=== PATIENT | male | born 1965 | race Caucasian/White ===

== ENCOUNTER 2017-01-22 23:48 | Emergency (ER) | payer BC, MEDICAID, OTHER ==
[~2017-01-22] VITALS: Ht 165.1 cm; Wt 75.0 kg
[2017-01-22 23:48] VITALS: BP 137/77
[~2017-01-22 23:48] MED LIST: ALBU1.25 INH; ALBU83IN INH; CEFT250S PO; LEVA750T7 PO; MONT10TA2 PO; NICO21DI5 TD; OMEP20CA3 PO; PRED10TA PO; PRED20TA PO; TYLE325T5 PO
[2017-01-23] MEDS ORDERED: PERCOCET 5MG/325MG TAB PO ONE (01:00)
[2017-01-23] MEDS ORDERED: IBUPROFEN 600 MG TAB PO ONE (01:00)
--- NOTE | 2017-01-23 02:40 | REPUSA ---
CLINICAL HISTORY: Back pain. TECHNIQUE: Multiple axial images were obtained through the L1-L2, L2-L3, L3-L4, L4-L5 and L5-S1 inter spaces. Images were also reconstructed in coronal and sagittal planes. COMMENTS: Mild degenerative levoscoliosis apex at L3. Straightening of the lumbar lordosis. There is no fracture visualized. The paraspinal soft tissues are unremarkable. There are no lytic or blastic lesions. Straightening of lumbar lordosis is seen, suggesting muscular spasm. There is evidence of multilevel disk disease, demonstrated by osteophytosis ad endplate sclerosis. Evaluation of individual levels reveals the following: At L3-L4, L4-L5 and L5-S1, broad-based disk protrusion in conjunction with hypertrophic facet disease results in mild bilateral foraminal narrowing. Canal is mildly stenotic. At L1-L2, L2-L3, broad-based disk bulge, results in mild bilateral foraminal narrowing. Canal is pineda nt. IMPRESSION: Spondylosis. Multilevel degenerative disc disease. Thank you for your kind referral of this patient.
[2017-01-23] MEDS ORDERED: VALI5TAB PO (03:09)
[2017-01-23] MEDS ORDERED: PERC5TAB12 PO (03:09)
[2017-01-23] MEDS ORDERED: NAPR500T PO (03:09)
[2017-01-23] MEDS ORDERED: OXYCODONE/APAP 5MG/325MG(BULK FOR ED) 1 TABLET PO ONE (03:15)
[2017-01-23] MEDS ORDERED: MORPHINE 10 MG/ML 1ML VIAL IM ONE (03:15)
== END 2017-01-23 04:08 | disposition home or self-care (01) ==
LOC: M ED 23:48
DX: M54.5 Low back pain (principal); F17.210 Nicotine dependence, cigarettes, uncomplicated
CPT/HCPCS: 72131; 96372; 99282; J3360

== ENCOUNTER → 2017-08-23 | Outpatient (CLI) | payer OTHER ==
[~2017-08-23] MED LIST changes: -ALBU1.25 INH; -ALBU83IN INH; -CEFT250S PO; +GASTROGRAFIN SOLUTION 30ML (Q9963) As Ordered; +ISOVUE-370 76% 100ML VIAL (Q9967) As Ordered; -LEVA750T7 PO; -MONT10TA2 PO; -NICO21DI5 TD; -OMEP20CA3 PO; -PRED10TA PO; -PRED20TA PO; -TYLE325T5 PO
== END ==
LOC: M RAD 13:25
DX: R10.30 Lower abdominal pain, unspecified (principal)
CPT/HCPCS: Q9963

== ENCOUNTER → 2017-10-25 | Outpatient (CLI) | payer OTHER ==
[~2017-10-25] MED LIST changes: -GASTROGRAFIN SOLUTION 30ML (Q9963) As Ordered; -ISOVUE-370 76% 100ML VIAL (Q9967) As Ordered; +METHACHOLINE KIT (J7674) INH
== END ==
LOC: M CARPUL 08:05
DX: R06.00 Dyspnea, unspecified (principal)
CPT/HCPCS: J7674

== ENCOUNTER 2019-05-19 20:09 | Inpatient (IN) | payer MEDICAID, OTHER ==
[~2019-05-19] VITALS: Ht 165.1 cm; Wt 77.3 kg
[~2019-05-19 20:09] MED LIST changes: +ALBU1.25 INH; +ALBU83IN INH; +CEFD1CAP8 PO; +CEFT250S PO; +LEVA750T7 PO; +LEVO750T13; +LEVO750T13 PO; +MEDR4PAK PO; +METH4PACK; -METHACHOLINE KIT (J7674) INH; +MONT10TA2 PO; +NAPR-837 PO; +NICO21DI6 TD; +OMEP1CAP73 PO; +PERC5TAB12 PO; +PRED-351 PO; +PRED10TA2 PO; +PRED20TA PO; +TYLE325T5 PO; +VALI5TAB PO; +VENTAER INH
[2019-05-19 20:48] LABS: HEMATOCRIT 47.8 % (42.0-52.0); HEMOGLOBIN 15.7 g/dl (13.5-17.5); MEAN CORPUSCULAR HEMOGLOBIN 28.9 pg (27.0-33.0); MEAN CORPUSCULAR HGB CONC 32.8 g/dl (32.0-36.5); PLATELET COUNT, AUTOMATED 264 10^3/uL (150-450); RED BLOOD COUNT 5.43 10^6/uL (4.30-6.10); WHITE BLOOD COUNT 16.8 10^3/uL (4.0-10.0)
[2019-05-19 21:07] LABS: AMPHETAMINES LEVEL URINE NEGATIVE (NEGATIVE); BARBITURATES URINE NEGATIVE (NEGATIVE); BENZODIAZEPINES URINE NEGATIVE (NEGATIVE); CANNABINOIDS URINE NEGATIVE (NEGATIVE); COCAINE METABOLITE URINE NEGATIVE (NEGATIVE); METHADONE URINE NEGATIVE (NEGATIVE); OPIATES URINE NEGATIVE (NEGATIVE); PHENCYCLIDINE URINE NEGATIVE (NEGATIVE)
[2019-05-19 21:26] LABS: ACETAMINOPHEN LEVEL < 2.0 UG/ML (10.0-30.0); ALBUMIN 3.9 GM/DL (3.2-5.2); ALT/SGPT 43 U/L (12-78); BILIRUBIN,DIRECT < 0.1 MG/DL (0.0-0.2); BILIRUBIN,TOTAL 0.3 MG/DL (0.2-1.0); BLOOD UREA NITROGEN 24 MG/DL (7-18); CALCIUM LEVEL 8.8 MG/DL (8.5-10.1); CARBON DIOXIDE LEVEL 21 MEQ/L (21-32); CHLORIDE LEVEL 107 MEQ/L (98-107); CREATININE FOR GFR 1.12 MG/DL (0.70-1.30); ETHYL ALCOHOL (ETHANOL) < 0.003 % (0.000-0.010); GLOMERULAR FILTRATION RATE > 60.0 (>56); GLUCOSE, FASTING 120 MG/DL (70-100); POTASSIUM SERUM 3.9 MEQ/L (3.5-5.1); SALICYLATE LEVEL 3.4 MG/DL (5.0-30.0); SODIUM LEVEL 138 MEQ/L (136-145); TOTAL PROTEIN 6.6 GM/DL (6.4-8.2)
--- NOTE | 2019-05-20 11:56 | ED PDOC ---
Provider Note Consult Harsh Roque MRN: N/A Date of : N/A Date of Service: 05/20/2019 Chief Complaint Consult for safety in the ER. History of Present Illness The patient a 53-year-old man with no major past psychiatric history presents for assessment after his sister had called 911 because he sent a picture of a reported suicidal note. The patient was brought in and assessed where he denied any suicidality, however, was quite angry and irritable that he was being assessed. The patient was unable to explain in depth these symptoms that had brought him and was minimizing. He reportedly is in the setting of having conflict with his kids, not being able to be with him and that he is having custody problems. He reports that he had sent his sister the letter, but had stopped answering his phone. He was not able to rectify how this might be viewed. He was still upset and irritated and thus the interview was limited. Review Of Systems The patient is mildly irritable, unable to engage in full review of systems. Past Psychiatric History Reports going to a mental health intake appointment. Reports being diagnosed with depression with sertraline 50 mg daily. Denies history of suicide attempts. Family Psychiatric History The patient denies any history of family psychiatric problems, suicides or major mental health problems or addiction. Social History The patient is a man with several children who do not live together with him. He has been together with his for 9 years, but is currently in the process of getting . Reports being employed at [employer], graduated the 11th grade. Reports parents with no history of trauma or abuse growing up. Currently lives alone. Medical History History of hypertension, migraines and chronic knee pain. Allergies See below Mental Status Examination General: Fair hygiene. Speech: Spontaneous and fluid Thought processes: Linear and logical MSK: Smooth and coordinated gait, no signs of tremors or involuntary orofacial movements Thought content: Angry and irritable. Abstract reasoning, and computation: Intact Description of associations: Intact Description of abnormal or psychotic thoughts: Denies any suicidal or homicidal ideation. Denies any auditory or visual hallucinations. Does not appear to be responding to internal stimuli. Does not appear to be endorsing any bizarre or paranoid ideation. Judgment: Appears impaired. Insight: Appears to be impaired. Orientation: Alert and orientated 3 Cognition: Grossly normal Recent and remote memory: Intact Attention span and concentration: Intact Fund of knowledge: Adequate Mood: "I want to leave." Affect: Irritable. Diagnoses Unspecified depressive disorder. Tobacco use disorder, unspecified. Assessment and Plan The patient will need an admission as the suicide note appears to be quite concerning at lease for observation. Discussed with patient, he would need to be observed as is concerning. He eventually appeared to understand as the situation is unclear. His insight is not great into the situation. Disposition Admission to [facility]. Time Spent 30 minutes. Monday KARLA REICH DO May 20, 2019 11:56
[2019-05-20] MEDS ORDERED: SERT50TA29 PO (12:01)
[2019-05-20] MEDS ORDERED: ALEV220T22 PO (12:01)
[2019-05-20] MEDS ORDERED: MAALOX 30 ML SUSP *UDC PO PRN (12:30)
[2019-05-20] MEDS ORDERED: traZODone 50 MG TAB PO PRN (12:30)
[2019-05-20] MEDS ORDERED: MOM 30ML SUSPENSION UDC PO PRN (12:30)
[2019-05-20] MEDS ORDERED: OLANZapine ORAL DISINTEGRATING TAB 5MG PO PRN (12:30)
[2019-05-20] MEDS ORDERED: diphenhydrAMINE 25 MG CAP PO PRN (12:30)
[2019-05-20 13:30] VITALS: BP 121/70
[2019-05-20] MEDS: SERTRALINE HCL 50 MG TAB PO SCH (14:17)
[2019-05-20] MEDS: IBUPROFEN 400 MG TAB PO PRN (14:18)
[2019-05-20] MEDS: ACETAMINOPHEN TAB 650MG DOSE (2X325MG) PO PRN (15:40)
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
[2019-05-20] MEDS ORDERED: ALBUTEROL 90 MCG/ACT 8GM HFA INHALER INH PRN (16:15)
[2019-05-20 16:55] VITALS: BP 119/67
[2019-05-21 05:55] VITALS: BP 152/82
[2019-05-21] MEDS: SERTRALINE HCL 50 MG TAB PO SCH (08:19)
[2019-05-21] MEDS: IBUPROFEN 400 MG TAB PO PRN (08:20)
--- NOTE | 2019-05-21 09:27 | MHHPEPDOC ---
[facility] History & Physical History and Physical DATE OF ADMISSION: May 20, 2019 at 12:28 New Patient Harsh Roque MRN: N/A Date of : N/A Date of Service: 05/21/2019 Chief Complaint "I realize what I did." History of Present Illness The patient, a 53-year-old man with a not known history of psychiatry with only a mild diagnosis of depression made by primary care, is admitted out of an abundance of caution after a reported suicide note was texted to his [place]. He was brought in out of an abundance of cautioned and admitted as he was not able to offer a sizeable explanation and would likely need observation to ensure that he was safe. When I met with the patient today, he reported that he was feeling much better and although he was unhappy about being admitted, he realized the situation that had brought him,. He reported that he felt that he was attempting to get attention and that what he had done was immature. He demonstrated improved insight and described that in the setting of his children not seeing him and the conflict with that he had had some low mood at times but no consistent symptoms of depression consistent with major depression but an adjustment problem, reporting that he felt that he had been doing fine prior to this. Review Of Systems Depression: As above. Anxiety: The patient denies any excessive worry associated with physical symptoms. They deny any experience of discreet panic in the past. Flavia: The patient denies any episodes of euphoria/dysphoria associated with decreased need for sleep, hedonism, talkatively or impulsivity lasting longer than 5 days. Psychotic: The patient denies any experiences of auditory or visual hallucinations. They deny any episodes of paranoia or delusional thinking in the past Trauma: The patient denies any traumatic events associated with nightmares or intrusive thoughts. Borderline: The patient screens negative for borderline personality at this junction. Past Psychiatric History Reports going to a mental health intake appointment. Reports being diagnosed with depression with sertraline 50 mg daily. Denies history of suicide attempts. Allergies Please see below. Family Psychiatric History Social History The patient is a man with several children who do not live together with him. He has been together with his for 9 years, but is currently in the process of getting . Reports being employed at [employer], graduated the 11th grade. Reports parents with no history of trauma or abuse growing up. Currently lives alone. Substance Abuse History Patient does report some tobacco use, namely 2 packs a day. Has tried Chantix and a number of other solutions, but has not been able to quit. Medical History Patient has no significant past medical history. History of hypertension, migraines and chronic knee pain. Mental Status Examination General: Well dressed with good hygiene Speech: Spontaneous and fluid Thought processes: Linear and logical MSK: Smooth and coordinated gait, no signs of tremors or involuntary orofacial movements Thought content: Future orientated Abstract reasoning, and computation: Intact Description of associations: Intact Description of abnormal or psychotic thoughts: Denies any suicidal or homicidal ideation. Denies any auditory or visual hallucinations. Does not appear to be responding to internal stimuli. Does not appear to be endorsing any bizarre or paranoid ideation. Judgment: fair Insight: fair Orientation: Alert and orientated 3 Cognition: Grossly normal Recent and remote memory: Intact Attention span and concentration: Intact Fund of knowledge: Adequate Mood: "okay" Affect: Euthymic with a full range Diagnoses Adjustment disorder with disruption of mood and conduct. Assessment and Plan The patient, a 53-year-old man with likely adjustment disorder, is seen again after observation on the inpatient unit. He has been denying any suicidal or homicidal ideation over the observation and has presented with improved insight into the situation. He has a normal mental status exam and has been generally amenable on the unit, compliant with medications. Declines further voluntary admission and thus at this time in my clinical judgment does not meet involuntary criteria for an extension of his admission past the 48-hour jeffy, and thus will be discharged in good gabriela. Disposition Same day discharge. Problem List 1. Risk for suicide. 2. Ineffective coping. Initial Treatment Plan 1. Patient was admitted on a 9.39 legal status. 2. Complete history was obtained. 3. With patients permission, family will be contacted and database will be expanded. 4. Patients medication regimen will be reviewed and changed accordingly. 5. Patient will be provided with protected environment. 6. Patient will be treated with individual, group, and milieu therapies. 7. Patient will receive supportive psych-education. 8. Discharge planning will commence immediately. 9. Outpatient follow-up treatment will be strongly recommended. 10. The initial treatment plan will focus initially on: Estimated Length Of Stay 1 day. Time Spent 70 minutes. Monday Vital Signs Vital Signs Date Time Temp Pulse Resp B/P (MAP) Pulse Ox O2 Delivery O2 Flow Rate FiO2 05/21/19 05:55 97.0 60 16 152/82 (105) 05/20/19 13:30 94 Room Air Medications Scheduled Sertraline HCl (Sertraline HCl) 50 Mg Tablet, 50 MG PO DAILY for mood Scheduled PRN Albuterol Sulfate (Ventolin Hfa) 108 Mcg/Act Aer, 2 PUFFS INH Q4H PRN for SHORTNESS OF BREATH, (Reported) Naproxen Sodium (Aleve) 220 Mg Tablet, 440 MG PO DAILY PRN for HEADACHE, (Reported) Allergies Coded Allergies: No Known Allergies (Unverified , 05/19/19) KARLA REICH DO May 21, 2019 09:27
--- NOTE | 2019-05-21 10:44 | MHDSPDOC ---
[facility] Discharge Summary Discharge Summary DATE OF ADMISSION: May 20, 2019 at 12:28 DATE OF DISCHARGE: 05/21/19 please see h/p for clinical course, dx and treatment for same day discharge Vital Signs/I&Os Vital Signs Date Time Temp Pulse Resp B/P (MAP) Pulse Ox O2 Delivery O2 Flow Rate FiO2 05/21/19 05:55 97.0 60 16 152/82 (105) 05/20/19 13:30 94 Room Air Medications Scheduled Sertraline HCl (Sertraline HCl) 50 Mg Tablet, 50 MG PO DAILY for mood for 7 Days, #7 Scheduled PRN Albuterol Sulfate (Ventolin Hfa) 108 Mcg/Act Aer, 2 PUFFS INH Q4H PRN for SHORTNESS OF BREATH, (Reported) Naproxen Sodium (Aleve) 220 Mg Tablet, 440 MG PO DAILY PRN for HEADACHE, (Reported) Allergies Coded Allergies: No Known Allergies (Unverified , 05/19/19) KARLA REICH DO May 21, 2019 10:44
[2019-05-21] MEDS: ACETAMINOPHEN TAB 650MG DOSE (2X325MG) PO PRN (10:45)
[2019-05-21] MEDS ORDERED: SERT50TA29 PO (10:52)
[2019-05-23] MEDS ORDERED: MELATAB2 PO (13:06)
== END 2019-05-21 12:19 | disposition home or self-care (01) | DRG 755 ==
LOC: M ED 20:09 → M ED INP 05-20 12:28 → M PSY 05-20 13:26
PROVIDERS: ADMIT Psychiatry & Neurology Addiction Medicine; ATTEND Psychiatry & Neurology Addiction Medicine
DX: F43.25 Adjustment disorder with mixed disturbance of emotions and conduct (principal); Z63.5 Disruption of family by separation and divorce; F17.210 Nicotine dependence, cigarettes, uncomplicated; I10 Essential (primary) hypertension; G43.909 Migraine, unspecified, not intractable, without status migrainosus; G89.29 Other chronic pain; M25.569 Pain in unspecified knee; Z79.899 Other long term (current) drug therapy; J44.9 Chronic obstructive pulmonary disease, unspecified; K21.9 Gastro-esophageal reflux disease without esophagitis; Z90.49 Acquired absence of other specified parts of digestive tract

== ENCOUNTER 2019-07-25 14:47 | Emergency (ER) | payer MEDICAID, OTHER ==
[~2019-07-25] VITALS: Ht 165.1 cm; Wt 77.6 kg
[~2019-07-25 14:47] MED LIST changes: +ALEV220T22 PO; +MELATAB2 PO; -MONT10TA2 PO; +MONT10TA4 PO; +SERT50TA29 PO
[2019-07-25] MEDS ORDERED: ALBU8.5H (14:56)
[2019-07-25] MEDS ORDERED: AMIT25TA (14:56)
[2019-07-25 15:26] LABS: BASO # 0.1 10^3/uL (0.0-0.2); BASO % 0.7 % (0.0-1.0); EOS % 8.3 % (0.0-3.0); HEMATOCRIT 47.4 % (42.0-52.0); LYMPH # 2.2 10^3/uL (1.5-5.0); LYMPH % 19.4 % (24.0-44.0); MEAN CORPUSCULAR HEMOGLOBIN 30.4 pg (27.0-33.0); MEAN CORPUSCULAR HGB CONC 33.8 g/dl (32.0-36.5); MEAN CORPUSCULAR VOLUME 89.9 fl (80.0-96.0); MONO % 8.8 % (0.0-5.0); NEUTROPHILS # 7.2 10^3/uL (1.5-8.5); NEUTROPHILS % 62.3 % (36.0-66.0); PLATELET COUNT, AUTOMATED 235 10^3/uL (150-450); RED BLOOD COUNT 5.27 10^6/uL (4.30-6.10); WHITE BLOOD COUNT 11.5 10^3/uL (4.0-10.0)
[2019-07-25 15:52] LABS: ALBUMIN 4.1 GM/DL (3.2-5.2); ALT/SGPT 45 U/L (12-78); BILIRUBIN,DIRECT < 0.1 MG/DL (0.0-0.2); BILIRUBIN,TOTAL 0.4 MG/DL (0.2-1.0); BLOOD UREA NITROGEN 15 MG/DL (7-18); CALCIUM LEVEL 8.9 MG/DL (8.5-10.1); CARBON DIOXIDE LEVEL 28 MEQ/L (21-32); CHLORIDE LEVEL 111 MEQ/L (98-107); CK-MB VALUE MASS 3.6 NG/ML (<3.6); CPK CREATINE PHOSPHOKINASE 484 U/L (39-308); CREATININE FOR GFR 1.15 MG/DL (0.70-1.30); GLOMERULAR FILTRATION RATE > 60.0 (>56); GLUCOSE, FASTING 95 MG/DL (70-100); MB/CK RELATIVE INDEX 0.74 (< OR =4); NT-PRO BNP 56 PG/ML (<125); POTASSIUM SERUM 3.9 MEQ/L (3.5-5.1); SODIUM LEVEL 143 MEQ/L (136-145); TROPONIN I < 0.02 NG/ML (< 0.10)
--- NOTE | 2019-07-25 16:35 | REP ---
CHEST, SINGLE VIEW: COMPARISON: 01/02/2018. There is no evidence of acute infiltrate. No pleural effusion is seen. The heart is normal in size. The mediastinal silhouette is unremarkable. The visualized osseous structures are intact. IMPRESSION: No acute pulmonary disease. Electronically Signed by Bro Cervantes MD 07/25/2019 05:01 P
[2019-07-25] MEDS ORDERED: ACETAMINOPHEN 325 MG TAB PO ONE (16:45)
[2019-07-25] MEDS: COMBIVENT RESPIMAT 100-20MCG INHALER 4GM INH SCH ×3 (16:52→17:32)
[2019-07-25 17:30] VITALS: BP 134/75
[2019-07-25] MEDS ORDERED: predniSONE 20 MG TAB PO ONE (18:00)
[2019-07-25 18:01] VITALS: O2SAT 93
[2019-07-25] MEDS ORDERED: PRED20TA PO (18:01)
[2019-07-25] MEDS ORDERED: DOXY150C PO (18:02)
--- NOTE | 2019-07-27 08:38 | ECGEPIP ---
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
== END 2019-07-25 18:22 | disposition home or self-care (01) ==
LOC: M ED 14:47
DX: J44.1 Chronic obstructive pulmonary disease with (acute) exacerbation (principal); J20.9 Acute bronchitis, unspecified; F17.200 Nicotine dependence, unspecified, uncomplicated; Z82.49 Family history of ischemic heart disease and other diseases of the circulatory system
CPT/HCPCS: 71045; 80048; 80076; 82550; 82553; 83880; 85025; 87040; 87486; 87581; 87633; 87798; 93005; 93041; 94640; 94664; 94760; 99285; U0002

== ENCOUNTER 2019-08-05 08:02 | Emergency (ER) | payer MEDICAID, OTHER, SELFPAY ==
[~2019-08-05] VITALS: Ht 165.1 cm; Wt 77.7 kg
[~2019-08-05 08:02] MED LIST changes: +ALBU8.5H INH; +AMIT25TA; +DOXY150C PO
[2019-08-05] MEDS: IPRATROPIUM 0.5MG/ALBUTEROL 2.5MG INH SOL UD 3ML (DUONEB)(J7620) NEB SCH ×3 (08:43→09:20)
[2019-08-05] MEDS ORDERED: methylPREDNISolone INJ 125 MG/2 ML VIAL (J2930) IV ONE (08:45)
[2019-08-05 09:04] LABS: BASO # 0.1 10^3/uL (0.0-0.2); EOS % 7.9 % (0.0-3.0); HEMATOCRIT 50.7 % (42.0-52.0); HEMOGLOBIN 16.6 g/dl (13.5-17.5); LYMPH # 1.7 10^3/uL (1.5-5.0); LYMPH % 12.8 % (24.0-44.0); MEAN CORPUSCULAR HEMOGLOBIN 29.5 pg (27.0-33.0); MEAN CORPUSCULAR HGB CONC 32.7 g/dl (32.0-36.5); MEAN CORPUSCULAR VOLUME 90.1 fl (80.0-96.0); MONO # 1.2 10^3/uL (0.0-0.8); MONO % 9.3 % (0.0-5.0); NEUTROPHILS # 8.9 10^3/uL (1.5-8.5); NEUTROPHILS % 66.9 % (36.0-66.0); PLATELET COUNT, AUTOMATED 217 10^3/uL (150-450); RED BLOOD COUNT 5.63 10^6/uL (4.30-6.10); WHITE BLOOD COUNT 13.2 10^3/uL (4.0-10.0)
--- NOTE | 2019-08-05 09:19 | REP ---
Portable chest x-ray: Single view. History: Dyspnea and cough. Comparison chest x-ray: July 25, 2019. Findings: Monitoring electrodes are seen. The lungs are well inflated. No infiltrate is seen. Pleural angles are sharp. Heart size is normal. Pulmonary vasculature is not increased. No bony abnormality. Impression: No active disease. Electronically Signed by Bladimir Blackwell MD 08/05/2019 09:10 A
[2019-08-05 09:30] LABS: BLOOD UREA NITROGEN 17 MG/DL (7-18); CALCIUM LEVEL 9.2 MG/DL (8.5-10.1); CARBON DIOXIDE LEVEL 25 MEQ/L (21-32); CHLORIDE LEVEL 108 MEQ/L (98-107); CK-MB VALUE MASS 6.7 NG/ML (<3.6); CPK CREATINE PHOSPHOKINASE 783 U/L (39-308); GLOMERULAR FILTRATION RATE > 60.0 (>56); GLUCOSE, FASTING 117 MG/DL (70-100); MB/CK RELATIVE INDEX 0.86 (< OR =4); POTASSIUM SERUM 4.1 MEQ/L (3.5-5.1); SODIUM LEVEL 141 MEQ/L (136-145); TROPONIN I < 0.02 NG/ML (< 0.10)
[2019-08-05 10:15] VITALS: BP 164/87
[2019-08-05] MEDS ORDERED: PRED10TA2 PO (10:28)
--- NOTE | 2019-08-06 08:28 | ECGEPIP ---
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
== END 2019-08-05 10:32 | disposition home or self-care (01) ==
LOC: M ED 08:02
DX: J44.1 Chronic obstructive pulmonary disease with (acute) exacerbation (principal); R00.0 Tachycardia, unspecified; K21.9 Gastro-esophageal reflux disease without esophagitis; F32.9 Major depressive disorder, single episode, unspecified
CPT/HCPCS: 71045; 80048; 82550; 82553; 82803; 85025; 93005; 93041; 94640; 99284; J2930

== ENCOUNTER 2019-08-07 14:20 | Inpatient (IN) | payer MEDICAID, OTHER ==
[~2019-08-07] VITALS: Ht 165.1 cm; Wt 76.8 kg
[2019-08-07] MEDS: ENOXAPARIN 40 MG/0.4 ML SYRINGE (J1650) SC SCH (09:00)
[2019-08-07] MEDS ORDERED: IPRA0.00 INH (14:26)
[2019-08-07] MEDS ORDERED: STIO1AER PO (14:26)
[2019-08-07] MEDS ORDERED: ARNU1INH3 INH (14:26)
[2019-08-07] MEDS ORDERED: NS 1,000 ML IV SCH (14:47)
[2019-08-07] MEDS ORDERED: methylPREDNISolone INJ 125 MG/2 ML VIAL (J2930) IV ONE (15:00)
[2019-08-07] MEDS ORDERED: ASPIRIN 81 MG CHEW TABLET PO ONE (15:00)
[2019-08-07] MEDS: COMBIVENT RESPIMAT 100-20MCG INHALER 4GM INH PRN ×3 (15:08→16:00)
--- NOTE | 2019-08-07 15:16 | REP ---
PORTABLE CHEST X-RAY: SINGLE VIEW. HISTORY: Dyspnea and cough. Comparison chest x-ray: August 05, 2019. FINDINGS: Monitoring electrodes and oxygen delivery tubing are seen. There is minimal pleuroparenchymal fibrosis in the left lateral lung base unchanged. Lung cortez are otherwise clear. The pleural angles are sharp. Heart size is normal. Pulmonary vasculature is not increased. IMPRESSION: No infiltrate seen. Minimal linear pleuroparenchymal fibrosis left base. Otherwise no acute disease. Electronically Signed by Bladimir Blackwell MD 08/07/2019 03:30 P
[2019-08-07 15:25] LABS: ABG BASE EXCESS -2.1 (-2.0-2.0); ABG HCO3 20.5 MEQ/L (22.0-26.0); ABG O2 SATURATION 96.6 % (95.0-99.0); ABG PARTIAL PRESSURE CO2 30.3 mmHg (35.0-45.0); ABG PARTIAL PRESSURE O2 83.5 mmHg (75.0-100.0); ABG STANDARD HCO3 22.7 MEQ/L (22.0-26.0); ABG TOTAL CO2 21.5 MEQ/L (22.0-29.0); ABG pH (ARTERIAL) 7.449 UNITS (7.350-7.450)
[2019-08-07 15:30] LABS: BASO % 0.1 % (0.0-1.0); EOS % 0.1 % (0.0-3.0); HEMATOCRIT 47.3 % (42.0-52.0); HEMOGLOBIN 16.2 g/dl (13.5-17.5); LYMPH # 1.3 10^3/uL (1.5-5.0); MEAN CORPUSCULAR HEMOGLOBIN 30.2 pg (27.0-33.0); MEAN CORPUSCULAR HGB CONC 34.2 g/dl (32.0-36.5); MEAN CORPUSCULAR VOLUME 88.2 fl (80.0-96.0); MONO # 0.6 10^3/uL (0.0-0.8); MONO % 4.4 % (0.0-5.0); NEUTROPHILS # 12.2 10^3/uL (1.5-8.5); PLATELET COUNT, AUTOMATED 226 10^3/uL (150-450); RED BLOOD COUNT 5.36 10^6/uL (4.30-6.10); WHITE BLOOD COUNT 14.4 10^3/uL (4.0-10.0)
[2019-08-07 15:40] LABS: INR 1.09; PROTHROMBIN TIME 13.8 SECONDS (11.8-14.0)
[2019-08-07 15:54] LABS: ALT/SGPT 55 U/L (12-78); BILIRUBIN,DIRECT 0.1 MG/DL (0.0-0.2); BILIRUBIN,TOTAL 0.4 MG/DL (0.2-1.0); BLOOD UREA NITROGEN 25 MG/DL (7-18); CALCIUM LEVEL 9.1 MG/DL (8.5-10.1); CARBON DIOXIDE LEVEL 23 MEQ/L (21-32); CHLORIDE LEVEL 106 MEQ/L (98-107); CK-MB VALUE MASS 5.6 NG/ML (<3.6); CPK CREATINE PHOSPHOKINASE 833 U/L (39-308); CREATININE FOR GFR 1.19 MG/DL (0.70-1.30); GLOMERULAR FILTRATION RATE > 60.0 (>56); GLUCOSE, FASTING 125 MG/DL (70-100); MB/CK RELATIVE INDEX 0.67 (< OR =4); NT-PRO BNP 43 PG/ML (<125); POTASSIUM SERUM 4.1 MEQ/L (3.5-5.1); SODIUM LEVEL 138 MEQ/L (136-145); TOTAL PROTEIN 7.2 GM/DL (6.4-8.2); TROPONIN I < 0.02 NG/ML (< 0.10)
[2019-08-07] MEDS ORDERED: PRED10TA2 PO (15:54)
[2019-08-07] MEDS ORDERED: ECOT81TA5 PO (15:58)
[2019-08-07] MEDS ORDERED: SERT50TA29 PO (15:58)
[2019-08-07] MEDS ORDERED: HYDR-3911 PO (15:58)
[2019-08-07] MEDS ORDERED: AMIT25TA PO (15:58)
[2019-08-07] MEDS ORDERED: D5W/0.45% SODIUM CHLORIDE 1,000 ML IV SCH (16:45)
[2019-08-07] MEDS ORDERED: BENZONATATE 100 MG CAP PO PRN (16:45)
[2019-08-07] MEDS ORDERED: IPRATROPIUM 0.5MG/ALBUTEROL 2.5MG INH SOL UD 3ML (DUONEB)(J7620) NEB PRN (16:45)
[2019-08-07] MEDS ORDERED: ISOVUE-370 76% 100ML VIAL (Q9967) As Ordered ONE (17:27)
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
[2019-08-07 18:00] VITALS: BP 148/72
[2019-08-07] MEDS ORDERED: AZITHROMYCIN INJ 500 MG, VIAL MATE ADAPTER 1 EACH in D5W 250 ML IV SCH (18:00)
--- NOTE | 2019-08-07 19:23 | ECGEPIP ---
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
[2019-08-07 20:00] VITALS: BP 121/59
[2019-08-07 20:02] LABS: C REACTIVE PROTEIN QUANTITATIV < 0.30 MG/DL (0.00-0.30); FERRITIN 233 NG/ML (26-388); LDH LACTATE DEHYDROGENASE 231 U/L (87-241)
[2019-08-07] MEDS: IPRATROPIUM 0.5MG/ALBUTEROL 2.5MG INH SOL UD 3ML (DUONEB)(J7620) NEB SCH (20:09)
[2019-08-07] MEDS: methylPREDNISolone INJ 125 MG/2 ML VIAL (J2930) IV SCH (20:56)
[2019-08-07] MEDS: guaiFENesin ER 600 MG TAB PO SCH (20:56)
[2019-08-07 21:40] LABS: CK-MB VALUE MASS 4.2 NG/ML (<3.6); CPK CREATINE PHOSPHOKINASE 711 U/L (39-308); MB/CK RELATIVE INDEX 0.59 (< OR =4); TROPONIN I < 0.02 NG/ML (< 0.10)
[2019-08-08] VITALS: BP 127/58
[2019-08-08 03:46] LABS: BASO # 0.1 10^3/uL (0.0-0.2); BASO % 0.2 % (0.0-1.0); HEMATOCRIT 46.3 % (42.0-52.0); HEMOGLOBIN 15.5 g/dl (13.5-17.5); LYMPH # 1.3 10^3/uL (1.5-5.0); LYMPH % 4.3 % (24.0-44.0); MEAN CORPUSCULAR HEMOGLOBIN 29.9 pg (27.0-33.0); MEAN CORPUSCULAR HGB CONC 33.5 g/dl (32.0-36.5); MEAN CORPUSCULAR VOLUME 89.2 fl (80.0-96.0); MONO # 0.9 10^3/uL (0.0-0.8); MONO % 3.1 % (0.0-5.0); NEUTROPHILS # 27.2 10^3/uL (1.5-8.5); NEUTROPHILS % 91.2 % (36.0-66.0); PLATELET COUNT, AUTOMATED 223 10^3/uL (150-450); RED BLOOD COUNT 5.19 10^6/uL (4.30-6.10); WHITE BLOOD COUNT 29.8 10^3/uL (4.0-10.0)
[2019-08-08 04:00] VITALS: BP 139/83
[2019-08-08 04:25] LABS: BLOOD UREA NITROGEN 25 MG/DL (7-18); CALCIUM LEVEL 8.8 MG/DL (8.5-10.1); CARBON DIOXIDE LEVEL 23 MEQ/L (21-32); CHLORIDE LEVEL 109 MEQ/L (98-107); CK-MB VALUE MASS 3.2 NG/ML (<3.6); CPK CREATINE PHOSPHOKINASE 490 U/L (39-308); CREATININE FOR GFR 1.07 MG/DL (0.70-1.30); GLOMERULAR FILTRATION RATE > 60.0 (>56); GLUCOSE, FASTING 128 MG/DL (70-100); MAGNESIUM LEVEL 2.4 MG/DL (1.8-2.4); MB/CK RELATIVE INDEX 0.65 (< OR =4); POTASSIUM SERUM 4.5 MEQ/L (3.5-5.1); SODIUM LEVEL 140 MEQ/L (136-145); TROPONIN I < 0.02 NG/ML (< 0.10)
[2019-08-08] MEDS: methylPREDNISolone INJ 125 MG/2 ML VIAL (J2930) IV SCH (06:12)
[2019-08-08] MEDS: IPRATROPIUM 0.5MG/ALBUTEROL 2.5MG INH SOL UD 3ML (DUONEB)(J7620) NEB SCH ×3 (07:10→19:44)
[2019-08-08 07:39] VITALS: BP 142/68
[2019-08-08] MEDS: guaiFENesin ER 600 MG TAB PO SCH ×2 (08:37→21:24)
[2019-08-08] MEDS: ENOXAPARIN 40 MG/0.4 ML SYRINGE (J1650) SC SCH (08:37)
--- NOTE | 2019-08-08 08:37 | REP ---
REPEAT DICTATION CT PULMONARY ANGIOGRAM: With IV contrast. HISTORY: Dyspnea and cough. Hypoxia. Preliminary report is provided at the time of exam by [facility]. COMPARISON STUDIES: Comparison study January 02, 2018. CONTRAST DOSE: 75 mL of Isovue [address] TECHNIQUE: Helical scanning is acquired and overlapping 1.5 mm and contiguous 3 mm axial images are reformatted. In addition, maximum intensity projection and multiplanar re-formation images are generated in sagittal and coronal imaging projections. CT PULMONARY ANGIOGRAPHIC FINDINGS: There is good opacification of the pulmonary arterial tree. There is no CT evidence of pulmonary embolism. The thoracic aorta enhances homogeneously and is normal in course and caliber. No aneurysm or dissection is seen. There is no evidence of pleural or pericardial effusion. No hilar or mediastinal mass or adenopathy is observed. The visualized upper abdominal structures are unremarkable. In the lung parenchyma, there are multifocal predominately peripheral areas of ground-glass opacification in the upper and lower lung cortez bilaterally consistent with viral pneumonia. There is a small wedge-shaped area of linear discoid atelectasis or consolidation in the lingula. Ground-glass opacity pattern is a little more extensive in the lower lobes posteriorly bilaterally. A granulomatous calcification in the right upper lobe. No solid nodule is seen. No mass lesion is observed. Parenchymal infiltrates are a new finding compared to the prior study. IMPRESSION: Commonly reported imaging features of COVID 19 pneumonia are present. Other processes such as influenza pneumonia, drug toxicity, and connective tissue disease can produce a similar pattern. There is no CT evidence of pulmonary embolism. Electronically Signed by Bladimir Blackwell MD 08/08/2019 10:05 A
[2019-08-08 12:00] VITALS: BP 146/76
--- NOTE | 2019-08-08 12:29 | IPNPDOC ---
Text Note Date of Service The patient was seen on 08/08/19. NOTE Subjective: Patient is 53-year-old male with a PMHx of COPD (not oxygen dependent), Recurrent PNA, GERD who presented to the emergency room with worsening shortness of breath, associated with cough for years. However, over last couple of weeks it has been worsening. Patient notes that his baseline. He uses his nebulizer 4 times a day, but has been increasing the frequency because of shortness of breath. Has reported brownish / yellow sputum productive cough. Patient denies any blood in his sputum. Of relevance, patient was in the ER on 07/24 and was found to have been negative respiratory panel and COVID19 PCR. Patient was admitted to hospitalist service for further evaluation. Patient was seen and examined at the bedside. Objective: Vitals (See below) General: Lying in bed, no acute distress, comfortable, AAOx3 HEENT: NC, AT CVS: +S1S2 Lungs: Improved aeration bilaterally, mild wheezing noted. No rhonchi or scrap burner ckles Abdomen: Soft, ND, NT Extremities: - Edema, - Calf tenderness Assessment and plan: Shortness of breath associated with productive cough and wheezing - likely 2/2 acute COPD exacerbation - Failed outpatient management after presenting to the emergency room for the th ird time - Clinically has improvement of his shortness of breath and wheezing - Physical reveals improved aeration - CXR 08/06: No infiltrate seen. Minimal linear pleuroparenchymal fibrosis left base. Otherwise no acute disease. - CT chest 08/07: Commonly reported imaging features of COVID 19 pneumonia are present. Other processes such as influenza pneumonia, drug toxicity, and connective tissue disease can produce a similar pattern. There is no CT evidence of pulmonary embolism. - c/w Solu-Medrol; will reduce dose - c/w Inhaled DuoNeb therapy - c/w guaifenesin and Tessalon Perles - c/w azithromycin for immunomodulatory effect and possible bronchitis - c/w Acapella and incentive spirometry Imaging suggesting COVID 19 - Clinically patient does not experienced any fevers - Evidence of alternative diagnosis with improvement on therapy present (Acute COPD) - Lab work does not reveal any elevation of ferritin, C-reactive protein or D- dimer's - No leukopenia / thrombocytopenia - COVID PCR 07/26: Negative s/p Pleuritic chest pain - likely 2/2 excessive coughing - Patient describes atypical chest pain - Troponin x 3 negative - EKG is negative and consistent with prior - c/w telemetry monitoring - See above Leukocytosis - likely 2/2 corticosteroid use recently, - Patient remains afebrile and hemodynamically stable - Imaging negative - Will continue with azithromycin as noted above Elevated CK - Has been trending down with IV fluid hydration - c/w gentle IV fluid hydration DVT prophylaxis - c/w Lovenox Disposition: - Anticipate discharge tomorrow AM VS,Rios, I+O VS, Rios, I+O Laboratory Tests 08/07/19 15:05 08/08/19 03:35 Vital Signs Date Time Temp Pulse Resp B/P (MAP) Pulse Ox O2 Delivery O2 Flow Rate FiO2 08/08/19 12:00 98.3 87 17 146/76 (99) 92 Room Air 08/08/19 07:39 2.0 I&O- Last 24 Hours up to 6 AM 08/08/19 06:00 Intake Total 2460 ml Output Total 1325 ml Balance 1135 ml AUGUSTUS RODRIGUEZ MD Aug 08, 2019 12:29
[2019-08-08 16:00] VITALS: BP 136/90
[2019-08-08] MEDS: methylPREDNISolone INJ 40 MG/1 ML VIAL (J2920) IV SCH (17:33)
[2019-08-08] MEDS ORDERED: AZITHROMYCIN 250MG TABLET PO SCH (18:00)
[2019-08-08 20:00] VITALS: BP 134/72
[2019-08-09] VITALS: BP 133/62
[2019-08-09] MEDS: IPRATROPIUM 0.5MG/ALBUTEROL 2.5MG INH SOL UD 3ML (DUONEB)(J7620) NEB SCH ×2 (02:06→07:10)
[2019-08-09 04:00] VITALS: BP 120/71
[2019-08-09] MEDS: methylPREDNISolone INJ 40 MG/1 ML VIAL (J2920) IV SCH (04:30)
[2019-08-09 04:57] LABS: BASO % 0.1 % (0.0-1.0); HEMATOCRIT 43.8 % (42.0-52.0); HEMOGLOBIN 14.8 g/dl (13.5-17.5); LYMPH # 1.9 10^3/uL (1.5-5.0); LYMPH % 6.6 % (24.0-44.0); MEAN CORPUSCULAR HEMOGLOBIN 29.8 pg (27.0-33.0); MEAN CORPUSCULAR HGB CONC 33.8 g/dl (32.0-36.5); MEAN CORPUSCULAR VOLUME 88.3 fl (80.0-96.0); MONO # 1.6 10^3/uL (0.0-0.8); MONO % 5.5 % (0.0-5.0); NEUTROPHILS # 24.1 10^3/uL (1.5-8.5); NEUTROPHILS % 86.1 % (36.0-66.0); PLATELET COUNT, AUTOMATED 210 10^3/uL (150-450); RED BLOOD COUNT 4.96 10^6/uL (4.30-6.10)
[2019-08-09 05:25] LABS: BLOOD UREA NITROGEN 20 MG/DL (7-18); CALCIUM LEVEL 8.6 MG/DL (8.5-10.1); CARBON DIOXIDE LEVEL 24 MEQ/L (21-32); CHLORIDE LEVEL 111 MEQ/L (98-107); CREATININE FOR GFR 0.99 MG/DL (0.70-1.30); GLOMERULAR FILTRATION RATE > 60.0 (>56); GLUCOSE, FASTING 115 MG/DL (70-100); MAGNESIUM LEVEL 2.6 MG/DL (1.8-2.4); POTASSIUM SERUM 3.9 MEQ/L (3.5-5.1); SODIUM LEVEL 143 MEQ/L (136-145)
[2019-08-09 05:31] LABS: FERRITIN 209 NG/ML (26-388); LDH LACTATE DEHYDROGENASE 225 U/L (87-241)
[2019-08-09 08:00] VITALS: BP 130/81
[2019-08-09] MEDS: guaiFENesin ER 600 MG TAB PO SCH (08:11)
[2019-08-09] MEDS: ENOXAPARIN 40 MG/0.4 ML SYRINGE (J1650) SC SCH (08:12)
[2019-08-09] MEDS ORDERED: MUCI600T31 PO (08:38)
[2019-08-09] MEDS ORDERED: AZIT-12 PO (08:38)
[2019-08-09] MEDS ORDERED: BENZ-18 PO (08:38)
[2019-08-09] MEDS ORDERED: PRED10TA2 PO (08:38)
[2019-08-09] MEDS ORDERED: FLUBLOK(EGG FREE)(QUAD)INFLUENZA VACC 0.5ML SYRINGE (90682)18YRS&OLDER IM ONE (09:00)
--- NOTE | 2019-08-09 11:22 | DS.PDOC ---
Discharge Summary General Date of Admission Aug 07, 2019 at 16:36 Date of Discharge 08/09/2019 Discharge Summary PROCEDURES PERFORMED DURING STAY: [None]. ADMITTING DIAGNOSES / DISCHARGE DIAGNOSES: Shortness of breath associated with productive cough and wheezing - likely 2/2 Acute COPD exacerbation Imaging suggestive of COVID 19 s/p Pleuritic chest pain - likely 2/2 excessive coughing Leukocytosis - likely 2/2 corticosteroid use recently, Elevated CK DVT prophylaxis COMPLICATIONS/CHIEF COMPLAINT: Shortness of breath HISTORY OF PRESENT ILLNESS: Patient is 53-year-old male with a PMHx of COPD (not oxygen dependent), Recurrent PNA, GERD who presented to the emergency room with wors ening shortness of breath, associated with cough for years. However, over last couple of weeks it has been worsening. Patient notes that his baseline. He uses his nebulizer 4 times a day, but has been increasing the frequency because of shortness of breath. Has reported brownish / yellow sputum productive cough. Patient denies any blood in his sputum. Of relevance, patient was in the ER on 07/24 and was found to have been negative respiratory panel and COVID19 PCR. Patient was admitted to hospitalist service for further evaluation. HOSPITAL COURSE: Shortness of breath associated with productive cough and wheezing - likely 2/2 acute COPD exacerbation - Failed outpatient management after presenting to the emergency room for the third time - Clinically has improvement of his shortness of breath and wheezing - Physical reveals improved aeration - CXR 08/06: No infiltrate seen. Minimal linear pleuroparenchymal fibrosis left base. Otherwise no acute disease. - CT chest 08/07: Commonly reported imaging features of COVID 19 pneumonia are present. Other processes such as influenza pneumonia, drug toxicity, and connective tissue disease can produce a similar pattern. There is no CT evidence of pulmonary embolism. - Will DC Solu-Medrol; Will continue with Prednisone taper on discharge - c/w Inhaled DuoNeb therapy - c/w guaifenesin and Tessalon Perles - c/w azithromycin for immunomodulatory effect and possible bronchitis - c/w Acapella and incentive spirometry Imaging suggesting COVID 19 - Clinically patient does not experienced any fevers - Evidence of alternative diagnosis with improvement on therapy present (Acute COPD) - Lab work does not reveal any elevation of ferritin, C-reactive protein or D- dimer's - No leukopenia / thrombocytopenia - COVID PCR 07/26: Negative - Discussed with infectious disease; imaging was reviewed with radiology; will repeat COVID testing for public health - Has been advised to remain in self quarantine for 2 weeks / until further notice - Patient has remained of droplet precautions and N95 mask was used during evaluation / patient encounters s/p Pleuritic chest pain - likely 2/2 excessive coughing - Patient describes atypical chest pain - Troponin x 3 negative - EKG is negative and consistent with prior - c/w telemetry monitoring - See above Leukocytosis - likely 2/2 corticosteroid use recently, - Patient remains afebrile and hemodynamically stable - Imaging negative - Will continue with azithromycin as noted above Elevated CK - Has been trending down with IV fluid hydration - s/p gentle IV fluid hydration DVT prophylaxis - c/w Lovenox DISCHARGE MEDICATIONS: Please see below. ALLERGIES: Please see below. PHYSICAL EXAMINATION ON DISCHARGE: Vitals (See below) General: Lying in bed, no acute distress, remains comfortable, AAOx3 HEENT: NC, AT CVS: +S1S2 Lungs: Improved aeration bilaterally, no significant wheezing / rhonchi / rales Abdomen: Soft, non-distended, non-tender Extremities: No evidence of LE edema, - Calf tenderness LABORATORY DATA: Please see below. ACTIVITY: [As tolerated]. DISCHARGE PLAN: Follow up with PCP within 7 days Remain compliant with treatment plan and medications Return to the ER if you experience any problems Remains self quarantined for 2 weeks / until further notice DISPOSITION: Home with self quarantine DISCHARGE CONDITION: [Stable]. TIME SPENT ON DISCHARGE: 35 minutes Vital Signs/I&Os Vital Signs Date Time Temp Pulse Resp B/P (MAP) Pulse Ox O2 Delivery O2 Flow Rate FiO2 08/09/19 08:00 97.9 85 20 130/81 (97) 96 Room Air 08/08/19 07:39 2.0 I&O- Last 24 Hours up to 6 AM 08/09/19 05:59 Intake Total 2180 ml Output Total 600 ml Balance 1580 ml Laboratory Data Labs 24H Laboratory Tests 2 08/09/19 04:30: Immature Granulocyte % (Auto) 1.7, Neutrophils (%) (Auto) 86.1H, Lymphocytes (%) (Auto) 6.6L, Monocytes (%) (Auto) 5.5H, Eosinophils (%) (Auto) 0.0, Basophils (%) (Auto) 0.1, Neutrophils # (Auto) 24.1H, Lymphocytes # (Auto) 1.9, Monocytes # (Auto) 1.6H, Eosinophils # (Auto) 0.0, Basophils # (Auto) 0.0, Nucleated Red Blood Cells % (auto) 0.0, Anion Gap 8, Glomerular Filtration Rate > 60.0, Calcium Level 8.6, Magnesium Level 2.6H, Ferritin 209, Lactate Dehydrogenase 225 CBC/BMP Laboratory Tests 08/09/19 04:30 Microbiology Microbiology 08/09/19 Coronavirus COVID-19 PCR ([facility]YLOR), Received Pending 08/07/19 Blood Culture - Preliminary, Resulted No growth after 24 hours . All specim... 08/07/19 Blood Culture - Preliminary, Resulted No growth after 24 hours . All specim... Discharge Medications Scheduled Amitriptyline HCl (Amitriptyline HCl) 25 Mg Tablet, 25 MG PO QHS, (Reported) Aspirin (Ecotrin) 81 Mg Tablet.dr, 81 MG PO DAILY, (Reported) Azithromycin (Azithromycin) 250 Mg Tablet, 250 MG PO Q24H Fluticasone Furoate (Arnuity Ellipta) 200 Mcg Blst.w.dev, 1 PUFF INH DAILY, (Reported) Guaifenesin (Mucinex) 600 Mg Tab.er.12h, 1,200 MG PO BID Hydralazine HCl (Hydralazine HCl) 50 Mg Tablet, 50 MG PO TID, (Reported) Ipratropium/Albuterol Sulfate (Iprat-Albut 0.5-3(2.5) mg/3 ml) 3 Ml Ampul.neb, 1 VIAL INH QID, (Reported) Prednisone (Prednisone) 10 Mg Tablet, 10 MG PO TAPER Take 4 tabs daily x 3 days, then 3 tabs daily x 3 days, then 2 tabs daily x 3 days, then 1 tab daily x 3 days and stop Sertraline HCl (Sertraline HCl) 50 Mg Tablet, 50 MG PO DAILY, (Reported) Tiotropium Br/Olodaterol HCl (Stiolto Respimat Inhal [place]) 4 Gm Mist.inhal, 1 PUFF PO QHS, (Reported) Scheduled PRN Albuterol Sulfate (Albuterol Sulfate Hfa) 8.5 Gm Hfa.aer.ad, 2 PUFFS INH Q6H PRN for SHORTNESS OF BREATH, (Reported) Benzonatate (Benzonatate) 100 Mg Capsule, 100 MG PO TIDP PRN for COUGH Allergies Coded Allergies: No Known Allergies (Unverified , 05/19/19) AUGUSTUS RODRIGUEZ MD Aug 09, 2019 11:22
== END 2019-08-09 11:25 | disposition home or self-care (01) | DRG 140 ==
LOC: M ED 15:53 → M ED INP 16:36 → ENRESERVTM 17:18 → ENRESERVDT 17:18 → M PCU 18:19
PROVIDERS: ADMIT Internal Medicine; ATTEND Internal Medicine
DX: J44.1 Chronic obstructive pulmonary disease with (acute) exacerbation (principal); F17.200 Nicotine dependence, unspecified, uncomplicated; K21.9 Gastro-esophageal reflux disease without esophagitis; Z79.82 Long term (current) use of aspirin; Z79.899 Other long term (current) drug therapy; R07.81 Pleurodynia; Z87.01 Personal history of pneumonia (recurrent); Z90.49 Acquired absence of other specified parts of digestive tract; Z11.59 Encounter for screening for other viral diseases

== ENCOUNTER 2020-03-06 07:04 | Emergency (ER) | payer OTHER ==
[~2020-03-06] VITALS: Ht 165.1 cm; Wt 76.6 kg
[~2020-03-06 07:04] MED LIST changes: +AMIT25TA PO; +ARNU1INH3 INH; +AZIT-12 PO; +BENZ-18 PO; +ECOT81TA5 PO; +HYDR-3911 PO; +IPRA0.00 INH; +MELA3TAB10 PO; -MELATAB2 PO; +MUCI600T31 PO; +STIO1AER PO
[2020-03-06] MEDS ORDERED: NS 1,000 ML IV ONE (07:30)
[2020-03-06] MEDS ORDERED: KETOROLAC 30 MG/ML 1ML VIAL IV ONE (07:30)
[2020-03-06] MEDS ORDERED: ONDANSETRON 4MG/2ML VIAL IV ONE (07:30)
[2020-03-06] MEDS ORDERED: ACETAMINOPHEN 500 MG TAB PO ONE (07:30)
[2020-03-06 07:50] LABS: BASO # 0.1 10^3/uL (0.0-0.2); BASO % 0.7 % (0.0-1.0); EOS # 0.2 10^3/uL (0.0-0.5); EOS % 2.5 % (0.0-3.0); HEMATOCRIT 50.3 % (42.0-52.0); HEMOGLOBIN 16.6 g/dl (13.5-17.5); LYMPH # 2.5 10^3/uL (1.5-5.0); LYMPH % 26.8 % (24.0-44.0); MEAN CORPUSCULAR HEMOGLOBIN 28.8 pg (27.0-33.0); MEAN CORPUSCULAR VOLUME 87.2 fl (80.0-96.0); MONO % 10.8 % (0.0-5.0); NEUTROPHILS # 5.5 10^3/uL (1.5-8.5); NEUTROPHILS % 58.6 % (36.0-66.0); PLATELET COUNT, AUTOMATED 240 10^3/uL (150-450); RED BLOOD COUNT 5.77 10^6/uL (4.30-6.10); WHITE BLOOD COUNT 9.4 10^3/uL (4.0-10.0)
[2020-03-06 08:16] LABS: BLOOD UREA NITROGEN 17 MG/DL (7-18); CARBON DIOXIDE LEVEL 23 MEQ/L (21-32); CHLORIDE LEVEL 109 MEQ/L (98-107); CREATININE FOR GFR 1.29 MG/DL (0.70-1.30); GLOMERULAR FILTRATION RATE > 60.0 (>56); GLUCOSE, FASTING 95 MG/DL (70-100); POTASSIUM SERUM 4.5 MEQ/L (3.5-5.1); SODIUM LEVEL 140 MEQ/L (136-145)
[2020-03-06 09:00] VITALS: BP 140/69
== END 2020-03-06 09:04 | disposition home or self-care (01) ==
LOC: M ED 07:04
DX: G43.909 Migraine, unspecified, not intractable, without status migrainosus (principal); J44.9 Chronic obstructive pulmonary disease, unspecified; F10.10 Alcohol abuse, uncomplicated; Z91.19 Patient's noncompliance with other medical treatment and regimen; F17.210 Nicotine dependence, cigarettes, uncomplicated
CPT/HCPCS: 80048; 85025; 96361; 96374; 96375; 99284; J1885; J2405

== ENCOUNTER 2021-03-01 15:17 | Emergency (ER) | payer OTHER ==
[~2021-03-01] VITALS: Ht 165.1 cm; Wt 78.0 kg
[~2021-03-01 15:17] MED LIST changes: -AMIT25TA; -AMIT25TA PO; +AMIT25TA17; +AMIT25TA17 PO; +MONT10TA10 PO; -MONT10TA4 PO
--- OUTSIDE RECORDS SUMMARY | 2021-03-01 15:27 | CCD | Continuity of Care Document ---
Author Author Harsh SAHU M.D. Organization Unknown Address [address] [place] [address] Phone [phone] Problems Active Problems Provider Date Chronic obstructive lung disease Elgin Sahu M.D. Ons et: 05/12/2014 Social History Type Date Description Comments Sex Unknown Tobacco Use Start: Unknown Current Cigarette Smoker 1 Pack Daily ETOH Use Denies alcohol use Recreational Drug Use Denies Drug Use Tobacco Use Start: Unknown Heavy tobacco smoker (more than 10 cigarettes/day) Allergies and adverse reactions Description No Known Drug Allergies Medications Active Medications SIG Qnty Indications Ordering Provide r Date Arnuity Ellipta 200mcg/Act Aerosol 1 inhalation daily 30units Elgin Sahu M.D. 021 Stiolto Respimat 2.5-2.5mcg/Act Ae rosol inhale 2 puffs by mouth every day 4gm Tam Sahu M.D. 02/08/2021 Ventolin HFA 108(90Base) mcg/Act A erosol ii puffs every 4-6 hours as needed 1units Gilda Sahu M.D. 02/08/2021 Medications Administered in Office Medication SIG Qnty Indications Ordering Provider Date Injection (SC)/(Im) Injection Elgin Sahu M.D. 08/12/2019 Immunizations CPT Code Status Date Vaccine Lot # [id number] Given 02/08/2021 Influenza Virus Vaccine, Quadrivalent, Slit Virus, Im Use 3Y & Up [id number] 57025 Given 02/12/2018 Influenza Virus Vaccine, Quadrivalent, Slit Virus, Im Use 3Y & Up [id number] 75185 Given 03/03/2017 Influenza Virus Vaccine, Quadrivalent, Slit Virus, Im Use 3Y & Up [id number] Vital Signs Date Vital Result Comment 02/08/2021 3:43pm BP Systolic 116 mmHg BP Diastolic 80 mmHg Body Temperature 98.9 F Heart Rate 74 /min Respiratory Rate 16 /min Height 65 inches 5'5" Weight 163.00 lb [place] Body Weight 136 lb BMI (Body Mass Index) 27.1 kg/m2 O2 % BldC Oximetry 96 % 08/26/2019 3:58pm BP Systolic 118 mmHg BP Diastolic 76 mmHg Body Temperature 97.9 F Heart Rate 88 /min Respiratory Rate 18 /min Height 65 inches 5'5" Weight 173.00 lb [place] Body Weight 136 lb BMI (Body Mass Index) 28.8 kg/m2 O2 % BldC Oximetry 95 % Results Test Acquired Date Facility Test Result H/L Range Note Laboratory test finding 02/18/2021 [place], [place] [id number] [phone] Magnesium Serum 2.0 mg/dL 1.7 - 2.2 Comprehensive Metabolic Panel 02/18/2021 [place], [place] [id number] [phone] Comprehensive Metabo (SEE NOTE) 1 Sodium 140 mEq/L 134 - 153 Potassium 5.0 mEq/L 3.6 - 5.0 Chloride 107 mEq/L 98 - 107 Co2 23 mEq/L 22 - 30 Glucose 103 mg/dL High 70 - 99 BUN 19 mg/dL 7 - 21 Creatinine 1.1 mg/dL 0.7 - 1.5 BUN/Creat 17 8 - 27 Total Protein 6.3 g/dL 6.3 - 8.2 Albumin 4.3 g/dL 3.9 - 5.0 Globulin 2.0 GM/DL Low 2.4 - 3.2 A/G Ratio 2.2 High 0.8 - 2.0 Calcium 9.6 mg/dL 8.4 - 10.2 Total Bili <0.7 mg/dL 0.2 - 1.3 Alkaline Phos 101 U/L 38 - 126 Sgot/Ast 26 U/L 5 - 40 SGPT/Alt 28 U/L 7 - 56 Anion Gap 10.0 mmol/L 8.0 - 16.0 Age 55 yrs Non-Aa GFR >60 mL/min Afr Amer GFR >60 mL/min 2 CBC W/Automated Diff 02/18/2021 [place] [address] [phone] CBC W/Automated Diff (SEE NOTE) 3 WBC 12.4 10^3/uL High 4.2 - 11.0 RBC 5.08 10^6/uL 4.50 - 6.30 Hemoglobin 15.1 g/dL 14.0 - 16.0 Hematocrit 45.0 % 41.0 - 51.0 MCV 88.6 fL 80.0 - 94.0 MCH 29.7 pg 27.0 - 34.0 MCHC 33.6 g/dL 31.0 - 36.0 RDW 13.8 % 11.5 - 14.8 Platelets 233 10^3/uL 150 - 450 MPV 11.0 fL High 7.4 - 10.4 Neut 58.5 % 37.0 - 80.0 Lymph 27.5 % 25.0 - 40.0 Atlantic 9.3 % High 3.0 - 8.0 Eos 2.6 % 0.0 - 7.0 Baso 0.8 % 0.0 - 2.0 %Ig 1.3 % High 0.0 - 0.0 %NRBC 0.0 % 0.0 - 0.0 #Neut 7.24 10^3/uL High 2.00 - 6.90 #Lymph 3.40 10^3/uL 0.60 - 3.40 #Atlantic 1.15 10^3/uL High 0.00 - 0.90 #Eos 0.32 10^3/uL 0.00 - 0.70 #Baso 0.10 10^3/uL 0.00 - 0.20 #Ig 0.16 10^3/uL High 0.00 - 0.10 #NRBC 0.00 10^3/uL 0.00 - 0.00 Manual Diff SEE BELOW Segs 55 % 37 - 80 Band 3 % 0 - 5 %Lymph 28 % 25 - 40 %Atlantic 9 % High 3 - 8 %Eos 3 % 0 - 7 Metamyelocyte 2 % RBC Morph NOT INDICATED Troponin T 02/18/2021 [place] [address] [phone] Troponin T 2.65 NG/ML Critical high 0.00 - 0.10 Call/ Read Back [facility] NG/ CAPRI By: LBS Date/Time 02-18-21 0253 4 Troponin T 02/17/2021 [place] [address] [phone] Troponin T 2.50 NG/ML Critical high 0.00 - 0.10 Call/ Read Back [facility] NG/CAPRI By: LBS Date/Time 02-17-212136 5 Covid-19 02/17/2021 [place], [place] [address]35 [phone] Covid-19 NOT DETECTED 6 Covid-19 Reenter NOT DETECTED 7 CBC W/Automated Diff 02/17/2021 [place] [address] [phone] CBC W/Automated Diff (SEE NOTE) 8 WBC 12.6 10^3/uL High 4.2 - 11.0 RBC 5.16 10^6/uL 4.50 - 6.30 Hemoglobin 15.5 g/dL 14.0 - 16.0 Hematocrit 45.0 % 41.0 - 51.0 MCV 87.2 fL 80.0 - 94.0 MCH 30.0 pg 27.0 - 34.0 MCHC 34.4 g/dL 31.0 - 36.0 RDW 13.6 % 11.5 - 14.8 Platelets 240 10^3/uL 150 - 450 MPV 10.6 fL High 7.4 - 10.4 Neut 60.3 % 37.0 - 80.0 Lymph 25.1 % 25.0 - 40.0 Atlantic 9.7 % High 3.0 - 8.0 Eos 2.8 % 0.0 - 7.0 Baso 0.9 % 0.0 - 2.0 %Ig 1.2 % High 0.0 - 0.0 %NRBC 0.0 % 0.0 - 0.0 #Neut 7.62 10^3/uL High 2.00 - 6.90 #Lymph 3.17 10^3/uL 0.60 - 3.40 #Atlantic 1.23 10^3/uL High 0.00 - 0.90 #Eos 0.35 10^3/uL 0.00 - 0.70 #Baso 0.12 10^3/uL 0.00 - 0.20 #Ig 0.15 10^3/uL High 0.00 - 0.10 #NRBC 0.00 10^3/uL 0.00 - 0.00 Manual Diff SEE BELOW Segs 61 % 37 - 80 Band 0 % 0 - 5 %Lymph 29 % 25 - 40 %Atlantic 9 % High 3 - 8 %Eos 1 % 0 - 7 %Baso 0 % 0 - 2 Metamyelocyte 0 % Myelocyte 0 % Promyelocyte 0 % Blasts 0 % Melecio Lym 0 % NRBC 0 % RBC Morph NOT INDICATED Laboratory test finding 02/17/2021 [place] [address] [phone] Lipase Serum 54 U/L 13 - 60 Comprehensive Metabolic Panel 02/17/2021 [place] [address] [phone] Comprehensive Metabo (SEE NOTE) 9 Sodium 139 mEq/L 134 - 153 Potassium 4.1 mEq/L 3.6 - 5.0 Chloride 104 mEq/L 98 - 107 Co2 24 mEq/L 22 - 30 Glucose 116 mg/dL High 70 - 99 BUN 17 mg/dL 7 - 21 Creatinine 1.1 mg/dL 0.7 - 1.5 BUN/Creat 15 8 - 27 Total Protein 6.6 g/dL 6.3 - 8.2 Albumin 4.7 g/dL 3.9 - 5.0 Globulin 1.9 GM/DL Low 2.4 - 3.2 A/G Ratio 2.5 High 0.8 - 2.0 Calcium 9.6 mg/dL 8.4 - 10.2 Total Bili <0.7 mg/dL 0.2 - 1.3 Alkaline Phos 138 U/L High 38 - 126 Sgot/Ast 35 U/L 5 - 40 SGPT/Alt 37 U/L 7 - 56 Anion Gap 11.0 mmol/L 8.0 - 16.0 Age 55 yrs Non-Aa GFR >60 mL/min Afr Amer GFR >60 mL/min 10 Laboratory test finding 02/17/2021 [place] [address] [phone] Pro-BNP 460 pg/mL High 0 - 125 Troponin T 02/17/2021 [facility] [place] [address] [phone] Troponin T 2.42 NG/ML Critical high 0.00 - 0.10 Call/ Read Back [facility]ARYJO IN ED By: KATELYNN Date/Time 11 Laboratory test finding 02/17/2021 [place] [address] [phone] Magnesium Serum 2.1 mg/dL 1.7 - 2.2 12 1 COMPREHENSIVE METABOLIC PANE L 2 Male GFR Interprentation 20-49 yrs >60 mL/min Normal 50-59 yrs >56 mL/min Normal 60-69 yrs >49 mL/min Normal 70-79yrs >42 mL/min Normal 80 and above >35 mL/min Normal Female GFR Interpretation 20-39 yrs >60 mL/min Normal 40-49 yrs >58 mL/min Normal 50-59 yrs >51 mL/min Normal 60-69 yrs >45 mL/min Normal 70-79 yrs >39 mL/min Normal 80 and above >32 mL/min Normal 3 COMPLETE BLOOD COUNT 4 TROPONIN T 0.1 ng/ml Recommended as the clinical th reshold value for Troponin T. 5 TROPONIN T 0.1 ng/ml Recommended as the clinical th reshold value for Troponin T. 6 First test?: N~Employed in [facility]?: N~Symptomatic as defined by CDC?: N~Hospitalized?: N 7 PROCEDURAL CONTROL VALID KIT LOT # [id number] 02/17/21.DW . KIT EXP DATE _54-62-76 02/17/21.DW . NORMAL RANGE IS NOT DETECTED The COVID-19 assay is a rapid molecular in vitro diagnostic test utilizing an isothermal nucleic acid amplification technology for the qualitative detection of nucleic acid from the SARS-CoV-2 viral RNA in direct nasal or nasopharyngeal swabs. Testing should be performed within the first 7 days of the onset of symptoms. NEGATIVE RESULTS SHOULD BE TREATED PRESUMPTIVE AND, IF INCONSISTENT WITH CLINICAL SIGNS AND SYMPTOMS OR NECESSARY FOR PATIENT MANAGEMENT, SHOULD BE TESTED WITH DIFFERENT AUTHORIZED OR CLEARED MOLECULAR TESTS. NEGATIVE RESULTS DO NOT PRECLUDE SARS-CoV-2 INFECTION AND SHOULD NOT BE USED THE SOLE BASIS FOR PATIENT MANAGEMENT DECISIONS. 8 COMPLETE BLOOD COUNT 9 COMPREHENSIVE METABOLIC PANE L 10 Male GFR Interprentation 20-49 yrs >60 mL/min Normal 50-59 yrs >56 mL/min Normal 60-69 yrs >49 mL/min Normal 70-79yrs >42 mL/min Normal 80 and above >35 mL/min Normal Female GFR Interpretation 20-39 yrs >60 mL/min Normal 40-49 yrs >58 mL/min Normal 50-59 yrs >51 mL/min Normal 60-69 yrs >45 mL/min Normal 70-79 yrs >39 mL/min Normal 80 and above >32 mL/min Normal 11 TROPONIN T 0.1 ng/ml Recommended as the clinical th reshold value for Troponin T. 12 can run on todays blood Procedures Date Code Description Status 02/08/2021 37031 Office/Outpatient Established Mo d MDM 30-39 Min Completed Medical Devices Description No Information Available Encounters Type Date Location Provider Dx Diagnosis Office Visit 02/08/2021 3:40p [facility] Elgin Sahu M. D. J44.1 Chronic obstructive pulmonary disease w (acute) exacerbation F32.9 Major depressive disorder, s lidia episode, unspecified Z23 Encounter for immunization Assessments Date Code Description Provider 02/08/2021 J44.1 Chronic obstructive pulmonary di sease with (acute) exacerbat Elgin Sahu M.D. 02/08/2021 F32.9 Major depressive disorder, singl e episode, unspecified Elgin Sahu M.D. 02/08/2021 Z23 Encounter for immunization Elgin Centeno M.D. Plan of Treatment Future Appointment(s):* 03/01/2021 2:30 pm - Elgin Sahu M.D. at [facility] * 05/14/2021 9:00 am - Elgin Sahu M.D. at [facility] Functional Status Description No Information Available Mental Status Description No Information Available Referrals Description No Information Available
--- OUTSIDE RECORDS SUMMARY | 2021-03-01 15:27 | CCD | Continuity of Care Document ---
Author Author Harsh KAUFMAN M.D. Organization Unknown Address [address] [place] [address] Phone [phone] Problems Active Problems Provider Date Chronic obstructive lung disease Elgin Kaufman M.D. Ons et: 05/12/2014 Social History Type [...] 200mcg/Act Aerosol 1 inhalation daily 30units Elgin Kaufman M.D. 021 Stiolto Respimat 2.5-2.5mcg/Act Ae rosol inhale 2 puffs by mouth every day 4gm Tam Kaufman M.D. 02/08/2021 Ventolin HFA 108(90Base) mcg/Act A erosol ii puffs every 4-6 hours as needed 1units Gilda Kaumfan M.D. 02/08/2021 Medications Administered in Office Medication SIG Qnty Indications Ordering Provider Date Injection (SC)/(Im) Injection Elgin Kaufman M.D. 08/12/2019 Immunizations CPT Code Status Date Vaccine Lot # [id number] Given 02/08/2021 Influenza Virus Vaccine, Quadrivalent, Slit Virus, Im Use 3Y & Up [id number] 04383 Given 02/12/2018 Influenza Virus Vaccine, Quadrivalent, Slit Virus, Im Use 3Y & Up [id number] 75508 Given 03/03/2017 Influenza Virus Vaccine, Quadrivalent, Slit Virus, Im Use 3Y & Up [id number] Vital Signs Date Vital Result Comment 02/08/2021 3:43pm BP Systolic 116 mmHg BP Diastolic 80 mmHg Body Temperature 98.9 F Heart Rate 74 /min Respiratory Rate 16 /min Height 65 inches 5'5" Weight 163.00 lb [place] Body Weight 136 lb BMI (Body Mass Index) 27.1 kg/m2 O2 % BldC Oximetry 96 % 08/26/2019 3:58pm BP Systolic 118 mmHg BP Diastolic 76 mmHg Body Temperature 97.9 F Heart Rate 88 /min Respiratory Rate 18 /min Height 65 inches 5'5" Weight 173.00 lb [place] Body Weight 136 lb BMI (Body Mass Index) 28.8 kg/m2 O2 % BldC Oximetry 95 % Results Description No Information Available Procedures Date Code Description Status 02/08/2021 11818 Office/Outpatient Established Mo d MDM 30-39 Min Completed Medical Devices Description No Information Available Encounters Type Date Location Provider Dx Diagnosis Office Visit 02/08/2021 3:40p [facility] Elgin Kaufman M. D. J44.1 Chronic obstructive pulmonary disease w (acute) exacerbation F32.9 Major depressive disorder, s lidia episode, unspecified Z23 Encounter for immunization Assessments Date Code Description Provider 02/08/2021 J44.1 Chronic obstructive pulmonary di sease with (acute) exacerbat Elgin Kaufman M.D. 02/08/2021 F32.9 Major depressive disorder, singl e episode, unspecified Elgin Kaufman M.D. 02/08/2021 Z23 Encounter for immunization Elgin Centeno M.D. Plan of Treatment Future Appointment(s):* 05/14/2021 9:00 am - Elgin Kaufman M.D. at [facility] Functional Status Description No Information Available Mental Status Description No Information Available Referrals Description No Information Available
--- OUTSIDE RECORDS SUMMARY | 2021-03-01 15:27 | CCD | Continuity of Care Document ---
Author Author Harsh SAHU M.D. Organization Unknown Address [address] [place] [address] Phone [phone] Problems Active Problems Provider Date Chronic obstructive [...] CPT Code Status Date Vaccine Lot # [id number] Given 02/08/2021 Influenza Virus Vaccine, Quadrivalent, Slit Virus, Im Use 3Y & Up [id number] 95820 Given 02/12/2018 Influenza Virus Vaccine, Quadrivalent, Slit Virus, Im Use 3Y & Up [id number] 87672 Given 03/03/2017 Influenza Virus Vaccine, Quadrivalent, Slit Virus, Im Use 3Y & Up [id number] Vital Signs Date Vital Result Comment 02/08/2021 3:43pm BP Systolic 116 mmHg BP Diastolic 80 mmHg Body Temperature 98.9 F Heart Rate 74 /min Respiratory Rate 16 /min Height 65 inches 5'5" Weight 163.00 lb [place] Body Weight 136 lb BMI (Body Mass Index) 27.1 kg/m2 O2 % BldC Oximetry 96 % 08/26/2019 3:58pm BP Systolic 118 mmHg BP Diastolic 76 mmHg Body Temperature 97.9 F Heart Rate 88 /min Respiratory Rate 18 /min Height 65 inches 5'5" Weight 173.00 lb [place] Body Weight 136 lb BMI (Body Mass Index) 28.8 kg/m2 O2 % BldC Oximetry 95 % Results Test Acquired Date Facility Test Result H/L Range Note Laboratory test finding 02/18/2021 [place], [place] [id number] [phone] Magnesium Serum 2.0 mg/dL 1.7 - 2.2 Comprehensive Metabolic Panel 02/18/2021 [place], [place] [id number] [phone] Comprehensive Metabo (SEE NOTE) 1 Sodium 140 [...] >60 mL/min 2 CBC W/Automated Diff 02/18/2021 [place] [address] [phone] CBC W/Automated Diff (SEE NOTE) 3 WBC [...] 80.0 Lymph 27.5 % 25.0 - 40.0 [place] 9.3 % High 3.0 - 8.0 Eos 2.6 % 0.0 - 7.0 Baso 0.8 % 0.0 - 2.0 %Ig 1.3 % High 0.0 - 0.0 %NRBC 0.0 % 0.0 - 0.0 #Neut 7.24 10^3/uL High 2.00 - 6.90 #Lymph 3.40 10^3/uL 0.60 - 3.40 #[place] 1.15 10^3/uL High 0.00 - 0.90 #Eos 0.32 10^3/uL 0.00 - 0.70 #Baso 0.10 10^3/uL 0.00 - 0.20 #Ig 0.16 10^3/uL High 0.00 - 0.10 #NRBC 0.00 10^3/uL 0.00 - 0.00 Manual Diff SEE BELOW Segs 55 % 37 - 80 Band 3 % 0 - 5 %Lymph 28 % 25 - 40 %[place] 9 % High 3 - 8 %Eos 3 % 0 - 7 Metamyelocyte 2 % RBC Morph NOT INDICATED Troponin T 02/18/2021 [place] [address] [phone] Troponin T 2.65 NG/ML Critical high 0.00 - 0.10 Call/ Read Back [facility] NG/ CAPRI By: LBS Date/Time 02-18-21 0253 4 Troponin T 02/17/2021 [place] [address] [phone] Troponin T 2.50 NG/ML Critical high 0.00 - 0.10 Call/ Read Back [facility] NG/CAPRI By: LBS Date/Time 02-17-212136 5 Covid-19 02/17/2021 [place], [place] [address] [phone] Covid-19 NOT DETECTED 6 Covid-19 Reenter NOT DETECTED 7 CBC W/Automated Diff 02/17/2021 [place] [address] [phone] CBC W/Automated Diff (SEE NOTE) 8 WBC [...] 80.0 Lymph 25.1 % 25.0 - 40.0 [place] 9.7 % High 3.0 - 8.0 Eos 2.8 % 0.0 - 7.0 Baso 0.9 % 0.0 - 2.0 %Ig 1.2 % High 0.0 - 0.0 %NRBC 0.0 % 0.0 - 0.0 #Neut 7.62 10^3/uL High 2.00 - 6.90 #Lymph 3.17 10^3/uL 0.60 - 3.40 #[place] 1.23 10^3/uL High 0.00 - 0.90 #Eos 0.35 10^3/uL 0.00 - 0.70 #Baso 0.12 10^3/uL 0.00 - 0.20 #Ig 0.15 10^3/uL High 0.00 - 0.10 #NRBC 0.00 10^3/uL 0.00 - 0.00 Manual Diff SEE BELOW Segs 61 % 37 - 80 Band 0 % 0 - 5 %Lymph 29 % 25 - 40 %[place] 9 % High 3 - 8 %Eos 1 % 0 - 7 %Baso 0 % 0 - 2 Metamyelocyte 0 % Myelocyte 0 % Promyelocyte 0 % Blasts 0 % Melecio Lym 0 % NRBC 0 % RBC Morph NOT INDICATED Laboratory test finding 02/17/2021 [place] [address] [phone] Lipase Serum 54 U/L 13 - 60 Comprehensive Metabolic Panel 02/17/2021 [place] [address] [phone] Comprehensive Metabo (SEE NOTE) 9 Sodium 139 [...] >60 mL/min 10 Laboratory test finding 02/17/2021 [place] [address] [phone] Pro-BNP 460 pg/mL High 0 - 125 Troponin T 02/17/2021 [facility] [place] [address] [phone] Troponin T 2.42 NG/ML Critical high 0.00 - 0.10 Call/ Read Back MARYJO IN ED By: KATELYNN Date/Time 11 Laboratory test finding 02/17/2021 [place] [address] [phone] Magnesium Serum 2.1 mg/dL 1.7 - 2.2 [...] Troponin T. 6 First test?: N~Employed in [facility] [employer]?: N~Symptomatic as defined by CDC?: N~Hospitalized?: N 7 PROCEDURAL CONTROL VALID KIT LOT # [id number] 02/17/21.DW . KIT EXP DATE _77-85-21 02/17/21.DW . NORMAL RANGE IS NOT DETECTED [...] blood Procedures Date Code Description Status 02/08/2021 06975 Office/Outpatient Established Mo d MDM 30-39 Min Completed Medical Devices Description No Information Available Encounters Type Date Location Provider Dx Diagnosis Office Visit 02/08/2021 3:40p [facility] Elgin Sahu M. D. J44.1 Chronic obstructive [...] 2:30 pm - Elgin Sahu M.D. at [facility] * 05/14/2021 9:00 am - Elgin Sahu M.D. at [facility] Functional Status Description No Information Available Mental Status Description No Information Available Referrals Description No Information Available
--- OUTSIDE RECORDS SUMMARY | 2021-03-01 15:27 | CCD | Continuity of Care Document ---
Author Author Harsh KAUFMAN M.D. Organization Unknown Address [address] [place] [address] Phone [phone] Problems Active Problems Provider Date Chronic obstructive [...] every 4-6 hours as needed 1units Gilda Kaufman M.D. 02/08/2021 Medications Administered in Office Medication SIG Qnty Indications Ordering Provider Date Injection (SC)/(Im) Injection Elgin Kaufman M.D. 08/12/2019 Immunizations CPT Code Status Date Vaccine Lot # [id number] Given 02/08/2021 Influenza Virus Vaccine, Quadrivalent, Slit Virus, Im Use 3Y & Up [id number] 94680 Given 02/12/2018 Influenza Virus Vaccine, Quadrivalent, Slit Virus, Im Use 3Y & Up [id number] 58044 Given 03/03/2017 Influenza Virus Vaccine, Quadrivalent, Slit Virus, Im Use 3Y & Up [id number] Vital Signs Date Vital Result Comment 02/08/2021 3:43pm BP Systolic 116 mmHg BP Diastolic 80 mmHg Body Temperature 98.9 F Heart Rate 74 /min Respiratory Rate 16 /min Height 65 inches 5'5" Weight 163.00 lb [place] Body Weight 136 lb BMI (Body Mass Index) 27.1 kg/m2 O2 % BldC Oximetry 96 % 08/26/2019 3:58pm BP Systolic 118 mmHg BP Diastolic 76 mmHg Body Temperature 97.9 F Heart Rate 88 /min Respiratory Rate 18 /min Height 65 inches 5'5" Weight 173.00 lb [place] Body Weight 136 lb BMI (Body Mass Index) 28.8 kg/m2 O2 % BldC Oximetry 95 % Results Description No Information Available Procedures Date Code Description Status 02/08/2021 84565 Office/Outpatient Established Mo d MDM 30-39 Min Completed Medical Devices Description No Information Available Encounters Type Date Location Provider Dx Diagnosis Office Visit 02/08/2021 3:40p [facility] Elgin Kaufman M. D. J44.1 Chronic obstructive pulmonary disease w (acute) exacerbation F32.9 Major depressive disorder, s lidia episode, unspecified Assessments Date Code Description Provider 02/08/2021 J44.1 Chronic obstructive pulmonary di sease with (acute) exacerbat Elgin Kaufman M.D. 02/08/2021 F32.9 Major depressive disorder, singl e episode, unspecified Elgin Kaufman M.D. Plan of Treatment Future Appointment(s):* 05/14/2021 9:00 am - Elgin Kaufman M.D. at [facility] Functional Status Description No Information Available Mental Status Description No Information Available Referrals Description No Information Available
--- OUTSIDE RECORDS SUMMARY | 2021-03-01 15:28 | CCD ---
Author Author [facility] Organization [facility] Address Unknown Phone Unavailable Care Team Providers Care Control Systems Developer Name Role Phone Bismark SAHU MD Unavailable Unavailable Bismark SAHU MD Unavailable Unavailable Bismark SAHU MD Unavailable Unavailable Bismark SAHU MD Unavailable Unavailable Bismark SAHU MD Unavailable Unavailable Bismark SAHU MD Unavailable Unavailable Bismark SAHU MD Unavailable Unavailable Bismark SAHU MD Unavailable Unavailable Bismark SAHU MD Unavailable Unavailable Bismark SAHU MD Unavailable Unavailable Bismark SAHU MD Unavailable Unavailable Bismark SAHU MD Unavailable Unavailable Bismark SAHU MD Unavailable Unavailable Bismark SAHU MD Unavailable Unavailable Bismark SAHU MD Unavailable Unavailable Bismark SAHU MD Unavailable Unavailable Bismark SAHU MD Unavailable Unavailable Bismark SAHU MD Unavailable Unavailable Bismark SAHU MD Unavailable Unavailable Bismark SAHU MD Unavailable Unavailable MANDEEP, H ALEX MD Unavailable Unavailable MANDEEP, H ALEX MD Unavailable Unavailable MANDEEP, H ALEX MD Unavailable Unavailable MANDEEP, H ALEX MD Unavailable Unavailable MANDEEP, H ALEX MD Unavailable Unavailable MANDEEP, H ALEX MD Unavailable Unavailable MANDEEP, H ALEX MD Unavailable Unavailable MANDEEP, H ALEX MD Unavailable Unavailable MANDEEP, H ALEX MD Unavailable Unavailable MANDEEP, H ALEX MD Unavailable Unavailable MANDEEP, H ALEX MD Unavailable Unavailable MANDEEP, H ALEX MD Unavailable Unavailable MANDEEP, H ALEX MD Unavailable Unavailable MANDEEP, H ALEX MD Unavailable Unavailable MANDEEP, H ALEX MD Unavailable Unavailable MANDEEP, H ALEX MD Unavailable Unavailable MANDEEP, H ALEX MD Unavailable Unavailable MANDEEP, H ALEX MD Unavailable Unavailable MANDEEP, H ALEX MD Unavailable Unavailable MANDEEP, H ALEX MD Unavailable Unavailable MANDEEP, H ALEX MD Unavailable Unavailable MANDEEP, H ALEX MD Unavailable Unavailable MANDEEP, H ALEX MD Unavailable Unavailable MANDEEP, H ALEX MD Unavailable Unavailable MANDEEP, H ALEX MD Unavailable Unavailable MANDEEP, H ALEX MD Unavailable Unavailable MANDEEP, H ALEX MD Unavailable Unavailable MANDEEP, H ALEX MD Unavailable Unavailable MANDEEP, H ALEX MD Unavailable Unavailable MANDEEP, H ALEX MD Unavailable Unavailable MANDEEP, H ALEX MD Unavailable Unavailable MANDEEP, H ALEX MD Unavailable Unavailable MANDEEP, H ALEX MD Unavailable Unavailable MANDEEP, H ALEX MD Unavailable Unavailable MANDEEP, H ALEX MD Unavailable Unavailable MANDEEP, H ALEX MD Unavailable Unavailable MANDEEP, H ALEX MD Unavailable Unavailable MANDEEP, H ALEX MD Unavailable Unavailable MANDEEP, H ALEX MD Unavailable Unavailable MANDEEP, H ALEX MD Unavailable Unavailable MANDEEP, H ALEX MD Unavailable Unavailable MANDEEP, H ALEX MD Unavailable Unavailable MANDEEP, H ALEX MD Unavailable Unavailable MANDEEP, H ALEX MD Unavailable Unavailable MANDEEP, H ALEX MD Unavailable Unavailable MANDEEP, H ALEX MD Unavailable Unavailable MANDEEP, H ALEX MD Unavailable Unavailable MANDEEP, H ALEX MD Unavailable Unavailable MANDEEP, H ALEX MD Unavailable Unavailable MANDEEP, H ALEX MD Unavailable Unavailable MANDEEP, H ALEX MD Unavailable Unavailable MANDEEP, H ALEX MD Unavailable Unavailable MANDEEP, H ALEX MD Unavailable Unavailable MANDEEP, H ALEX MD Unavailable Unavailable MANDEEP, H ALEX MD Unavailable Unavailable MANDEEP, H ALEX MD Unavailable Unavailable Anuel Samuels MD Unavailable Unavailable Anuel Samuels MD Unavailable Unavailable Anuel Samuels MD Unavailable Unavailable Anuel Samuels MD Unavailable Unavailable Anuel Samuels MD Unavailable Unavailable Anuel Samuels MD Unavailable Unavailable Anuel Samuels MD Unavailable Unavailable Anuel Samuels MD Unavailable Unavailable Anuel Samuels MD Unavailable Unavailable El-Khally, A Ziad MD Unavailable Unavailable El-Khally, A Ziad MD Unavailable Unavailable El-Khally, A Ziad MD Unavailable Unavailable El-Khally, A Ziad MD Unavailable Unavailable El-Khally, A Ziad MD Unavailable Unavailable El-Khally, A Ziad MD Unavailable Unavailable El-Khally, A Ziad MD Unavailable Unavailable El-Khally, A Ziad MD Unavailable Unavailable El-Khally, A Ziad MD Unavailable Unavailable El-Khally, A Ziad MD Unavailable Unavailable El-Khally, A Ziad MD Unavailable Unavailable El-Khally, A Ziad MD Unavailable Unavailable El-Khally, A Ziad MD Unavailable Unavailable El-Khally, A Ziad MD Unavailable Unavailable El-Khally, A Ziad MD Unavailable Unavailable El-Khally, A Ziad MD Unavailable Unavailable El-Khally, A Ziad MD Unavailable Unavailable El-Khally, A Ziad MD Unavailable Unavailable El-Khally, A Ziad MD Unavailable Unavailable El-Khally, A Ziad MD Unavailable Unavailable El-Khally, A Ziad MD Unavailable Unavailable El-Khally, A Ziad MD Unavailable Unavailable El-Khally, A Ziad MD Unavailable Unavailable El-Khally, A Ziad MD Unavailable Unavailable El-Khally, A Ziad MD Unavailable Unavailable El-Khally, A Ziad MD Unavailable Unavailable El-Khally, A Ziad MD Unavailable Unavailable El-Khally, A Ziad MD Unavailable Unavailable El-Khally, A Ziad MD Unavailable Unavailable El-Khally, A Ziad MD Unavailable Unavailable El-Khally, A Ziad MD Unavailable Unavailable El-Khally, A Ziad MD Unavailable Unavailable El-Khally, A Ziad MD Unavailable Unavailable El-Khally, A Ziad MD Unavailable Unavailable TURRIN, GUCCI Unavailable Unavailable TURRIN, GUCCI Unavailable Unavailable TURRIN, GUCCI Unavailable Unavailable TURRIN, GUCCI Unavailable Unavailable Bismark SAHU MD Unavailable Unavailable Bismark SAHU MD Unavailable Unavailable Bismark SAHU MD Unavailable Unavailable Bismark SAHU MD Unavailable Unavailable Bismark SAHU MD Unavailable Unavailable Bismark SAHU MD Unavailable Unavailable Bismark SAHU MD Unavailable Unavailable Bismark SAHU MD Unavailable Unavailable Bismark SAHU MD Unavailable Unavailable Bismark SAHU MD Unavailable Unavailable Bismark SAHU MD Unavailable Unavailable MANDEEP H ALEX BURRELL Unavailable Unavailable Bismark SAHU MD Unavailable Unavailable MANDEEP H ALEX BURRELL Unavailable Unavailable MANDEEP H ALEX BURRELL Unavailable Unavailable Bismark SAHU MD Unavailable Unavailable Bismark SAHU MD Unavailable Unavailable Bismark SAHU MD Unavailable Unavailable Bismark SAHU MD Unavailable Unavailable Bismark SAHU MD Unavailable Unavailable Bismark SAHU MD Unavailable Unavailable Bismark SAHU MD Unavailable Unavailable Bismark SAHU MD Unavailable Unavailable Bismark SAHU MD Unavailable Unavailable Bismark SAHU MD Unavailable Unavailable Bismark SAHU MD Unavailable Unavailable Bismark SAHU MD Unavailable Unavailable Bismark SAHU MD Unavailable Unavailable Bismark SAHU MD Unavailable Unavailable Bismark SAHU MD Unavailable Unavailable Bismark SAHU MD Unavailable Unavailable Bismark SAHU MD Unavailable Unavailable Bismark SAHU MD Unavailable Unavailable Bismark SAHU MD Unavailable Unavailable Bismark SAHU MD Unavailable Unavailable Bismark SAHU MD Unavailable Unavailable Bismark SAHU MD Unavailable Unavailable Bismark SAHU MD Unavailable Unavailable Bismark SAHU MD Unavailable Unavailable Bismark SAHU MD Unavailable Unavailable Bismark SAHU MD Unavailable Unavailable Bismark SAHU MD Unavailable Unavailable Bismark SAHU MD Unavailable Unavailable Bismark SAHU MD Unavailable Unavailable Bismark SAHU MD Unavailable Unavailable Bismark SAHU MD Unavailable Unavailable Bismark SAHU MD Unavailable Unavailable Bismark SAHU MD Unavailable Unavailable Bismark SAHU MD Unavailable Unavailable Bismark SAHU MD Unavailable Unavailable Bismark SAHU MD Unavailable Unavailable Bismark SAHU MD Unavailable Unavailable Bismark SAHU MD Unavailable Unavailable Bismark SAHU MD Unavailable Unavailable Bismark SAHU MD Unavailable Unavailable Bismark SAHU MD Unavailable Unavailable Bismark SAHU MD Unavailable Unavailable Bismark SAHU MD Unavailable Unavailable Bismark SAHU MD Unavailable Unavailable Bismark SAHU MD Unavailable Unavailable Bismark SAHU MD Unavailable Unavailable Bismark SAHU MD Unavailable Unavailable Bismark SAHU MD Unavailable Unavailable Bismark SAHU MD Unavailable Unavailable Bismark SAHU MD Unavailable Unavailable Bismark SAHU MD Unavailable Unavailable Bismark SAHU MD Unavailable Unavailable Bismark SAHU MD Unavailable Unavailable Bismark SAHU MD Unavailable Unavailable Bismark SAHU MD Unavailable Unavailable Bismark SAHU MD Unavailable Unavailable Bismark SAHU MD Unavailable Unavailable Bismark SAHU MD Unavailable Unavailable Bismark SAHU MD Unavailable Unavailable Bismark SAHU MD Unavailable Unavailable Bismark SAHU MD Unavailable Unavailable JORDY IGLESIAS MD Unavailable Unavailable JORDY IGLESIAS MD Unavailable Unavailable JORDY IGLESIAS MD Unavailable Unavailable JORDY IGLESIAS MD Unavailable Unavailable JORDY IGLESIAS MD Unavailable Unavailable ANDRIA, MAQBOOL ITZ MD Unavailable Unavailable ANDRIA, MAQBOOL ITZ MD Unavailable Unavailable ANDRIA, MAQBOOL ITZ MD Unavailable Unavailable ANDRIA, MAQBOOL ITZ MD Unavailable Unavailable ANDRIA, MAQBOOL ITZ MD Unavailable Unavailable ANDRIA, MAQBOOL ITZ MD Unavailable Unavailable ANDRIA, MAQBOOL ITZ MD Unavailable Unavailable ANDRIA, MAQBOOL ITZ MD Unavailable Unavailable ANDRIA, MAQBOOL ITZ MD Unavailable Unavailable ANDRIA, MAQBOOL ITZ MD Unavailable Unavailable ANDRIA, MAQBOOL ITZ MD Unavailable Unavailable ANDRIA, MAQBOOL ITZ MD Unavailable Unavailable ANDRIA, MAQBOOL ITZ MD Unavailable Unavailable ANDRIA, MAQBOOL ITZ MD Unavailable Unavailable ANDRIA, MAQBOOL ITZ MD Unavailable Unavailable ANDRIA, MAQBOOL ITZ MD Unavailable Unavailable ANDRIA, MAQBOOL ITZ MD Unavailable Unavailable ANDRIA, MAQBOOL ITZ MD Unavailable Unavailable ANDRIA, MAQBOOL ITZ MD Unavailable Unavailable ANDRIA, MAQBOOL ITZ MD Unavailable Unavailable ANDRIA, MAQBOOL ITZ MD Unavailable Unavailable ANDRIA, MAQBOOL ITZ MD Unavailable Unavailable ANDRIA, MAQBOOL ITZ MD Unavailable Unavailable ANDRIA, MAQBOOL ITZ MD Unavailable Unavailable ANDRIA, MAQBOOL ITZ MD Unavailable Unavailable ANDRIA, MAQBOOL ITZ MD Unavailable Unavailable ANDRIA, MAQBOOL ITZ MD Unavailable Unavailable ANDRIA, MAQBOOL ITZ MD Unavailable Unavailable ANDRIA, MAQBOOL ITZ MD Unavailable Unavailable ANDRIA, MAQBOOL ITZ MD Unavailable Unavailable ANDRIA, MAQBOOL ITZ MD Unavailable Unavailable ANDRIA, MAQBOOL ITZ MD Unavailable Unavailable ANDRIA, MAQBOOL ITZ MD Unavailable Unavailable ANDRIA, MAQBOOL ITZ MD Unavailable Unavailable ANDRIA, MAQBOOL ITZ MD Unavailable Unavailable ANDRIA, MAQBOOL ITZ MD Unavailable Unavailable ANDRIA, MAQBOOL ITZ MD Unavailable Unavailable ANDRIA, MAQBOOL ITZ MD Unavailable Unavailable ANDRIA, MAQBOOL ITZ MD Unavailable Unavailable ANDRIA, MAQBOOL ITZ MD Unavailable Unavailable ANDRIA, MAQBOOL ITZ MD Unavailable Unavailable ANDRIA, MAQBOOL ITZ MD Unavailable Unavailable ANDRIA, MAQBOOL ITZ MD Unavailable Unavailable ANDRIA, MAQBOOL ITZ MD Unavailable Unavailable ANDRIA, MAQBOOL ITZ MD Unavailable Unavailable ANDRIA, MAQBOOL ITZ MD Unavailable Unavailable ANDRIA, MAQBOOL ITZ MD Unavailable Unavailable ANDRIA, MAQBOOL ITZ MD Unavailable Unavailable ANDRIA, MAQBOOL ITZ MD Unavailable Unavailable ANDRIA, MAQBOOL ITZ MD Unavailable Unavailable ANDRIA, MAQBOOL ITZ MD Unavailable Unavailable ANDRIA, MAQBOOL ITZ MD Unavailable Unavailable ANDRIA, MAQBOOL ITZ MD Unavailable Unavailable ANDRIA, MAQBOOL ITZ MD Unavailable Unavailable ANDRIA, MAQBOOL ITZ MD Unavailable Unavailable ANDRIA, MAQBOOL ITZ MD Unavailable Unavailable ANDRIA, MAQBOOL ITZ MD Unavailable Unavailable ANDRIA, MAQBOOL ITZ MD Unavailable Unavailable ANDRIA, MAQBOOL ITZ MD Unavailable Unavailable ANDRIA, MAQBOOL ITZ MD Unavailable Unavailable ANDRIA, MAQBOOL ITZ MD Unavailable Unavailable ANDRIA, MAQBOOL ITZ MD Unavailable Unavailable ANDRIA, MAQBOOL ITZ MD Unavailable Unavailable ANDRIA, MAQBOOL ITZ MD Unavailable Unavailable ANDRIA, MAQBOOL ITZ MD Unavailable Unavailable ANDRIA, MAQBOOL ITZ MD Unavailable Unavailable ANDRIA, MAQBOOL ITZ MD Unavailable Unavailable ANDRIA, MAQBOOL ITZ MD Unavailable Unavailable ANDRIA, MAQBOOL ITZ MD Unavailable Unavailable ANDRIA, MAQBOOL ITZ MD Unavailable Unavailable ANDRIA, MAQBOOL ITZ MD Unavailable Unavailable ANDRIA, MAQBOOL ITZ MD Unavailable Unavailable ANDRIA, MAQBOOL ITZ MD Unavailable Unavailable Re-disclosure Warning The records that you are about to access may contain information from federally-assisted alcohol or drug abuse programs. If such information is present, then the following federally mandated warning applies: This information has been disclosed to you from records protected by federal confidentiality rules (42 CFR part 2). The federal rules prohibit you from making any further disclosure of this information unless further disclosure is expressly permitted by the written consent of the person to whom it pertains or as otherwise permitted by 42 CFR part 2. A general authorization for the release of medical or other information is NOT sufficient for this purpose. The Federal rules restrict any use of the information to criminally investigate or prosecute any alcohol or drug abuse patient.The records that you are about to access may contain highly sensitive health information, the redisclosure of which is protected by Article 27-F of the [facility] Public Health law. If you continue you may have access to information: Regarding HIV / AIDS; Provided by facilities licensed or operated by the [facility] Office of Mental Health; or Provided by the [facility] Office for People With Developmental Disabilities. If such information is present, then the following [facility] mandated warning applies: This information has been disclosed to you from confidential records which are protected by state law. State law prohibits you from making any further disclosure of this information without the specific written consent of the person to whom it pertains, or as otherwise permitted by law. Any unauthorized further disclosure in violation of state law may result in a fine or half-way sentence or both. A general authorization for the release of medical or other information is NOT sufficient authorization for further disc losure. Allergies and Adverse Reactions Type Description Substance Reaction Status Data Source(s ) No Known Drug Allergies No Known Drug Allergies [facility] Family History Family Member Name Family Member Gender Family Member Status Date o f Status Description Data Source(s) Unknown Male Problem [facility] ([facility], ) () Encounters Encounter Providers Location Date Indications Data Source(s ) Outpatient Attender: ITZ Roberto amira: GUCCI HANDLEYConsultant: ALEX SAHU MD 02/17/2021 05:12:00 PM EDT - 02/18/2021 10:30:00 AM EDT [facility] Patient discharged. Inpatient Attender: Bridgette Samuels MDAdmitter: Bridgette mcfarlane MD [id number] 02/14/2021 01:19:00 PM EDT - 02/16/2021 12:14:[address] [facility] Patient discharged. Outpatient Attender: ALEX SAHU MD [facility] 03/2021 03:40:00 PM EDT [facility] ([facility] Immunizations Vaccine Date Status Description Data Source(s) New in 2012. IIV4 02/08/2021 04:18:00 PM EDT completed [facility] ([facility] COVID-19 VACCINE Moderna 08/31/2020 12:00:00 AM EDT completed [facility] Vaccine Series Complete: YESThis Data wa s Submitted to [facility] [employer]. COVID-19 VACC,MRNA(MODERNA)/PF 08/31/2020 12:00:00 AM EDT completed [facility] COVID-19 VACCINE Moderna 08/01/2020 12:00:00 AM EDT completed [facility] Vaccine Series Complete: NOThis Data was Submitted to [facility] [employer]. COVID-19 VACCINE, MRNA-1273, LNP-S (MODERNA)/PF 08/01/2020 1 2:00:00 AM EDT completed [facility] Medications Medication Brand Name Start Date Product Form Dose Route Admi nistrative Instructions Pharmacy Instructions Status Indications Reaction Description Data Source(s) 24 HR metoprolol succinate 25 MG Extende d Release Oral Tablet metoprolol succinate (TOPROL-XL) 25 MG 24 hr tablet metoprolol succinate (TOPROL-XL) 25 MG 24 hr tablet 02/17/2021 12:00:00 AM EDT 12.5 mg Oral acti ve Take 0.5 tablets (12.5 mg total) by mouth daily [facility] Aspirin 81 MG Chewable Tablet aspirin 81 MG chewable t ablet aspirin 81 MG chewable tablet 02/17/2021 12:00:00 AM EDT 81 mg Oral ac tive Chew 1 tablet (81 mg total) daily [facility] clopidogrel 75 MG Oral Tablet clopidogrel (PLAVIX) 75 MG tablet clopidogrel (PLAVIX) 75 MG tablet 02/17/2021 12:00:00 AM EDT 75 mg Oral active Take 1 tablet (75 mg total) by mouth daily [facility] Nitroglycerin 0.4 MG Sublingual Tablet n itroglycerin (NITROSTAT) 0.4 MG SL tablet nitroglycerin (NITROSTAT) 0.4 MG SL tablet 02/16/2021 12:00:00 A M EDT 0.[address] 1 t ablet (0.4 mg total) under the tongue every 5 (five) minutes as needed for chest pain [facility] atorvastatin 40 MG Oral Tablet atorvastatin (LIPITOR) 40 MG tablet atorvastatin (LIPITOR) 40 MG tablet 02/16/2021 12:00:00 AM EDT 40 mg Oral active Take 1 tablet (40 mg total) by mouth nightly [facility] 24 HR metoprolol succinate 25 MG Extende d Release Oral Tablet metoprolol succinate (TOPROL-XL) 24 hr tablet 12.5 mg metoprolol succinate (TOPROL-XL) 24 hr tablet 12.5 mg 02/15/2021 03:00:00 PM EDT 12.5 mg Oral active 12.5 mg, Oral, Daily, First dose (after last modification) on Mon02/15/21 at 1500
Hold for HR less than [address]
[facility] Medication administered onsite Albuterol 0.833 MG/ML / Ipratropium Brom edgar 0.167 MG/ML Inhalant Solution ipratropium-albuterol (DUO-NEB) 0.5-2.5 mg/mL nebulizer solution 3 mL ipratropium-albuterol (DUO-NEB) 0.5-2.5 mg/mL nebulizer solution 3 mL 02/15/2021 09:00:00 AM EDT 3 mL Inhalation active 3 mL, Inhalation, 3 times daily, First dose on Mon02/15/[address] [facility] Medication administered onsite clopidogrel 75 MG Oral Tablet clopidogrel (PLAVIX) tab let 75 mg clopidogrel (PLAVIX) tablet 75 mg 02/15/2021 09:00:00 AM EDT 75 mg Oral active 75 mg, Oral, Daily, First dose on Mon02/15/21 at 0900, Post-op
May begin the same day
[facility] Medication administered onsite Albuterol 0.83 MG/ML Inhalant Solution a lbuterol (PROVENTIL) nebulizer solution 2.5 mg albuterol (PROVENTIL) nebulizer solution 2.5 mg 2020 08:39:53 AM EDT 2.5 mg active 2.5 mg, Nebulization, Every 2 hour PRN, wheezing, shortness of breath, Starting on Mon02/15/[address] [facility] Medication administered onsite magnesium sulfate 1 g in dextrose 5% infusion (premix) 46042 -108-01 02/15/2021 12:00:00 AM EDT 1 g Intravenous completed 1 g, Intravenous, at 200 mL/hr, Once, On Mon02/15/21 at 0000, For [address] [facility] Medication administered onsite potassium chloride SA (K-DUR,KLOR-CON) CR tablet 20 mEq [id number] 02/15/2021 12:00:00 AM EDT 20 meq Oral completed 20 mEq, Oral, Once, On Mon02/15/21 at 0000, For [address] [facility] Medication administered onsite atorvastatin 40 MG Oral Tablet atorvastatin (LIPITOR) tablet 40 mg atorvastatin (LIPITOR) tablet 40 mg 02/14/2021 09:00:00 PM EDT 40 mg Oral active 40 mg, Oral, Nightly, First dose on 02/14/[address] [facility] Medication administered onsite clopidogrel 300 MG Oral Tablet clopidogrel (PLAVIX) ta blet 300 mg clopidogrel (PLAVIX) tablet 300 mg 02/14/2021 07:00:00 PM EDT 300 mg Oral completed 300 mg, Oral, Once, On Mon02/14/21 at 1900, For [address] [facility] Medication administered onsite Aspirin 81 MG Chewable Tablet aspirin chewable tablet 81 mg aspirin chewable tablet 81 mg 02/14/2021 03:00:00 PM EDT 81 mg Oral activ e 81 mg, Oral, Daily, First dose on 02/14/21 at 1500, Post-op
D/C any prior aspirin order
[facility] Medication administered onsite Nitroglycerin 0.4 MG Sublingual Tablet n itroglycerin (NITROSTAT) SL tablet 0.4 mg nitroglycerin (NITROSTAT) SL tablet 0.4 mg 02/14/2021 02:31:02 P M EDT 0.4 mg Sublingual active 0.4 mg, S ublingual, Every 5 min PRN, chest pain, Starting on 02/14/21 at 1431, Post-op
May administer every 5 minutes for 3 doses and call cardio lab MD.
[facility] Medication administered onsite Acetaminophen 325 MG Oral Tablet acetaminophen (TYLENO L) 325 MG tablet 650 mg acetaminophen (TYLENOL) 325 MG tablet 650 mg 02/14/2021 02:31:02 PM EDT 650 mg Oral active 650 mg, Or al, Every 4 hours PRN, headaches, and non cardiac pain, Starting on 02/14/21 at 1431, Post-op
"Maximum dose of acetaminophen is 4,000 mg from all sources in 24 hours."
[facility] Medication administered onsite Stiolto Respimat Stiolto Respimat 02/08/2021 12:00:00 AM EDT ORAL active [facility] ([facility] 30 ACTUAT fluticasone furoate 0.2 MG/ACTUAT Dry Powder Inhaler [Arnuity] Arnuity Ellipta 02/08/2021 12:00:00 AM EDT active [facility] ([facility] 200 ACTUAT Albuterol 0.09 MG/ACTUAT Metered Dose Inhal er [Ventolin] Ventolin HFA 02/08/2021 12:00:00 AM EDT RESPIRATORY active [facility] ([facility] Insurance Providers Payer name Policy type / Coverage type Policy ID Covered republican ID Covered republican's relationship to ocampo Policy [place] Plan Information Medicaid S [id number] S [id number] [employer] BCBS P [id number] S [id number] [employer] BCYO P [id number] S [id number] Managed Care BCBS O [id number] S [id number] BCBS [facility] 020/520 [id number] SP [id number] [facility] COMMUNITY PLAN MCDO [id number] SP [id number] [place] PPO 302/307 [id number] SP [id number] UNHC COMMUNITY PLAN [facility] [id number] SP [id number] UNHC COMMUNITY PLAN [facility] [id number] SP [id number] MEDICAID [id number] SELF PAY ONLY [id number] SP [id number] [facility] [id number] SP [id number] [facility] I [id number] Self [id number] [facility] MEDICAID [id number] Samreen [id number] [facility] MEDICAID [id number] [facility] Communty Plan Medicaid [id number] Self [id number] [facility] COMMUNTY PLAN MC [id number] [facility] O [id number] S [id number] MEDICAID [id number] SP [id number] [facility]) O [id number] S [id number] MEDICAID [id number] Medicaid [place] Medigap Part B [id number] Self BS [place] Commercial [id number] Self MEDICAID S [id number] S [id number] [employer] BCBS P [id number] S [id number] [place] 020/520 [id number] SP [id number] [employer] BCBS P [id number] S [id number] [employer] Advant[employer] Admin. O [id number] S [id number] Blue Cross Blue Shield [place] O [id number] S [id number] UNHC COMMUNITY PLAN XIX [id number] 18 [id number] BLUE CROSS HUBER PLAN [id number] SP [id number] [employer] [id number] SP [id number] [facility] SHRUTHI [id number] SP [id number] [place] 020/520 [id number] SP [id number] HMO BLUE [id number] SP [id number] [facility] [id number] [facility] Health Maintenance Organization [place] [id number] Self [id number] [facility] Health Maintenance [facility] ([facility] [id number] Self [id number] Problems, Conditions, and Diagnoses Code Display Name Description Problem Type Effective Dates Data Source(s) L88310 Nicotine dependence, cigarettes, uncompl icated Nicotine dependence, cigarettes, uncomplicated Diagnosis 02/17/2021 05:12:00 PM EDT [facility] I219 Acute myocardial infarction, unspecified Acute myocardial infarction, unspecified Diagnosis 02/17/2021 05:12:00 PM EDT [facility] Z955 Presence of coronary angioplasty implant and graft Presence of coronary angioplasty implant and graft Diagnosis 02/17/2021 05:12:00 PM EDT [facility] J449 Chronic obstructive pulmonary disease, u nspecified Chronic obstructive pulmonary disease, unspecified Diagnosis 02/17/2021 05:12:00 PM EDT [facility] I2510 Atherosclerotic heart diseas e of [place] coronary artery without angina pectoris Atherosclerotic heart disease of [place] coronary artery without angina pectoris Diagnosis 02/17/2021 05:12:00 PM EDT [facility] Z1152 ENCOUNTER FOR SCREENING FOR COVID-19 ENCOUNTER F OR SCREENING FOR COVID-19 Diagnosis 02/17/2021 05:12:00 PM EDT [facility] R0789 Other chest pain Other chest pain Diagnosis 02/17/2021 05 :12:00 PM EDT [facility] I21.3 ST elevation (STEMI) myocardial infarcti on of unspecified site ST elevation (STEMI) myocardial infarcti Diagnosis 02/14/2021 01:19:[address] [facility] I25.119 Atherosclerotic heart diseas e [place] coronary artery with unspecified angina pectoris Atherosclerotic heart disease of [place] Diagnosis 02/14/2021 01:19:[address] [facility] I21.3 STEMI (ST elevation myocardial infarctio n) STEMI (ST elevation myocardial infarction) [id number] 02/14/2021 12:00:[address] [facility] I25.10 CAD (coronary artery disease) CAD (coronary artery dis ease) [id number] 02/14/2021 12:00:[address] [facility] J44.9 COPD (chronic obstructive pulmonary dise ase) COPD (chronic obstructive pulmonary disease) [id number] 02/14/2021 12:00:[address] [facility] Z72.0 Tobacco abuse Tobacco abuse [id number] 02/14/2021 12:00:[address] [facility] Surgeries/Procedures Procedure Description Date Indications Data Source(s) BLOOD COUNT COMPLETE AUTO&AUTO DIFRNTL WBC COUNT <td>C BC AND DIFFERENTIAL</td><td>Timed</td><td>02/16/2021 4:27 AM EDT</td><td></td><td> </td> 02/16/2021 04:27:[address] [facility] BASIC METABOLIC PANEL CALCIUM TOTAL <td>BASIC METABOLI C PANEL</td><td>Timed</td><td>02/16/2021 4:27 AM EDT</td><td></td><td> </td> 02/16/2021 04:27:[address] [facility] ECHO TTHRC R-T 2D W/WOM-MODE COMPL SPEC&COLR DOP <td>E CHOCARDIOGRAM TRANSTHORACIC</td><td>Routine</td><td>02/15/2021 9:36 AM EDT</td><td></td><td> </td> 02/15/2021 09:36:[address] [facility] ECG ROUTINE ECG W/LEAST 12 LDS TRCG ONLY W/O I&R <td>E CG 12- LEAD</td><td>Routine</td><td>02/15/2021 6:55 AM EDT</td><td></td><td></td> 02/15/2021 06:55:13 AM EDT [facility] CMB <td>CMB</td><td>STAT</td><td >02/15/2021 4:39 AM EDT</td><td></td><td> </td> 02/15/2021 04:39:[address] [facility] TROPONIN QUANTITATIVE <td>TROPONIN I</td><td>Routi ne</td><td>02/15/2021 4:39 AM EDT</td><td></td><td> </td> 02/15/2021 04:39:[address] [facility] BLOOD COUNT COMPLETE AUTO&AUTO DIFRNTL WBC COUNT <td>C BC AND DIFFERENTIAL</td><td>Timed</td><td>02/15/2021 4:39 AM EDT</td><td></td><td> </td> 02/15/2021 04:39:[address] [facility] LIPOPROTEIN DIRECT MEASUREMENT LDL CHOLESTEROL <td>LDL CHOLESTEROL, DIRECT</td><td>Routine</td><td>02/15/2021 4:39 AM EDT</td><td></td><td> </td> 02/15/2021 04:39:[address] [facility] CREATINE KINASE MB FRACTION ONLY <td>CKMB</td><td>Rout ine</td><td>02/15/2021 4:39 AM EDT</td><td></td><td> </td> 02/15/2021 04:39:[address] [facility] LIPID PANEL <td>LIPID PANEL</td><td>Rout ine</td><td>02/15/2021 4:39 AM EDT</td><td></td><td> </td> 02/15/2021 04:39:[address] [facility] BASIC METABOLIC PANEL CALCIUM TOTAL <td>BASIC METABOLI C PANEL</td><td>Timed</td><td>02/15/2021 4:39 AM EDT</td><td></td><td> </td> 02/15/2021 04:39:[address] [facility] CMB <td>CMB</td><td>STAT</td><td >02/15/2021 12:40 AM EDT</td><td></td><td> </td> 02/15/2021 12:40:[address] [facility] TROPONIN QUANTITATIVE <td>TROPONIN I</td><td>Timed </td><td>02/15/2021 12:40 AM EDT</td><td></td><td> </td> 02/15/2021 12:40:[address] [facility] CREATINE KINASE MB FRACTION ONLY <td>CKMB</td><td>Time d</td><td>02/15/2021 12:40 AM EDT</td><td></td><td> </td> 02/15/2021 12:40:[address] [facility] POTASSIUM SERUM PLASMA/WHOLE BLOOD <td>POTASSIUM</td>< td>STAT</td><td>02/14/2021 9:29 PM EDT</td><td></td><td> </td> 02/14/2021 09:29:[address] [facility] MAGNESIUM <td>MAGNESIUM</td><td>STAT</ td><td>02/14/2021 9:29 PM EDT</td><td></td><td> </td> 02/14/2021 09:29:[address] [facility] CMB <td>CMB</td><td>STAT</td><td >02/14/2021 7:19 PM EDT</td><td></td><td> </td> 02/14/2021 07:19:[address] [facility] TROPONIN QUANTITATIVE <td>TROPONIN I</td><td>Routi ne</td><td>02/14/2021 7:19 PM EDT</td><td></td><td> </td> 02/14/2021 07:19:[address] [facility] CREATINE KINASE MB FRACTION ONLY <td>CKMB</td><td>Rout ine</td><td>02/14/2021 7:19 PM EDT</td><td></td><td> </td> 02/14/2021 07:19:[address] [facility] CMB <td>CMB</td><td>STAT</td><td >02/14/2021 2:46 PM EDT</td><td></td><td> </td> 02/14/2021 02:46:[address] [facility] TROPONIN QUANTITATIVE <td>TROPONIN I</td><td>Timed </td><td>02/14/2021 2:46 PM EDT</td><td></td><td> </td> 02/14/2021 02:46:[address] [facility] BLOOD COUNT COMPLETE AUTOMATED <td>CBC</td><td>STAT</t d><td>02/14/2021 2:46 PM EDT</td><td></td><td> </td> 02/14/2021 02:46:[address] [facility] THYROID STIMULATING HORMONE TSH <td>TSH</td><td>Add-On </td><td>02/14/2021 2:46 PM EDT</td><td></td><td> </td> 02/14/2021 02:46:[address] [facility] HEMOGLOBIN GLYCOSYLATED A1C <td>HEMOGLOBIN A1C</td><td >Add-On</td><td>02/14/2021 2:46 PM EDT</td><td></td><td> </td> 02/14/2021 02:46:[address] [facility] CREATINE KINASE MB FRACTION ONLY <td>CKMB</td><td>Time d</td><td>02/14/2021 2:46 PM EDT</td><td></td><td> </td> 02/14/2021 02:46:[address] [facility] COMPREHENSIVE METABOLIC PANEL <td>COMPREHENSIVE METABO LIC PANEL</td><td>STAT</td><td>02/14/2021 2:46 PM EDT</td><td></td><td> </td> 02/14/2021 02:46:[address] [facility] ECG ROUTINE ECG W/LEAST 12 LDS TRCG ONLY W/O I&R <td>E CG 12- LEAD</td><td>Routine</td><td>02/14/2021 2:22 PM EDT</td><td></td><td></td> 02/14/2021 02:22:49 PM EDT [facility] CMB <td>CMB</td><td>STAT</td><td >02/14/2021 1:50 PM EDT</td><td></td><td> </td> 02/14/2021 01:50:[address] [facility] TROPONIN QUANTITATIVE <td>TROPONIN I</td><td>STAT< /td><td>02/14/2021 1:50 PM EDT</td><td></td><td> </td> 02/14/2021 01:50:[address] [facility] BLOOD COUNT COMPLETE AUTOMATED <td>CBC</td><td>STAT</t d><td>02/14/2021 1:50 PM EDT</td><td></td><td> </td> 02/14/2021 01:50:[address] [facility] CREATINE KINASE MB FRACTION ONLY <td>CKMB</td><td>STAT </td><td>02/14/2021 1:50 PM EDT</td><td></td><td> </td> 02/14/2021 01:50:[address] [facility] COMPREHENSIVE METABOLIC PANEL <td>COMPREHENSIVE METABO LIC PANEL</td><td>STAT</td><td>02/14/2021 1:50 PM EDT</td><td></td><td> </td> 02/14/2021 01:50:[address] [facility] CARDIAC CATHETERIZATION <td>CARDIAC CATHETERIZATION</td><td>Routine</td><td>02/14/2021 1:49 PM EDT</td><td> STEMI (ST elevation myocardial infarction)</td><td> </td> 02/14/2021 01:49:20 PM EDT STEMI (ST elevation myocardial infarction) [facility] STEMI (ST elevation myocardial infarctio n) COVID/FLU AB/RSV PCR <td>COVID/FLU AB/RSV PCR</td ><td>STAT</td><td>02/14/2021 1:28 PM EDT</td><td></td><td> </td> 02/14/2021 01:28:[address] [facility] OFFICE OUTPATIENT VISIT 25 MINUTES 02/08/2021 12:00:00 AM EDT [facility] Results ID Date Data Source [id number] 02/18/2021 10:21:00 [place] [address] HISTORY AND PHYSICALNAME: BRINDA CULLEN I ROOM#: 106-1DATE OF : 1965 MR#: [id number] PHYS: Itz Iglesias MD, PC DATE: 02/17/21CHIEF COMPLAINT: Chest pain.HISTORY OF PRESENT ILLNESS:This is a 55-year-old male who began having chest pain last week. It was sustained, an ambulance wascalled. He was found to have an ST elevation in the inferior leads, was taken directly to [facility]. He had a coronary angiography which showed subtotal occlusion of the distal right withmoderate disease in the proximal LAD and mild ventricular systolic dysfunction with 2+ mitralinsufficiency. He received drug-eluting stents to the distal right and proximal posterolateral branch andbecame chest pain free. He had an inferior wall myocardial infarction. He had an echocardiogram doneas well which showed LV systolic function normal with resting estimated ejection fraction of 55-60%.He was discharged home on [id number] and on the , he began experiencing in the morning, sharpintermittent mid-sternal chest pain that did not last very long, but did come and go through the day sohe came to the ER about 16:42. Upon arrival, his blood pressure was 123/80. Heart rate 73.Respirations 18. O2 saturation was 96%. Temperature was 97.9. EKG showed the old infarct.LABORATORY STUDIES:White count was slightly elevated at 12.6, hemoglobin 15.5, hematocrit 45, platelets 240. Electrolyteswere normal. Nonfasting glucose was 116, BUN 17, creatinine 1.1. BNP was 460. Lipase was 54.Magnesium was 2.1. Troponin was 2.42. Troponin in [place] was 55.5. COVID was not detected. Inthe ER, he was given 81 mg of chewable aspirin, half inch of topical nitroglycerin ointment wasapplied. He was given normal saline IV. Pain subsided. He was having no further intermittent mid-sternal sharp pains. Chest x-ray was done which did not show anything acute. Assessment was doneand patient will be admitted to the service of Dr. Iglesias observation status for chest pain, rule outcoronary event to the medical floor on telemetry for further work up with serial enzymes.SOCIAL HISTORY:He is . He is a current every day smoker. He does not use drugs. He rarely drinks alcohol. Helives with his spouse. His PCP is Dr. Sahu. For pulmonology, [facility] to [facility]. Heis a full code.PAST MEDICAL HISTORY: 1. Recent NV as described above. 2. History of emphysema/COPD. 3. Hypertension. 4. History of depression.PAST SURGICAL HISTORY: 1. Bowel resection. 1 [place] [address] HISTORY AND PHYSICALNAME: BRINDA CULLEN I ROOM#: 106-1DATE OF : 1965 MR#: [id number] PHYS: Itz Iglesias MD, PC [facility] [id number] DATE: 02/17/21 2. Colon resection. 3. Elbow surgery. 4. Hernia repair.FAMILY HISTORY:Mother had coronary artery disease, history of NV, hypertension. Father had COPD, at age73.ALLERGIES:No known allergies.HOME MEDICATIONS: 1. Aspirin 81 mg daily 2. Atorvastatin 40 mg p.o. q h.s. 3. Plavix 75 mg p.o. daily 4. Metoprolol succinate 12.5 mg p.o. daily 5. Nitroglycerin sublingual q 5 minutes x3 p.r.n. for chest pain or shortness of breath. 6. Albuterol inhaler 2 puffs q 4 hours p.r.n. for wheezing. 7. Arnuity Ellipta 200 mcg 1 puff daily. 8. Stiolto Respimat 2 puffs inhaled daily.REVIEW OF SYSTEMS:Ten systems review was done and other than as described in HPI, was negative. He had no palpitations. Noedema. No nausea, vomiting. History of intermittent sharp chest pain.PHYSICAL EXAMINATION:GENERAL: 55-year-old cooperative male in no acute distress. Height 65 inches. Weight 169 pounds.VITAL SIGNS: Blood pressure is 110/69. Pulse 62. Respirations 15. Temperature 98. O2 saturation is 95% onroom air. Patient is alert and oriented x3.HEENT: Pupils equal and reactive to light. EOMs are intact. Pharynx, tongue, and gums pink and moist.Tongue is midline.NECK: Supple without lymphadenopathy. No thyromegaly or goiter. Carotids 2+ without bruit. Jugularvenous pressure is below clavicle at 45 degrees.CHEST: Clear to auscultation without wheezes or retraction.HEART: Regular.ABDOMEN: Benign. Bowel sounds are positive./RECTAL: Not done. [address] [place] [address] HISTORY AND PHYSICALNAME: BRINDA CULLEN I ROOM#: 106-1DATE OF : 1965 MR#: [id number] PHYS: Izt Iglesias MD, PC DATE: 02/17/21EXTREMITIES: Full range of motion. No cyanosis, clubbing or edema. Peripheral pulses equal and palpablebilaterally. Skin is warm and dry.IMPRESSION/PLAN:Patient will be admitted observation status to the service of Dr. Iglesias for chest pain rule out NV. SerialTroponins, telemetry monitoring. Continue aspirin, statin, Plavix and beta lindsey. He will be placed on acardiac monitor.DD: Jill Knutson AWS CONSULTANT 02/18/21 03:30DT: RAMON 02/18/21 10:20DS: Jill Salgado JOHN Knutson 02/21/21 21:10 3 Name Value Range Interpretation Code Description Data Angie rce(s) Supporting Document(s) ID Date Data Source [id number] 02/18/2021 09:59:00 [place] [address] DISCHARGE SUMMARYNAME: BRINDA CULLEN I ROOM#: 106-1DATE OF : 1965 MR#: [id number] PHYS: Itz Iglesias MD, PC DATE: 02/17/21 DISCHARGED:REASON FOR ADMISSION: This 55-year-old white male came in with chest pain.HISTORY OF PRESENT ILLNESS:This patient had an inferior wall NV on 02/14. He had severe chest pain at home. The ambulance wascalled who directly took him to [facility] where he was found to have an inferior wall NV.A cardiac catheterization did show septal wall thrombotic occlusion of the distal right endosteum in theposterolateral branch. The patient had a stent placed in both the right and the posterolateral branch.According to the records from Dr. Samuels, he had moderate disease in the proximal LAD and leftventricular end diastolic pressure was high. The patient on 02/17 was doing some work at home andhad a sharp episode of chest pain 2-3 times which lasted only a few seconds. Pain was in theretrosternal area localized and did not radiate to the neck or arm. No episode of sweating or dyspnea.Before the admission, he had prolonged retrosternal chest pressure and he came to the emergency roomwhere he was given Nitropaste 0.5 inch with relief of the chest pain. He was also given IV fluids. Hewas also given aspirin chewable 81 mg. IV fluids were given at 250 bolus IV normal saline. Onexamination on admission, his blood pressure was 110/80. Head is normal. Heart is regular sinusrhythm. No edema in the legs.LABORATORY & X-RAY DATA:His blood tests in the emergency room showed BUN was 17, creatinine was 1.1. Troponin was 2.42.EKG showed old inferior wall NV. There was no acute change. Hemoglobin was 15.4. RepeatTroponin in the hospital on 02/17 at 21:37 was 2.50 and on 02/18 at 2:53, it was 2.65. Sodium iic871, potassium 5, BUN 19, creatinine was 1.1. Magnesium was 2.0. Hemoglobin was 15.1. Whitecount was 12.4.HOSPITAL COURSE:The patient was treated with Nitropaste 0.5 inch, metoprolol ER 25 mg daily, aspirin 81 mg daily,Plavix 75 mg daily, Lipitor 40 mg daily, Lovenox 40 mg daily, nitroglycerin 0.4 mg p.r.n., handheldDuoNebs. He has known history of COPD. During the course in the hospital, the patient did not haveany more chest pain. He was comfortable. Patient was advised to stay longer. He was told that hisTroponin level is slightly high which could very well be from the coronary angioplasty and stent.Sometimes Troponin could stay high for a week after the procedure. I told the patient to stay in thehospital so we could observe him more closely for another 24-48 hours, but he refused. I discussedwith Dr. Samuels, who did the coronary angioplasty, who thought his Troponin level was probablyhigh from the coronary stent. Patient did not want to stay in the hospital. He signed out against medicaladvice. He was told that he could be having another heart attack or unstable angina, he could have acardiac arrest and immediate could happen. He understands and he is not going to stay in thehospital and he signed out against medical advice. [facility] He was given a prescription also for Nitropatch 0.4 to be used every day. [address] [place] [address] DISCHARGE SUMMARYNAME: BRINDA CULLEN I ROOM#: 106-1DATE OF : 1965 MR#: [id number] PHYS: Itz Iglesias MD, PC DATE: 02/17/21 DISCHARGED:FINAL DIAGNOSES:1. Chest pain, atypical.2. Possible angina pectoris, stable.3. Status post inferior wall NV recent, 4 days ago.4. History of smoking.5. History of hypertension.6. History of hyperlipidemia.7. Recent coronary stent on 02/15/20 at [facility] in the right coronary artery and posterolateral branch of the right coronary artery.DISCHARGE FOLLOW- UP:Patient did not have any chest pain for the last 12 hours. Patient was told if he has any chest pain, he isto go straight to the emergency room or call the ambulance. He understands.Patient has a follow-up appointment with Dr. Stanton, pull up hand in [place], so I will not see himfor follow-up.DD: Itz Iglesias MD, 02/18/21 09:25DT: RAMON 02/18/21 09:59DS: Itz Iglesias MD, 02/19/21 09:16 2 Name Value Range Interpretation Code Description Data Angie rce(s) Supporting Document(s) ID Date Data Source [id number] 02/18/2021 09:18:00 [place] [address] PHONE: [phone] FAX: [phone] Name ..............: BRINDA CULLEN Antonia Acct Number ...........................: [id number] ROOM. ............: 106-1 MR Number ............................: [id number] Stay type.........: O/P Discharge Date...............:02/18/21 Admit Date .....: 02/17/21 Admit Phys .............................: ANDRIA TANNER Date of ..: 1965 Family Phys ...........................: MANDEEP Farley Phone..............: [phone] Age.................................:55 Film# ...............:[id number] Sex.................................:M Unsigned transcriptions are preliminary reports and do not represent a medical or legal document EKG [id number] COMPLETE:02/17/21 21:00 BIS [id number] Please See Scanned Results. Name Value Range Interpretation Code Description Data Angie rce(s) Supporting Document(s) ID Date Data Source [id number] 02/18/2021 09:17:00 [place] [address] PHONE: [phone] FAX: [phone] Name ..............: BRINDA CULLEN I Acct Number ...........................: [id number] ROOM. ............: 106-1 Number ............................: [id number] Stay type.........: O/P Discharge Date...............:02/18/21 Admit Date .....: 02/17/21 Admit Phys .............................: ANDRIA CIRO Date of ..: 1965 Family Phys ...........................: MANDEEP S Phone..............: [phone] Age.................................:55 Film# ...............:[id number] Sex.................................:M Unsigned transcriptions are preliminary reports and do not represent a medical or legal document EKG [id number] COMPLETE:02/18/21 07:[place] [id number] Please See Scanned Results. Name Value Range Interpretation Code Description Data [facility] rce(s) Supporting Document(s) ID Date Data Source [id number] 02/18/2021 09:31:00 AM EDT [facility] Name Value Range Interpretation Code Description Data [facility] rce(s) Supporting Document(s) TROPONIN T 2.13 NG/ML 0.00 - 0.10 [facility] Ho spital CALL/ READ BACK GLENIS/2.13 [facility] BY: JSK [facility] DATE/TIME 02/18/219[address] [facility] spital TROPONIN T0.1 ng/ml Recommended as the c linical threshold value forTroponin T. ID Date Data Source [id number] 02/18/2021 07:13:00 AM EDT [facility] Name Value Range Interpretation Code Description Data [facility] Supporting Document(s) CBC W/AUTOMATED DIFF [facility] COMPLETE BLOOD COUNT Leukocytes [#/volume] in Blood by Automated count 12.4 10^3/uL 4.2 - 11.0 H [facility] Erythrocytes [#/volume] in Blood by Automated count 5.08 10^6/uL 4. 50 - 6.30 [facility] Hemoglobin [Mass/volume] in Blood 15.1 g/dL 14.0 - 16.0 [facility] Hematocrit [Volume Fraction] of Blood by Automated count 45.0 % 4 1.0 - 51.0 [facility] Erythrocyte mean corpuscular volume [Entitic volume] by Auto mated count 88.6 fL 80.0 - 94.0 [facility] Erythrocyte mean corpuscular hemoglobin [Entitic mass] by Automated count 29.7 pg 27.0 - 34.0 [facility] Erythrocyte mean corpuscular hemoglobin concentration [Mass/volume] by Automated count 33.6 g/dL 31.0 - 36.0 [facility] Erythrocyte distribution width [Ratio] by Automated count 13.8 % 11.5 - 14.8 [facility] Platelets [#/volume] in Blood by Automated count 233 10^3/uL 150 - 45 0 [facility] Platelet mean volume [Entitic volume] in Blood by Automated count 11.0 fL 7.4 - 10.4 H [facility] Neutrophils/100 leukocytes in Blood by Automated count 58.5 % 37. 0 - 80.0 [facility] Lymphocytes/100 leukocytes in Blood by Manual count 27.5 % 25.0 - 40.0 [facility] Monocytes/100 leukocytes in Blood by Automated count 9.3 % 3.0 - 8.0 H [facility] Eosinophils/100 leukocytes in Blood by Automated count 2.6 % 0.0 - 7.0 [facility] Basophils/100 leukocytes in Blood by Automated count 0.8 % 0.0 - 2.0 [facility] %IG 1.3 % 0.0 - 0.0 [facility] %NRBC 0.0 % 0.0 - 0.0 [facility] al Neutrophils [#/volume] in Blood by Automated count 7.24 10^3/uL 2.00 - 6.90 H [facility] Lymphocytes [#/volume] in Blood by Automated count 3.40 10^3/uL 0.60 - 3.40 [facility] Monocytes [#/volume] in Blood by Automated count 1.15 10^3/uL 0.00 - 0.90 H [facility] Eosinophils [#/volume] in Blood by Automated count 0.32 10^3/uL 0.00 - 0.70 [facility] Basophils [#/volume] in Blood by Automated count 0.10 10^3/uL 0.00 - 0.20 [facility] #IG 0.16 10^3/uL 0.00 - 0.10 H [facility] ospital #NRBC 0.00 10^3/uL 0.00 - 0.00 [facility] ospital MANUAL DIFF SEE BELOW [facility] ital Segmented neutrophils/100 leukocytes in Blood by Manual count 55 % 37 - 80 [facility] BAND 3 % 0 - 5 [facility] %LYMPH 28 % 25 - 40 [facility] al %MONO 9 % 3 - 8 H [facility] al %EOS 3 % 0 - 7 [facility] Metamyelocytes/100 leukocytes in Blood by Manual count 2 % [facility] RBC MORPH NOT INDICATED [facility] Ho spital ID Date Data Source [id number] 02/18/2021 06:33:00 AM EDT [facility] Name Value Range Interpretation Code Description Data Angie rce(s) Supporting Document(s) COMPREHENSIVE METABOLIC PANEL [facility] COMPREHENSIVE METABOLIC PANEL Sodium [Moles/volume] in Serum or Plasma 140 mEq/L 134 - 153 [facility] Potassium [Moles/volume] in Serum or Plasma 5.0 mEq/L 3.6 - 5.0 [facility] Chloride [Moles/volume] in Serum or Plasma 107 mEq/L 98 - 107 [facility] Carbon dioxide, total [Moles/volume] in Serum or Plasma 23 MEQ/L 22 - 30 [facility] Glucose [Mass/volume] in Serum or Plasma 103 MG/DL 70 - 99 H [facility] BUN 19 MG/DL 7 - 21 [facility] al Creatinine [Mass/volume] in Serum or Plasma 1.1 MG/DL 0.7 - 1.5 [facility] BUN/CREAT 17 8 - 27 [facility] al Protein [Mass/volume] in Serum or Plasma 6.3 G/DL 6.3 - 8.2 [facility] Albumin [Mass/volume] in Serum or Plasma 4.3 G/DL 3.9 - 5.0 [facility] Globulin [Mass/volume] in Serum by calculation 2.0 GM/DL 2.4 - 3.2 L [facility] A/G RATIO 2.2 0.8 - 2.0 H [facility] al Calcium [Mass/volume] in Serum or Plasma 9.6 MG/DL 8.4 - 10.2 [facility] Bilirubin.total [Mass/volume] in Serum or Plasma <0.7 MG/DL 0.2 - 1.3 [facility] Alkaline phosphatase [Enzymatic activity/volume] in Serum or Plasma 101 U/L 38 - 126 [facility] Aspartate aminotransferase [Enzymatic activity/volume] in Serum or Plasma 26 U/L 5 - 40 [facility] Alanine aminotransferase [Enzymatic activity/volume] in Seru m or Plasma 28 U/L 7 - 56 [facility] Anion gap 3 in Serum or Plasma 10.0 mmol/L 8.0 - 16.0 [facility] AGE [address] [facility] NON-AA GFR >60 mL/min [facility] AFR AMER GFR >60 mL/min [facility] Male GFR In terprentation 20-49 yrs >60 mL/min Normal 50-59 yrs >56 mL/min Normal 60-69 yrs >49 mL/min Normal 70-79yrs >42 mL/min Normal 80 and above >35 mL/min Normal Female GFR Interpretation 20-39 yrs >60 mL/min Normal 40-49 yrs >58 mL/min Normal 50-59 yrs >51 mL/min Normal 60-69 yrs >45 mL/min Normal 70-79 yrs >39 mL/min Normal 80 and above >32 mL/min Normal ID Date Data Source [id number] 02/18/2021 06:28:00 AM EDT [facility] Name Value Range Interpretation Code Description Data Angie rce(s) Supporting Document(s) Magnesium [Mass/volume] in Serum or Plasma 2.0 MG/DL 1.7 - 2.2 [facility] ID Date Data Source [id number] 02/18/2021 05:18:00 AM EDT [facility] ([facility] Name Value Range Interpretation Code Description Data Angie rce(s) Supporting Document(s) CBC W/Automated Diff Laboratory test result [facility] ([facility] COMPLETE BLOOD COUNT Hemoglobin 15.1 g/dL 14.0-16.0 [facility] RBC 5.08 10^6/uL 4.50-6.30 [facility] WBC 12.4 10^3/uL 4.2-11.0 Above high normal [facility] T ([facility] Hematocrit 45.0 % 41.0-51.0 [facility] MCH 29.7 pg 27.0-34.0 [facility] MCV 88.6 fL 80.0-94.0 [facility] RDW 13.8 % 11.5-14.8 [facility] MPV 11.0 fL 7.4-10.4 Above high normal [facility] ([facility] Platelets 233 10^3/uL 150-450 [facility] MCHC 33.6 g/dL 31.0-36.0 [facility] Neut 58.5 % 37.0-80.0 [facility] Lymph 27.5 % 25.0-40.0 [facility] Baso 0.8 % 0.0-2.0 [facility] [place] 9.3 % 3.0-8.0 Above high normal [facility] ([facility] Eos 2.6 % 0.0-7.0 [facility] %NRBC 0.0 % 0.0-0.0 [facility] %Ig 1.3 % 0.0-0.0 Above high normal [facility] ([facility] #Lymph 3.40 10^3/uL 0.60-3.40 [facility] ([facility] #[place] 1.15 10^3/uL 0.00-0.90 Above high normal [facility] T ([facility] #Neut 7.24 10^3/uL 2.00-6.90 Above high normal [facility] T ([facility] #Eos 0.32 10^3/uL 0.00-0.70 [facility] ([facility] #Baso 0.10 10^3/uL 0.00-0.20 [facility] ([facility] #Ig 0.16 10^3/uL 0.00-0.10 Above high normal [facility] T ([facility] #NRBC 0.00 10^3/uL 0.00-0.00 [facility] ([facility] Segs 55 % 37-80 [facility] Manual Diff Laboratory test result M EDENT ([facility] Band 3 % 0-5 [facility] %Lymph 28 % 25-40 [facility] %Eos 3 % 0-7 [facility] %[place] 9 % 3-8 Above high normal [facility] ([facility] Metamyelocyte 2 % [facility] RBC Morph Laboratory test result ME ALMONTE ([facility] ID Date Data Source [id number] 02/18/2021 05:18:00 AM EDT [facility] ([facility] Name Value Range Interpretation Code Description Data Angie rce(s) Supporting Document(s) Comprehensive [place]abo Laboratory test result [facility] ([facility] COMPREHENSIVE METABOLIC PANEL Potassium 5.0 meq/L 3.6-5.0 [facility] ([facility] Sodium 140 meq/L 134-153 [facility] ([facility] Co2 23 meq/L 22-30 [facility] ([facility] Chloride 107 meq/L 98-107 [facility] Glucose 103 mg/dL 70-99 Above high normal [facility] ([facility] BUN/Creat 17 8-27 [facility] ([facility] Creatinine 1.1 mg/dL 0.7-1.5 [facility] ([facility] BUN 19 mg/dL 7-21 [facility] ([facility] Albumin 4.3 g/dL 3.9-5.0 [facility] ([facility] Total Protein 6.3 g/dL 6.3-8.2 [facility] ([facility] Globulin 2.0 GM/DL 2.4-3.2 Below low normal [facility] ( [facility] A/G Ratio 2.2 0.8-2.0 Above high normal [facility] ([facility] Total Bili Laboratory test result 0.2-1.3 ME DENT ([facility] Calcium 9.6 mg/dL 8.4-10.2 [facility] ([facility] Alkaline Phos 101 U/L 38-126 [facility] ([facility] SGPT/Alt 28 U/L 7-56 [facility] ([facility] Sgot/Ast 26 U/L 5-40 [facility] ([facility] Anion Gap 10.0 mmol/L 8.0-16.0 [facility] ([facility] Non-Aa GFR Laboratory test result ME DENT ([facility] Age 55 yrs [facility] ([facility] Afr Amer GFR Laboratory test result [facility] ([facility] Male GFR Interprentation 20-49 yrs >60 mL/min Normal 50-59 yrs >56 mL/min Normal 60-69 yrs >49 mL/min Normal 70-79yrs >42 mL/min Normal 80 and above >35 mL/min Normal Female GFR Interpretation 20-39 yrs >60 mL/min Normal 40-49 yrs >58 mL/min Normal 50-59 yrs >51 mL/min Normal 60-69 yrs >45 mL/min Normal 70-79 yrs >39 mL/min Normal 80 and above >32 mL/min Normal ID Date Data Source [id number] 02/18/2021 05:18:00 AM EDT [facility] ([facility] Name Value Range Interpretation Code Description Data Angie rce(s) Supporting Document(s) Magnesium [Mass/volume] in Serum or Plasma 2.0 mg/dL 1.7-2.2 [facility] ([facility] ID Date Data Source [id number] 02/18/2021 02:51:00 AM EDT [facility] Name Value Range Interpretation Code Description Data Angie rce(s) Supporting Document(s) TROPONIN T 2.65 NG/ML 0.00 - 0.[address] [facility] CALL/ READ BACK OMID NG/ [facility] BY: LBS [facility] DATE/TIME 02-18-21252 [facility] TROPONIN T0.1 ng/ml Recommended as the c linical threshold value forTroponin T. ID Date Data Source [id number] 02/18/2021 02:25:00 AM EDT [facility] ([facility] Name Value Range Interpretation Code Description Data Angie rce(s) Supporting Document(s) Troponin T 2.65 ng/mL 0.00-0.10 Above upper panic limits [facility] ([facility] Call/ Read Back Laboratory test result [facility] ([facility] By: Laboratory test result [facility] ([facility] Date/Time Laboratory test result DE SUZY ([facility] TROPONIN T 0.1 ng/ml Recommended as the clinical th reshold value for Troponin T. ID Date Data Source [id number] 02/17/2021 05:12:00 PM EDT [facility] 1 OrderSheet [facility] Emergency Department [address] [place] [address] Phone #: ext- [phone] 02/17/2021 16:40 Patient: SUBHASH ROQUE I Sex: M : 1965 Age: 55yWEIGHT:74.8 kg (S) HEIGHT:65 inches (S) BMI:27.5ALLERGIES: No Known Drug AllergyCHIEF COMPLAINT: chest painDIAGNOSIS: Chest painLAB ORDERSOrder Description Priority Entered Acknowledged InitialedCBC w Diff STAT 17:22 02/17/2021 17:24 Emmanuelle Jones Riccardo Frank R.NDread M.D.;CMP STAT 17:22 02/17/2021 17:24 Emmanuelle Jones Riccardo Frank R.NDread M.D.;Lipase STAT 17:22 02/17/2021 17:24 Emmanuelle Jones Riccardo Frank R.N. M.D.;Troponin-T STAT 17:22 02/17/2021 17:24 Emmanuelle Jones Riccardo Frank R.NDread MDreadDDread;BNP STAT 17:22 02/17/2021 17:24 SorbEmmanuelle dodd Riccardo Frank R.NDread M.DDread;COVID-19 CAH (Not STAT 17:22 02/17/2021 18:19 Sorbero,Symptomatic as Gucci Handley.NDreadDefined by CDC) M.D.;(02/17/2021) (NotFirst Test) (NotHospitalized) (Not) (NotResident inCongregate CareSetting) (NotEmployed inHealthcare Setting)DIAGNOSTIC STUDY ORDERSOrder Description Priority Entered Acknowledged InitialedChest Portable 1 STAT 17:22 02/17/2021 17:24 Sorbju,View Gucci Handley R.N. 2 OrderSheet [facility] Emergency Department [address] [place] [address] Phone #: ext- [phone] 02/17/2021 16:40 Patient: SUBHASH ROQUE I [facility]#: [id number] Sex: M : 1965 Age: 55y(Oxygen?(No)) M.D.; Reason for Study: Chest PainMEDICATION/IV/DRIP/FLUID ORDERSOrder Description Priority Entered Acknowledged InitialedAspirin PO 17:22 02/17/2021 17:58 Sorbero,Chewable 81 mg Turrin, Gucci Michael R.N.162 mg M.D.;NitroGLYCERIN 17:22 02/17/2021 17:59 Sorbero,Topical Ointment Turrin, Gucci Michael R.N.0.5 in. M.D.;NS IV : Bolus 250 18:47 02/17/2021 18:59 Sorbero,mL, then 125 mL/hr Turrin, Gucci Michael R.N. M.D.;GENERAL ORDERSOrder Description Priority Entered Acknowledged InitialedBlood Pressure 17:22 02/17/2021 17:24 Sorbero,Monitor Turrin, Gucci Michael R.N. M.D.;Dials Inspector 17:22 02/17/2021 17:24 Sorbero,(continuous) Turrin, Gucci Michael R.N. M.D.;EKG 17:22 02/17/2021 17:24 Sorbero, Turrin, Gucci Michael R.N. M.D.;NPO 17:22 02/17/2021 17:24 Sorbero, Turrin, Gucci Michael R.N. M.D.;Obtain Old EKG 17:22 02/17/2021 17:24 Sorbero, Turrin, Gucci Michael R.N. M.D.;Obtain Old Records 17:22 02/17/2021 17:24 Sorbero, Turrin, Gucci Michael R.N. M.D.;Oxygen tit rate to 17:22 02/17/2021 17:24 Sorbero,92% Turrin, Gucci Michael R.N. M.D.;Pulse oximeter 17:22 02/17/2021 17:24 Sorbero,(Continuous) Turrin, Gucci Michael R.N. M.D.;Saline Lock 17:22 02/17/2021 17:59 Emmanuelle Jones Riccardo Frank R.N. 3 OrderSheet [facility] Emergency Department [address] [place] [address] Phone #: ext- [phone] 02/17/2021 16:40 Patient: SUBHASH ROQUE I Sex: M : 1965 Age: 55y M.D.;Vitals 17:22 02/17/2021 17:24 Emmanuelle Jones Riccardo Frank R.N. M.D.;Consult - 18:57 02/17/2021 18:57 Robert,Security Messenger Gucci Handley R.N., M.D.;[Electronically signed by Brown Parrish RN (21:10 02/17/2021)][Electronically signed by Gucci Handley M.D. (21:41 02/17/2021)][Electronically locked by Brown Parrish RN (21:10 02/17/2021)] Name Value Range Interpretation Code Description Data Angie rce(s) Supporting Document(s) ID Date Data Source [id number] 02/17/2021 05:12:00 PM EDT [facility] 1 Medication Reconciliation Report [facility] Emergency Department [address] [place] [address] Phone #: ext- [phone] 02/17/2021 16:40 Patient: SUBHASH ROQUE I Sex: M : 1965 Age: 55yWeight: 74.8 kgHeight/Length: 65 in.BMI: 27.5ALLERGIES: No Known Drug AllergyThe patient's Home Medications are listed below:THE FOLLOWING MEDICATIONS NEED TO BE RECONCILED: Albuterol Sulfate HFA Inhalation 2 puffs, prn Albuterol Sulfate Inhalation 1 unit dose, prn Arnuity Ellipta Inhalation 1 inhalation, daily Aspirin EC Oral (81 mg) 1 tablet, daily Nitroglycerin Sublingual (0.4 mg) 1 tablet, prn Plavix Oral (75 mg) 1 tablet, daily Stiolto Respimat Inhalation (2.5-2.5 mcg/act), daily Toprol XL Oral (25 mg) 1/2 tablet, dailyThe source(s) of the original Home Medication information:Not obtained.The following Medications were given to the patient in the Emergency Department:ASPIRIN CHEWABLE 81 MG [PO] PO 162 mg, administered: 17:43 02/17/2021NITROGLYCERIN [TOPICAL OINTMENT] Topical 0.5 in., administered: 17:44 02/17/2021NS [IV] IV Fluids bolus 250 mL over 15 minute(s), then 125 mL/hr, administered: 18:59 02/17/2021The following Medications were prescribed to the patient:None. 2 Medication Reconciliation Report [facility] Emergency Department [address] [place] [address] Phone #: ext- [phone] 02/17/2021 16:40-- Patient: SUBHASH ROQUE I Sex: M : 1965 Age: 55y Name Value Range Interpretation Code Description Data Angie rce(s) Supporting Document(s) ID Date Data Source [id number] 02/17/2021 05:12:00 PM EDT [facility] 1 Medication Administration Record [facility] Emergency Department [address] [place] [address] Phone #: [phone]- [phone] 02/17/2021 16:40 Patient: SUBHASH ROQUE I Sex: M : 1965 Age: 55yWeight: 74.8 kgHeight/Length: 65 inBMI: 27.5ALLERGIES: No Known Drug Allergy Date/Time Medication Administered Medication OrderedGiven ASPIRIN CHEWABLE 81 MG [PO] Aspirin PO Chewable 81 mg 58754:43 02/17/2021 Dose: 162 mg Tablets PO mgSoMichael prieto, R.N.Given NITROGLYCERIN [TOPICAL OINTMENT] NitroGLYCERIN Ncxaoug36:44 02/17/2021 Dose: 0.5 in. Ointment Topical Ointment 0.5 in.SorbMichael dodd, R.N.Start NS [IV] NS IV : Bolus 250 mL, then 83741:[id number] 02/17/2021 Dose: IV Fluids mL/hrSMichael holder, R.N. Rate: 125 mL/hr over 6 hour(s)---- Bolus: 250 mL over 15 minute(s)Stop Dispensed: 1000 mL bag20:53 02/17/2021 Site: #1 right Victoria Parrish RN Name Value Range Interpretation Code Description Data Angie rce(s) Supporting Document(s) ID Date Data Source [id number] 02/17/2021 05:12:00 PM EDT [facility] 1 General Instructions [facility] Emergency Department [address] [place] [address] Phone #: ext- [phone] 02/17/2021 16:40 Patient: SUBHASH ROQUE I Sex: M : 1965 Age: 55yPrecordial chest pain characterized as "discomfort".Rule out MIRecent Myocardial Infarct with 3 stents (02-14-2021).(Electronically signed by Gucci Handley M.D. 02/17/2021 21:41) Name Value Range Interpretation Code Description Data Angie rce(s) Supporting Document(s) ID Date Data Source [id number] 02/17/2021 05:12:00 PM EDT [facility] 1 Clinical Report - Nurses [facility] Emergency Department [address] [place] [address] Phone #: ext- [phone] 02/17/2021 16:40 Patient: SUBHASH ROQUE I Sex: M : 1965 Age: 55yTRIAGE Arrived by private vehicle. Historian: patient. Acuity: LEVEL 3. Chief Complaint: CHEST PAIN and SHORTNESS OF BREATH. Alert. No acute distress. This started today. Onset. (0800 am). ( PT had an NV on Monday and had 3 stents placed at [facility]. HE was discharged home yesterday. This morning, he woke up with a sharp intermittent midsternal chest pain. He tried calling his Dr but could not get a hold of hjm.). 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 SEPSIS SCREEN: SIRS SCREEN NEGATIVE. SEPSIS SCREEN NEGATIVE. No suspected or confirmed signs of infection present. AGNES COMA SCORE: 15- eyes open- spontaneous (4); best verbal response- oriented (5); best motor response- obeys commands (6). --16:50 02/17/21 Yesi Balderas R.N. 16:42 02/17/21. BP: 123/80. HR: 73. RR: 18. O2 saturation: 96%. Temp: 97.9 F. Pain level now 09/07. --16:50 02/17/21 Yesi Balderas R.N. Acuity: LEVEL 2. --16:54 02/17/21 Yesi Balderas R.N. Weight: 74.8 kg stated. Height/Length: 65 inches Per Patient. BMI: 27.5. --16:47 02/17/21 Yesi Balderas R.N. Medications Albuterol Sulfate HFA Inhalation 2 puffs, as needed. Albuterol Sulfate Inhalation 1 unit dose, as needed. --17:55 02/17/21 Mitali Cm RN Plavix Oral (Tablet 75 mg) 1 tablet, daily. --17:55 02/17/21 Mitali Cm RN Toprol XL Oral (Tablet Extended Release 24 Hour 25 mg) 1/2 tablet, daily. --17:55 02/17/21 Mitali gaffney RN Nitroglycerin Sublingual (Tablet Sublingual 0.4 mg) 1 tablet, as needed. --17:56 02/17/21 Mitali Cm RN Stiolto Respimat Inhalation (Aerosol Solution 2.5-2.5 mcg/act), daily. --17:58 02/17/21 Mitali Cm RN Arnuity Ellipta Inhalation 1 inhalation, daily. --17:59 02/17/21 Mitali Cm RN 2 Clinical Report - Nurses [facility] Emergency Department [address] [place] [address] Phone #: ext- [phone] 02/17/2021 16:40 ------ Patient: SUBHASH ROQUE I Sex: M : 1965 Age: 55yAspirin EC Oral (Tablet Delayed Release 81 mg) 1 tablet, daily. --18:02 02/17/21 Mitali Cm RNThe following entry was struck by Mitali Cm RN, 17:54 (02/17/21) Reason - wrong value.Unknown. --16:49 02/17/21 Yesi Balderas R.N. .AllergiesNo Known Drug Allergy. --16:49 02/17/21 Yesi Balderas R.N.PROBLEMS:Blood clots. --16:50 02/17/21 Yesi Balderas R.N.Myocardial Infarction: Onset 02/14/2021. --17:44 02/17/21 Gucci Handley M.D.Hypertension.Depression.Heart Disease.Emphysema.Coronary Artery Disease: Onset 02/14/2021.Migraine Headache.COPD - Chronic Obstructive Pulmonary Disease.Asthma. --18:00 02/17/21 Mitali Cm RNThe following entry was modified by Gucci Handley M.D., 17:44 02/17/21Myocardial Infarction. --16:49 02/17/21 Yesi Balderas R.N..ADDITIONAL SURGERIES:Bowel resection (Diverticulitis).Stent placement [02/14/2021]. (X3). --17:45 02/17/21 Gucci Handley M.D.BOWEL RESECTION (DUE TO DIVERTICULOSIS). --18:00 02/17/21 Mitali Cm RNThe following entry was struck by Gucci Handley M.D., 17:45 02/17/21Bowel resection. --16:50 02/17/21 Yesi Balderas R.N.The following entry was struck by Gucci Handley M.D., 17:45 02/17/21ent placement. --16:49 02/17/21 Yesi Balderas R.N..HistoryPAST MEDICAL HX: Immunizations: up-to-date.SOCIAL HX: Heavy tobacco smoker- 1 pack per day. No alcohol use or drug use. The patient wasoffered HIV testing but declined and hepatitis C testing but declined. The patient has not traveled outsidethe [place]Infectious disease exposure: The patient was not exposed to C-diff, MRSA, VRE, CRE or Coronavirus.SELF HARM ASSESSMENT: Self harm assessment was performed. The patient answered "no" to thequestion(s) "Have you recently felt down, depressed, or hopeless?", "Do you have thoughts of harming orkilling yourself?", "Do you have a plan for harming or killing yourself?", "Have you recently had thoughtsabout harming or killing others?", "Do you have any dangerous items in your possession?", "Have you 3 Clinical Report - Nurses [facility] Emergency Department [address] [place] [address] Phone #: ext- [phone] 02/17/2021 16:40 Patient: SUBHASH ROQUE I Sex: M : 1965 Age: 55y noticed less interest or pleasure in doing things?", "Are you here because you tried to hurt yourself?" and "Have you ever tried to hurt yourself before today?". ABUSE ASSESSMENT: No report of abuse. NUTRITIONAL RISK ASSESSMENT: The nutritional risk assessment revealed no deficiencies. FUNCTIONAL ASSESSMENT: Functional assessment: no impairments noted. LEARNING NEEDS ASSESSMENT: The learning needs assessment revealed no barriers. FALL RISK ASSESSMENT: Fall risk assessment completed. No risk factors identified. SKIN INTEGRITY ASSESSMENT: Skin integrity risk assessment completed. No skin integrity risk identified. --16:50 02/17/21 Yesi Balderas R.N. FAMILY HX: (Father, Mother, Sisters x 2 w CAD). --17:46 02/17/21 Gucci Handley M.D. Interventions Identification band on patient. To treatment room. No allergy band on patient. --16:50 02/17/21 Yesi Balderas R.N.PHYSICAL ASSESSMENT 17:06 02/17/21. GENERAL / NEURO / PSYCH: Alert. Oriented X 4. Appears in no acute distress. HEENT: Mucous membranes are pink. RESPIRATORY: Respirations not labored. Chest nontender. Breath sounds within normal limits. CVS: Normal sinus rhythm noted. Heart sounds within normal limits. Pulses within normal limits. Capillary refill less than 2 seconds. GI / : Abdomen soft and nontender. EXTREMITIES: No lower extremity edema. SKIN: Skin is warm and dry. Normal skin turgor. Skin is non-tender. --17:06 02/17/21 Michael Jones R.N.NURSING PROGRESS NOTES 17:06 02/17/21. clinical research monitor, NIBP monitor and pulse oximeter placed on patient. Reassurance given. Two patient identifiers checked. Call light placed in reach. Side rails up x 2. Bed placed in lowest position. Brakes of bed on. Patient ready for evaluation- ED physician and PA notified. --17:06 02/17/21 Michael Jones R.N. 17:31 02/17/21. BP: 109/61. HR: 67. RR: 16. O2 saturation: 100%. --17:31 02/17/21 [place] [employer] manager, [facility] Tech 17:43 02/17/2021 ASPIRIN CHEWABLE 81 MG PO Tablets 162 mg given. Allergies verified and confirmed 4 Clinical Report - Nurses [facility] Emergency Department [address] [place] [address] Phone #: ext- [phone] 02/17/2021 16:40 Patient: SUBHASH ROQUE I Sex: M : 1965 Age: 55y5 rights. Information reviewed with patient including reason for taking this medication, signs of allergicreaction and precautions. Verbalizes understanding. --17:58 02/17/21 Michael Jones R.N.17:44 02/17/2021 NITROGLYCERIN Topical Ointment 0.5 inch given. Applied to the affected area.Allergies verified and confirmed 5 rights. Information reviewed with patient including reason for taking thismedication, signs of allergic reaction and precautions. Verbalizes understanding. --17:59 02/17/21Michael Jones R.N.17:44 02/17/2021 Site #1 started via IV in the right antecubital space with an 20g angiocath, with aseptictechnique and good blood return; one attempt. Blood drawn: rainbow set. Labeled in the presence of thepatient and sent to the lab. Saline lock flushed with 10 mL saline. --17:59 02/17/21 Michael Jones RDreadNDread17:59 02/17/21. BP: 104 /65. HR: 66. RR: 18. O2 saturation: 100%. --18:02 02/17/21 Atlas SpineEdela18:39 02/17/21. Critical value relayed by [facility] (18:39 02/17/2021). Critical value receivedby Mitali Cm RN (18:39 02/17/2021). Troponin: 2.42. Critical value read back. Verified lab resultand patient ID. ED physician notifed of critical value (Dr Handely). Orders were received. --18: Mitali Cm RN18:44 02/17/21. BP: 96/64. HR: 67. RR: 18. O2 saturation: 100%. --18:44 02/17/21 SissyCourse HeroBelkis( RN made aware of BP). --18:44 02/17/21 Atlas SpineAntonio8:56 02/17/2021 NITROGLYCERIN Topical Response: (d/c). --18:56 02/17/21 Michael Jones RDreadNDread18:59 02/17/2021 Started bag #1 1000 mL IV Fluids NS; bolus of 250 mL over 15 minute(s) then at 125mL/hr over 6 hour(s) via site #1 via IV pump. Allergies verified and confirmed 5 rights. IV patencyestablished. IV site checked: no pain, redness, or swelling. IV flushed thoroughly pre- and post-medicationadministration. Information r eviewed with patient including reason for taking this medication, signs ofallergic reaction and precautions. Verbalizes understanding. --18:59 02/17/21 Michael Jones R.N.19:11 02/17/21. BP: 109/72. HR: 63. RR: 18. O2 saturation: 100%. --19:12 02/17/[address] [facility] TECH,Kara19:28 02/17/2021 IV Fluids NS via IV site #1 Rate Changed: bag #1 decreased to 125 mL/hr via IV pump.Confirmed 5 Rights. IV patency established. IV site checked: no pain, redness, or swelling. IV flushedthoroughly. --19:28 02/17/21 Brown Parrish RN20:11 02/17/21. BP: 105/60. HR: 58. RR: 16. O2 saturation: 97%. --20:12 02/17/[address] [facility] TECH,Kara20:53 02/17/2021 IV Fluids NS via IV site #1 Discontinued: bag #1 discontinued upon admission. Total 5 Clinical Report - Nurses [facility] [facility] Emergency Department [address] [place] [address] Phone #: ext- [phone] 02/17/2021 16:40 Patient: SUBHASH ROQUE I Sex: M : 1965 Age: 55y amount infused: 500 mL. IV patency established. IV site checked: no pain, redness, or swelling. IV flushed thoroughly. --21:02/17/21 Brown Parrish RN.DISPOSITION / DISCHARGE Report was given to a nurse. Report included information regarding patient's treatment and abnormal labs. Report included treatment information regarding medications given or pending. All questions were answered. Report was acknowledged and care was transferred. Bed obtained and ready. --20:45 02/17/21 Brown Parrish RN 20:53 02/17/21. Cardi ac rhythm: sinus bradycardia. Disposition: observation in the Acute Inpatient Unit, Monitored. Transported via stretcher by nurse with monitor and mask. Patient's personal items; items were placed in belongings bag and transported with the patient. --21:09 02/17/21 Brown Parrish RN 21:07 02/17/21. BP: 105/60 (large adult cuff) taken on the left arm, via an automated monitor, while lying. MAP: 75. HR: 58 (regular, normal rate and strong). RR: 16 (regular, unlabored and normal). O2 saturation: 97% on room air. Temp: 97.8 F (oral). Pain level now: 06/10. --21:09 02/17/21 Brown Parrish RN Departure time: 20:55 02/17/2021. --21:10 02/17/21 Brown Parrish RN.Locked/Released at 02/17/2021 21:10 by Brown Parrish RN Name Value Range Interpretation Code Description Data Angie rce(s) Supporting Document(s) ID Date Data Source [id number] 02/17/2021 05:12:00 PM EDT [facility] 1 Clinical Report - Physicians/Mid Levels [facility] Emergency Department [address] [place] [address] Phone #: ext- [phone] 02/17/2021 16:40 Patient: SUBHASH ROQUE I Sex: M : 1965 Age: 55y Time Seen: 16:52 02/17/2021; initial patient contact. Arrived- By private vehicle. Historian- patient. Disposition decision: 18:54 02/17/2021.HISTORY OF PRESENT ILLNESS Chief Complaint: CHEST PAIN. It is described as sharp and it is described as located in the left chest area. No radiation. This started today and is now gone. It was abrupt in onset and has been intermittent. Onset during rest. At its maximum, severity described as mild and 3 / 10. When seen in the E.D., it was gone and severity described as 0 / 10. Modifying factors. Not worsened by anything. Not relieved by anything. No nausea, vomiting, difficulty breathing or diaphoresis. Similar symptoms previously. None. Recent medical care: The patient was seen recently at another facility and hospitalized. ( pt called EMS on 02/14 for severe CP, new onset, was brought directly to [facility] by EMS from home to cath. lab; pt had NV and 3 stents, and was d/c yesterday; pt had 5 episodes of mild sharp CP's today, lasting secs, w/o any other Sx, wanted to make sure everything was all right).REVIEW OF SYSTEMSNo fever, chills, cough, pedal edema or calf pain. No fainting episodes, headache, sore throat, blurredvision or abdominal pain. No black stools, difficulty with urination, skin rash, enlarged lymph nodes or jointpain. No bloody stools. All other systems reviewed and are negative.PAST HISTORYSee nurses notes. Problems: Myocardial Infarction. Coronary Artery Disease. Migraine Headache. COPD - Chronic Obstructive Pulmonary Disease. Asthma. Additional Surgeries: Bowel resection. (Diverticulitis) Stent placement [02/14/2021]. (X3). Medications: Aspirin EC Oral (Tablet Delayed Release 81 mg) 1 tablet, daily. Arnuity Ellipta Inhalation 1 inhalation, daily. Stiolto Respimat Inhalation (Aerosol Solution 2.5-2.5 mcg/act), daily. Nitroglycerin Sublingual (Tablet Sublingual 0.4 mg) 1 tablet, as needed. 2 Clinical Report - Physicians/Mid Levels [facility] Emergency Department [address] [place] [address] Phone #: ext- [phone] 02/17/2021 16:40 Patient: SUBHASH ROQUE I Sex: M : 1965 Age: 55y Toprol XL Oral (Tablet Extended Release 24 Hour 25 mg) 1/2 tablet, daily. Plavix Oral (Tablet 75 mg) 1 tablet, daily. Albuterol Sulfate HFA Inhalation 2 puffs, as needed. Albuterol Sulfate Inhalation 1 unit dose, as needed. Allergies: No Known Drug Allergy.SOCIAL HISTORYHeavy tobacco smoker- 1 pack per day. No alcohol use or drug use.FAMILY HISTORY(Father, Mother, Sisters x 2 w CAD).ADDITIONAL NOTESThe nursing notes have been reviewed with agreement regarding the chief complaint, HPI, ROS, PMH andpatient medications and allergies.PHYSICAL EXAMVital Signs: 02/17/2021 17:31 BP: 109/61. MAP: 77. HR: 67. RR: 16. O2 saturation: 100%.02/17/2021 16:42 BP: 123/80. MAP: 94. HR: 73. RR: 18. O2 saturation: 96%. Temp: 97.9 F. Have beenreviewed. Oxygen saturation normal.Appearance: Alert. Oriented X3. No acute distress.Eyes: Pupils equal, round and reactive to light. Eyes normal inspection.ENT: Nose normal. Pharynx normal.Neck: Normal inspection. Neck supple.CVS: Normal heart rhythm and rate. Heart sounds normal. Pulses normal.Respiratory: No respiratory distress. Painles s inspiration. Breath sounds normal. Chest nontender.Abdomen: Soft and nontender. Bowel sounds normal. No organomegaly. No mass. Femoral pulsesequal.Back: Normal external inspection.Skin: Skin warm and dry. Normal skin color. No rash. Normal skin turgor.Extremities: Extremities exhibit normal ROM. No lower extremity edema.Neuro: Oriented X 3. No motor deficit. No sensory deficit.LABS, X-RAYS, AND EKGEKG: No acute process. No acute ischemia. Normal sinus rhythm. Rate: 69/min. old inferior NV, NAD.EKG unchanged when compared with prior EKG. (06/29/19). The study has been interpretedcontemporaneously by pelon davis. The EKG appears to be a good tracing. Interpretation time: 16:.Chest X-ray: No acute disease. Views: AP (portable). Technique: good. The X-rays were interpretedby the radiologist. Interpretation time: 17:35 02/17/2021.Laboratory Tests: Laboratory tests have been ordered, with results reviewed and considered in themedical decision making process. CBC w Diff: (DURAN: 02/17/2021 17:35) ( MsgRcvd 02/17/2021 18:32) Final results 3 Clinical Report - Physicians/Mid Levels [facility] Emergency Department [address] [place], [place] [id number] Phone #: ext- [phone] 02/17/2021 16:40 Patient: SUBHASH ROQUE I Sex: M : 1965 Age: 55y Test Result Flag Units (Reference) CBC W/AUTOMATED DIFF COMPLETE BLOOD COUNT WBC 12.6 H 10/uL (4.2 - 11.0) RBC 5.16 10/uL (4.50 - 6.30) HEMOGLOBIN 15.5 g/dL (14.0 - 16.0) HEMATOCRIT 45.0 % (41.0 - 51.0) MCV 87.2 fL (80.0 - 94.0) MCH 30.0 pg (27.0 - 34.0) MCHC 34.4 g/dL (31.0 - 36.0) RDW 13.6 % (11.5 - 14.8) PLATELETS 240 10/uL (150 - 450) MPV 10.6 H fL (7.4 - 10.4) NEUT 60.3 % (37.0 - 80.0) LYMPH 25.1 % (25.0 - 40.0) MONO 9.7 H % (3.0 - 8.0) EOS 2.8 % (0.0 - 7.0) BASO 0.9 % (0.0 - 2.0) %IG 1.2 H % (0.0 - 0.0) %NRBC 0.0 % (0.0 - 0.0) #NEUT 7.62 H 10/uL (2.00 - 6.90) #LYMPH 3.17 10/uL (0.60 - 3.40) #MONO 1.23 H 10/uL (0.00 - 0.90) #EOS 0.35 10/uL (0.00 - 0.70) #BASO 0.12 10/uL (0.00 - 0.20) #IG 0.15 H 10/uL (0.00 - 0.10) #NRBC 0.00 10/uL (0.00 - 0.00) MANUAL DIFF SEE BELOW SEGS 61 % (37 - 80) BAND 0 % (0 - 5) %LYMPH 29 % (25 - 40) %MONO 9 H % (3 - 8) %EOS 1 % (0 - 7) %BASO 0 % (0 - 2) METAMYELOCYTE 0 % MYELOCYTE 0 % PROMYELOCYTE 0 % BLASTS 0 % MELECIO LYM 0 % NRBC 0 % RBC MORPH NOT INDICATEDCMP: (DURAN: 02/17/2021 17:35) ( MsgRcvd 02/17/2021 18:39) Final results Test Result Flag Units (Reference) COMPREHENSIVE METABOLIC PANEL COMPREHENSIVE METABOLIC PANEL SODIUM 139 mEq/L (134 - 153) POTASSIUM 4.1 mEq/L (3.6 - 5.0) CHLORIDE 104 mEq/L (98 - 107) CO2 24 MEQ/L (22 - 30) GLUCOSE 116 H MG/DL (70 - 99) BUN 17 MG/DL (7 - 21) CREATININE 1.1 MG/DL (0.7 - 1.5) BUN/CREAT 15 (8 - 27) TOTAL PROTEIN 6.6 G/DL (6.3 - 8.2) ALBUMIN 4.7 G/DL (3.9 - 5.0) GLOBULIN 1.9 L GM/DL (2.4 - 3.2) A/G RATIO 2.5 H (0.8 - 2.0) CALCIUM 9.6 MG/DL (8.4 - 10.2) 4 Clinical Report - Physicians/Mid Levels [facility] Emergency Department [address] [place] [address] Phone #: ext- [phone] 02/17/2021 16:40 Patient: SUBHASH ROQUE I Sex: M : 1965 Age: 55y TOTAL BILI <0.7 MG/DL (0.2 - 1.3) ALKALINE PHOS 138 H U/L (38 - 126) SGOT/AST 35 U/L (5 - 40) SGPT/ALT 37 U/L (7 - 56) ANION GAP 11.0 mmol/L (8.0 - 16.0) AGE 55 yrs NON-AA GFR >60 mL/min AFR AMER GFR >60 mL/min Male GFR Interprentation 20-49 yrs >60 mL/min Normal 50-59 yrs >56 mL/min Normal 60-69 yrs >49 mL/min Normal 70-79yrs >42 mL/min Normal 80 and above >35 mL/min Normal Female GFR Interpretation 20-39 yrs >60 mL/min Normal 40-49 yrs >58 mL/min Normal 50-59 yrs >51 mL/min Normal 60-69 yrs >45 mL/min Normal 70-79 yrs >39 mL/min Normal 80 and above >32 mL/min Normal Lipase: (DURAN: 02/17/2021 17:35) ( MsgRcvd 02/17/2021 18:36) Final results Test Result Flag Units (Reference) LIPASE 54 U/L (13 - 60) Troponin-T: (DURAN: 02/17/2021 17:35) ( MsgRcvd 02/17/2021 18:39) Final results Test Result Flag Units (Reference) TROPONIN T 2.42 HH NG/ML (0.00 - 0.10) CALL/ READ BACK MITALI IN ED BY: KATELYNN DATE/TIME TROPONIN T0.1 ng/ml Recommended as the clinical threshold value forTroponin T. BNP: (DURAN: 02/17/2021 17:35) ( MsgRcvd 02/17/2021 18:39) Final results Test Result Flag Units (Reference) BNP 460 H PG/ML (0 - 125) Chest Portable 1 View: (DURAN: 02/17/2021 17:22) ( MsgRcvd 02/17/2021 18:32) In Progress CHEST PORTABLE Reason(s): Chest Pain TRANSPORTATION: P IV? O2? Oxygen?(No) Room: ED COVID-19 CAH: (DURAN: 02/17/2021 18:12) ( MsgRcvd 02/17/2021 18:54) Final results Test Result Flag Units (Reference) COVID-19 NOT DETECTED COVID-19 REENTER NOT DETECTED PROCEDURAL CONTROL VALID KIT LOT # _[id number] 02/17/21.1854.DW . KIT EXP DATE _25-48-44 02/17/21.1854.DW . NORMAL RANGE IS NOT DETECTEDThe COVID-19 assay is a rapid molecular in vitro diagnostic testutilizing an isothermal nucleic acid amplification technol ogy for thequalitative detection of nucleic acid from the SARS-CoV-2 viral RNA in directnasal or nasopharyngeal swabs. Testing should be performed within the first 7days of the onset of symptoms.NEGATIVE RESULTS SHOULD BE TREATED PRESUMPTIVE AND, IF INCONSISTENT WITHCLINICAL SIGNS AND SYMPTOMS OR NECESSARY FOR PATIENT MANAGEMENT, SHOULD BETESTED WITH DIFFERENT AUTHORIZED OR CLEARED MOLECULAR TESTS. NEGATIVE RESULTSDO NOT PRECLUDE SARS-CoV-2 INFECTION AND SHOULD NOT BE USED THE SOLE BASISFOR PATIENT MANAGEMENT DECISIONS.. 5 Clinical Report - Physicians/Mid Levels [facility] Emergency Department [address] [place] [address] Phone #: ext- [phone] 02/17/2021 16:40 Patient: SUBHASH ROQUE I Sex: M : 1965 Age: 55yPROGRESS AND PROCEDURESCourse of Care: 18:49 02/17/21. BP lower now, will remove nitropaste and start IVF, pt feeling great, noCP 18:51 02/17/21. workup all in and reviewed, troponin 2.42 today, was 55.5 on 02-15, so trending down; pt is pain free in ER; Jill Polanco NP hospitalist for Dr. Iglesias (pull up hand), will come and see pt for admission. Critical care performed (60 minutes). Time is exclusive of separately billable procedures. Time includes: direct patient care, patient reassessment, coordination of patient care, interpretation of data (laboratory data, chest xrays and prior electrocardiograms), medical consultation and documentation of patient care- see progress notes. Patient counseled in person regarding the patient's stable condition, test results, diagnosis and need for admission. Patient agrees with plan of care. Disposition: Condition: good and stable. Admit decision based on need for further eval uation, additional testing, monitoring, telemetry, observation, IV therapy, hydration and medications and stabilization of condition.CLINICAL IMPRESSION Precordial chest pain characterized as "discomfort". Rule out NV Recent Myocardial Infarct with 3 stents (02-14-2021).(Electronically signed by Gucci Handley M.D. 02/17/2021 21:41) Name Value Range Interpretation Code Description Data Angie rce(s) Supporting Document(s) ID Date Data Source [id number] 02/17/2021 09:26:00 [place] [address] PHONE: [phone] FAX: [phone] Name .................. : BRINDA CULLEN I Acct Number.................. : [id number] ROOM. ................. : VT-26 MR Number ................... : [id number] Stay type ............. : E/R Discharge Date......... ... : Admit Date ......... : 02/17/21 Admit Phys .................... : EMMANUELLE DIAZ Date of ....... : 1965 Family Phys ................... : MANDEEP Farley Phone .................. : [phone] Age ................................ : 55 Film# .................. .:[id number] Sex ................................. : M Unsigned transcriptions are preliminary reports and do not represent a medical or legal document CHEST PORTABLE [id number] COMPLETE:02/17/21 18:32 VIVI [id number] Cristina son(s): Chest Pain PORTABLE CHEST SINGLE VIEW OBTAINED AT 5:41 PM HISTORY: Chest pain COMPARISON: 06/29/2019 FINDINGS: Mediastinal and hilar structures are normal. Cardiac silhouette is unremarkable. Lungs are clear. No pulmonary edema. No pleural effusions or pneumothorax. IMPRESSION: No acute disease. Electronically Reviewed and Signed By Alexey Kearney MD , 02/17/21 21:26, GIANNA Transcribe Initials: DZ , Transcribe Date: 02/17/21 20:28, Dictation Date: Copy for: [place] [facility] Copy for: [facility] REC Page 1 of 1 Name Value Range Interpretation Code Description Data Angie rce(s) Supporting Document(s) ID Date Data Source [id number] 02/17/2021 09:33:00 PM EDT [facility] Name Value Range Interpretation Code Description Data [facility] rce(s) Supporting Document(s) TROPONIN T 2.50 NG/ML 0.00 - 0.10 [facility] CALL/ READ BACK OMID NG/CAPRI [facility] BY: LBS [facility] DATE/TIME 02-17-212136 [facility] TROPONIN T0.1 ng/ml Recommended as the c linical threshold value forTroponin T. ID Date Data Source [id number] 02/17/2021 08:49:00 PM EDT [facility] ([facility] Name Value Range Interpretation Code Description Data Angie rce(s) Supporting Document(s) Troponin T 2.50 ng/mL 0.00-0.10 Above upper panic limits [facility] ([facility] By: Laboratory test result [facility] ([facility] Call/ Read Back Laboratory test result [facility] Date/Time Laboratory test result [facility] ([facility] TROPONIN T 0.1 ng/ml Recommended as the clinical th reshold value for Troponin T. ID Date Data Source [id number] 02/17/2021 06:12:00 PM EDT [facility] Name Value Range Interpretation Code Description Data [facility] Supporting Document(s) COVID19 Case rprt NOT DETECTED [facility] This lab was ordered by [facility] and reported by [facility]. ID Date Data Source [id number] 02/17/2021 06:54:00 PM EDT [facility] NOT DETECTEDNOT DETECTED PROCE DURAL CONTROL VALID KIT LOT # _[id number] 02/17/21.4.DW . KIT EXP DATE _48-70-70 02/17/21.DW . NORMAL RANGE IS NOT DETECTEDThe COVID-19 assay is a rapid molecular in vitro diagnostic testutilizing an isothermal nucleic acid amplification technology for thequalitative detection of nucleic acid from the SARS-CoV-2 viral RNA in directnasal or nasopharyngeal swabs. Testing should be performed within the f irst 7days of the onset of symptoms.NEGATIVE RESULTS SHOULD BE TREATED PRESUMPTIVE AND, IF INCONSISTENT WITHCLINICAL SIGNS AND SYMPTOMS OR NECESSARY FOR PATIENT MANAGEMENT, SHOULD BETESTED WITH DIFFERENT AUTHORIZED OR CLEARED MOLECULAR TESTS. NEGATIVE RESULTSDO NOT PRECLUDE SARS-CoV-2 INFECTION AND SHOULD NOT BE USED THE SOLE BASISFOR PATIENT MANAGEMENT DECISIONS. Name Value Range Interpretation Code Description Data Angie rce(s) Supporting Document(s) ID Date Data Source [id number] 02/17/2021 06:12:00 PM EDT [facility] ([facility] Name Value Range Interpretation Code Description Data Angie rce(s) Supporting Document(s) Laboratory test finding (navigational concept) Laboratory test result [facility] ([facility] First test?: N~Employed in healthcare?: N~Symptomatic as defined by CDC?: N~Hospitalized?: N Laboratory test finding (navigational concept) Laboratory test result [facility] ([facility] First test?: N~Employed in healthcare?: N~Symptomatic as defined by CDC?: N~Hospitalized?: N ID Date Data Source [id number] 02/17/2021 05:35:00 PM EDT [facility] ([facility] Name Value Range Interpretation Code Description Data Angie rce(s) Supporting Document(s) Magnesium [Mass/volume] in Serum or Plasma 2.1 mg/dL 1.7-2.2 [facility] ([facility] can run on todays blood ID Date Data Source [id number] 02/17/2021 08:34:00 PM EDT [facility] Value Range Interpretation Code Description Data Angie rce(s) Supporting Document(s) Magnesium [Mass/volume] in Serum or Plasma 2.1 MG/DL 1.7 - 2.2 [facility] ID Date Data Source [id number] 02/17/2021 06:37:00 PM EDT [facility] Value Range Interpretation Code Description Data Angie rce(s) Supporting Document(s) TROPONIN T 2.42 NG/ML 0.00 - 0.10 [facility] CALL/ READ BACK MITALI IN ED [facility] BY: KATELYNN [facility] DATE/TIME [facility] TROPONIN T0.1 ng/ml Recommended as the c linical threshold value forTroponin T. ID Date Data Source [id number] 02/17/2021 06:36:00 PM EDT [facility] Value Range Interpretation Code Description Data Angie rce(s) Supporting Document(s) Lipase [Enzymatic activity/volume] in Serum or Plasma 54 U/L 13 - 60 [facility] ID Date Data Source [id number] 02/17/2021 06:31:00 PM EDT [facility] Name Value Range Interpretation Code Description Data Angie rce(s) Supporting Document(s) CBC W/AUTOMATED DIFF [facility] COMPLETE BLOOD COUNT Leukocytes [#/volume] in Blood by Automated count 12.6 10^3/uL 4.2 - 11.0 H [facility] Erythrocytes [#/volume] in Blood by Automated count 5.16 10^6/uL 4. 50 - 6.30 [facility] Hemoglobin [Mass/volume] in Blood 15.5 g/dL 14.0 - 16.0 [facility] Hematocrit [Volume Fraction] of Blood by Automated count 45.0 % 4 1.0 - 51.0 [facility] Erythrocyte mean corpuscular volume [Entitic volume] by Auto mated count 87.2 fL 80.0 - 94.0 [facility] Erythrocyte mean corpuscular hemoglobin [Entitic mass] by Automated count 30.0 pg 27.0 - 34.0 [facility] Erythrocyte mean corpuscular hemoglobin concentration [Mass/volume] by Automated count 34.4 g/dL 31.0 - 36.0 [facility] Erythrocyte distribution width [Ratio] by Automated count 13.6 % 11.5 - 14.8 [facility] Platelets [#/volume] in Blood by Automated count 240 10^3/uL 150 - 45 0 [facility] Platelet mean volume [Entitic volume] in Blood by Automated count 10.6 fL 7.4 - 10.4 H [facility] Neutrophils/100 leukocytes in Blood by Automated count 60.3 % 37. 0 - 80.0 [facility] Lymphocytes/100 leukocytes in Blood by Manual count 25.1 % 25.0 - 40.0 [facility] Monocytes/100 leukocytes in Blood by Automated count 9.7 % 3.0 - 8.0 H [facility] Eosinophils/100 leukocytes in Blood by Automated count 2.8 % 0.0 - 7.0 [facility] 0.9 %IG 1.2 % 0.0 - 0.0 [facility] %NRBC 0.0 % 0.0 - 0.0 [facility] Neutrophils [#/volume] in Blood by Automated count 7.62 10^3/uL 2.00 - 6.90 H [facility] Lymphocytes [#/volume] in Blood by Automated count 3.17 10^3/uL 0.60 - 3.40 [facility] Monocytes [#/volume] in Blood by Automated count 1.23 10^3/uL 0.00 - 0.90 H [facility] Eosinophils [#/volume] in Blood by Automated count 0.35 10^3/uL 0.00 - 0.70 [facility] Basophils [#/volume] in Blood by Automated count 0.12 10^3/uL 0.00 - 0.20 [facility] #IG 0.15 10^3/uL 0.00 - 0.[address] [facility] #NRBC 0.00 10^3/uL 0.00 - 0.00 [facility] MANUAL DIFF SEE BELOW [facility] Segmented neutrophils/100 leukocytes in Blood by Manual count 61 % 37 - 80 [facility] BAND 0 % 0 - 5 [facility] %LYMPH 29 % 25 - 40 [facility] %MONO 9 % 3 - 8 H [facility] %EOS 1 % 0 - 7 [facility] 0 Metamyelocytes/100 leukocytes in Blood by Manual count 0 % [facility] Myelocytes/100 leukocytes in Blood by Manual count 0 % [facility] Promyelocytes/100 leukocytes in Blood by Manual count 0 % [facility] Blasts/100 leukocytes in Blood by Manual count 0 % [facility] MELECIO LYM 0 % [facility] Nucleated erythrocytes/100 erythrocytes in Blood by Manual count 0 % [facility] RBC MORPH NOT INDICATED [facility] ID Date Data Source [id number] 02/17/2021 05:35:00 PM EDT [facility] ([facility] Name Value Range Interpretation Code Description Data Angie rce(s) Supporting Document(s) Troponin T 2.42 ng/mL 0.00-0.10 Above upper panic limits [facility] ([facility] By: Laboratory test result [facility] ([facility] Call/ Read Back Laboratory test result [facility] ([facility] Date/Time Laboratory test result [facility] ([facility] TROPONIN T 0.1 ng/ml Recommended as the clinical th reshold value for Troponin T. ID Date Data Source [id number] 02/17/2021 05:35:00 PM EDT [facility] ([facility] Name Value Range Interpretation Code Description Data Angie rce(s) Supporting Document(s) Natriuretic peptide.B prohormone N-Terminal [Mass/volu me] in Serum or Plasma 460 pg/mL 0-125 Above high normal [facility] ([facility] ID Date Data Source [id number] 02/17/2021 05:35:00 PM EDT [facility] ([facility] Name Value Range Interpretation Code Description Data Angie rce(s) Supporting Document(s) Sodium 139 meq/L 134-153 [facility] ([facility] Comprehensive [employer] Laboratory test result [facility] ([facility] COMPREHENSIVE METABOLIC PANEL Potassium 4.1 meq/L 3.6-5.0 [facility] ([facility] Chloride 104 meq/L 98-107 [facility] ([facility] Co2 24 meq/L 22-30 [facility] ([facility] BUN 17 mg/dL 7-21 [facility] ([facility] Glucose 116 mg/dL 70-99 Above high normal [facility] ([facility] Creatinine 1.1 mg/dL 0.7-1.5 [facility] ([facility] BUN/Creat 15 8-27 [facility] ([facility] Albumin 4.7 g/dL 3.9-5.0 [facility] ([facility] Total Protein 6.6 g/dL 6.3-8.2 [facility] ([facility] Globulin 1.9 GM/DL 2.4-3.2 Below low normal [facility] ( [facility] Calcium 9.6 mg/dL 8.4-10.2 [facility] ([facility] A/G Ratio 2.5 0.8-2.0 Above high normal [facility] ([facility] Sgot/Ast 35 U/L 5-40 [facility] ([facility] [facility] Alkaline Phos 138 U/L 38-126 Above high normal MEDE NT ([facility] Total Bili Laboratory test result 0.2-1.3 ME DENT ([facility] Anion Gap 11.0 mmol/L 8.0-16.0 MEDENT ([facility] SGPT/Alt 37 U/L 7-56 MEDENT ([facility] Age 55 yrs MEDENT ([facility] Non-Aa GFR Laboratory test result ME DENT ([facility] Afr Amer GFR Laboratory test result MEDENT ([facility] Male GFR Interprentation 20-49 yrs >60 mL/min Normal 50-59 yrs >56 mL/min Normal 60-69 yrs >49 mL/min Normal 70-79yrs >42 mL/min Normal 80 and above >35 mL/min Normal Female GFR Interpretation 20-39 yrs >60 mL/min Normal 40-49 yrs >58 mL/min Normal 50-59 yrs >51 mL/min Normal 60-69 yrs >45 mL/min Normal 70-79 yrs >39 mL/min Normal 80 and above >32 mL/min Normal ID Date Data Source [id number] 02/17/2021 05:35:00 PM EDT MEDENT ([facility] Name Value Range Interpretation Code Description Data Angie rce(s) Supporting Document(s) Lipoprotein lipase [Enzymatic activity/volume] in Serum or Plasm a 54 U/L 13-60 MEDENT ([facility] ) ID Date Data Source [id number] 02/17/2021 05:35:00 PM EDT [facility] ([facility] Name Value Range Interpretation Code Description Data Angie rce(s) Supporting Document(s) CBC W/Automated Diff Laboratory test result MEDENT ([facility] COMPLETE BLOOD COUNT RBC 5.16 10^6/uL 4.50-6.30 MEDENT ([facility] WBC 12.6 10^3/uL 4.2-11.0 Above high normal MEDEN T ([facility] Hemoglobin 15.5 g/dL 14.0-16.0 MEDENT ([facility] Hematocrit 45.0 % 41.0-51.0 MEDENT ([facility] MCV 87.2 fL 80.0-94.0 [facility] ([facility] MCH 30.0 pg 27.0-34.0 MED[facility] ([facility] MCHC 34.4 g/dL 31.0-36.0 MED[facility] ([facility] RDW 13.6 % 11.5-14.8 MEDENT ([facility] Platelets 240 10^3/uL 150-450 MEDENT ([facility] MPV 10.6 fL 7.4-10.4 Above high normal MEDENT ([facility] Neut 60.3 % 37.0-80.0 MED[facility] ([facility] Lymph 25.1 % 25.0-40.0 MED[facility] [place] 9.7 % 3.0-8.0 Above high normal MEDENT ([facility] Eos 2.8 % 0.0-7.0 MEDENT ([facility] Baso 0.9 % 0.0-2.0 MED[facility] ([facility] %Ig 1.2 % 0.0-0.0 Above high normal [facility] #Lymph 3.17 10^3/uL 0.60-3.40 MEDENT ([facility] #Neut 7.62 10^3/uL 2.00-6.90 Above high normal MEDEN T ([facility] %NRBC 0.0 % 0.0-0.0 MEDENT ([facility] #Eos 0.35 10^3/uL 0.00-0.70 MEDENT ([facility] #[place] 1.23 10^3/uL 0.00-0.90 Above high normal MEDEN T ([facility] #Baso 0.12 10^3/uL 0.00-0.20 MEDENT ([facility] #Ig 0.15 10^3/uL 0.00-0.10 Above high normal MEDEN T ([facility] #NRBC 0.00 10^3/uL 0.00-0.00 MEDENT ([facility] Manual Diff Laboratory test result M EDENT ([facility] Segs 61 % 37-80 MEDENT ([facility] Band 0 % 0-5 MEDENT ([facility] %[place] 9 % 3-8 Above high normal MEDENT ([facility] %Lymph 29 % 25-40 MEDENT ([facility] %Baso 0 % 0-2 MEDENT ([facility] %Eos 1 % 0-7 MEDENT ([facility] Myelocyte 0 % MEDENT ([facility] Metamyelocyte 0 % MEDENT ([facility] Melecio Lym 0 % MEDENT ([facility] Blasts 0 % MEDENT ([facility] Promyelocyte 0 % MEDENT ([facility] RBC Morph Laboratory test result ME DENT ([facility] NRBC 0 % MEDSTANTON [facility] ID Date Data Source [id number] 02/17/2021 06:39:00 PM EDT [facility] Name Value Range Interpretation Code Description Data Agnie rce(s) Supporting Document(s) BNP 460 PG/ML 0 - 125 H [facility] ID Date Data Source [id number] 02/17/2021 06:39:00 PM EDT [facility] Name Value Range Interpretation Code Description Data Angie rce(s) Supporting Document(s) COMPREHENSIVE METABOLIC PANEL [facility] COMPREHENSIVE METABOLIC PANEL Sodium [Moles/volume] in Serum or Plasma 139 mEq/L 134 - 153 [facility] Potassium [Moles/volume] in Serum or Plasma 4.1 mEq/L 3.6 - 5.0 [facility] Chloride [Moles/volume] in Serum or Plasma 104 mEq/L 98 - 107 [facility] Carbon dioxide, total [Moles/volume] in Serum or Plasma 24 MEQ/L 22 - 30 [facility] Glucose [Mass/volume] in Serum or Plasma 116 MG/DL 70 - 99 H [facility] BUN 17 MG/DL 7 - 21 [facility] Creatinine [Mass/volume] in Serum or Plasma 1.1 MG/DL 0.7 - 1.5 [facility] BUN/CREAT 15 8 - 27 [facility] Protein [Mass/volume] in Serum or Plasma 6.6 G/DL 6.3 - 8.2 [facility] Albumin [Mass/volume] in Serum or Plasma 4.7 G/DL 3.9 - 5.0 [facility] Globulin [Mass/volume] in Serum by calculation 1.9 GM/DL 2.4 - 3.2 L [facility] A/G RATIO 2.5 0.8 - 2.0 H [facility] Calcium [Mass/volume] in Serum or Plasma 9.6 MG/DL 8.4 - 10.2 [facility] Bilirubin.total [Mass/volume] in Serum or Plasma <0.7 MG/DL 0.2 - 1.3 [facility] Alkaline phosphatase [Enzymatic activity/volume] in Serum or Plasma 138 U/L 38 - 126 H [facility] Aspartate aminotransferase [Enzymatic activity/volume] in Serum or Plasma 35 U/L 5 - 40 [facility] Alanine aminotransferase [Enzymatic activity/volume] in Seru m or Plasma 37 U/L 7 - 56 [facility] Anion gap 3 in Serum or Plasma 11.0 mmol/L 8.0 - 16.0 [facility] AGE [address] [facility] NON-AA GFR >60 mL/min [facility] AFR AMER GFR >60 mL/min [facility] Ho spital Male GFR In terprentation 20-49 yrs >60 mL/min Normal 50-59 yrs >56 mL/min Normal 60-69 yrs >49 mL/min Normal 70-79yrs >42 mL/min Normal 80 and above >35 mL/min Normal Female GFR Interpretation 20-39 yrs >60 mL/min Normal 40-49 yrs >58 mL/min Normal 50-59 yrs >51 mL/min Normal 60-69 yrs >45 mL/min Normal 70-79 yrs >39 mL/min Normal 80 and above >32 mL/min Normal ID Date Data Source [id number] 02/16/2021 04:04:00 PM EDT [facility] NT INFORMATIONPatient MRN Name Date of Age Gend*PT [id number] Subhash Roque I 1965 55 years M IPPT Location Admission Date/Time Visit ID Attending [id number] 02/14/21 1319 --- --- EPI ID CSN Admitting Prov ider [id number] ---Attestation signed by Bridgette Samuels MD at 02/16/2021 4:03 PMSignature: HAMMAD Herzogate: February 16, 2021Time: 4:03 PM --Physician Discharge Summary Subhash RoqueMRN: [id number] date: 02/14/2021ttending Physician: No admitting provider for patient encounter.Admission Diagnosis: STEMI (ST elevation myocardial infarction)Principle Procedures:1. Cardiac catheterization: [id number] man with smoking and COPD who presents with inferior wall myocardialinfarction.1. Subtotal thrombotic occlusion of the distal right and ostium of theposterolateral branch with slow flow distally post successful drug- eluting stentplacement to both branches.2. Moderate disease in the proximal LAD.3. Mild admitted function.4. High left ventricular end-diastolic pressure sign of heart failure acutecombined at the time of the procedure.5. Right radial access. The patient was given Brilinta in the [employer] Business [employer]st. He will be loaded with Plavixand continued with dual antiplatelet therapy for a year. He was also started bruno statin. No beta-blockers yet because of bradycardia on route. Smokingcessation counseling offered No complications, estimated blood loss minimal.Echocardiogram: . Left ventricular cavity size is normal with normal wall thickness.2. LV systolic function is Normal with resting estimated ejection fraction is55-60 %.3. The left ventricular wall motion is normal.4. LV diastolic function is Normal.5. Left atrial size is normal.6. Estimated PA pressure is 32 mm hg .7. No significant valvular heart disease based on the 2D, M-mode, color andspectral Doppler.Indication for Admission: "55-year-old man with COPD and question of cresthistory of myocardial infarction for which he did not undergo coronaryangiography. He started having on and off chest pain on Monday and today itbecame sustained and an ambulance was called and he was found to have STelevation in the inferior leads. During transfer here he became bradycardic inthe 30s and he received IV fluids. On arrival he was still having 10 out of 10chest pain with ST elevation in the inferior leads. His heart rate was in thelow 60s and his blood pressure was 102. He has strong family history ofcoronary artery disease at a young age. He has no peptic ulcer disease and nobright red blood per rectum or melena and no history of stroke.Coronary angiography was obtained and showed subtotal occlusion of the distalright with moderate disease in the proximal LAD and mild ventricular systolicdysfunction with 2+ mitral insufficiency. He received drug-eluting stents tothe distal right and proximal posterolateral branch and he became chestpain-free."Hospital Course & Complications: Patient underwent cardiac catheterization whichrevealed subtotal occlusion of the distal right with moderate disease in theproximal LAD and mild ventricular systolic dysfunction with 2+ mitralinsufficiency. He received drug-eluting stents to the distal right and proximalposterolateral branch. Patient has tolerated procedure well. Patient had 19beats of NSVT, low dose of beta-lindsey started, no further NSVT or heart blocknoted on telemetry, patient tolerating well with BB. Renal function stable postop. Procedure site right radial stable, no hematoma or drainage noted. Patientwas monitored on telemetry and remained in sinus rhythm. All vital signs stable,lab reviewed. Patient was ambulating without symptoms.Patient was evaluated by Dr. Samuels and deemed appropriate [facility] [place]. Patient was in agreement. Patient is in stable condition, ambulating, noangina, vital signs stable. All discharge instructions, activity limitations andmedications were reviewed. All questions answered. Patient verbalized theunderstanding of the need for strict medications and follow up compliance.Patient will be send home with DAPT (ASA, Plavix), BB, Statin,SL nitrate asneeded for chest pain. Continue inhalers and nebulizer as prescribed by PCP.Post cath instruction reviewed with the patient, all questions answered topatient's satisfaction. Smoking cession discussed and reinforced with thepatient. 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 Patient will be follow up with Dr. Stanton asscheduled. Patient is to contact our office with any discomfort or issuesimmediately.Past Medical History:Past Medical History:Diagnosis Date CAD (coronary artery disease) 02/14/2021 COPD (chronic obstructive pulmonary disease) 02/14/2021 Tobacco abuse 02/14/2021Most Recent Labs:Cardiac:Lab ResultsComponent Value Date TROPONINI 55.50 (HH) 02/15/2021BC with Diff:Lab ResultsComponent Value Date WBC 10.6 02/16/2021 RBC 4.86 02/16/2021 HGB 14.8 02/16/2021 HCT 43.2 02/16/2021 MCV 88.8 02/16/2021 MCH 30.5 02/16/2021 MCHC 34.3 02/16/2021 RDW 14.8 (H) 02/16/2021 PLT 196 02/16/2021 MPV 9.0 02/16/2021 LYMPHOPCT 29.2 02/16/2021 MONOPCT 10.6 (H) 02/16/2021 EOSPCT 2.8 02/16/2021 BASOPCT 0.6 02/16/2021 NEUTROABS 6.0 02/16/2021 MONOABS 1.1 (H) 02/16/2021 BASOSABS 0.1 02/16/2021MP:Lab ResultsComponent Value Date NA 143 02/16/2021 K 4.5 02/16/2021 CL 111 (H) 02/16/2021 CO2 24 02/16/2021 ANIONGAP 8 02/16/2021 BUN 16 02/16/2021 CREATININE 1.01 02/16/2021 BCR 15.8 02/16/2021 GLU 100 (H) 02/16/2021 CALCIUM 8.4 02/16/2021 ALBUMIN 3.3 (L) 02/14/2021 GLOB 3.1 02/14/2021 AGRC 1.1 02/14/2021 ALKPHOS 95 02/14/2021 LABBILI 0.4 02/14/2021 AST 95 (H) 02/14/2021 ALT 35 02/14/2021 GFRAA >60 02/16/2021 GFRNONAA >60 02/16/2021HgbA1c:Lab ResultsComponent Value Date HGBA1C 5.4 02/14/2021Hyperlipidemia:Lab ResultsComponent Value Date CHOL 203 (H) 02/15/2021 TRIG 337 (H) 02/15/2021 HDL 32 (L) 02/15/2021 CHOLHDL 6.3 02/15/2021 LDLCALC UNABLE TO CALCULATE VALID LDL DUE TO 02/15/2021Medications:Your medication listSTART taking these medications Instructions Last Dose Given Morning Afternoon Evening Bedtime As Neededaspirin 81 MG chewable tabletStart taking on: February 17, 2021 Chew 1 tablet (81 mg total) daily02/17atorvastatin 40 MG tabletCommonly known as: LIPITOR Take 1 tablet (40 mg total) by mouth pqyoiva47/19clopidogrel 75 MG tabletCommonly known as: PLAVIXStart taking on: February 17, 2021 Take 1 tablet (75 mg total) by mouth daily02/17metoprolol succinate 25 MG 24 hr tabletCommonly known as: TOPROL-XLSta rt taking on: February 17, 2021 Take 0.5 tablets (12.5 mg total) by mouth daily02/17nitroglycerin 0.4 MG SL tabletCommonly known as: NITROSTAT Place 1 tablet (0.4 mg total) under the tongue every 5 (five) minutes as neededfor chest painCONTINUE taking these medications Instructions Last Dose Given Morning Afternoon Evening Bedtime As Neededalbuterol 108 (90 Base) MCG/ACT inhalerCommonly known as: PROVENTIL HFA;VENTOLIN HFA Inhale 2 puffs every 4 (four) hours as needed for wheezingArnuity Ellipta 200 MCG/ACT AepbGeneric drug: Fluticasone Furoate Inhale 1 puff dailyStiolto Respimat 2.5-2.5 MCG/ACT AersG eneric drug: Tiotropium Edson-Olodaterol Inhale 2 puffs dailyWhere to Get Your MedicationsThese medications were sent to [id number] - [place], [place] - [id number] [facility] [id number] aspirin 81 MG chewable tablet atorvastatin 40 MG tablet clopidogrel 75 MG tablet metoprolol succinate 25 MG 24 hr tablet nitroglycerin 0.4 MG SL tabletDischarge Exam:Vitals: Temp: [97.2 F-98.6 F] 98.6 FHeart Rate: [55-68] 63Resp: [14-18] 18BP: (91-106)/(53-63) 99/60Pleasant, comfortable, not in acute distress.Awake, alert, oriented times 3.Moves all extremities.HEENT: No recent change in vision or hearing.Lungs: Clear to auscultation bilaterally.Chest wall: no tendernessHeart: regular rate and rhythm, S1, S2 normal, no murmur, click, rub or gallopAbdomen: Soft, nontender, bowel sounds present.Extremities: No edema. Cardiac cath site right radial, with dry dressing,dressing C/D/I, no hematoma noted, + pulsePulses: 2+ and symmetricSkin: No rash or lumps.Neuro: grossly normalLymph nodes: Cervical, supraclavicular, and axillary nodes normal.The remainder of the physical exam is noncontributory.Discharged Condition:stableDisposition: Home or Self CareFollow Up: Dr. Stanton as scheduled.Signature: Mansi Morillo NPDate: February 16, 2021Time: 11:51 AM Name Value Range Interpretation Code Description Data Angie rce(s) Supporting Document(s) ID Date Data Source [id number] 02/16/2021 05:37:47 AM EDT [facility] Name Value Range Interpretation Code Description Data Angie rce(s) Supporting Document(s) SODIUM 143 mmol/L (136-145) [facility] POTASSIUM 4.5 mmol/L (3.6-5.2) [facility] CHLORIDE 111 mmol/L (100-108) H [facility] CO2 24 mmol/L (22-31) [facility] ANION GAP 8 mmol/L (7-16) [facility] UREA NITROGEN 16 mg/dL (7-24) [facility] CREATININE 1.01 mg/dL (0.80-1.30) [facility] BUN/CREAT RATIO 15.8 RATIO (10.0-20.0) [facility] GLUCOSE 100 mg/dL (70-99) H [facility] CALCIUM 8.4 mg/dL (8.4-10.2) [facility] GFR >60 ml/min/1.73m2 (>59) [facility] GFR ( AMER) >60 ml/min/1.73m2 (>59) [facility] GFR INTERPRETATION [facility] --NORMAL KIDNEY FUNCTION OR MILD DISEASE - GFR >OR= 60CHRONIC KIDNEY DISEASE - GFR 15 - 59RENAL FAILURE - GFR <15 Est. GFR calculation based on the MDRDstudy equation, which assumes a steadystate for creatinine. Est. GFR should notbe used for medication dosing. ID Date Data Source [id number] 02/16/2021 05:08:10 AM EDT [facility] Name Value Range Interpretation Code Description Data Angie rce(s) Supporting Document(s) WBC 10.6 10*3/uL (4.1-11.0) [facility] RBC 4.86 10*6/uL (4.60-6.10) [facility] HGB 14.8 g/dL (13.5-18.0) [facility] HCT 43.2 % (41.0-53.0) [facility] MCV 88.8 fL (80.0-95.0) [facility] MCH 30.5 pg (27.0-32.0) [facility] MCHC 34.3 g/dL (32.0-36.0) [facility] RDW 14.8 % (10.5-14.5) H [facility] PLT 196 10*3/uL (150-450) [facility] MPV 9.0 fL (7.1-10.7) [facility] NEUT % 56.8 % (35.0-75.0) [facility] LYMPH % 29.2 % (16.0-52.0) [facility] MONO % 10.6 % (0.0-8.0) H [facility] EOS % 2.8 % (0.0-5.0) [facility] BASO % 0.6 % (0.0-4.0) [facility] NEUT # 6.0 10*3/uL (1.8-7.7) [facility] LYMPH # 3.1 10*3/uL (1.2-4.8) [facility] MONO # 1.1 10*3/uL (0.0-0.8) H [facility] Eosinophils [#/volume] in Blood by Automated count 0.3 10*3/uL (0.0-0 .5) [facility] BASO # 0.1 10*3/uL (0.0-0.2) [facility] ID Date Data Source [id number] 02/15/2021 11:26:[address] [facility] Name Value Range Interpretation Code Description Data Angie rce(s) Supporting Document(s) &PDF [facility] DEYJIy9tLxXOTcHd39/NPPyyVCIyq0NuTCsdRAh2MOnzJTMxO3TdoVrgDE5HK2hBXRojY6fLGi9dXYAw vci [file] site [file] ICAgICAgICAgICAgICAgICAgICAgICAgICAgICAgIC AgICAgICAgICAgICAgICAgICAgICAgICAgICAgICAgDQogICAgICAgICAgICAgICAgICAgICAgICAgIC AgICAgICAgICAgICAgICAgICAgICAgICAgICAgICAgICAgICAgICAgICAgICAgICAgICAgICAgICAgIC AgICAgICAgICAgICAgDQogICAgICAgICAgICAgICAg ICAgICAgICAgICAgICAgICAgICAgICAgICAgICAgICAgICAgICAgICAgICAgICAgICAgICAgICAgICAg ICAgICAgICAgICAgICAgICAgICAgICAgDQogICAgICAgICAgICAgICAgICAgICAgICAgICAgICAgICAg ICAgICAgICAgICAgICAgICAgICAgICAgICAgICAgIC AgICAgICAgICAgICAgICAgICAgICAgICAgICAgICAgICAgDQogICAgICAgICAgICAgICAgICAgICAgIC AgICAgICAgICAgICAgICAgICAgICAgICAgICAgICAgICAgICAgICAgICAgICAgICAgICAgICAgICAgIC AgICAgICAgICAgICAgICAgDQogICAgICAgICAgICAg ICAgICAgICAgICAgICAgICAgICAgICAgICAgICAgICAgICAgICAgICAgICAgICAgICAgICAgICAgICAg ICAgICAgICAgICAgICAgICAgICAgICAgICAgDQogICAgICAgICAgICAgICAgICAgICAgICAgICAgICAg ICAgICAgICAgICAgICAgICAgICAgICAgICAgICAgIC AgICAgICAgICAgICAgICAgICAgICAgICAgICAgICAgICAgICAgDQogICAgICAgICAgICAgICAgICAgIC AgICAgICAgICAgICAgICAgICAgICAgICAgICAgICAgICAgICAgICAgICAgICAgICAgICAgICAgICAgIC AgICAgICAgICAgICAgICAgICAgDQogICAgICAgICAg ICAgICAgICAgICAgICAgICAgICAgICAgICAgICAgICAgICAgICAgICAgICAgICAgICAgICAgICAgICAg ICAgICAgICAgICAgICAgICAgICAgICAgICAgICAgDQogICAgICAgICAgICAgICAgICAgICAgICAgICAg ICAgICAgICAgICAgICAgICAgICAgICAgICAgICAgIC KuCQDaIZOyUSRaVERxOKGrGOKpCGTbSFEsJSQvKBSwYKLeRKHgKJOdZFe5D1zmUSXhJHUuRW0tVAa9Ic 8+OSpQXtLgVTE1cjJkbS9QNL7nh9PyLOfkTTEwq0NjTGf5PB7LFOBrVFjuKM1JTEpehz4NXOOpOJKxxQ SAx7ykLwArNGL7YIDoHaqqNM7WQHPzY3paypZsMBKf JIKMHVdvMIPLHPacTJNCBX4IMpBkA7VnsR53UYMJZp2+TWfzorNwXttXBnS5XPGhn0ZpJUb3ON2XPNBb MBumWR2FZFUhgM4gIUqtUY4DKjUfEZGoUJJVOvPmO06ppALgDCn6U7SqImFiXSQsMppmTQFePZfyBgIk ZXMgWyBdDQogID4+ID4+QSadJL0KCKejmkOiHONvTo 5XPIJyOWR4EXOotMGdRxUpPKEWCOtfVF1XsBJbQFC2aT4dPInmCXPzYTDpF8sGNbGnmEssUL59qUroaf VsbCBdDQo+Ue1GUX3rt5IiYAo8xcQcWUyhOLY6EAirJVYeJYUtCZXvELR8LUE0CKEUCeJnYENxQWPaQR dqDVDiNDPxbn3RDCRoDOM0WjR1NxAcZWTzPQHaNFgk UBAoHLP1HMK8OBKbBGDfZT3KNiPkYFScFEGpFAVePCBsQTXdgk5UXWLzLZQkIpS0XqAeSDIsBEZoOHye IYRxNFZnFev6JCGmBRQiCS0TSbHaAOBsIABgLqzoTKPvSZZdea0KDEEzRQMhDGY9IqNiDEKsKGEhKJpg QUYkFFB9EUXbJBDaKSMzYH8RZrLtYIAyADzpOHicHQ DqRKCrtp4JQCBzMFSbMaz9DzZlPDZgAUSuXGssLKHkKDG6QZi4XBDtETNtUH1OReJyXFRzWQltITxqCI SaDFSibh8YGOKzCTVpPERdYwDkRKDeUUXzUVsbYRLxBWJ1SIE9TWYiUHLgMG0ZHvTvJFWtFDc1KFZwFJ ArRBZcgo7HNUPxYKRpHUH1RZXqSLCzXTZrHCnpLALp UKNfTMKaYNSjCZSwNG5FEcQsSKYvELVgYAbkOKDzQZMuxk2PKFRlNQOiDiV3AFOuOGWcGGRgWUkbRKKa WZGhQYr2KKKqFMZiMR4BUiTiATZfBgH4QOazIKByVJOzaa3MNWLdGYHyUmY0WXRpLAJkOKRdAMchXQEy GZB7ALn0DMZvVONrHE4BPsJuQYCvDahkKeMrHVFwUE Jryq7KXCOoXMYvSeC2BAOfRXCuNAErJCnhBKGnQEH0SDx1EDPeANDcXE2YRvZjAHRqItz0AvktUJEbIK Vagw4YBHRhUBEyEHe4QGLySJEjEWIvIZozGREtTCD1PbI5KEDvAWFqNG4YErQzAFKpEQu4UEHrGULmRK Xddb2JUWIrCIA0HWd8TgWgEIMxBFDgAWvrUCRtEAZ0 MAX8JTBkXLMkGO3TFjDgFWSwWXwzDLYoOPBnEVAoox2CRDHeXGL6LlS2HEXlQWIiKMKbWWqaPMLfXIKr SGH8JUIaTLClJF4JMkUgRTCqXdMmNqsoEEUuDZIfvl5MhYAbeWtvgt1HBFySGk3XfOoeOLM9BOirDe0c gYCxKuToYTHKZa3FaiByUULdUROCFGnzPDTkXSC5VF drBNRwIaHiONO9PRI3RxPzH1GkRdUzPbLzCzG4EdZ6SwNyJ0UfC8SsZnV7WhOoQXKtZDHiJSTiMGE5JH M3Mzk+ZI6lZBv+Ic2On0IrawS8dlHuDTw6XWX3Bi9QKFXBL2VMNq== ID Date Data Source [id number] 02/15/2021 07:56:[address] [facility] Name Value Range Interpretation Code Description Data Angie rce(s) Supporting Document(s) EKG [facility] EGFQIk9qUlVEOpZhe3KwHyItHOCqRQ2cfrw0O0L1iJQkL6LztKKum3meZ8GgP6WjPKObVXXRVT4ZoBLq jb2 [file] EarUs81e2Koae69OYBWdTPmV9cxsk8JmekslQOcv52XKg+program officer/eu90Z69no9RlLfB8/PXn4H0+/z158Y3 HCuH/tk2ra07fmGRj1lz16Oc3980JVf4/B5s191bn+ b1p93Qe75ddSGz17s/eeS+53bqcR1XG9kc8xqf9pU2ka22537Sr3t6tmllw0C2/NkRv/Krystian+/0yR3oC5 tM5F+o5/KWX75nqFn72laFO6UbC2A13jiMN6Jx/TnYobz0cuZSV481+hh7h8MdeKpZ5vNS64W1ij2zJ+ pZyH/rC20wi1G7O+95l/SOz1102k/g5QHWjfi/Oul3 /Bnm2ZLq351/7e608h2Tz47Lf82Euk+9u9/0+hLt+6PVJyq/N+0gWO6leztWhgM3n21+7yW0zx0X7nyY mi41slvOTrd/Uoq0hclP/9Tm24+4AcIA5VK427kgS1SgV0F7+XAge6MROZcQcDIWTUbsmsv8woF6O/eR +uFVQxy+7cwlyT3m1H57/Ul2zrFac4ui4cSn37i5FI 48r5qxqkr9N/zT10yq6yyZ403mJ/P+EDMa8vmchm/VY0yyP6StjppnOyw+cZ27G8Nfj1B/HiIBHTo6cL Ambuy+0djeZLLo5elJ2rmq4p0fp5/vBFfEy8/7tSPqSrZ3XAp3tUYKDzL/NuveCTFuIM/lGd07ovBWhm EfgOzfwfFuR1MKTeO19OD1z8I4Z+b8PW88B2xcQ4Xo VEQ4xQBnG0ckvpv/UM9A/iZ6FK7Kv/Wk0L46ZR3CamC/In0i/14y2ztEz9Rl2hX7H8v0No+EvfN+EuBT eT8470M0hgncvHkY+x8dvZzC2ar97m1f+uO4qdQ1BdCG6i1Gp/PhSjbIDd60PA718YDNtK8KugA4AuS6 1nC1N3i1iJ2GmH6Dm+GXNrbEyop19RSbvJggw+O5C0 gz2MTphO70urbShCtamlIq2s/ZVrgR3htH+V836fwO4HnkQ/IH+bvyQ3OzzOyo+U0BlK2T6w67F3J49p lfrCFc6uH4z/xnxz46ICr2bdmDoJ+NtJ/461rSwqGnu3v+F7sWLb7kW7rW5PR6kFw5moh8hlXyfl660B 4fqAVbsZfM4pvN0OlZ3p6OK2h0Cao93A854DjyCajB +2S/1/ySGEwVZfYtGiJ7Dcs4OH/4JD7qk/j3GukT/Zno50J/0fsBAmQA2aV+LoMcRgSjog3yY4U1HpWx AVEIOPQfTDViuLYraJQ5UMjFiKIZmX9ZK1rpZLbqVIExBF5dS/XRFsojGr1KJgGpS/Lf+TnwyVbYDdSG DdRjSDekO+ckzVwjkg2LmR5kvfF/RP6F/PBnfLIVjv wQj3VJO4DU+W8gPvy+CHIQUIS+2DmAjnOOfzB52wQ1QM0fQCd1jK4LlosCxz+/6KZqpF6VoXM+iY+4L06BT+ [file] AKMDAwMDAwMDQwOSAwMDAwMCBuIAowMDAwMDAwNTIz APDgNDNkSC8zEtBmVAGsGRR0HXGdUAWhEIYjwfHLAIPvOISfKBw7GLJdMCXfGSAlHYbwMZErIZVjNLS2 BPCbHRMkHE6nUnZrQDPaLID6BlDyUXAnPJFfrgXGDDAaXGCcWDB7OsOuNTFjMCXvKPevQWOrJGHmUAha ACDxQWCmHV2cUfHgJOAoTGPrAUlcEGYyAOXqyyTTRU KoGXYkTZBwNcGsUSIsWUFfNHfhRLDjSZm7KSX6EKIpMBHaYL2bBhKaSNOaGGD0TIiuHEWxEXHxfaJGFN XmZKXoYUiiHMHoJDLaYXJoEQijQQQuGNGkTTW0IBFqZWJnVS0fOnInLXNkROMdDPMyOrS5MkDsZvGQxW LiqUfqzlv5NXxsX1y8EUYoPDqaHI2xckJbFGLrClbb Cr3lyTJ0AZPtMouYNf3La9JomqO8etSdWef3DdMlKrDmAR6T ID Date Data Source [id number] 02/15/2021 07:56:[address] [facility] Name Value Range Interpretation Code Description Data Angie rce(s) Supporting Document(s) EKG [facility] KORGEr7aHdWBDnCsc7KjLxYkGPFwMC7qtdu8W4R4dCWmU0IngMXvm1vtR7TzA3ChUKLhDETWZU7MePLr jb2 [file] RDsqBPzpVj5DroErDgqoZ1JvNzfQJ+jrr/7qBg1ttuG+nhK4qCk0cynAAjmuENS7d6FkiQ9rIMq2/[place] [file] 97/+13/+2W9Z1P/21P/833/+x/9p//Of//y/f/73f/614+s3H0k080/2E5cd/q9/6Zquq3S/AT8B8i+8 43/c002ra3Ct/4uZT12RzJl8/iwoGY4IQjm//uI/a1LLXUp3N9Fxge+/+TJstpVtlEP0I8jh/UI5q+L7 9yEsN2/f/R0Z/dUAZARX66Q+fLcNfSB+Ow5OZieiGs BeEa+od/a6wZxR0DZ/+nnbnbv6mQk1LU/Hh/hW6Ucr+tuw4Zdt53N7npR78S2Bf8e5RYz9ZIcfZGOQNt HPQws49X+qyE5tX3+Kn+vkoHRBsfzrod31r3B0ps3Xn34i+GccclR7OATgpNjQtpl1rwXFV6/w83Skx/ ydq+aRfEVn+SURGERY CONSULTANT+SuYv4L+CsZXRrVHwM+I4SUKzfKk EQA2CW36wGjdxCJpYt7yrQFQUN3mzg75UrNuuEF8SaUr2L+ivzqqfEV/dSI9+csJ9LRVK0G51v1dD1kP ig6K/cp3t9jmfIV2Nw548HVNb93KztrjbUhAv5ZL7/9V01kXs5pviq7SZCXtyZrE46AsbZZUo2jwnpkk Bq0o1Te+NuxH/lW8Yz/mSiV0jEeR1gsogb1dy9S9Wd uhs2yi4QvM/TXVuissqq86sccGW5l/bIA8gnaI5t/C/W2BcwqsryE+C+O2PY1E9xe0d10yk4/3u5oif1 4is/tgLt772Inp+5v/1f36K/klz6+/0vKvHsTv/recruitment advertising manager+TPNVmeuWv9+KVBjxu7/nc5Zf+SEG/eSwrGs/E9 lGjV/411+JE/3XJPkwrlf052syH4LvmK+U8Gpnu5SS pXod2iWVFg3pm3y5dUPJ4jkfaarJ1XxzC23g+govvjaleA01CrfD6oFfLe3m6hDl0t5wIPhWKa8GS9rK jDB05d09d/4xe7ebH+Jd4anmd6yPzv9Kq2TgLJPqkl/Fmqvyjw741LtghMLvXN/+Ro0qN7982sFZVsX/ 6+84V+9HH4TmrUtIOrplxIbYcUFeWu8rzvY+IX5Ve7 Q3MVPiOYx5T3JedtvKN2o2hBPe9EO74WTLx/iR2u2z9aVxPR/5Kb2Vtej7Gs0ZwxfBSQ2mgpG7a5s+mZ BCPN47VHVBpvSFxYmiE5/no1WB7E89y8dq74hl5KOUr/F/u88O/yWayqpEP97ppgtk/hy5eNsw/uJ95t 2Zl2zBT45ktbLmgw4A0/TAJ865GAJ//ltdCBp8J5RS 9euvtQz/qyf0zlFgIKfCy00QZ26tG1bXT1f+pzx9XU9Wmsfq2r/PB43TsZc8CW+NkMEmB28qup+Qr4Ju TG2hUpoqO38xkg1D9rBE+OvvSiiDT1v5LyaCc8s4LpLY0Im2O/cfc0lVcSB/t3x10q/i/2StFz0JcuUB lq+S/qIqg1W0zESdToRmZj+4mOBFBJ74Mfy0P/ob8l NE8H2OwXpLB0XjxHvjZ9I7vooHt9vnskJV2a6eOcktz9E/7qcZp+8iN9I7d9wQbF8zJsMe8C+V/NxDvj ran792w/ScP0pQ0ai2uV/3jIq9UgxdBN/1oA1itPo53D2DTw7nQV/8RojW5yHCsXK38DokG+XEftQiLH bsYasidCrhWibj9seSo0R8rf/7vYmlj3xMW5I23MI+ xog68PsYz6W1yX/Im6WTYf7Q+eqcYeBZvZP1mghf4val+0LNIONsSknqGmyyDcmRh19Z63i7z7ahV+4H Fjd9v+Br0yR9lb38+3HFDVd/47UZQrtTY6ik5AkONVf0q3amtmc1Rp9tz1M/qci1Yj+puOGF+Hcp8czT cork mixer+Rl7Xjs7rtsV8LVvU+csz9wUKx7wgcireZmbg4r 7OZlMQS3LjmnZdH8T/59N3MqtDtQDs9tGqmL0f8HQ3HRN/uvAe8XeWCX2ncy0Io4V0dn0lou0Ty5u0nP Bsj7D8cZjka5AbVC+hnDr/pgJofYHRv4QMwvZw5pRj4GLDtP/ANNIE+H/izr400TEoakCmrC6FtAt/V5jD r/lhWhX98Gg4eDn/s1GW1StoEakT7y7vK/FNfrX0jv i9RW3E5C0E8O1Rojiz92dZACfLl0V0g+5f2pMa9C2UFVt2FLg4B74Hg7vqHTWht98FU5ZaA+UuvzEPRX 0F/IV0PQX+bseyAcmt0YF/XJvhCZ8Ky8Tij8HQe4F1qavQ+oF/yspW8f+iG+7DlBS88XyR+GYv4q+qvo L/RXQ+r7AHTLH3sG+cvhazlrM7SfISMD/jsU/VWMr5 Y+JiaCY5S4UsRo6J+Zap9eONZgo43W+EqKjfuEpmy927MxJv5t9H5G9Q+GGdrjiC/8lgeGd8mzDvpr05 Ffx/wN+SrDWK+85OfhA/IPq2icltU0ER2RM9395YsroD7q+03bU2TyX738yCF/fzxr41G/tcuB/mpAfz WgvxoL/ZyaPs2n63W2tsv2v99kMBq5AwXz/q467+8H Adkx5cuR9Wfhe8cu/q6lTfhJ+Vr0feqxc/Kg3k5sCw59SXiZ/EQ5JW/fGwv8CaVvAy5Amza9e+rv/Gr/ fe5JsY9VZya9c2Ma8lb4udk8fnT/z4b+uuM7bbMouTzph6khYZUDH/e8A7wVdslvZkX23rRTs/5CvprQ L87QWgJp1wbM3XbR18g/eyZ4Q8r2UKmPbZNuJE/+dv S3l/g7b0Csd/EK/VWmL/6C2OQlim8IGw/maIiv+HaMxf4hyR1V/Z3H77MrMWP/07pI0pTKVBh6Uv3ROm oqjHhHvCN+oPyV75Y/M3L8up7hzedjdFn4Ukuc55rfHoMc9TJ3+ObetaS7OUf/McM+aA8DD7V+mhP8PD G+brT4brqzWayOQuU/C/hZSh+9Vcz3bgsoXe20MKhH RDz6K+ivoL+Eb9mdp4JlQ+stCSG0dkE8Dd+13wicNof+autpZ+aaMj95F6PyGIbqL7a3cV/6C2OqieF5 iSRhAric8jeWQs7+3vLVaQ/4WcHPWvrn/SKgwpXevg/xLp5Izt4fs3L/3O6U7Nj7X5XqKspEbn+G8d3y AzgF7zjDa3u2Z3t7VPAgorxTS5aioI7yV8x3/08aBz 87+uvor6O/vv26gxoew0fzwf+GUvxxT9J1izKUInOzqSEMf5T2v8v5jf27eI2rpbtqS0xDc7X4U+O7wM 8L/V5Zm0nefEF0QW+F9WqV/GwCueehMct5Gm90T42tSs6W+tnGoAC0o4mzojrD9Pdj1CkfnR9FDp+1y5 QBG36fgWR+bvdCWORSNkO4P3pz1/xSLymtqfIbw7h6 ykarz1okcGqb6L7xipf+ylf3c+Sr+urX2aWZG44d90mTX1A1nS56u0AKzS2TgNQgrLBfakX5ZZFs/pW0 0m9IK/6LiXPQOguahfS685zt/EitjWVK4vGi+NXNjWHrDv3Djl/EFz/vu/vbmV9wfWnVaB0UihNtmW8u e1CG2g4+fiT5Ki4Jxcz1eX4s0uJo2I6PDY/+jgxLhR 3xu7/k8uBzO38dgK/36J5PXHVt4ECoKxvssNrEN3T6gc87YhsCJ0AS6dGepT8p7rY5uN1ez6VB3h9g9X cr4n/9YMuonh60mbW18mTt/aUGTliIKoy5OHvJQM/psvr16ykBPM3f+5LQuAV6RZkBgUgrYlg0g15g4f qcW74fyi4FxJ18xIAXH/vbd+/Pdpxj3g4isvNc2dlJ QcNrIZ0C+3RFgLQ8Gho7ATcFov4RpLXzyfj+ZNejOuW0a0GwgCA2i8Rj5+desy/kp3KW2u3Zoz2CvQ+i zQJ+GmGaxX9U/Cy1/0rIVzPDiN/6kCFPp6D1auaGq4FWl2gwXt+BmX9skTfa1jF6PwRulV6mV5T0Xr6s 8lXSJOSrDNf+uy/MZquvPw3hykJ6AqUtHwSKP1Cx9I vxJU+VncjwbJ7s3HxVZDMo/xXD+Jb2HLi2+IOWuVktdJwLVfWm1oQcV8B29iEDs6+G/kK+Ei/7r0C+Ei /1DVGmLsFzbf4NqTS2naKYx6osQ9XNWDk96S/jvR4TCbMmizkul47beFleywo4M0Hm9lmeR3kY+7I60p s6DMVcDXM8OTn2WtAS4Ydko8cv0ICHC1U/JcsQj/Fd 6G9ocTpBP/oOiFUUpwSwaox4a2aetG/9V79ar/Yl+GyDfjV/2ReDB2MQqrAOUhfh4d5bJwvdETf3kGHb zPiF+COSLj038Z6IMqcGSh97NUNy6eiN/w9WCdxVzCwr3Mszwsd3QerH+RPlC+VQ2PDguCqFHn+hfEP5 lzvSXtK1gsoS9eG74NsyqgDvcMLST/AQybu1ggoY+E K+9eZiKc5ofbZggmqBfXkhJp4sP4IHDI8w8tUvVt8M+dAyk9Q8IZd42pcijaN+Zq3oFK2z45CaMq6n94 AxET+RXhAvaA/6C/2Vjpq/Cx6AAjk0Jj6vXHt5O70R02n7o7u+KugT+quM7x/AsYv8rt1u8rdw+2Ya+q ntG0EAAF7jsdH4Z8qJgd/+cvij7E8P32Y/FfGhvzrh or/U/tiEpK99mMU6UGb8bWDlIuzSgqNdjB7FtOIEvf6LiewG4NoTiw0JfbB8eNI9Z02sfVr3C2LcZF4D vspwR/qF6cm0N9vrL3qIzeHpBO1f+zftYwEK65Sr/frnYxvq8Uvca1Ixf9M/UeQ2dZhtmn4n4YtP61p4 Bn4O+VxvdQCdFS0FF3l4uVzV0Mo0pSeoYoskx2M92a fi6/vuNasoczBU2E/H+Pf48o1yQ+Onjx7zfw6Mzw3B1E/Xlk9i6hJ8cvcaiqHqdanV6k71K7kipCv6Jq Dha8FgfQ3Ixbqgc1F4SsvcbjAuSB1Cms4PudlXdhiGz/CzAx7enqKskmmNSfz1DDO/7av5a1/NX/uqv/ bVecG+1b9X7uAweNDbaSQnfsxBa3tBFnOKsex80OIA j0ilFz0vbjid77W8gc/Wip+tob+uWd8phdkCJwMfyCwxiiU+8ozopEVgOzqunwP3illXR4Li4hr7fD0K H3q9Umj3bIR4G/or67X/BfqaFup5yu83lI+i/am/sgCWs7sgsk2DKx9I6Wp/5qCfkeMyaD3Bc/XKuiO9 y93El2qX9ubU3oZAoUEp2I1yCL/J5Bhl4qbOhmzkys y/1iuDfGVDEP//aGq6gOqvbIdyAaPajVEbEla7iCC/8ihFK5s6/0YzCdu3yEQttpGnVtPsFWLp4gl88m +qkK613y/ppJzlEN3hXGgKuiP1YWC/hParEvm4noNw5Md42ppE94Z7iJFmvE0vhJwanA6h1KziV+1utI gwSYWxg1J/veni4ck/E7q6s5AU2c/C+2J5FJvwLaa8 3X6C9AS70Vk911pXSvh6/v/rXenBkH7d0Sg8ZNfN8jhHZ4AdtlppuFjK/qWWrZCykeasNipIx2l1k1sI BHzu78ft/cK+so33u/F+B77errnmtfoI/JB3Y/0leXvBipzoN6nUWtZ/7rth3hTgWH4QT6eE34C+p32l 20K3lM4GMslPH6N1Wdyir+SHvBZI1/w96V7/j8wxfx 1ib1Vqn7pm4vE36n7xb/0QfzRN9mE+wXB+9Ex2m7cJiHs6Y149Xwe2p2x86uy/g2hfwclwyZXjMeD/yv R8/Si4YnbBx4LcnQ7cbCf/VeYZSD/f8sa121vQ+KDl/vX3M40uzPjTwzKuO3qlw7ScBUmck56vT9vnYn H2bgq6M/tF/ql3jn5QjgW/av+fe3QvaX+K7/tX31/H /ivH/ivH/nbH/iv/wo6ts61//loColn76Rm/8jmjhmCre6Q/h2irnmijR0rWiiKc/e501Onr6D/fZV8N tamn1HUKybfyEUlWlHf2Jx4oWxmfr0c8/nT3zDqxfs+/8JRl9MIz7MJB0BRbkh4QS61zCeFo2zQryn74 taPdtpbwvtr54TrRq9usx8e/9qu49l+deJAf+0rxJj /2lS/VmX1aVk7Fw648ayV6j7/G3nXCf3hP/eyrv++l8vg7f+fHvopM/7jwF572op7x3/cNEdfR95f+Mu gl4Hb1T+fHvsp+Hvtqa/pUrkoNv4Q8rBrZO6h+9qrvOt23wkx3fc62egAHxGd83H7D/7W/Urjkkbzt1p +P2g/so/YDO/Zf+am4jz6l/4bPOl/ms76/Uwbm6Gu7 hs/y3jhhI7x+A17W3En3Z2Zsb+Ipf9R95U/9fUt3cLxVb//s8F85/Fe+JuKHozJjLyh7Pt79tdfU/vLH +qr/gw7/la+Vqzlvbvpn3D6c5w591KcE+8oRH/SF9Qr+I0e6FcH59iH+8l3/t72OnHPg/2g00Iek4P8l 2FcO+5xWY4COOl91vhN+hnGLQcbnCNMD50J/znfFU3 xX/Nei8agtQS8d3L3f8UpyvBogwp7pk0lQ2AkL3icnVv1MasAh3eC1uhz4oql2M6mZSoy/lcO2ykiK/V eO+KBj/4CqKetkqM813k1bd8cUa+03c+kbh7q2IX0D+kY/KnEIXknrs5Uf/WJ/e6jBOa5xF+GLqm0WZy A3IC/igx4V//ZChR4YB4V/fz3q/4LDf+WB8Qz/lcN/ 2aFajleTeidgQ2hOpr6su0mt9JcU/2qr96ekzjJIzbh/JCqXVxv4e1izD0NhOT8Xs+V/HmAR0mNcV1z0 1ONID+Sv//vR6v9+zG6S0B0Od/lq2X9Ka/2T7BjNB/LX+402kX+h/tS9E0CahqIfqzZf/3V8O1iZ+gP5 blfSA0526X/vCabsjnyym4oDmAdH2+bG8KewQ255y5 EF9dzzP3K3wKh0QDC2D6LCP/wsHFd3L+HYJDQmpWzb1weWhDIGJ/6O/Josr+z4qvnqv2Gz53KRpZ+x0 u7CugwUXesylGjaYeA//0YZW8E/QtfVT5jM1dgclH+iln+2JiQF/YPhO0S2S+CFoa1WhwqJ30Ri/c7MZ 0k7B26d9ENz3y75N2T+JUV6cEE6C+X3FLh3bb9y1Hk [file] jt86nA1c05Q63fwvex29be4D/ZW9h40I3Be8zktlil bsi7Ie+KgHH2LtWy+/CM/Hi/XsdD3ctcg0Y1JxcbuFlrmd8ztl7Yp4P1gJqU3zBzOA0RyQ84XjBI9E0f 5ancnycstKqfe7Myy6wJhK9qUo4gZ44R+7WS00ZBJy1XXst0OlZsjJiAmZOQHbzD6gvfwMM2kGrz4t+8 U+lH3nzG+42N/EfeZXr+xW2nEeu2SC2zpmPZR/LuY+ d930s/I8Xm41C61cQru1VzcI5RB86QenSi8/nIe5+YrnS6zY8qbfXMaFsN8ScuIvEc1m0KP63S5VjgoT A8JjPE1Gv65Rf/sq/Srksw3OE9zhlUejL+nZ7bzq2trmagco2eKj/1JFGh1a2pBE831OhFa8yxkfp81E e9BdJr/qXa06jExwx4loxthJ+R3pE+oE0pn2m91DRd 2T8gk18E3f+kb/QSxC24Gzb21ckMoRJ59+7+QHpU+rGvpudOz7/03wf/9/sS07rAcAkZgc96mg//8/zs eq30er69/2Dpxn6WS4b34S5v/+8quP6BI/ROf/aEW1c32+a126dVeN8/0mfm/2bseXiejn4Qqgb23Nm/ 8vn8S++58+Rvjb8gmsMYShWxd895/t6gnn/ttozc/6 V/X+49+OtnfBmQ/+unfxnZ/tekZG31dq8gYg28yanQq9vt/+TdWQ/mr+wrzRfZVxr/h5xkTtwyc18Me+ lpdQHZMwk6GgsX/Ad1fYs6EuFZ/7WkoWDIwxcP0/2G8v/epaEr0VodQy+xmeuYS3hhp9uxdMypf0IqEX rhor0Bf6y85Nqiu2z+es+n1pOepjlm5GdKR2e4q8S0 1Jtf7wF/jRk5eqF/6Kmk97w+av0ziCwv952sazEHIo3P8xTbB+83Livl9eLlWT5JPerJL0e+ut2S2FWA +rfm6lzit0Lki9zApnnTsKocxFT/DfIe++o+G/Lj/ZfnD65fbb6xnbs2r30P/P5V/bTk6HaF+fF+j311 nwfSB+rB+/RLurToj8gTi01HoceFvazi40o2SQ/u6A /llqfvC22a5YQi/MvB83BbwsKX/t77xnP3tkdW9nI7Ecmla4Ah77/09KCJL3ailDtZn2s16i05JWjr0W KlvA1Yn6j8jycSou2w4Zc5kHlgZ/Ctn252KqPc3Awxi5nLCC+8+TyRPpG+aZ7AsnO+qB1UF3ElnsZCee RA/qh+HvvqPf/Xx7fheWyeE9LG1mIp2dat5DuQTmL2 P+dlIxrV21BMmu4ykQwnQDP4hgKYmZuiJlU08c6IEFpSFDSkpnl+4pez8f5Mzx+ULvvqPj/7Z8C+GrCv PsxqOjgbjV4btv083oO3uG+f2Gp5ArzgFWI/y0OXihy8bdnS7BCkgR2PPoFj33r13Q+6z88OH/JfnW/9 jM7t07No60LKNH7R+a/GeadN18a0Dt/ZtFR36FL/Kt i4xVpIo+ITlDXlbFke9Tj99l4Rz/JfZTrklf/aUfH7NH/ra8sfmMc/VeZf1X/ZV/b9Ug9ZBvJO+0p14v 1OR/78h8Sg0Qbp/+BYeL+r/g+TUJkhp8BlT/HPm9V9QWDY/6OxIK/8V1n/Iemw5vF6ov+Z3LW9U9bh+a +ybKCeqPQNeeW/Uln5r+5ztbshr/wGLsK7ZT2qbsen DXk33u+LgVokggg4a12f62A/Y5nyT8XzeL0/xpD/auZzySv/XeX8pHUg+a/sniH4Hylbl6oiT+Uz5q9h /gz6mwi6P4QeCyw3/x1W/xeG/NvEZ3wp/FfKL//DbkeIk4X+Ot6vY/461ivH/XSgt9508tHnZgGcU0a/ UQ/WZ/ih2tJlD40GxS29XbEg/9y5JU806D4I1fdkh/ xXmQfvN/B+A+9X/nbTE9jjq4j1bLm+qxGGfkJe+a/ma17ZVH/GiPJvzK/8G/W3jS6nKAX+o3SFIh2Wjk f8nV/N3/nV/I0nDL4M/Vn0o10W4D4tt+D34YOq9/wj1q7pfVKfqTi/1cznql/+K+WX/tzXR3Y49k1E6e flB0KI7mhvt2M/NeW/yjwb/UUIB7qP0pN/NeG/mvBf yI1htpZ+ss6mcrgu0T394j/lucy4feD+lo8icudwydopi74eCrO6B9clXcC9nU5FiBj1w+tf2OpEef6A 3oA0do4hmhDd02eICnaPY/yXYYC3kvH4w0T2VO4H/J9H18pP9xT+h6M/hOg87Lu1De0L44J4Vn/E+514 v7KvMn+fQ9Y5jna2IQ5j3j+cyL+QvlA/5J2Qd+L9Ij 444b+a01F/oJ6yJ+yTfSrbp3X1DVixaW22G1hauhgwXM3U2Fq9HbzSo8r+L8y1UT/kXXi/dU7k6Iq7QA Lh/S2G6853kvJ+Ij44N+Uf4R8gG+4Z4tTiiH7i88ZoyBmFzHVcdD/CK8pmL3e76D92H+Yv7KsJ+2puyG tYr+xDen1/p+L8ILjTWrrjS09IX0Rsw3Vsu1k2qOqF E1kp0Xo9aWEVGQ2ESlU4XbnV+4aRphsZ1tbV0qBrGvq0tzSPvIcZdwgabdxvk+vPt84twtS7Xi9iQ/4i Ymfn2eXur+wPf5WlJiS+UmhFkOxGbK0Y5aX+kjLsRPD8Vvip/zvrkA8Eard6dLoMiJ/+T3fYRybCqzfk furPuiJ4Mmyh++o+v/wL8cGF+CS8JjXkkA3xV62Y+o zvdVxH1dcjprz8s+cjb+Uc1nuov8TlTU2eks/y2ZF+5A09B/hMoW4cd+uX8xTK4oUfbetnmd12q6B+kK 172CbH4gY7dTWStvv/07ZA0uq/5Bp1f5L1Je3Kf0w9Dhgbmd6qfI1T7XgVi49utQ9J/HtuI5i93xTgD/ xXC/UXzt8VX/DOtmch4qczT+av4EjvnrMAtnL/R96m 67eTlh8rmmAclcBPHsl4A14Zx8goK/JD3lH+lRLaSeIPJ8Ty42419ztApNFuzl258Ph7Bh835/kX19M4 TuUDcmPT3bLM1mX6/renewal specialist/he78SBqEcUYYjGOOlv+2LO04SdVcrNXuqhsGhDf+GCm/+W5brUKY9aRl7pm Unzw+OJP6eHGX9tTIkeWn58+8cu6h6UbWJ+txv+s+P 1xdjXjI03L6309a4+dzL1qmMz1b4T4T4ev/JSA3nVCnk96q6sJ7IyCVyMQ7O1kE8X44X8QQek0DmioTm GdzD58y72p16276L/13e4tXWyJ4cbBc3+X3sj50M6enxOusK/C3x086NX3OU5Q+HRQK1Edh189KlnRsk SdgLm19pY0K/IbFoc9X+bEiPw4kRqIa9YKEZLHaKGN 4oOqX/HB+4q6KZlJ0ke2f3KQYouglSzCGbNsqW8QE2SQUnW6cW4glTcfl3Cs+KDye+1nWBkfXHpG/o78 XM7dpx8w+nb0RP3skz/m86r+O+J4hPy65uUPW/UjIKG33JTL21g/UfHuFXi/hbPT1uODy0cozqknlzbT IW/g/So+mPkxnmOhfsir+EUC0eimppUvuzgq0MIiYS pZps7WlSPli1NAY+KDG/HBjfjgVnzwPiP/kfc+I30i/0Q9C/rA1yt8rSW+xDOz7OoO6QdPntWFM+KDW/ FBPSs+eJ/Ml8XlgFYL9L/MM8dAI0I+hC4Cqgln503x/W7FB8+0333Z49C00QQ7dI9125HXr4SW/tbhLf sx74XmO9ing160Nlsn305eC503mda6Phh+qw3/1e7l [file] Cgo+XrajlVStgAsuDYPTTWwcIBnTMODAO0D= ID Date Data Source [id number] 02/15/2021 11:10:42 AM EDT [facility] Name Value Range Interpretation Code Description Data Angie rce(s) Supporting Document(s) CK 1570 U/L (39-308) [facility] ALERTED CRITICAL RESULT TOAMANDA(3185) [place] [address] ON [id number] AT 0946 [place] [address] ID Date Data Source [id number] 02/15/2021 09:48:54 AM EDT [facility] Name Value Range Interpretation Code Description Data Angie rce(s) Supporting Document(s) TROPONIN I 55.50 ng/mL (<0.05) H [facility] [place] Less than 0.05: Myocardial injury unlike lyGreater than or equal to 0.05: Highly suggestive of myocardial injuryCorrelation with rise and/or fall ofserial troponins, clinical symptomsand ECG changes is necessary.ALERTED CRITICAL RESULT TOAMANDA(3185)[place] [address] ON [id number] AT 0946 BY [address] ID Date Data Source [id number] 02/15/2021 09:48:54 AM EDT [facility] Name Value Range Interpretation Code Description Data Angie rce(s) Supporting Document(s) CKMB 199.2 ng/mL (0.0-5.0) [facility] [place] ALERTED CRITICAL RESULT TOJEWEL(3185)[place] [address] ON [id number] AT 0946 [place] [address] CKMB RELATIVE INDEX 12.7 {index_val} (0.0-4.0) [facility] ID Date Data Source [id number] 02/15/2021 09:31:41 AM EDT [facility] Name Value Range Interpretation Code Description Data Angie rce(s) Supporting Document(s) DIRECT LDL @ 114 mg/dL (<130) [facility] JACOBS PER NCEP ATP III GUIDELINES: OPTIMAL < 100 NEAR OPTIMAL 100 - 129BORDERLINE HIGH 130 - 159 HIGH 160 - 189 VERY HIGH > 189 ID Date Data Source [id number] 02/15/2021 09:19:15 AM EDT [facility] Name Value Range Interpretation Code Description Data Angie rce(s) Supporting Document(s) CHOLESTEROL @ 203 mg/dL (0-200) [facility] TRIGLYCERIDE @ 337 mg/dL (30-200) [facility] HDL CHOLESTEROL @ 32 mg/dL (>40) L [facility] PER NCEP ATP III GUIDELINES:RESULTS LOWE R THAN 40 MG/DL ARE SUGGESTIVEOF INCREASED RISK FOR CORONARY ARTERYDISEASE. RESULTS > OR = TO 60 MG/DL ARECONSIDERED A NEGATIVE RISK FACTOR. CHOL/HDL RATIO 6.3 RATIO [facility] INTERPRETATION OF CHOL-HDL RATIO CHD RISK FEMALE MALEVERY HIGH >8.3 >14.3HIGH 5.6- 8.3 6.7- 14.3AVERAGE 3.7- 5.6 4.0- 6.7BELOW AVERAGE 2.5- 3.7 2.7- 4.0PROTECTED <2.5 <2.7 LDL CHOL (CALC) (<130) [facility] INTERFERENCE FROM ELEVATED TRIGLYCERIDES (GREATER THAN 300 MG/DL). SEE RESULTFOR DIRECT LDL. ID Date Data Source [id number] 02/15/2021 08:19:10 AM EDT [facility] Name Value Range Interpretation Code Description Data Angie rce(s) Supporting Document(s) SODIUM 142 mmol/L (136-145) [facility] POTASSIUM 4.4 mmol/L (3.6-5.2) [facility] CHLORIDE 112 mmol/L (100-108) [facility] CO2 22 mmol/L (22-31) [facility] ANION GAP 8 mmol/L (7-16) [facility] UREA NITROGEN 19 mg/dL (7-24) [facility] CREATININE 1.04 mg/dL (0.80-1.30) [facility] BUN/CREAT RATIO 18.3 RATIO (10.0-20.0) [facility] GLUCOSE 120 mg/dL (70-99) [facility] CALCIUM 8.4 mg/dL (8.4-10.2) [facility] GFR >60 ml/min/1.73m2 (>59) [facility] GFR ( AMER) >60 ml/min/1.73m2 (>59) [facility] GFR INTERPRETATION [facility] --NORMAL KIDNEY FUNCTION OR MILD DISEASE - GFR >OR= 60CHRONIC KIDNEY DISEASE - GFR 15 - 59RENAL FAILURE - GFR <15 Est. GFR calculation based on the MDRDstudy equation, which assumes a steadystate for creatinine. Est. GFR should notbe used for medication dosing. ID Date Data Source [id number] 02/15/2021 06:18:08 AM EDT [facility] Name Value Range Interpretation Code Description Data Angie rce(s) Supporting Document(s) WBC 11.6 10*3/uL (4.1-11.0) [facility] RBC 4.82 10*6/uL (4.60-6.10) [facility] HGB 14.3 g/dL (13.5-18.0) [facility] HCT 43.1 % (41.0-53.0) [facility] MCV 89.5 fL (80.0-95.0) [facility] MCH 29.7 pg (27.0-32.0) [facility] MCHC 33.3 g/dL (32.0-36.0) [facility] RDW 14.7 % (10.5-14.5) [facility] PLT 186 10*3/uL (150-450) [facility] MPV 9.0 fL (7.1-10.7) [facility] NEUT % 69.4 % (35.0-75.0) [facility] LYMPH % 20.3 % (16.0-52.0) [facility] MONO % 7.8 % (0.0-8.0) [facility] EOS % 2.1 % (0.0-5.0) [facility] BASO % 0.4 % (0.0-4.0) [facility] NEUT # 8.0 10*3/uL (1.8-7.7) [facility] LYMPH # 2.3 10*3/uL (1.2-4.8) [facility] MONO # 0.9 10*3/uL (0.0-0.8) [facility] Eosinophils [#/volume] in Blood by Automated count 0.2 10*3/uL (0.0-0 .5) [facility] BASO # 0.0 10*3/uL (0.0-0.2) [facility] ID Date Data Source [id number] 02/15/2021 03:47:02 AM EDT [facility] Name Value Range Interpretation Code Description Data Angie rce(s) Supporting Document(s) CKMB 272.6 ng/mL (0.0-5.0) H [facility] ALERTED CRITICAL RESULT TOLINDSEY (63615 30) [place] [address] ON 02/15/21 AT 0342 BY 00427 CKMB RELATIVE INDEX 13.7 {index_val} (0.0-4.0) H [facility] ID Date Data Source [id number] 02/15/2021 02:27:13 AM EDT [facility] Name Value Range Interpretation Code Description Data Angie rce(s) Supporting Document(s) CK 1985 U/L (39-308) H [facility] ALERTED CRITICAL RESULT TOEMMA (77740) [place] 02.15.[place] [address] AT 0225 [place] [address] ID Date Data Source [id number] 02/15/2021 02:27:13 AM EDT [facility] Name Value Range Interpretation Code Description Data Angie rce(s) Supporting Document(s) TROPONIN I 84.90 ng/mL (<0.05) H [facility] [place] Less than 0.05: Myocardial injury unlike lyGreater than or equal to 0.05: Highly suggestive of myocardial injuryCorrelation with rise and/or fall ofserial troponins, clinical symptomsand ECG changes is necessary.ALERTED CRITICAL RESULT TOEMMA (51800) [place] 02.15[place] [address] AT 0225 BY [address] ID Date Data Source [id number] 02/14/2021 10:17:17 PM EDT [facility] Name Value Range Interpretation Code Description Data Angie rce(s) Supporting Document(s) MAGNESIUM 2.0 mg/dL (1.7-2.4) [facility] ID Date Data Source [id number] 02/14/2021 10:14:51 PM EDT [facility] Name Value Range Interpretation Code Description Data Angie rce(s) Supporting Document(s) POTASSIUM 3.8 mmol/L (3.6-5.2) [facility] ID Date Data Source [id number] 02/14/2021 09:15:[address] [facility] Name Value Range Interpretation Code Description Data Angie rce(s) Supporting Document(s) &PDF [facility] VXOODq7gDrNECfKr98/CWDdbFPMmg8VuODvdXVx3IRheOXWyY0FzxSeaQE3ER3sSDLikO0zEMc4xIUMu vci [file] ICAgICAgICAgICAgICAgICAgICAgICAgICAgICAgIC AgICAgICAgICAgICAgICANCiAgICAgICAgICAgICAgICAgICAgICAgICAgICAgICAgICAgICAgICAgIC AgICAgICAgICAgICAgICAgICAgICAgICAgICAgICAgICAgICAgICAgICAgICAgICAgICAgICAgICANCi AgICAgICAgICAgICAgICAgICAgICAgICAgICAgICAg ICAgICAgICAgICAgICAgICAgICAgICAgICAgICAgICAgICAgICAgICAgICAgICAgICAgICAgICAgICAg ICAgICAgICANCiAgICAgICAgICAgICAgICAgICAgICAgICAgICAgICAgICAgICAgICAgICAgICAgICAg ICAgICAgICAgICAgICAgICAgICAgICAgICAgICAgIC AgICAgICAgICAgICAgICAgICANCiAgICAgICAgICAgICAgICAgICAgICAgICAgICAgICAgICAgICAgIC AgICAgICAgICAgICAgICAgICAgICAgICAgICAgICAgICAgICAgICAgICAgICAgICAgICAgICAgICAgIC ANCiAgICAgICAgICAgICAgICAgICAgICAgICAgICAg ICAgICAgICAgICAgICAgICAgICAgICAgICAgICAgICAgICAgICAgICAgICAgICAgICAgICAgICAgICAg ICAgICAgICAgICANCiAgICAgICAgICAgICAgICAgICAgICAgICAgICAgICAgICAgICAgICAgICAgICAg ICAgICAgICAgICAgICAgICAgICAgICAgICAgICAgIC AgICAgICAgICAgICAgICAgICAgICANCiAgICAgICAgICAgICAgICAgICAgICAgICAgICAgICAgICAgIC AgICAgICAgICAgICAgICAgICAgICAgICAgICAgICAgICAgICAgICAgICAgICAgICAgICAgICAgICAgIC AgICANCiAgICAgICAgICAgICAgICAgICAgICAgICAg ICAgICAgICAgICAgICAgICAgICAgICAgICAgICAgICAgICAgICAgICAgICAgICAgICAgICAgICAgICAg ICAgICAgICAgICAgICANCiAgICAgICAgICAgICAgICAgICAgICAgICAgICAgICAgICAgICAgICAgICAg ICAgICAgICAgICAgICAgICAgICAgICAgICAgICAgIC AgICAgICAgICAgICAgICAgICAgICAgICANCjw/iAEaD6mcjQJgyeE1C4qqTz7JLv5CHU2lv5GyPXEzUV xchsNiSdlVWzNwJVJqZjwSZko9FFnjKE2VzNDjF0DeZ4NnSEtnTL8PPKMtIQAgcDVbJANcUHMfVmT3UV XmWXxnKM1XdCXhFVguKRDxBPTjNeXsFMIhFACuAFCq RVLuRJELENQzLTTuXoHxCWKwONVoNGjnLAAUZR9LMxEeY3OxsJ28HAgZGo7+TWfsapTrObvLQdB1IIRk r9LjIGf7CA1QWVDgSoqxf5XgVyapEXBMVLciYS8OAIV0HKO1XUMuNn1DWALsY732cbNvGU3MIx6XJsQe GK6hfb1JDumkNUWiTvbHDjb0NAthBY1PgZNmCKcKvW TdVN82hlvNDiKdX6Toq0WoZnN9UKGdJdLcLXhnIBMvSmOtHO74gPtrWW0SPRPiWEAoFS60EDH6JIEpVo 3IFi5YXwElWR9aaa0AJjoaDDNaKimCAmn0UFqeCE8OiPFzT8JxlSLgh4rGNvBdB6WWJYC1YFAhNe0BCX EzQpUyKQMvDQkvPU2qTYKzZEGTeSeyqzH5MH3XRI2n ptJoZM7ZJiKaYl2wDk9TTyVzH8CeL8InHYPtDHUXOLicZG6KTUojZL4xBJ2Tc4IEpZIlnY8mjl3PUUGp FJZeDqsobr1THrytB0Z4vDvoNKQoNmXpJLOGFUbvSG8HZXCrBNR6KVEyQTCsCFFBRgYxN01bZF1HS4Sv z78kTsG9JRHxKlMwRTmyOK41fMaapaFqzQUegQnnRC 0NCj4+JMeuxiVyMvvKVedqJSZOOtVrPhgPCqUhKYQxHZYqOIQdWeV9CgYeUh1WBDIkOUBzMOIzBiZqMW LbMBDzIKqcPUKcDEr2FcLkLIUsOJHxVW4JPkPtASNrKYbvESIaYZUtWQYlwi2JLPVwZCQnVOB8NuIiPH TjNUAlKQztPOTqSZOcAGXfSYYjRHWcQB7XCcHqWKZm TMAwJYEaJGOhJBWpze8DHXBqWFIhTPd7TSIoHLLqKHNxMWlxKGEqIXK7WIn7NCUbJPKbPH9HKsYmVPQw TOYdMCLlTALsJQFxjv4BSJQvNCSxQnRzYQQpSABrOYCiXSngTNTjHKZ8Tes4AYPpMAArBH1TLtFjXDIk AYq1VSYzDOBuAVMbqz8UXREiLZEkCLR9IhJyHPEpMS ZyGJbvLVVqXJW4BJZ8PNAdZJEkKC3HWkExTIVvAWIuPEzwEUCxRNWdej0OUJRrZXSwXCQ8EiWvYUBiFB WlMVfrYTBwLPMjHnr1YWPvEJUaPO0FEsGdUXGgNGX9NCIbLSMbEARzzv0ZAAVsRCSwMkq8USUlLIVkIB GoOGbgBTEvJDX1BKU0XKEfAYAlYW3HPbBoPUMvRUVc OeNjOHSaLDKbiy6MFDFhOUDiQBP6CTDvGMMnVCQzSStjKNHaZPA6HRnoOONkHPInMZ8QKeFwJPPlOZH9 MuDiOFQuRKPiej7PURGpCUWnQIi4RZRlNDCsWIReKDeqQUEcUOE8FVMjYHGmEFMuUG7LSwSoABSpIwW1 QWvtAKOaNKBjfr7VRHRaRKR0CfT1TwKmMAKlRHJaGQ azGTLwJNN0XBG7DDCnHLAeKC2MTqZpOXRyOcMoTKPpTTJoVDXxyx0COJReZIM5RRUwQKVuRCNjUDXrSX rwAIOdEIqwRiL8PXOiIDOlUV3QTuKcITIzKPF1YcpkGPVxUEEjev4UTNTsPMQ8RID0PMCnLPXjLJCeIQ jdBOJjTRn3LBSrQPHzJKKwRK7JKtNfNGMsSVnzGAss WFQzYSXele9YERWqNVA2ObG0NBQeETLaUOMlPCydAXLvAEt9CXw3VTWtNDFlID7GCbCoUWkkJKLPBdk1 MIftS2i8YFUdXG7FK1Zwx9ZgRlyeVXEGSWubYA3qbyCpMCNpQw9QP0vZAfqtR3FaXaV4IWT1GvJ5EHKa NFT9YBdbONAeQFQdDEDfBQ7eFTBhR4XcUSnrLUHxIA epDYR1WITdSZY7LMA5JEQgIwY0YwCaRQ6DFu2MSpT2CFI8hTYqPj4TZMe6SyLFUfGbUH7VLDz= ID Date Data Source [id number] 02/14/2021 09:20:05 PM EDT [facility] Name Value Range Interpretation Code Description Data Angie rce(s) Supporting Document(s) TROPONIN I 95.00 ng/mL (<0.05) H [facility] [place] Less than 0.05: Myocardial injury unlike lyGreater than or equal to 0.05: Highly suggestive of myocardial injuryCorrelation with rise and/or fall ofserial troponins, clinical symptomsand ECG changes is necessary.ALERTED CRITICAL RESULT TOLINDSEY ([id number]) D[place] [address] ON 719254 AT 2116 13546 ID Date Data Source [id number] 02/14/2021 09:20:05 PM EDT [facility] Name Value Range Interpretation Code Description Data Angie rce(s) Supporting Document(s) CK 2551 U/L (39-308) H [facility] ALERTED CRITICAL RESULT TOLINDSEY (68945 30) [place] [address] ON 572159 AT 2116 96997 ID Date Data Source [id number] 02/14/2021 09:20:05 PM EDT [facility] Name Value Range Interpretation Code Description Data Angie rce(s) Supporting Document(s) CKMB 383.1 ng/mL (0.0-5.0) H [facility] ALERTED CRITICAL RESULT TOLINDSEY (20796 30) [place] [address] ON 902297 AT 2116 56036 CKMB RELATIVE INDEX 15.0 {index_val} (0.0-4.0) H [facility] ID Date Data Source [id number] 02/14/2021 05:56:18 PM EDT [facility] Name Value Range Interpretation Code Description Data Angie rce(s) Supporting Document(s) HEMOGLOBIN A1C @ 5.4 % (4.0-6.0) [facility] Performed using Siemens Ze[employer] immunoassa y.Care must be taken when interpreting VnS2ewffgmjw in patients with a hemoglobin variantor decreased erythrocyte lifespan. Values 5.7 - 6.4% suggest prediabetes.Values >=6.5% are diagnostic for diabetes.REFERENCE: DIABETES CARE 2018: 41(S13-S27).PERFORMED AT [address] [place] [address] [place] [address] EST AVERAGE GLUCOSE 108 mg/dL [facility] ID Date Data Source [id number] 02/14/2021 04:23:51 PM EDT [facility] Name Value Range Interpretation Code Description Data Angie rce(s) Supporting Document(s) TSH,ULTRASENSITIVE @ 1.157 mIU/L (0.360-4.170) [facility] PERFORMED AT [address] [place] [address] N Y [address] ID Date Data Source [id number] 02/14/2021 04:22:25 PM EDT [facility] Name Value Range Interpretation Code Description Data Angie rce(s) Supporting Document(s) TROPONIN I 15.40 ng/mL (<0.05) H [facility] [place] Less than 0.05: Myocardial injury unlike lyGreater than or equal to 0.05: Highly suggestive of myocardial injuryCorrelation with rise and/or fall ofserial troponins, clinical symptomsand ECG changes is necessary.ALERTED CRITICAL RESULT TOAMANDA 10135 D5 49288 ON 02/14/21 AT 1620 [place] [address] ID Date Data Source [id number] 02/14/2021 04:22:25 PM EDT [facility] Name Value Range Interpretation Code Description Data Angie rce(s) Supporting Document(s) CK 1072 U/L (39-308) H [facility] ALERTED CRITICAL RESULT TOAMANDA 62082 D 5 16377 ON 02/14/21 AT 1620 [place] [address] ID Date Data Source [id number] 02/14/2021 04:22:25 PM EDT [facility] Name Value Range Interpretation Code Description Data Angie rce(s) Supporting Document(s) CKMB 107.1 ng/mL (0.0-5.0) [facility] ALERTED CRITICAL RESULT TOAMANDA [id number] D 5 [id number] ON 02/14/21 [place]20 [place] [id number] CKMB RELATIVE INDEX 10.0 {index_val} (0.0-4.0) [facility] ID Date Data Source [id number] 02/14/2021 04:22:25 PM EDT [facility] Name Value Range Interpretation Code Description Data Angie rce(s) Supporting Document(s) SODIUM 139 mmol/L (136-145) [facility] POTASSIUM 4.2 mmol/L (3.6-5.2) [facility] CHLORIDE 113 mmol/L (100-108) [facility] CO2 22 mmol/L (22-31) [facility] ANION GAP 4 mmol/L (7-16) L [facility] UREA NITROGEN 14 mg/dL (7-24) [facility] CREATININE 0.94 mg/dL (0.80-1.30) [facility] BUN/CREAT RATIO 14.9 RATIO (10.0-20.0) [facility] GLUCOSE 103 mg/dL (70-99) [facility] CALCIUM 7.8 mg/dL (8.4-10.2) L [facility] TOTAL PROTEIN 6.4 g/dL (6.4-8.2) [facility] ALBUMIN 3.3 g/dL (3.5-4.6) L [facility] GLOBULIN 3.1 g/dL (2.7-4.3) [facility] ALB/GLOB RATIO 1.1 RATIO [facility] ALKALINE PHOSPHATASE 95 U/L (45-117) [facility] BILIRUBIN,TOTAL 0.4 mg/dL (0.0-1.0) [facility] PLEASE NOTE:Total bilirubin results may be falselyelevated in patients taking Eltrombopag. AST (SGOT) 95 U/L (11-39) [facility] ALT (SGPT) 35 U/L (12-78) [facility] GFR >60 ml/min/1.73m2 (>59) [facility] GFR ( AMER) >60 ml/min/1.73m2 (>59) [facility] GFR INTERPRETATION [facility] --NORMAL KIDNEY FUNCTION OR MILD DISEASE - GFR >OR= 60CHRONIC KIDNEY DISEASE - GFR 15 - 59RENAL FAILURE - GFR <15 Est. GFR calculation based on the MDRDstudy equation, which assumes a steadystate for creatinine. Est. GFR should notbe used for medication dosing. ID Date Data Source [id number] 02/14/2021 03:15:40 PM EDT [facility] Name Value Range Interpretation Code Description Data Angie rce(s) Supporting Document(s) WBC 13.4 10*3/uL (4.1-11.0) [facility] RBC 4.97 10*6/uL (4.60-6.10) [facility] HGB 14.8 g/dL (13.5-18.0) [facility] HCT 44.5 % (41.0-53.0) [facility] MCV 89.6 fL (80.0-95.0) [facility] MCH 29.7 pg (27.0-32.0) [facility] MCHC 33.2 g/dL (32.0-36.0) [facility] RDW 14.6 % (10.5-14.5) [facility] PLT 196 10*3/uL (150-450) [facility] MPV 8.8 fL (7.1-10.7) [facility] ID Date Data Source [id number] 02/14/2021 02:09:35 PM EDT [employer] [facility] ClinicPATIE NT INFORMATIONPatient MRN Name Date of Age Gend*PT [id number] Subhash Roque I 1965 55 years M EDPT Location Admission Date/Time Visit [facility] 1319 --- Bridgette Samuels MD([id number]) EPI ID CSN Admitting Provider [id number] ---Catheterization Laboratory History and physicalPatient Name: Subhash Roque of : 1965 Age 55 yearsPrimary Physician: No primary care provider on file. PCP Phone: NoneDate of Surgery: 02/14/2021 Exchange Teller: Bridgette Samuels MD [employer] Consultant(s): NoneReason for admission: Acute inferior myocardial infarctionPre-procedure Diagnosis: Inferior wall MICCS Functional Classification: IVHistory of present illness:55-year-old man with COPD and question of crest history of myocardial infarctionfor which he did not undergo coronary angiography. He started having on and offchest pain on Monday and today it became sustained and an ambulance was calledand he was found to have ST elevation in the inferior leads. During transferhere he became bradycardic in the 30s and he received IV fluids. On arrival hewas still having 10 out of [address] elevation in the inferiorleads. His heart rate was in the low 60s and his blood pressure was 102. Hehas strong family history of coronary artery disease at a young age. He has nopeptic ulcer disease and no bright red blood per rectum or melena and no historyof stroke.Coronary angiography was obtained and showed subtotal occlusion of the distalright with moderate disease in the proximal LAD and mild ventricular systolicdysfunction with 2+ mitral insufficiency. He received drug- eluting stents tothe distal right and proximal posterolateral branch and he became chestpain-free.Physical Exam:Blood pressure 120/65 heart rate 60 respiratory rate 16.There is no carotid bruit. Heart sounds are muffled S1 and S2 without murmur orgallop. Lungs with decreased breath sounds. Bowel sounds are normal. Radialpulses are normal and right Rodney test is normal.Lab resultsCreatinine not availableCBC not availableAssessment and [id number] man with history of smoking and COPD and strong family history ofcoronary artery disease who presents with inferior wall myocardial infarction.There was stuttering pain for 4 days that became sustained today.1. Acute inferior myoca rdial infarction post primary angioplasty anddrug-eluting stent to the distal right and proximal posterolateral branch. Hewas given Integrilin and Brilinta in the lab and he will be started on Plavixprior to discharge. I would not continue with Brilinta because of thebradycardia arrhythmia. Continue with dual antiplatelet therapy for at least ayear.2. Started on a statin. Lipid panel and fasting blood sugar to be checkedprior to discharge. Smoking cessation counseling offered.3. Mild left ventricular systolic dysfunction with high left ventricularend-diastolic pressure which may be a sign of acute combined heart failure atthe time of the procedure. No diuretics and no further IV fluids.4. Continue telemetry.The procedure risks and benefits were explained to the patient who agrees toproceed. Risks include but are not limited to heart attack, stroke, kidneyfailure, major bleeding, and infection and access site complications.Signature: Bridgette Samuels, MDDate: 02/14/2021Time: 2:05 PMThis document or parts of this document, were dictated using [employer] software. A reasonable attempt at proofreading has been made tominimize errors. Please call with any questions or corrections. Name Value Range Interpretation Code Description Data Angie rce(s) Supporting Document(s) ID Date Data Source [id number] 02/14/2021 03:59:46 PM EDT [facility] Name Value Range Interpretation Code Description Data Angie rce(s) Supporting Document(s) CKMB 19.2 ng/mL (0.0-5.0) H [facility] ALERTED CRITICAL [facility]ULT [facility] [place] [id number] D 5 [id number] ON 02/14/21 [place] [address] CKMB RELATIVE INDEX 6.1 {index_val} (0.0-4.0) [facility] ID Date Data Source [id number] 02/14/2021 03:42:24 PM EDT [facility] Name Value Range Interpretation Code Description Data Angie rce(s) Supporting Document(s) TROPONIN I 1.37 ng/mL (<0.05) H [facility] Less than 0.05: Myocardial injury unlike lyGreater than or equal to 0.05: Highly suggestive of myocardial injuryCorrelation with rise and/or fall ofserial troponins, clinical symptomsand ECG changes is necessary.ALERTED CRITICAL [facility] [id number] [id number] ON 02/14/21 AT 1541 [place] [id number] ID Date Data Source [id number] 02/14/2021 03:42:24 PM EDT [facility] Name Value Range Interpretation Code Description Data Angie rce(s) Supporting Document(s) SODIUM 140 mmol/L (136-145) [facility] POTASSIUM 4.2 mmol/L (3.6-5.2) [facility] CHLORIDE 112 mmol/L (100-108) [facility] CO2 22 mmol/L (22-31) [facility] ANION GAP 6 mmol/L (7-16) L [facility] UREA NITROGEN 15 mg/dL (7-24) [facility] CREATININE 0.91 mg/dL (0.80-1.30) [facility] BUN/CREAT RATIO 16.5 RATIO (10.0-20.0) [facility] GLUCOSE 105 mg/dL (70-99) H [facility] CALCIUM 7.6 mg/dL (8.4-10.2) L [facility] TOTAL PROTEIN 5.9 g/dL (6.4-8.2) L [facility] ALBUMIN 3.1 g/dL (3.5-4.6) L [facility] GLOBULIN 2.8 g/dL (2.7-4.3) [facility] ALB/GLOB RATIO 1.1 RATIO [facility] ALKALINE PHOSPHATASE 91 U/L (45-117) [facility] BILIRUBIN,TOTAL 0.2 mg/dL (0.0-1.0) [facility] PLEASE NOTE:Total bilirubin results may be falselyelevated in patients taking Eltrombopag. AST (SGOT) 26 U/L (11-39) [facility] ALT (SGPT) 25 U/L (12-78) [facility] GFR >60 ml/min/1.73m2 (>59) [facility] GFR ( AMER) >60 ml/min/1.73m2 (>59) [facility] GFR INTERPRETATION [facility] --NORMAL KIDNEY FUNCTION OR MILD DISEASE - GFR >OR= 60CHRONIC KIDNEY DISEASE - GFR 15 - 59RENAL FAILURE - GFR <15 Est. GFR calculation based on the MDRDstudy equation, which assumes a steadystate for creatinine. Est. GFR should notbe used for medication dosing. ID Date Data Source [id number] 02/14/2021 03:42:24 PM EDT [facility] Name Value Range Interpretation Code Description Data Angie rce(s) Supporting Document(s) CK 315 U/L (39-308) [facility] ID Date Data Source [id number] 02/14/2021 03:06:50 PM EDT [facility] Name Value Range Interpretation Code Description Data Angie rce(s) Supporting Document(s) WBC 12.0 10*3/uL (4.1-11.0) H [facility] RBC 4.66 10*6/uL (4.60-6.10) [facility] HGB 13.8 g/dL (13.5-18.0) [facility] HCT 41.8 % (41.0-53.0) [facility] MCV 89.9 fL (80.0-95.0) [facility] MCH 29.6 pg (27.0-32.0) [facility] MCHC 32.9 g/dL (32.0-36.0) [facility] RDW 14.4 % (10.5-14.5) [facility] PLT 188 10*3/uL (150-450) [facility] MPV 9.2 fL (7.1-10.7) [facility] ID Date Data Source [id number] 02/14/2021 01:28:00 PM EDT [facility] Name Value Range Interpretation Code Description Data Angie rce(s) Supporting Document(s) SARS coronavirus 2 RNA [Presence] in Res piratory specimen by KAREN with probe detection NOT DETECTED [facility] This lab was reported by [facility]. ID Date Data Source [id number] 02/14/2021 03:33:12 PM EDT [facility] Name Value Range Interpretation Code Description Data Angie rce(s) Supporting Document(s) SPECIMEN DESCRIPTION [facility] INFLUENZA A (NEG) [facility] INFLUENZA B (NEG) [facility] RSV (NEG) [facility] COMMENT [facility] [facility] UNDER AN EMERGENCY USE AUTHORIZATION(EUA ) FOR THE DETECTION AND/OR DIAGNOSISOF THE VIRUS THAT CAUSES COVID-19.PERFORMED AT [address] [place] [id number] COVID19 RESULT (NDET) [facility] THIS ASSAY AMPLIFIES AND DETECTSTHE TARG ET RNA USING REAL-TIME PCR.TESTING PERFORMED ON Xecced GENEXPERTNEGATIVE 2019_NCOV RT-PCR RESULTS DONOT PRECLUDE 2019_NCOV INFECTION ANDSHOULD NOT BE USED THE SOLE BASISFOR PATIENT MANAGEMENT DECISIONS. FIRST TEST [facility] EMPLOYED IN HLTHCARE [facility] [place] SYMPTOMATIC [facility] [place] [facility] DATE OF SYMPT ONSET [facility] HOSPITALIZED [facility] ICU [facility] [place] [facility] CONGREGATE CARE SET [facility] [place] [facility] ID Date Data Source [id number] 03/06/2020 07:32:00 AM EST [facility] Name Value Range Interpretation Code Description Data Angie rce(s) Supporting Document(s) Glucose, Fasting 95 mg/dL 70-100 Normal (applies to non-numeric results) [facility] ([facility] Creatinine For GFR 1.29 mg/dL 0.70-1.30 Normal (applies to non -numeric results) [facility] ([facility] Blood Urea Nitrogen 17 mg/dL 7-18 Normal (applies to non-nume khadra results) [facility] ([facility] Glomerular Filtration Rate Laboratory test result Normal (applies to non- numeric results) [facility] ([facility] ) <content>Units are mL/min/1.73 m2</content>
<content></content>
<content>Chronic Kidney Disease Staging per NKF:</content>
<content></content>
<content>Stage I & II GFR >=60 Normal to Mildly Decreased</content>
<content>Stage III GFR 30- 59 Moderately Decreased</content>
<content>Stage IV GFR 15-29 Severely Decreased</content>
<content>Stage V GFR <15 Very Little GFR Left</content>
<content>ESRD GFR <15 on ADON</content>
<content></content> Sodium Level 140 meq/L 136-145 Normal (applies to non-numeric res ults) [facility] ([facility] Potassium Serum 4.5 meq/L 3.5-5.1 Normal (applies to non-numeric results) [facility] ([facility] Carbon Dioxide Level 23 meq/L 21-32 Normal (applies to non-num geronimo results) [facility] ([facility] Chloride Level 109 meq/L 98-107 Above high normal [facility] ([facility] Anion Gap 8 meq/L 8-16 Normal (applies to non-numeric resul ts) [facility] ([facility] Calcium Level 9.0 mg/dL 8.5-10.1 Normal (applies to non-numeric re sults) [facility] ([facility] ID Date Data Source [id number] 03/06/2020 07:32:00 AM EST [facility] Name Value Range Interpretation Code Description Data Angie rce(s) Supporting Document(s) Red Blood Count 5.77 10 4.30-6.10 Normal (applies to non-numeric results) [facility] ([facility] White Blood Count 9.4 10 4.0-10.0 Normal (applies to non-numeri c results) [facility] ([facility] Hemoglobin 16.6 g/dL 13.5-17.5 Normal (applies to non-numeric resul ts) [facility] ([facility] Hematocrit 50.3 % 42.0-52.0 Normal (applies to non-numeric resul ts) [facility] ([facility] Mean Corpuscular Volume 87.2 fl 80.0-96.0 Normal ( applies to non-numeric results) [facility] ([facility] ) Mean Corpuscular Hemoglobin 28.8 pg 27.0-33.0 Norm al (applies to non-numeric results) [facility] ([facility] ) Red Cell Distribution Width 13.8 % 11.5-14.5 Norm al (applies to non-numeric results) [facility] ([facility] ) Mean Corpuscular HGB Conc 33.0 g/dL 32.0-36.5 Normal (applies to non-numeric results) [facility] ([facility] ) Platelet Count, Automated 240 10 150-450 Normal (applies to non-numeric results) [facility] ([facility] ) Neutrophils % 58.6 % 36.0-66.0 Normal (applies to non-numeric re sults) [facility] ([facility] Lymph % 26.8 % 24.0-44.0 Normal (applies to non-numeric resul ts) [facility] ([facility] Eos % 2.5 % 0.0-3.0 Normal (applies to non-numeric resul ts) [facility] ([facility] [place] % 10.8 % 0.0-5.0 Above high normal [facility] ([facility] Baso % 0.7 % 0.0-1.0 Normal (applies to non-numeric resul ts) [facility] ([facility] Immature Granulocyte % 0.6 % 0-3.0 Normal (applies to non-n umeric results) [facility] ([facility] Nucleated Red Blood Cell % 0.0 % 0-0 Normal (applies to n on-numeric results) [facility] ([facility] Lymph # 2.5 10 1.5-5.0 Normal (applies to non-numeric resul ts) [facility] ([facility] Neutrophils # 5.5 10 1.5-8.5 Normal (applies to non-numeric re sults) [facility] ([facility] [place] # 1.0 10 0.0-0.8 Above high normal [facility] ([facility] Baso # 0.1 10 0.0-0.2 Normal (applies to non-numeric resul ts) [facility] ([facility] Eos # 0.2 10 0.0-0.5 Normal (applies to non-numeric resul ts) [facility] ([facility] Procedure Social History No Information Vital Signs ID Date Data Source UNK Name Value Range Interpretation Code Description Data Source(s) Heart rate 63 /min 63 /min [facility] Body temperature [address] [facility] Respiratory rate 18 /min 18 /min [facility] Oxygen saturation in Arterial blood by Pulse oximetry 98 % 98 % [facility] Systolic blood pressure 99 mm[Hg] 99 mm[Hg] [facility] Diastolic blood pressure 60 mm[Hg] 60 mm[Hg] [facility] Systolic blood pressure 116 mm[Hg] 116 mm[Hg] M [facility] ([facility] Diastolic blood pressure 80 mm[Hg] 80 mm[Hg] [facility] ([facility] Body temperature 98.9 [degF] 98.9 [degF] [facility] ([facility] Heart rate 74 /min 74 /min [facility] ([facility] Respiratory rate 16 /min 16 /min [facility] ( [facility] Body height 65 [in_i] 65 [in_i] [facility] ([facility] 5'5" Body weight 163.00 [lb_av] 163.00 [lb_av] [facility] T ([facility] [place] body weight 136 [lb_av] 136 [lb_av] [facility] ([facility] Body mass index (BMI) [Ratio] 27.1 kg/m2 27.1 k g/m2 [facility] ([facility] Oxygen saturation in Arterial blood by Pulse oximetry 96 % 96 % [facility] ([facility] ID Date Data Source [id number] 02/23/2021 12:53:06 PM EDT [facility] Name Value Range Interpretation Code Description Data Source(s) WEIGHT RECORDED 0.37 pounds 000.37 pounds [facility] Height 65 Inches 065 Inches [facility] Patient Treatment Plan of Care Planned Activity Planned Date Details Description Data Source (s) 24 HR metoprolol succinate 25 MG Extended Release Oral Tablet 02/17/2021 12:00:00 AM EDT [facility] Aspirin 81 MG Chewable Tablet 02/17/2021 12:00:[address] [facility] clopidogrel 75 MG Oral Tablet 02/17/2021 12:00:[address] [facility] Nitroglycerin 0.4 MG Sublingual Tablet 02/16/2021 12:00:[address] [facility] atorvastatin 40 MG Oral Tablet 02/16/2021 12:00:[address] [facility] Albuterol 0.83 MG/ML Inhalant Solution 02/15/2021 08:39:[address] [facility] Nitroglycerin 0.4 MG Sublingual Tablet 02/14/2021 02:31:[address] [facility] Acetaminophen 325 MG Oral Tablet 02/14/2021 02:31:[address] [facility]
[2021-03-01] MEDS ORDERED: TOPR25TA PO (15:36)
[2021-03-01] MEDS ORDERED: PLAV1TAB2 PO (15:36)
--- OUTSIDE RECORDS SUMMARY | 2021-03-01 16:38 | CCD ---
Author Author [facility] Organization [facility] Address Unknown Phone Unavailable Care Team Providers Care Human Resources Operations Manager Name Role Phone Bismark SAHU MD Unavailable [...] Unavailable Unavailable Bismark SAHU MD Unavailable Unavailable iBsmark SAHU MD Unavailable Unavailable Bismark SAHU MD [...] Bismark SAHU MD Unavailable Unavailable MANDEEP H AELX BURRELL Unavailable Unavailable Bismark SAHU MD Unavailable [...] is protected by Article 27-F of the [facility] Public Health law. If you continue you may have access to information: Regarding HIV / AIDS; Provided by facilities licensed or operated by the [facility] Office of Mental Health; or Provided by the [facility] Office for People With Developmental Disabilities. If such information is present, then the following [facility] mandated warning applies: This information has been [...] law may result in a fine or mcc sentence or both. A general authorization for the release of medical or other information is NOT sufficient authorization for further disc losure. Allergies and Adverse Reactions Type Description Substance Reaction Status Data Source(s ) No Known Drug Allergies No Known Drug Allergies [facility] Family History Family Member Name Family Member Gender Family Member Status Date o f Status Description Data Source(s) Unknown Male Problem [facility] ([facility], ) () Encounters Encounter Providers Location Date Indications Data Source(s ) Outpatient Attender: ITZ Roberto amira: GUCCI HANDLEYConsultant: ALEX SAHU MD 02/17/2021 05:12:00 PM EDT - 02/18/2021 10:30:00 AM EDT [facility] Patient discharged. Inpatient Attender: Bridgette Samuels MDAdmitter: Bridgette mcfarlane MD [id number] 02/14/2021 01:19:00 PM EDT - 02/16/2021 12:14:00 PM EDT [facility] Patient discharged. Outpatient Attender: ALEX SAHU MD [facility] [place] 03/2021 03:40:00 PM EDT [facility] ([facility] Immunizations Vaccine Date Status Description Data Source(s) New in 2012. IIV4 02/08/2021 04:18:00 PM EDT completed [facility] ([facility] COVID-19 VACCINE Moderna 08/31/2020 12:00:00 AM EDT completed [facility] Vaccine Series Complete: YESThis Data wa s Submitted to [facility]. COVID-19 VACC,MRNA(MODERNA)/PF 08/31/2020 12:00:00 AM EDT completed [facility] COVID-19 VACCINE Moderna 08/01/2020 12:00:00 AM EDT completed [facility] Vaccine Series Complete: NOThis Data was Submitted to [facility]. COVID-19 VACCINE, MRNA-1273, LNP-S (MODERNA)/PF 08/01/2020 1 [...] tablets (12.5 mg total) by mouth daily [facility] Aspirin 81 MG Chewable Tablet aspirin 81 MG chewable t ablet aspirin 81 MG chewable tablet 02/17/2021 12:00:00 AM EDT 81 mg Oral ac tive Chew 1 tablet (81 mg total) daily [facility] clopidogrel 75 MG Oral Tablet clopidogrel (PLAVIX) 75 MG tablet clopidogrel (PLAVIX) 75 MG tablet 02/17/2021 12:00:00 AM EDT 75 mg Oral active Take 1 tablet (75 mg total) by mouth daily [facility] Nitroglycerin 0.4 MG Sublingual Tablet n itroglycerin (NITROSTAT) 0.4 MG SL tablet nitroglycerin (NITROSTAT) 0.4 MG SL tablet 02/16/2021 12:00:00 A M EDT 0.[address] 1 t ablet (0.4 mg total) under the tongue every 5 (five) minutes as needed for chest pain [facility] atorvastatin 40 MG Oral Tablet atorvastatin (LIPITOR) 40 MG tablet atorvastatin (LIPITOR) 40 MG tablet 02/16/2021 12:00:00 AM EDT 40 mg Oral active Take 1 tablet (40 mg total) by mouth nightly [facility] 24 HR metoprolol succinate 25 MG Extende d Release Oral Tablet metoprolol succinate (TOPROL-XL) 24 hr tablet 12.5 mg metoprolol succinate (TOPROL-XL) 24 hr tablet 12.5 mg 02/15/2021 03:00:00 PM EDT 12.5 mg Oral active 12.5 mg, Oral, Daily, First dose (after last modification) on Mon02/15/21 at 1500
Hold for HR less than 55
[facility] Medication administered onsite Albuterol 0.833 MG/ML / Ipratropium Brom edgar 0.167 MG/ML Inhalant Solution ipratropium-albuterol (DUO-NEB) 0.5-2.5 mg/mL nebulizer solution 3 mL ipratropium-albuterol (DUO-NEB) 0.5-2.5 mg/mL nebulizer solution 3 mL 02/15/2021 09:00:00 AM EDT 3 mL Inhalation active 3 mL, Inhalation, 3 times daily, First dose on Mon02/15/21 at 0900 [facility] Medication administered onsite clopidogrel 75 MG Oral Tablet clopidogrel (PLAVIX) tab let 75 mg clopidogrel (PLAVIX) tablet 75 mg 02/15/2021 09:00:00 AM EDT 75 mg Oral active 75 mg, Oral, Daily, First dose on Mon02/15/21 at 0900, Post-op
May begin the same day
[facility] Medication administered onsite Albuterol 0.83 MG/ML Inhalant Solution a lbuterol (PROVENTIL) nebulizer solution 2.5 mg albuterol (PROVENTIL) nebulizer solution 2.5 mg 2020 08:39:53 AM EDT 2.5 mg active 2.5 mg, Nebulization, Every 2 hour PRN, wheezing, shortness of breath, Starting on Mon02/15/21 at 0839 [facility] Medication administered onsite magnesium sulfate 1 g in dextrose 5% infusion (premix) 88097 -108-01 02/15/2021 12:00:00 AM EDT 1 g Intravenous completed 1 g, Intravenous, at 200 mL/hr, Once, On Mon02/15/21 at 0000, For 1 dose [facility] Medication administered onsite potassium chloride SA (K-DUR,KLOR-CON) CR tablet 20 mEq [id number] 02/15/2021 12:00:00 AM EDT 20 meq Oral completed 20 mEq, Oral, Once, On Mon02/15/21 at 0000, For 1 dose [facility] Medication administered onsite atorvastatin 40 MG Oral Tablet atorvastatin (LIPITOR) tablet 40 mg atorvastatin (LIPITOR) tablet 40 mg 02/14/2021 09:00:00 PM EDT 40 mg Oral active 40 mg, Oral, Nightly, First dose on 02/14/21 at 2100 [facility] Medication administered onsite clopidogrel 300 MG Oral Tablet clopidogrel (PLAVIX) ta blet 300 mg clopidogrel (PLAVIX) tablet 300 mg 02/14/2021 07:00:00 PM EDT 300 mg Oral completed 300 mg, Oral, Once, On Mon02/14/21 at 1900, For 1 dos e [facility] Medication administered onsite Aspirin 81 MG Chewable Tablet aspirin chewable tablet 81 mg aspirin chewable tablet 81 mg 02/14/2021 03:00:00 PM EDT 81 mg Oral activ e 81 mg, Oral, Daily, First dose on 02/14/21 at 1500, Post-op
D/C any prior aspirin order
[facility] Medication administered onsite Nitroglycerin 0.4 MG Sublingual Tablet n itroglycerin (NITROSTAT) SL tablet 0.4 mg nitroglycerin (NITROSTAT) SL tablet 0.4 mg 02/14/2021 02:31:02 P M EDT 0.4 mg Sublingual active 0.4 mg, S ublingual, Every 5 min PRN, chest pain, Starting on 02/14/21 at 1431, Post-op
May administer every 5 minutes for 3 doses and call cardio lab MD.
[facility] Medication administered onsite Acetaminophen 325 MG Oral Tablet acetaminophen (TYLENO L) 325 MG tablet 650 mg acetaminophen (TYLENOL) 325 MG tablet 650 mg 02/14/2021 02:31:02 PM EDT 650 mg Oral active 650 mg, Or al, Every 4 hours PRN, headaches, and non cardiac pain, Starting on 02/14/21 at 1431, Post-op
"Maximum dose of acetaminophen is 4,000 mg from all sources in 24 hours."
[facility] Medication administered onsite Stiolto Respimat Stiolto Respimat 02/08/2021 12:00:00 AM EDT ORAL active [facility] ([facility] 30 ACTUAT fluticasone furoate 0.2 MG/ACTUAT Dry Powder Inhaler [Arnuity] Arnuity Ellipta 02/08/2021 12:00:00 AM EDT active [facility] ([facility] 200 ACTUAT Albuterol 0.09 MG/ACTUAT Metered Dose Inhal er [Ventolin] Ventolin HFA 02/08/2021 12:00:00 AM EDT RESPIRATORY active [facility] ([facility] Insurance Providers Payer name Policy type / Coverage type Policy ID Covered libertarian ID Covered libertarian's relationship to ocampo Policy [place] Plan Information Medicaid S [id number] S [id number] Excell[employer] BCBS P [id number] S [id number] Excellus BCYO P [id number] S [id number] Managed Care BCBS O [id number] S [id number] BCBS [facility] 020/520 [id number] SP [id number] [facility] COMMUNITY PLAN [id number] [id number] SP [id number] BCBS [place] PPO 302/307 [id number] SP [id number] UNHC COMMUNITY PLAN [facility] [id number] SP [id number] UNHC COMMUNITY PLAN [facility] [id number] SP [id number] MEDICAID [id number] SELF PAY ONLY [id number] SP [id number] [facility] [id number] SP [id number] [facility] I [id number] Self [id number] [facility] MEDICAID [id number] Samreen [id number] [facility] MEDICAID [id number] [facility] Communty Plan Medicaid [id number] Self [id number] [facility] COMMUNTY PLAN MC [id number] [facility](MCA[facility]) O [id number] S [id number] MEDICAID [id number] SP [id number] [facility](MCA[facility]) O [id number] S [id number] MEDICAID [id number] SP [id number] Medicaid [place] Medigap Part B [id number] Self BS [place] Commercial [id number] Self MEDICAID S [id number] S [id number] EXCELLUS BCBS P [id number] S W [id number] [place] 020/520 [id number] SP [id number] EXCELLUS BCBS P [id number] S [id number] Blue Advantage Admin. O [id number] S [id number] Blue Cross Blue Shield [place] O [id number] S [id number] UNHC COMMUNITY PLAN XIX [id number] 18 [id number] BLUE CROSS HUBER PLAN [id number] SP [id number] [employer] [employer] CLAIMS [id number] SP CLM#[id number] [facility] SHRUTHI [id number] SP [id number] BCBS [place] 020/520 [id number] SP [id number] HMO BLUE [id number] SP [id number] [facility] [id number] [facility] Health Maintenance Organization ([facility]) [id number] Self [id number] [facility] Health Maintenance [facility] ([facility]) [id number] Self [id number] Problems, Conditions, and Diagnoses Code Display Name Description Problem Type Effective Dates Data Source(s) J30795 Nicotine dependence, cigarettes, uncompl icated Nicotine dependence, cigarettes, uncomplicated Diagnosis 02/17/2021 05:12:00 PM EDT [facility] I219 Acute myocardial infarction, unspecified Acute myocardial infarction, unspecified Diagnosis 02/17/2021 05:12:00 PM EDT [facility] Z955 Presence of coronary angioplasty implant and graft Presence of coronary angioplasty implant and graft Diagnosis 02/17/2021 05:12:00 PM EDT [facility] J449 Chronic obstructive pulmonary disease, u nspecified Chronic obstructive pulmonary disease, unspecified Diagnosis 02/17/2021 05:12:00 PM EDT [facility] I2510 Atherosclerotic heart diseas e of [place] coronary artery without angina pectoris Atherosclerotic heart disease of [place] coronary artery without angina pectoris Diagnosis 02/17/2021 05:12:00 PM EDT [facility] Z1152 ENCOUNTER FOR SCREENING FOR COVID-19 ENCOUNTER F OR SCREENING FOR COVID-19 Diagnosis 02/17/2021 05:12:00 PM EDT [facility] R0789 Other chest pain Other chest pain Diagnosis 02/17/2021 05 :12:00 PM EDT [facility] I21.3 ST elevation (STEMI) myocardial infarcti on of unspecified site ST elevation (STEMI) myocardial infarcti Diagnosis 02/14/2021 01:19:00 PM EDT [facility] I25.119 Atherosclerotic heart diseas e of [place] coronary artery with unspecified angina pectoris Atherosclerotic heart disease of [place] Diagnosis 02/14/2021 01:19:00 PM EDT [facility] I21.3 STEMI (ST elevation myocardial infarctio n) STEMI (ST elevation myocardial infarction) [id number] 02/14/2021 12:00:00 AM EDT [facility] I25.10 CAD (coronary artery disease) CAD (coronary artery dis ease) [id number] 02/14/2021 12:00:00 AM EDT [facility] J44.9 COPD (chronic obstructive pulmonary dise ase) COPD (chronic obstructive pulmonary disease) [id number] 02/14/2021 12:00:00 AM EDT [facility] Z72.0 Tobacco abuse Tobacco abuse [id number] 02/14/2021 12:00:00 AM EDT [facility] Surgeries/Procedures Procedure Description Date Indications Data Source(s) BLOOD COUNT COMPLETE AUTO&AUTO DIFRNTL WBC COUNT <td>C BC AND DIFFERENTIAL</td><td>Timed</td><td>02/16/2021 4:27 AM EDT</td><td></td><td> </td> 02/16/2021 04:27:00 AM EDT [facility] BASIC METABOLIC PANEL CALCIUM TOTAL <td>BASIC METABOLI C PANEL</td><td>Timed</td><td>02/16/2021 4:27 AM EDT</td><td></td><td> </td> 02/16/2021 04:27:00 AM EDT [facility] ECHO TTHRC R-T 2D W/WOM-MODE COMPL SPEC&COLR DOP <td>E CHOCARDIOGRAM TRANSTHORACIC</td><td>Routine</td><td>02/15/2021 9:36 AM EDT</td><td></td><td> </td> 02/15/2021 09:36:00 AM EDT [facility] ECG ROUTINE ECG W/LEAST 12 LDS TRCG ONLY W/O I&R <td>E CG 12- LEAD</td><td>Routine</td><td>02/15/2021 6:55 AM EDT</td><td></td><td></td> 02/15/2021 06:55:13 AM EDT [facility] CMB <td>CMB</td><td>STAT</td><td >02/15/2021 4:39 AM EDT</td><td></td><td> </td> 02/15/2021 04:39:00 AM EDT [facility] TROPONIN QUANTITATIVE <td>TROPONIN I</td><td>Routi ne</td><td>02/15/2021 4:39 AM EDT</td><td></td><td> </td> 02/15/2021 04:39:00 AM EDT [facility] BLOOD COUNT COMPLETE AUTO&AUTO DIFRNTL WBC COUNT <td>C BC AND DIFFERENTIAL</td><td>Timed</td><td>02/15/2021 4:39 AM EDT</td><td></td><td> </td> 02/15/2021 04:39:00 AM EDT [facility] LIPOPROTEIN DIRECT MEASUREMENT LDL CHOLESTEROL <td>LDL CHOLESTEROL, DIRECT</td><td>Routine</td><td>02/15/2021 4:39 AM EDT</td><td></td><td> </td> 02/15/2021 04:39:00 AM EDT [facility] CREATINE KINASE MB FRACTION ONLY <td>CKMB</td><td>Rout ine</td><td>02/15/2021 4:39 AM EDT</td><td></td><td> </td> 02/15/2021 04:39:00 AM EDT [facility] LIPID PANEL <td>LIPID PANEL</td><td>Rout ine</td><td>02/15/2021 4:39 AM EDT</td><td></td><td> </td> 02/15/2021 04:39:00 AM EDT [facility] BASIC METABOLIC PANEL CALCIUM TOTAL <td>BASIC METABOLI C PANEL</td><td>Timed</td><td>02/15/2021 4:39 AM EDT</td><td></td><td> </td> 02/15/2021 04:39:00 AM EDT [facility] CMB <td>CMB</td><td>STAT</td><td >02/15/2021 12:40 AM EDT</td><td></td><td> </td> 02/15/2021 12:40:00 AM EDT [facility] TROPONIN QUANTITATIVE <td>TROPONIN I</td><td>Timed </td><td>02/15/2021 12:40 AM EDT</td><td></td><td> </td> 02/15/2021 12:40:00 AM EDT [facility] CREATINE KINASE MB FRACTION ONLY <td>CKMB</td><td>Time d</td><td>02/15/2021 12:40 AM EDT</td><td></td><td> </td> 02/15/2021 12:40:00 AM EDT [facility] POTASSIUM SERUM PLASMA/WHOLE BLOOD <td>POTASSIUM</td>< td>STAT</td><td>02/14/2021 9:29 PM EDT</td><td></td><td> </td> 02/14/2021 09:29:00 PM EDT [facility] MAGNESIUM <td>MAGNESIUM</td><td>STAT</ td><td>02/14/2021 9:29 PM EDT</td><td></td><td> </td> 02/14/2021 09:29:00 PM EDT [facility] CMB <td>CMB</td><td>STAT</td><td >02/14/2021 7:19 PM EDT</td><td></td><td> </td> 02/14/2021 07:19:00 PM EDT [facility] TROPONIN QUANTITATIVE <td>TROPONIN I</td><td>Routi ne</td><td>02/14/2021 7:19 PM EDT</td><td></td><td> </td> 02/14/2021 07:19:00 PM EDT [facility] CREATINE KINASE MB FRACTION ONLY <td>CKMB</td><td>Rout ine</td><td>02/14/2021 7:19 PM EDT</td><td></td><td> </td> 02/14/2021 07:19:00 PM EDT [facility] CMB <td>CMB</td><td>STAT</td><td >02/14/2021 2:46 PM EDT</td><td></td><td> </td> 02/14/2021 02:46:00 PM EDT [facility] TROPONIN QUANTITATIVE <td>TROPONIN I</td><td>Timed </td><td>02/14/2021 2:46 PM EDT</td><td></td><td> </td> 02/14/2021 02:46:00 PM EDT [facility] BLOOD COUNT COMPLETE AUTOMATED <td>CBC</td><td>STAT</t d><td>02/14/2021 2:46 PM EDT</td><td></td><td> </td> 02/14/2021 02:46:00 PM EDT [facility] THYROID STIMULATING HORMONE TSH <td>TSH</td><td>Add-On </td><td>02/14/2021 2:46 PM EDT</td><td></td><td> </td> 02/14/2021 02:46:00 PM EDT [facility] HEMOGLOBIN GLYCOSYLATED A1C <td>HEMOGLOBIN A1C</td><td >Add-On</td><td>02/14/2021 2:46 PM EDT</td><td></td><td> </td> 02/14/2021 02:46:00 PM EDT [facility] CREATINE KINASE MB FRACTION ONLY <td>CKMB</td><td>Time d</td><td>02/14/2021 2:46 PM EDT</td><td></td><td> </td> 02/14/2021 02:46:00 PM EDT [facility] COMPREHENSIVE METABOLIC PANEL <td>COMPREHENSIVE METABO LIC PANEL</td><td>STAT</td><td>02/14/2021 2:46 PM EDT</td><td></td><td> </td> 02/14/2021 02:46:00 PM EDT [facility] ECG ROUTINE ECG W/LEAST 12 LDS TRCG ONLY W/O I&R <td>E CG 12- LEAD</td><td>Routine</td><td>02/14/2021 2:22 PM EDT</td><td></td><td></td> 02/14/2021 02:22:49 PM EDT [facility] CMB <td>CMB</td><td>STAT</td><td >02/14/2021 1:50 PM EDT</td><td></td><td> </td> 02/14/2021 01:50:00 PM EDT [facility] TROPONIN QUANTITATIVE <td>TROPONIN I</td><td>STAT< /td><td>02/14/2021 1:50 PM EDT</td><td></td><td> </td> 02/14/2021 01:50:00 PM EDT [facility] BLOOD COUNT COMPLETE AUTOMATED <td>CBC</td><td>STAT</t d><td>02/14/2021 1:50 PM EDT</td><td></td><td> </td> 02/14/2021 01:50:00 PM EDT [facility] CREATINE KINASE MB FRACTION ONLY <td>CKMB</td><td>STAT </td><td>02/14/2021 1:50 PM EDT</td><td></td><td> </td> 02/14/2021 01:50:00 PM EDT [facility] COMPREHENSIVE METABOLIC PANEL <td>COMPREHENSIVE METABO LIC PANEL</td><td>STAT</td><td>02/14/2021 1:50 PM EDT</td><td></td><td> </td> 02/14/2021 01:50:00 PM EDT [facility] CARDIAC CATHETERIZATION <td>CARDIAC CATHETERIZATION</td><td>Routine</td><td>02/14/2021 1:49 PM EDT</td><td> STEMI (ST elevation myocardial infarction)</td><td> </td> 02/14/2021 01:49:20 PM EDT STEMI (ST elevation myocardial infarction) [facility] STEMI (ST elevation myocardial infarctio n) COVID/FLU AB/RSV PCR <td>COVID/FLU AB/RSV PCR</td ><td>STAT</td><td>02/14/2021 1:28 PM EDT</td><td></td><td> </td> 02/14/2021 01:28:00 PM EDT [facility] OFFICE OUTPATIENT VISIT 25 MINUTES 02/08/2021 12:00:00 AM EDT [facility] Results ID Date Data Source [id number] 02/18/2021 10:21:00 [place] [address] HISTORY AND PHYSICALNAME: BRINDA CULLEN I ROOM#: 106-1DATE OF : 1965 MR#: [id number] PHYS: Itz Iglesias MD, PC DATE: 02/17/21CHIEF COMPLAINT: Chest pain.HISTORY OF PRESENT ILLNESS:This is a 55-year-old male who began having chest pain last week. It was sustained, an ambulance wascalled. He was found to have an ST elevation in the inferior leads, was taken directly to [facility]. He had a coronary angiography [...] fraction of 55-60%.He was discharged home on foc84om and on the , he began experiencing [...] was 2.1. Troponin was 2.42. Troponin in [place] was 55.5. COVID was not detected. Inthe [...] depression.PAST SURGICAL HISTORY: 1. Bowel resection. 1 [place] [address] HISTORY AND PHYSICALNAME: BRINDA CULLEN I ROOM#: 106-1DATE OF : 1965 MR#: [id number] PHYS: Itz [facility]lesias MD, PC [facility] [id number] DATE: 02/17/21 2. Colon resection. 3. Elbow [...] Bowel sounds are positive./RECTAL: Not done. [address] [place] [address] HISTORY AND PHYSICALNAME: BRINDA CULLEN I ROOM#: 106-1DATE OF : 1965 MR#: [id number] PHYS: Itz Iglesias MD, PC DATE: 02/17/21EXTREMITIES: Full range of motion. No cyanosis, clubbing or edema. Peripheral pulses equal and palpablebilaterally. Skin is warm and dry.IMPRESSION/PLAN:Patient will be admitted observation status to the service of Dr. Iglesias for chest pain rule out NV. SerialTroponins, telemetry monitoring. Continue aspirin, statin, Plavix and beta lindsey. He will be placed on acardiac monitor.DD: Jill Knutson HOME HEALTH CARE WORKER 02/18/21 03:30DT: RAMON 02/18/21 10:20DS: Jill Salgado JOHN Knutson 02/21/21 21:10 3 Name Value Range Interpretation Code Description Data Angie rce(s) Supporting Document(s) ID Date Data Source [id number] 02/18/2021 09:59:00 [place] [address] DISCHARGE SUMMARYNAME: BRINDA CULLEN I ROOM#: 106-1DATE OF : 1965 MR#: [id number] PHYS: Itz Iglesias MD, PC DATE: 02/17/21 DISCHARGED:REASON FOR ADMISSION: This 55-year-old white male came in with chest pain.HISTORY OF PRESENT ILLNESS:This patient had an inferior wall NV on 02/14. He had severe chest pain at home. The ambulance wascalled who directly took him to [facility] where he was found to have [...] 02/18 at 2:53, it was 2.65. Sodium sab146, potassium 5, BUN 19, creatinine was 1.1. [...] [facility] He was given a prescription also for Nitropatch 0.4 to be used every day. [address] [place] [address] DISCHARGE SUMMARYNAME: BRINDA CULLEN I ROOM#: 106-1DATE OF : 1965 MR#: [id number] PHYS: Itz Iglesias MD, PC DATE: 02/17/21 DISCHARGED:FINAL DIAGNOSES:1. Chest pain, atypical.2. Possible angina pectoris, stable.3. Status post inferior wall NV recent, 4 days ago.4. History of smoking.5. History of hypertension.6. History of hyperlipidemia.7. Recent coronary stent on 02/15/[address] [facility] in the right coronary artery and posterolateral branch of the right coronary artery.DISCHARGE FOLLOW- UP:Patient did not have any chest pain for the last 12 hours. Patient was told if he has any chest pain, he isto go straight to the emergency room or call the ambulance. He understands.Patient has a follow-up appointment with Dr. Stanton, hedge fund principal in [place], so I will not see himfor follow-up.DD: Itz Iglesias MD, 02/18/21 09:25DT: RAMON 02/18/21 09:59DS: Itz Iglesias MD, 02/19/21 09:16 2 Name Value Range Interpretation Code Description Data Angie rce(s) Supporting Document(s) ID Date Data Source [id number] 02/18/2021 09:18:00 [place] [address] PHONE: [phone] FAX: [phone] Name ..............: BRINDA CULLEN Antonia Acct Number ...........................: [id number] ROOM. ............: 106-1 MR Number ............................: [id number] Stay type.........: O/P Discharge Date...............:02/18/21 Admit Date .....: 02/17/21 Admit Phys .............................: ANDRIA TANNER Date of ..: 1965 Family Phys ...........................: MANDEEP Farley Phone..............: [phone] Age.................................:55 Film# ...............:[id number] Sex.................................:M Unsigned transcriptions are preliminary reports and do not represent a medical or legal document EKG [id number] COMPLETE:02/17/21 21:00 BIS [id number] Please See Scanned Results. Name Value Range Interpretation Code Description Data Angie rce(s) Supporting Document(s) ID Date Data Source [id number] 02/18/2021 09:17:00 [place] [address] PHONE: [phone] FAX: [phone] Name ..............: BRINDA CULLEN I Acct Number ...........................: [id number] ROOM. ............: 106-1 Number ............................: [id number] Stay type.........: O/P Discharge Date...............:02/18/21 Admit Date .....: 02/17/21 Admit Phys .............................: ANDRIA CIRO Date of ..: 1965 Family Phys ...........................: MANDEEP S Phone..............: [phone] Age.................................:55 Film# ...............:[id number] Sex.................................:M Unsigned transcriptions are preliminary reports and do not represent a medical or legal document EKG [id number] COMPLETE:02/18/21 07:[place] [id number] Please See Scanned Results. Name Value Range Interpretation Code Description Data [facility] rce(s) Supporting Document(s) ID Date Data Source [id number] 02/18/2021 09:31:00 AM EDT [facility] Name Value Range Interpretation Code Description Data [facility] rce(s) Supporting Document(s) TROPONIN T 2.13 NG/ML 0.00 - 0.10 [facility] Ho spital CALL/ READ BACK GLENIS/2.13 [facility] BY: JSK [facility] Hospit al DATE/TIME 02/18/21927 [facility] spital TROPONIN T0.1 ng/ml Recommended as the c linical threshold value forTroponin T. ID Date Data Source [id number] 02/18/2021 07:13:00 AM EDT [facility] Name Value Range Interpretation Code Description Data [facility] Supporting Document(s) CBC W/AUTOMATED DIFF [facility] COMPLETE BLOOD COUNT Leukocytes [#/volume] in Blood by Automated count 12.4 10^3/uL 4.2 - 11.0 H [facility] Erythrocytes [#/volume] in Blood by Automated count 5.08 10^6/uL 4. 50 - 6.30 [facility] Hemoglobin [Mass/volume] in Blood 15.1 g/dL 14.0 - 16.0 [facility] Hematocrit [Volume Fraction] of Blood by Automated count 45.0 % 4 1.0 - 51.0 [facility] Erythrocyte mean corpuscular volume [Entitic volume] by Auto mated count 88.6 fL 80.0 - 94.0 [facility] Erythrocyte mean corpuscular hemoglobin [Entitic mass] by Automated count 29.7 pg 27.0 - 34.0 [facility] Erythrocyte mean corpuscular hemoglobin concentration [Mass/volume] by Automated count 33.6 g/dL 31.0 - 36.0 [facility] Erythrocyte distribution width [Ratio] by Automated count 13.8 % 11.5 - 14.8 [facility] Platelets [#/volume] in Blood by Automated count 233 10^3/uL 150 - 45 0 [facility] Platelet mean volume [Entitic volume] in Blood by Automated count 11.0 fL 7.4 - 10.4 H [facility] Neutrophils/100 leukocytes in Blood by Automated count 58.5 % 37. 0 - 80.0 [facility] Lymphocytes/100 leukocytes in Blood by Manual count 27.5 % 25.0 - 40.0 [facility] Monocytes/100 leukocytes in Blood by Automated count 9.3 % 3.0 - 8.0 H [facility] Eosinophils/100 leukocytes in Blood by Automated count 2.6 % 0.0 - 7.0 [facility] Basophils/100 leukocytes in Blood by Automated count 0.8 % 0.0 - 2.0 [facility] %IG 1.3 % 0.0 - 0.0 [facility] %NRBC 0.0 % 0.0 - 0.0 [facility] al Neutrophils [#/volume] in Blood by Automated count 7.24 10^3/uL 2.00 - 6.90 H [facility] Lymphocytes [#/volume] in Blood by Automated count 3.40 10^3/uL 0.60 - 3.40 [facility] Monocytes [#/volume] in Blood by Automated count 1.15 10^3/uL 0.00 - 0.90 H [facility] Eosinophils [#/volume] in Blood by Automated count 0.32 10^3/uL 0.00 - 0.70 [facility] Basophils [#/volume] in Blood by Automated count 0.10 10^3/uL 0.00 - 0.20 [facility] #IG 0.16 10^3/uL 0.00 - 0.10 H [facility] ospital #NRBC 0.00 10^3/uL 0.00 - 0.00 [facility] ospital MANUAL DIFF SEE BELOW [facility] ital Segmented neutrophils/100 leukocytes in Blood by Manual count 55 % 37 - 80 [facility] BAND 3 % 0 - 5 [facility] %LYMPH 28 % 25 - 40 [facility] al %MONO 9 % 3 - 8 H [facility] al %EOS 3 % 0 - 7 [facility] Metamyelocytes/100 leukocytes in Blood by Manual count 2 % [facility] RBC MORPH NOT INDICATED [facility] Ho spital ID Date Data Source [id number] 02/18/2021 06:33:00 AM EDT [facility] Name Value Range Interpretation Code Description Data Angie rce(s) Supporting Document(s) COMPREHENSIVE METABOLIC PANEL [facility] COMPREHENSIVE METABOLIC PANEL Sodium [Moles/volume] in Serum or Plasma 140 mEq/L 134 - 153 [facility] Potassium [Moles/volume] in Serum or Plasma 5.0 mEq/L 3.6 - 5.0 [facility] Chloride [Moles/volume] in Serum or Plasma 107 mEq/L 98 - 107 [facility] Carbon dioxide, total [Moles/volume] in Serum or Plasma 23 MEQ/L 22 - 30 [facility] Glucose [Mass/volume] in Serum or Plasma 103 MG/DL 70 - 99 H [facility] BUN 19 MG/DL 7 - 21 [facility] al Creatinine [Mass/volume] in Serum or Plasma 1.1 MG/DL 0.7 - 1.5 [facility] BUN/CREAT 17 8 - 27 [facility] al Protein [Mass/volume] in Serum or Plasma 6.3 G/DL 6.3 - 8.2 [facility] Albumin [Mass/volume] in Serum or Plasma 4.3 G/DL 3.9 - 5.0 [facility] Globulin [Mass/volume] in Serum by calculation 2.0 GM/DL 2.4 - 3.2 L [facility] A/G RATIO 2.2 0.8 - 2.0 H [facility] al Calcium [Mass/volume] in Serum or Plasma 9.6 MG/DL 8.4 - 10.2 [facility] Bilirubin.total [Mass/volume] in Serum or Plasma <0.7 MG/DL 0.2 - 1.3 [facility] Alkaline phosphatase [Enzymatic activity/volume] in Serum or Plasma 101 U/L 38 - 126 [facility] Aspartate aminotransferase [Enzymatic activity/volume] in Serum or Plasma 26 U/L 5 - 40 [facility] Alanine aminotransferase [Enzymatic activity/volume] in Seru m or Plasma 28 U/L 7 - 56 [facility] Anion gap 3 in Serum or Plasma 10.0 mmol/L 8.0 - 16.0 [facility] AGE 55 yrs [facility] Hospit al NON-AA GFR >60 mL/min [facility] Hosp ital AFR AMER GFR >60 mL/min [facility] Ho spital Male GFR In terprentation [...] >32 mL/min Normal ID Date Data Source [id number] 02/18/2021 06:28:00 AM EDT [facility] Name Value Range Interpretation Code Description Data Angie rce(s) Supporting Document(s) Magnesium [Mass/volume] in Serum or Plasma 2.0 MG/DL 1.7 - 2.2 [facility] ID Date Data Source [id number] 02/18/2021 05:18:00 AM EDT [facility] ([facility] Name Value Range Interpretation Code Description Data Angie rce(s) Supporting Document(s) CBC W/Automated Diff Laboratory test result [facility] ([facility] COMPLETE BLOOD COUNT Hemoglobin 15.1 g/dL 14.0-16.0 [facility] RBC 5.08 10^6/uL 4.50-6.30 [facility] [...] 0.0-2.0 [facility] Towner 9.3 % 3.0-8.0 Above high normal [facility] ([facility] Eos 2.6 % 0.0-7.0 [facility] %NRBC 0.0 % 0.0-0.0 [facility] %Ig 1.3 % 0.0-0.0 Above high normal [facility] ([facility] #Lymph 3.40 10^3/uL 0.60-3.40 [facility] #Towner 1.15 10^3/uL 0.00-0.90 Above high normal [facility] ([facility] #Neut 7.24 10^3/uL 2.00-6.90 Above high normal [facility] ([facility] #Eos 0.32 10^3/uL 0.00-0.70 [facility] ([facility] #Baso 0.10 10^3/uL 0.00-0.20 [facility] #Ig 0.16 10^3/uL 0.00-0.10 Above high normal [facility] ([facility] #NRBC 0.00 10^3/uL 0.00-0.00 [facility] ([facility] Segs 55 % 37-80 [facility] Manual Diff Laboratory test result M [facility] ([facility] Band 3 % 0-5 [facility] %Lymph 28 % 25-40 [facility] %Eos 3 % 0-7 [facility] %Towner 9 % 3-8 Above high normal [facility] ([facility] Metamyelocyte 2 % [facility] RBC Morph Laboratory test result ME [facility] ([facility] ID Date Data Source [id number] 02/18/2021 05:18:00 AM EDT [facility] ([facility] Name Value Range Interpretation Code Description Data Angie rce(s) Supporting Document(s) Comprehensive [facility] Laboratory test result [facility] ([facility] COMPREHENSIVE METABOLIC PANEL Potassium 5.0 meq/L 3.6-5.0 [facility] ([facility] Sodium 140 meq/L 134-153 [facility] ([facility] Co2 23 meq/L 22-30 [facility] ([facility] Chloride 107 meq/L 98-107 [facility] Glucose 103 mg/dL 70-99 Above high normal [facility] ([facility] BUN/Creat 17 8-27 [facility] ([facility] Creatinine 1.1 mg/dL 0.7-1.5 [facility] ([facility] BUN 19 mg/dL 7-21 [facility] ([facility] Albumin 4.3 g/dL 3.9-5.0 [facility] ([facility] Total Protein 6.3 g/dL 6.3-8.2 [facility] ([facility] Globulin 2.0 GM/DL 2.4-3.2 Below low normal [facility] ( [facility] A/G Ratio 2.2 0.8-2.0 Above high normal [facility] ([facility] Total Bili Laboratory test result 0.2-1.3 ME [facility] ([facility] Calcium 9.6 mg/dL 8.4-10.2 [facility] ([facility] Alkaline Phos 101 U/L 38-126 [facility] ([facility] SGPT/Alt 28 U/L 7-56 [facility] ([facility] Sgot/Ast 26 U/L 5-40 [facility] ([facility] Anion Gap 10.0 mmol/L 8.0-16.0 [facility] ([facility] Non-Aa GFR Laboratory test result [facility] ([facility] Age 55 yrs [facility] ([facility] Afr Amer GFR Laboratory test result [facility] ([facility] Male GFR Interprentation 20-49 [...] >32 mL/min Normal ID Date Data Source [id number] 02/18/2021 05:18:00 AM EDT [facility] ([facility] Name Value Range Interpretation Code Description Data Angie rce(s) Supporting Document(s) Magnesium [Mass/volume] in Serum or Plasma 2.0 mg/dL 1.7-2.2 [facility] ([facility] ID Date Data Source [id number] 02/18/2021 02:51:00 AM EDT [facility] Name Value Range Interpretation Code Description Data Angie rce(s) Supporting Document(s) TROPONIN T 2.65 NG/ML 0.00 - 0.10 HH [facility] Ho spital CALL/ READ BACK OMID NG/ [facility] BY: LBS [facility] Hospit al DATE/TIME 02-18-21252 [facility] spital TROPONIN T0.1 ng/ml Recommended as the c linical threshold value forTroponin T. ID Date Data Source [id number] 02/18/2021 02:25:00 AM EDT [facility] ([facility] Name Value Range Interpretation Code Description Data Angie rce(s) Supporting Document(s) Troponin T 2.65 ng/mL 0.00-0.10 Above upper panic limits [facility] ([facility] Call/ Read Back Laboratory test result [facility] ([facility] By: Laboratory test result [facility] ([facility] Date/Time Laboratory test result [place] [facility] ([facility] TROPONIN T 0.1 ng/ml Recommended as the clinical th reshold value for Troponin T. ID Date Data Source [id number] 02/17/2021 05:12:00 PM EDT [facility] 1 OrderSheet [facility] Emergency Department [address] [place] [address] Phone #: ext- [phone] 02/17/2021 16:40 Patient: [...] (Not STAT 17:22 02/17/2021 18:19 Sorbero,Symptomatic as Gcuci Handley.NDreadDefined by CDC) M.D.;(02/17/2021) (NotFirst Test) (NotHospitalized) (Not) (NotResident inCongregate CareSetting) (NotEmployed inHealthcare Setting)DIAGNOSTIC STUDY ORDERSOrder Description Priority Entered Acknowledged InitialedChest Portable 1 STAT 17:22 02/17/2021 17:24 Sorbju,View Gucci Handley R.N. 2 OrderSheet [facility] Emergency Department [address] [place] [address] Phone #: ext- [phone] 02/17/2021 16:40 Patient: SUBHASH ROQUE I [facility]#: [id number] Sex: M : 1965 Age: 55y(Oxygen?(No)) M.D.; [...] 02/17/2021 17:24 Sorbero,Monitor Turrin, Gucci Michael R.N. M.D.;Glass Vial Bending Conveyor Feeder 17:22 02/17/2021 17:24 Sorbero,(continuous) Turrin, Gucci Michael [...] Emmanuelle Jones Riccardo Frank R.N. 3 OrderSheet [facility] Emergency Department [address] [place] [address] Phone #: ext- [phone] 02/17/2021 16:40 Patient: SUBHASH ROQUE I Sex: M : 1965 Age: 55y M.D.;Vitals 17:22 02/17/2021 17:24 Emmanuelle Jones Riccardo Frank R.N. M.D.;Consult - 18:57 02/17/2021 18:57 Robert,Sous Chef Gucci Handley R.N., M.D.;[Electronically signed by Brown Parrish RN (21:10 02/17/2021)][Electronically signed by Gucci Handley M.D. (21:41 02/17/2021)][Electronically locked by Brown Parrish RN (21:10 02/17/2021)] Name Value Range Interpretation Code Description Data Angie rce(s) Supporting Document(s) ID Date Data Source [id number] 02/17/2021 05:12:00 PM EDT [facility] 1 Medication Reconciliation Report [facility] Emergency Department [address] [place] [address] Phone #: ext- [phone] 02/17/2021 16:40 Patient: [...] to the patient:None. 2 Medication Reconciliation Report [facility] Emergency Department [address] [place] [address] Phone #: ext- [phone] 02/17/2021 16:40-- Patient: SUBHASH ROQUE I Sex: M : 1965 Age: 55y Name Value Range Interpretation Code Description Data Angie rce(s) Supporting Document(s) ID Date Data Source [id number] 02/17/2021 05:12:00 PM EDT [facility] 1 Medication Administration Record [facility] Emergency Department [address] [place] [address] Phone #: [phone]- [phone] 02/17/2021 16:40 Patient: SUBHASH ROQUE I Sex: M : 1965 Age: 55yWeight: 74.8 kgHeight/Length: 65 inBMI: 27.5ALLERGIES: No Known Drug Allergy Date/Time Medication Administered Medication OrderedGiven ASPIRIN CHEWABLE 81 MG [PO] Aspirin PO Chewable 81 mg 12935:43 02/17/2021 Dose: 162 mg Tablets PO mgSoMichael prieto, R.N.Given NITROGLYCERIN [TOPICAL OINTMENT] NitroGLYCERIN Eshhdcl18:44 02/17/2021 Dose: 0.5 in. Ointment Topical Ointment 0.5 in.SorbMichael dodd, R.N.Start NS [IV] NS IV : Bolus 250 mL, then 31383:59 02/17/2021 Dose: IV Fluids mL/hrSMichael holder, R.N. Rate: 125 mL/hr over 6 hour(s)---- Bolus: 250 mL over 15 minute(s)Stop Dispensed: 1000 mL bag20:53 02/17/2021 Site: #1 right Victoria Parrish RN Name Value Range Interpretation Code Description Data Angie rce(s) Supporting Document(s) ID Date Data Source [id number] 02/17/2021 05:12:00 PM EDT [facility] 1 General Instructions [facility] Emergency Department [address] [place] [address] Phone #: ext- [phone] 02/17/2021 16:40 Patient: SUBHASH ROQUE I Sex: M : 1965 Age: 55yPrecordial chest pain characterized as "discomfort".Rule out MIRecent Myocardial Infarct with 3 stents (02-14-2021).(Electronically signed by Gucci Handley M.D. 02/17/2021 21:41) Name Value Range Interpretation Code Description Data Angie rce(s) Supporting Document(s) ID Date Data Source [id number] 02/17/2021 05:12:00 PM EDT [facility] 1 Clinical Report - Nurses [facility] Emergency Department [address] [place] [address] Phone #: ext- [phone] 02/17/2021 16:40 Patient: SUBHASH ROQUE I Sex: M : 1965 Age: 55yTRIAGE Arrived by private vehicle. Historian: patient. Acuity: LEVEL 3. Chief Complaint: CHEST PAIN and SHORTNESS OF BREATH. Alert. No acute distress. This started today. Onset. (0800 am). ( PT had an NV on Monday and had 3 stents placed at [facility]. HE was discharged home yesterday. This morning, he woke up with a sharp intermittent midsternal chest pain. He tried calling his Dr but could not get a hold of hjm.). 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 equipment monitor phototypesetting, NIBP monitor and pulse oximeter placed on patient. Reassurance given. Two patient identifiers checked. Call light placed in reach. Side rails up x 2. Bed placed in lowest position. Brakes of bed on. Patient ready for evaluation- ED physician and PA notified. --17:06 02/17/21 Michael Jones R.N. 17:31 02/17/21. BP: 109/61. HR: 67. RR: 16. O2 saturation: 100%. --17:31 02/17/21 [place] train control electronic technician, [facility] Tech 17:43 02/17/2021 ASPIRIN CHEWABLE 81 MG PO Tablets 162 mg given. Allergies verified and confirmed 4 Clinical Report - Nurses [facility] Emergency Department [address] [place] [address] Phone #: ext- [phone] 02/17/2021 16:40 Patient: [...] RR: 18. O2 saturation: 100%. --18:02 02/17/21 alphacityguidesEdela18:39 02/17/21. Critical value relayed by Stephanie [facility] (18:39 02/17/2021). Critical value receivedby Mitali Cm RN (18:39 02/17/2021). Troponin: 2.42. Critical value read back. Verified lab resultand patient ID. ED physician notifed of critical value (Dr Handley). Orders were received. --18: Mitali Cm RN18:44 02/17/21. BP: 96/64. HR: 67. RR: 18. O2 saturation: 100%. --18:44 02/17/21 SissyGreatCallBelkis( RN made aware of BP). --18:44 02/17/21 alphacityguidesAntonio8:56 02/17/2021 NITROGLYCERIN Topical Response: (d/c). --18:56 02/17/21 [...] RR: 18. O2 saturation: 100%. --19:12 02/17/21 [facility] TECH,Kara19:28 02/17/2021 IV Fluids NS via IV site #1 Rate Changed: bag #1 decreased to 125 mL/hr via IV pump.Confirmed 5 Rights. IV patency established. IV site checked: no pain, redness, or swelling. IV flushedthoroughly. --19:28 02/17/21 Brown Parrish RN20:11 02/17/21. BP: 105/60. HR: 58. RR: 16. O2 saturation: 97%. --20:12 02/17/21 [facility] TECH,Kara20:53 02/17/2021 IV Fluids NS via IV site #1 Discontinued: bag #1 discontinued upon admission. Total 5 Clinical Report - Nurses [facility] Emergency Department [address] [place] [address] Phone #: ext- [phone] 02/17/2021 16:40 Patient: SUBHASH ORQUE I Sex: M : 1965 Age: 55y [...] rce(s) Supporting Document(s) ID Date Data Source [id number] 02/17/2021 05:12:00 PM EDT [facility] 1 Clinical Report - Physicians/Mid Levels [facility] Emergency Department [address] [place] [address] Phone #: ext- [phone] 02/17/2021 16:40 Patient: [...] CP, new onset, was brought directly to [facility] by EMS from home to cath. lab; [...] needed. 2 Clinical Report - Physicians/Mid Levels [facility] Emergency Department [address] [place] [address] Phone #: ext- [phone] 02/17/2021 16:40 Patient: [...] results 3 Clinical Report - Physicians/Mid Levels [facility] Emergency Department [address] [place], [place] [id number] Phone #: ext- [phone] 02/17/2021 16:40 Patient: [...] 10.2) 4 Clinical Report - Physicians/Mid Levels [facility] Emergency Department [address] [place] [address] Phone #: ext- [phone] 02/17/2021 16:40 Patient: SUBHASH ROQUE I Sex: [...] # _[id number] 02/17/21.1854.DW . KIT EXP DATE _45-37-12 02/17/21.1854.DW . NORMAL RANGE IS NOT DETECTEDThe [...] DECISIONS.. 5 Clinical Report - Physicians/Mid Levels [facility] Emergency Department [address] [place] [address] Phone #: ext- [phone] 02/17/2021 16:40 Patient: [...] Jill Polanco NP hospitalist for Dr. Iglesias (hedge fund principal), will come and see pt for admission. [...] rce(s) Supporting Document(s) ID Date Data Source [id number] 02/17/2021 09:26:00 [place] [address] PHONE: [phone] FAX: [phone] Name .................. : BRINDA CULLEN I Acct Number.................. : [id number] ROOM. ................. : VT-[id number] MR Number ................... : [id number] Stay type ............. : E/R Discharge Date......... ... : Admit Date ......... : 02/17/21 Admit Phys .................... : EMMANUELLE DIAZ Date of ....... : 1965 Family Phys ................... : MANDEEP Farley Phone .................. : [phone] Age ................................ : 55 Film# .................. .:[id number] Sex ................................. : M Unsigned transcriptions are preliminary reports and do not represent a medical or legal document CHEST PORTABLE [id number] COMPLETE:02/17/21 18:32 VIVI [id number] Cristina son(s): Chest Pain PORTABLE CHEST SINGLE [...] Dictation Date: Copy for: EMERGENCY DEPT [place] [facility] Copy for: [facility] REC Page 1 of 1 Name Value Range Interpretation Code Description Data Angie rce(s) Supporting Document(s) ID Date Data Source [id number] 02/17/2021 09:33:00 PM EDT [facility] Name Value Range Interpretation Code Description Data [facility] rce(s) Supporting Document(s) TROPONIN T 2.50 NG/ML 0.00 - 0.10 [facility] Ho spital CALL/ READ BACK OM[facility] NG/CAP[facility] BY: LBS [facility] Hospit al DATE/TIME 02-17-212136 [facility] TROPONIN T0.1 ng/ml Recommended as the c linical threshold value forTroponin T. ID Date Data Source [id number] 02/17/2021 08:49:00 PM EDT [facility] ([facility] Name Value Range Interpretation Code Description Data Angie rce(s) Supporting Document(s) Troponin T 2.50 ng/mL 0.00-0.10 Above upper panic limits [facility] ([facility] By: Laboratory test result [facility] ([facility] Call/ Read Back [facility] test [facility] Date/Time Laboratory test result [facility] ([facility] TROPONIN T 0.1 ng/ml Recommended as the clinical th reshold value for Troponin T. ID Date Data Source [id number] 02/17/2021 06:12:00 PM EDT [facility] Name Value Range Interpretation Code Description Data [facility] Supporting Document(s) COVID19 Case rprt NOT DETECTED [facility] This lab was ordered by [facility] and reported by [facility]. ID Date Data Source [id number] 02/17/2021 06:54:00 PM EDT [facility] NOT DETECTEDNOT DETECTED PROCE DURAL CONTROL VALID KIT LOT # _[id number] 02/17/21.4.DW . KIT EXP DATE _70-15-44 02/17/21.DW . NORMAL RANGE IS NOT DETECTEDThe [...] rce(s) Supporting Document(s) ID Date Data Source [id number] 02/17/2021 06:12:00 PM EDT [facility] ([facility] Name Value Range Interpretation Code Description Data Angie rce(s) Supporting Document(s) Laboratory test finding (navigational concept) Laboratory test result [facility] ([facility] First test?: N~Employed in healthcare?: N~Symptomatic as defined by CDC?: N~Hospitalized?: N Laboratory test finding (navigational concept) Laboratory test result [facility] ([facility] First test?: N~Employed in healthcare?: N~Symptomatic as defined by CDC?: N~Hospitalized?: N ID Date Data Source [id number] 02/17/2021 05:35:00 PM EDT [facility] ([facility] Name Value Range Interpretation Code Description Data Angie rce(s) Supporting Document(s) Magnesium [Mass/volume] in Serum or Plasma 2.1 mg/dL 1.7-2.2 [facility] ([facility] can run on todays blood ID Date Data Source [id number] 02/17/2021 08:34:00 PM EDT [facility] Value Range Interpretation Code Description Data Angie rce(s) Supporting Document(s) Magnesium [Mass/volume] in Serum or Plasma 2.1 MG/DL 1.7 - 2.2 [facility] ID Date Data Source [id number] 02/17/2021 06:37:00 PM EDT [facility] Value Range Interpretation Code Description Data Angie rce(s) Supporting Document(s) TROPONIN T 2.42 NG/ML 0.00 - 0.10 [facility] Ho spital CALL/ READ BACK MITALI IN ED [facility] Hospital BY: KATELYNN [facility] DATE/TIME [facility] TROPONIN T0.1 ng/ml Recommended as the c linical threshold value forTroponin T. ID Date Data Source [id number] 02/17/2021 06:36:00 PM EDT [facility] Value Range Interpretation Code Description Data Angie rce(s) Supporting Document(s) Lipase [Enzymatic activity/volume] in Serum or Plasma 54 U/L 13 - 60 [facility] ID Date Data Source [id number] 02/17/2021 06:31:00 PM EDT [facility] Name Value Range Interpretation Code Description Data Angie rce(s) Supporting Document(s) CBC W/AUTOMATED DIFF [facility] COMPLETE BLOOD COUNT Leukocytes [#/volume] in Blood by Automated count 12.6 10^3/uL 4.2 - 11.0 H [facility] Erythrocytes [#/volume] in Blood by Automated count 5.16 10^6/uL 4. 50 - 6.30 [facility] Hemoglobin [Mass/volume] in Blood 15.5 g/dL 14.0 - 16.0 [facility] Hematocrit [Volume Fraction] of Blood by Automated count 45.0 % 4 1.0 - 51.0 [facility] Erythrocyte mean corpuscular volume [Entitic volume] by Auto mated count 87.2 fL 80.0 - 94.0 [facility] Erythrocyte mean corpuscular hemoglobin [Entitic mass] by Automated count 30.0 pg 27.0 - 34.0 [facility] Erythrocyte mean corpuscular hemoglobin concentration [Mass/volume] by Automated count 34.4 g/dL 31.0 - 36.0 [facility] Erythrocyte distribution width [Ratio] by Automated count 13.6 % 11.5 - 14.8 [facility] Platelets [#/volume] in Blood by Automated count 240 10^3/uL 150 - 45 0 [facility] Platelet mean volume [Entitic volume] in Blood by Automated count 10.6 fL 7.4 - 10.4 H [facility] Neutrophils/100 leukocytes in Blood by Automated count 60.3 % 37. 0 - 80.0 [facility] Lymphocytes/100 leukocytes in Blood by Manual count 25.1 % 25.0 - 40.0 [facility] Monocytes/100 leukocytes in Blood by Automated count 9.7 % 3.0 - 8.0 H [facility] Eosinophils/100 leukocytes in Blood by Automated count 2.8 % 0.0 - 7.0 [facility] 0.9 %IG 1.2 % 0.0 - 0.0 [facility]NRBC 0.0 % 0.0 - 0.0 [facility] Neutrophils [#/volume] in Blood by Automated count 7.62 10^3/uL 2.00 - 6.90 H [facility] Lymphocytes [#/volume] in Blood by Automated count 3.17 10^3/uL 0.60 - 3.40 [facility] Monocytes [#/volume] in Blood by Automated count 1.23 10^3/uL 0.00 - 0.90 H [facility] Eosinophils [#/volume] in Blood by Automated count 0.35 10^3/uL 0.00 - 0.70 [facility] Basophils [#/volume] in Blood by Automated count 0.12 10^3/uL 0.00 - 0.20 [facility] #IG 0.15 10^3/uL 0.00 - 0.10 H [facility] #NRBC 0.00 10^3/uL 0.00 - 0.00 [facility] MANUAL DIFF SEE BELOW [facility] Segmented neutrophils/100 leukocytes in Blood by Manual count 61 % 37 - 80 [facility] BAND 0 % 0 - 5 [facility] %LYMPH 29 % 25 - 40 [facility] %MONO 9 % 3 - 8 H [facility] %EOS 1 % 0 - 7 [facility] 0 Metamyelocytes/100 leukocytes in Blood by Manual count 0 % [facility] Myelocytes/100 leukocytes in Blood by Manual count 0 % [facility] Promyelocytes/100 leukocytes in Blood by Manual count 0 % [facility] Blasts/100 leukocytes in Blood by Manual count 0 % [facility] MELECIO LYM 0 % [facility] Nucleated erythrocytes/100 erythrocytes in Blood by Manual count 0 % [facility] RBC MORPH NOT INDICATED [facility] sp[facility] ID Date Data Source [id number] 02/17/2021 05:35:00 PM EDT [facility] ([facility] Name Value Range Interpretation Code Description Data Angie rce(s) Supporting Document(s) Troponin T 2.42 ng/mL 0.00-0.10 Above upper panic limits [facility] ([facility] By: Laboratory test result [facility] ([facility] Call/ Read Back Laboratory test result [facility] ([facility] Date/Time Laboratory test result [facility] ([facility] TROPONIN T 0.1 ng/ml Recommended as the clinical th reshold value for Troponin T. ID Date Data Source [id number] 02/17/2021 05:35:00 PM EDT [facility] ([facility] Name Value Range Interpretation Code Description Data Angie rce(s) Supporting Document(s) Natriuretic peptide.B prohormone N-Terminal [Mass/volu me] in Serum or Plasma 460 pg/mL 0-125 Above high normal [facility] ([facility] ID Date Data Source [id number] 02/17/2021 05:35:00 PM EDT [facility] ([facility] Name Value Range Interpretation Code Description Data Angie rce(s) Supporting Document(s) Sodium 139 meq/L 134-153 [facility] ([facility] Comprehensive Metabo Laboratory test result [facility] ([facility] COMPREHENSIVE METABOLIC PANEL Potassium 4.1 meq/L 3.6-5.0 [facility] ([facility] Chloride 104 meq/L 98-107 [facility] ([facility] Co2 24 meq/L 22-30 [facility] ([facility] BUN 17 mg/dL 7-21 [facility] ([facility] Glucose 116 mg/dL 70-99 Above high normal [facility] ([facility] Creatinine 1.1 mg/dL 0.7-1.5 [facility] ([facility] BUN/Creat 15 8-27 [facility] ([facility] Albumin 4.7 g/dL 3.9-5.0 [facility] ([facility] Total Protein 6.6 g/dL 6.3-8.2 [facility] ([facility] Globulin 1.9 GM/DL 2.4-3.2 Below low normal [facility] ( [facility] Calcium 9.6 mg/dL 8.4-10.2 [facility] ([facility] A/G Ratio 2.5 0.8-2.0 Above high normal [facility] ([facility] Sgot/Ast 35 U/L 5-40 [facility] ([facility] Alkaline Phos 138 U/L 38-126 Above high normal MEDE NT ([facility] Total Bili Laboratory test result 0.2-1.3 [facility] ([facility] Anion Gap 11.0 mmol/L 8.0-16.0 [facility] ([facility] SGPT/Alt 37 U/L 7-56 [facility] ([facility] Age 55 yrs [facility] ([facility] Non-Aa GFR Laboratory test result [facility] ([facility] Afr Amer GFR Laboratory test result [facility] ([facility] Male GFR Interprentation 20-49 [...] >32 mL/min Normal ID Date Data Source [id number] 02/17/2021 05:35:00 PM EDT [facility] ([facility] Name Value Range Interpretation Code Description Data Angie rce(s) Supporting Document(s) Lipoprotein lipase [Enzymatic activity/volume] in Serum or Plasm a 54 U/L 13-60 [facility] ([facility] ) ID Date Data Source [id number] 02/17/2021 05:35:00 PM EDT [facility] Name Value Range Interpretation Code Description Data Angie rce(s) Supporting Document(s) CBC W/Automated Diff Laboratory test result [facility] ([facility] COMPLETE BLOOD COUNT RBC 5.16 10^6/uL 4.50-6.30 [facility] ([facility] WBC 12.6 10^3/uL [...] [facility] Platelets 240 10^3/uL 150-450 [facility] ([facility] MPV 10.6 fL 7.4-10.4 Above high normal [facility] ([facility] Neut 60.3 % 37.0-80.0 [facility] Lymph 25.1 % 25.0-40.0 [facility] Towner 9.7 % 3.0-8.0 Above high normal [facility] ([facility] Eos 2.8 % 0.0-7.0 [facility] Baso 0.9 % 0.0-2.0 [facility] %Ig 1.2 % 0.0-0.0 Above high normal [facility] #Lymph 3.17 10^3/uL 0.60-3.40 [facility] ([facility] #Neut 7.62 10^3/uL 2.00-6.90 Above high normal [facility] T ([facility] %NRBC 0.0 % 0.0-0.0 [facility] #Eos 0.35 10^3/uL 0.00-0.70 [facility] #Towner 1.23 10^3/uL 0.00-0.90 Above high normal [facility] T ([facility] #Baso 0.12 10^3/uL 0.00-0.20 [facility] #Ig 0.15 10^3/uL 0.00-0.10 Above high normal [facility] T ([facility] #NRBC 0.00 10^3/uL 0.00-0.00 [facility] Manual Diff Laboratory test result M EDENT ([facility] Segs 61 % 37-80 [facility] ([facility] Band 0 % 0-5 [facility] %Towner 9 % 3-8 Above high normal [facility] ([facility] %Lymph 29 % 25-40 [facility] ([facility] %Baso 0 % 0-2 [facility] ([facility] %Eos 1 % 0-7 [facility] ([facility] Myelocyte 0 % [facility] ([facility] Metamyelocyte 0 % [facility] ([facility] Melecio Lym 0 % [facility] ([facility] Blasts 0 % [facility] ([facility] Promyelocyte 0 % [facility] RBC Morph Laboratory test result [facility] ([facility] NRBC 0 % [facility] ID Date Data Source [id number] 02/17/2021 06:39:00 PM EDT [facility] Name Value Range Interpretation Code Description Data Angie rce(s) Supporting Document(s) BNP 460 PG/ML 0 - 125 [facility] ID Date Data Source [id number] 02/17/2021 06:39:00 PM EDT [facility] Name Value Range Interpretation Code Description Data Angie rce(s) Supporting Document(s) COMPREHENSIVE METABOLIC PANEL [facility] COMPREHENSIVE METABOLIC PANEL Sodium [Moles/volume] in Serum or Plasma 139 mEq/L 134 - 153 [facility] Potassium [Moles/volume] in Serum or Plasma 4.1 mEq/L 3.6 - 5.0 [facility] Chloride [Moles/volume] in Serum or Plasma 104 mEq/L 98 - 107 [facility] Carbon dioxide, total [Moles/volume] in Serum or Plasma 24 MEQ/L 22 - 30 [facility] Glucose [Mass/volume] in Serum or Plasma 116 MG/DL 70 - 99 H [facility] BUN 17 MG/DL 7 - 21 [facility] Creatinine [Mass/volume] in Serum or Plasma 1.1 MG/DL 0.7 - 1.5 [facility] BUN/CREAT 15 8 - 27 [facility] Protein [Mass/volume] in Serum or Plasma 6.6 G/DL 6.3 - 8.2 [facility] Albumin [Mass/volume] in Serum or Plasma 4.7 G/DL 3.9 - 5.0 [facility] Globulin [Mass/volume] in Serum by calculation 1.9 GM/DL 2.4 - 3.2 L [facility] A/G RATIO 2.5 0.8 - 2.0 H [facility] Calcium [Mass/volume] in Serum or Plasma 9.6 MG/DL 8.4 - 10.2 [facility] Bilirubin.total [Mass/volume] in Serum or Plasma <0.7 MG/DL 0.2 - 1.3 [facility] Alkaline phosphatase [Enzymatic activity/volume] in Serum or Plasma 138 U/L 38 - 126 H [facility] Aspartate aminotransferase [Enzymatic activity/volume] in Serum or Plasma 35 U/L 5 - 40 [facility] Alanine aminotransferase [Enzymatic activity/volume] in Seru m or Plasma 37 U/L 7 - 56 [facility] Anion gap 3 in Serum or Plasma 11.0 mmol/L 8.0 - 16.0 [facility] AGE 55 yrs [facility] NON-AA GFR >60 mL/min [facility] AFR AMER GFR >60 mL/min [facility] Male GFR In terprentation [...] >32 mL/min Normal ID Date Data Source [id number] 02/16/2021 04:04:00 PM EDT [facility] NT INFORMATIONPatient MRN Name Date of Age Gend*PT [id number] Subhash Roque I 1965 55 years M IPPT Location Admission Date/Time Visit ID Attending [id number] 02/14/21 1319 --- --- EPI ID CSN Admitting Prov ider [id number] ---Attestation signed by Bridgette Samuels MD at 02/16/2021 4:03 PMSignature: HAMMAD Herzogate: February 16, 2021Time: 4:03 PM --Physician Discharge Summary Subhash RoqueMRN: [id number] date: 02/14/2021ttending Physician: No admitting provider for patient encounter.Admission Diagnosis: STEMI (ST elevation myocardial infarction)Principle Procedures:1. Cardiac catheterization: [id number] man with smoking and COPD who presents [...] The patient was given Brilinta in the Double Needle Operator Lockstitch. He will be loaded with Plavixand continued [...] Dr. [place]. Patient is in [...] and reinforced with thepatient. 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 [...] 1 tablet (40 mg total) by mouth /19clopidogrel 75 MG tabletCommonly known as: PLAVIXStart taking [...] Respimat 2.5-2.5 MCG/ACT AersG eneric drug: Tiotropium [place]-Olodaterol Inhale 2 puffs dailyWhere to Get Your MedicationsThese medications were sent to [id number] [place], [place] - [id number], [facility] [id number] aspirin 81 MG chewable tablet atorvastatin 40 [...] rce(s) Supporting Document(s) ID Date Data Source [id number] 02/16/2021 05:37:47 AM EDT [facility] Name Value Range Interpretation Code Description Data Angie rce(s) Supporting Document(s) SODIUM 143 mmol/L (136-145) [facility] POTASSIUM 4.5 mmol/L (3.6-5.2) [facility] CHLORIDE 111 mmol/L (100-108) H [facility] CO2 24 mmol/L (22-31) [facility] ANION GAP 8 mmol/L (7-16) [facility] UREA NITROGEN 16 mg/dL (7-24) [facility] CREATININE 1.01 mg/dL (0.80-1.30) [facility] BUN/CREAT RATIO 15.8 RATIO (10.0-20.0) [facility] GLUCOSE 100 mg/dL (70-99) H [facility] CALCIUM 8.4 mg/dL (8.4-10.2) [facility] GFR >60 ml/min/1.73m2 (>59) [facility] GFR ( AMER) >60 ml/min/1.73m2 (>59) [facility] GFR INTERPRETATION [facility] --NORMAL KIDNEY FUNCTION OR MILD DISEASE - GFR >OR= 60CHRONIC KIDNEY DISEASE - GFR 15 - 59RENAL FAILURE - GFR <15 Est. GFR calculation based on the MDRDstudy equation, which assumes a steadystate for creatinine. Est. GFR should notbe used for medication dosing. ID Date Data Source [id number] 02/16/2021 05:08:10 AM EDT [facility] Name Value Range Interpretation Code Description Data Angie rce(s) Supporting Document(s) WBC 10.6 10*3/uL (4.1-11.0) [facility] RBC 4.86 10*6/uL (4.60-6.10) [facility] HGB 14.8 g/dL (13.5-18.0) [facility] HCT 43.2 % (41.0-53.0) [facility] MCV 88.8 fL (80.0-95.0) [facility] MCH 30.5 pg (27.0-32.0) [facility] MCHC 34.3 g/dL (32.0-36.0) [facility] RDW 14.8 % (10.5-14.5) H [facility] PLT 196 10*3/uL (150-450) [facility] MPV 9.0 fL (7.1-10.7) [facility] NEUT % 56.8 % (35.0-75.0) [facility] LYMPH % 29.2 % (16.0-52.0) [facility] MONO % 10.6 % (0.0-8.0) H [facility] EOS % 2.8 % (0.0-5.0) [facility] BASO % 0.6 % (0.0-4.0) [facility] NEUT # 6.0 10*3/uL (1.8-7.7) [facility] LYMPH # 3.1 10*3/uL (1.2-4.8) [facility] MONO # 1.1 10*3/uL (0.0-0.8) H [facility] Eosinophils [#/volume] in Blood by Automated count 0.3 10*3/uL (0.0-0 .5) [facility] BASO # 0.1 10*3/uL (0.0-0.2) [facility] ID Date Data Source [id number] 02/15/2021 11:26:53 AM EDT [facility] Name Value Range Interpretation Code Description Data Angie rce(s) Supporting Document(s) &PDF [facility] MZVZRr3mYoEHSrNw77/QHBpfPCWhe0EnKCceVBx9BIafQQUbL5KdaQshHT3BL3uYCImaA5cITu1dGWAu vci [file] informatics [file] ICAgICAgICAgICAgICAgICAgICAgICAgICAgICAgIC AgICAgICAgICAgICAgICAgICAgICAgICAgICAgICAgDQogICAgICAgICAgICAgICAgICAgICAgICAgIC AgICAgICAgICAgICAgICAgICAgICAgICAgICAgICAgICAgICAgICAgICAgICAgICAgICAgICAgICAgIC AgICAgICAgICAgICAgDQogICAgICAgICAgICAgICAg ICAgICAgICAgICAgICAgICAgICAgICAgICAgICAgICAgICAgICAgICAgICAgICAgICAgICAgICAgICAg ICAgICAgICAgICAgICAgICAgICAgICAgDQogICAgICAgICAgICAgICAgICAgICAgICAgICAgICAgICAg ICAgICAgICAgICAgICAgICAgICAgICAgICAgICAgIC AgICAgICAgICAgICAgICAgICAgICAgICAgICAgICAgICAgDQogICAgICAgICAgICAgICAgICAgICAgIC AgICAgICAgICAgICAgICAgICAgICAgICAgICAgICAgICAgICAgICAgICAgICAgICAgICAgICAgICAgIC AgICAgICAgICAgICAgICAgDQogICAgICAgICAgICAg ICAgICAgICAgICAgICAgICAgICAgICAgICAgICAgICAgICAgICAgICAgICAgICAgICAgICAgICAgICAg ICAgICAgICAgICAgICAgICAgICAgICAgICAgDQogICAgICAgICAgICAgICAgICAgICAgICAgICAgICAg ICAgICAgICAgICAgICAgICAgICAgICAgICAgICAgIC AgICAgICAgICAgICAgICAgICAgICAgICAgICAgICAgICAgICAgDQogICAgICAgICAgICAgICAgICAgIC AgICAgICAgICAgICAgICAgICAgICAgICAgICAgICAgICAgICAgICAgICAgICAgICAgICAgICAgICAgIC AgICAgICAgICAgICAgICAgICAgDQogICAgICAgICAg ICAgICAgICAgICAgICAgICAgICAgICAgICAgICAgICAgICAgICAgICAgICAgICAgICAgICAgICAgICAg ICAgICAgICAgICAgICAgICAgICAgICAgICAgICAgDQogICAgICAgICAgICAgICAgICAgICAgICAgICAg ICAgICAgICAgICAgICAgICAgICAgICAgICAgICAgIC NbGQEiRXTjLJWkBSGwNVTtOSYzKTWmJQPgQHBgYWJtUJSpIJHrAMEeYMk4W4exYMNpOOMkNX4aZUh2Hz 8+YElHNiOoZHS3pdBbiO6OLX9hi8PqAPepAUAzt1MfCNg0GZ7QZALfOQlnTI7CDTxapy1KOPDtDWLjxS SFb0deEpGcUCG7PIQeCmmyHT3TVPCtK1daccPqTMNq NICZSFkeEWENJEntQAIPJS8SWhAkJ1SoxW37WMJQFj9+EDjppkCsOhxIGuD7ZIQzv2FlBCe0QU9GTQZv OKtfHO6XUGCypE0mBEmtIK7YUiVjOZQzSENIJiRsY34ghJLdJZp1X8ZbKiTcPRUwRncyMMLmXJluQmFp ZXMgWyBdDQogID4+ID4+JIthZF1AKNwfvdSzFUIsZx 0WBFEbQOG5UADlqCJeKeMoVQHLPEsmRX4QiBCaOYV4xS1tDDvlTRBxRGXyF0gVWbVceMadWZ32gHksip VsbCBdDQo+Qg3OSI4uu5LmWEc9efJuVZsqCOR0JWdvSKBmMFMtUHXiJBG7VUV0EAIIUiXlYHQtGRRlTP clLKRdOWHzqq1YCTZbURL0WtW0UpDuMCFqWXMeJJfd NKLeRXP4GLV4MDSaUCXtJQ0MCrMvKWZxWFFtBTLuSYGlKTVkwk4GFJBmQSYhZgF9UvVqLPWpNHDnBIjv YWMwHKSmUla2RPKrCMKoNR4DBnXsBEKuVXLkSmfpFUAzBNEzco1SNTFgPHWbNDX2IuBaYDYmBJAsGSdq ODOmAUL1NBBiJSSmXDQqNF0BIgWgXOWwCLppDSixFI BwEQAoyi1XONSsGFYrKok0MpBbZLGkSHHxGEngPGKgXIA1ICn2ZTKiMEAlHO0HRpDyYORxAZuyBNzbTA JqVDLrlm6HICZxVRYmWNExKxKzIDBiCCCoQXbuMHOzOHJ0ZMW6QHNzHPRbNG1OFvKjYHDkFHn0ELSsBC ZfHAFade6MGFTxILQrNNG0HZMeGTVvHNFiEMkhMCYq NJVpFSUeAUQvQWMnPA3ZKfAyOONuNOWvHEbhUOQoEETtrv4FXZCzHHWyNuM2JYNsOLHgEXFyDNsoLLIf UJUzHHq2KRVrQSWcVG1MHkLnENMoHwX1BQjnIKTkJUQcgk9YXSPaREOqJjY1SCUvCBGjKJTxWLqwZMGm UQS2FEi4NQIsHEScYF3AWyLqZKYtUtxwCwEdZEDpCG Rcsb8OVQMvUDRnCzV5LFBkULFmEWJbDUlxNOLvEGW3EOv2QZSjJUUlPT9CDtEcVUXbBlb7JrziAXHlTJ Lyjl0TSPKlVDHrBFs3XLLsWILgNHPkTEmiZJBrIFT4FpG6EVJiNSCpJH5ZIoGnIWQuKLo7OTYfFPYvVG Szrk0OKQUwGSY8EEh3IfJyXMFdNANqKFrgYFFyODY7 SKA0FRKoEMKcMO2DTsIhNLKgEBemPDNmKEBgLIQuci0IAEUlCKC3PwC8HUPzQTKzZQHaNYymMDCnNYOt OFU5OQRpRFXwAL6XGjMxYUCxQoZtJkriRSTqMBQgsn4AdHXarTlyda1JWHnZDn8QnPqqDNP4VCncFx9c sVFbGsZtVTPHVu5GkiQkMRHcVPFODWzgGDJfAZQ5MT jfMARoQqAkTIX2ASO8WhWgH2BaKpOuHiChWlJ3MqT5ZqOsB8XuX9MkJuS9AsSgPEYzEURgMTIrZUK4BY M3Mzk+XH2oXJy+Dp5Ll3RooxB6ssCvAXk2AAG4Jy5WYFFJE3BNOe== ID Date Data Source [id number] 02/15/2021 07:56:52 AM EDT [facility] Name Value Range Interpretation Code Description Data Angie rce(s) Supporting Document(s) EKG [facility] JWUTGj7hZgMZXeKna5XhXpXzOXVrXV1vtti7X3L1jZNuM6JgfXDnt5wuQ4YoW1XmSUJrMBWXCU4DvHRt jb2 [file] YzyDy45s7Qgpn12BEKIaISxI6jznu9RenlaqJVga52RTx+tooth cutter contact wheel/sq39U63gr8XfAbV3/PXn4H0+/z158Y3 HCuH/xq7hu49ffSXy4wg55Xs7076IIo2/T8y749bx+ g8c50Ar07faOJz67d/eeS+66fibG7VB2cb5zvr9wQ1my60636Ri6x8qgmlc1P4/NkRv/Krystian+/3wF1jB1 tM5F+o5/KAK81uhQk62bhPF7VcC3E31dlUS0Ie/MtXzpi8apAUB185+uh0a2JgkFzK2jYF87O1ri6lG+ pZyH/wY76px9J8S+95l/BPq3472c/d8SAQqsj/Oul3 /Aqr6RXj642/9k595u8Qz75Yv68Flq+9u9/0+hLt+6PVJyq/N+0xLA2iqnkVwmM0m81+7vZ0ol0A5ijF xg79vxzLOyy/Raf4awvD/9Tm24+5MfVN5WZ468fyE8NcC9T0+MIcy4FAKKrSlPPHSOqsddu4kpO7B/eR +uFVQxy+3ikorP8a9L84/Io6tfHmx5js1hGh14o7VL 72k9bqtrw2M/sB99fx7sdP850vW/P+DZJd6shffs/WN1izT2ThqxfeArh+lU03F3Iwc7G/KgVUMJy4oP Ambuy+3ptwVWQd5wdW3qvm3d9av4/vBFfEy8/6dBNaGpU9NAg7qVCLKnJ/NuveCTFuIM/xRx84ilFJrq PbiYhdccWlY2RPRiR84TG3x2C2T+s3SI20H8pmY0Ji WJE0sPHwI2detdj/UM9A/nJ5WF3Qr/Lx5D73CU6SveA/In0i/27m5gqFe5Wg1oK0Z3t2Aq+EvfN+EuBT pN9386Z0tsgalEpL+t9dtUvS1rl06r1p+xD1cdQ4DoJR1b1Zz/VqDgiWYp53UN964WOCdZ7UikD9TpE2 3tX5H6x8rV2MnQ1Ky+RXQssZkys80OLedChwu+O5C0 xv3ENizB03simWpTnelrVu4n/DLwtN2zsN+N671kaF8ZglM/IH+zfrH8JsjOno+C9KvH8F3m51L6Z32m rhfRQd6fT8c/scar28WHg2dphTcR+NtJ/863kNdrKqc4r+T5kEFi0uD4iA1TX9sGh7fvx3cgEzuu980Q 7fsEQflRnX2eqM0IdK3k6MU9a5Ppt26L073VfeYzcQ +2S/1/vWQGvFIiJzDkV9Syi4PV/4JD7qk/j3GukT/Zno50J/4klLGcAB4jR+KfBwSoFahv6yV3I3ZdXp FWTIVKKsSPPwfYApgAE7KZtXmTCAoL4QM0xaLCwnZTFyBP1oN/LFLogxTn2XHgJrM/Lf+TnwyVbYDdSG DdRjSDekO+yvwKmeqt5IcO3uueO/RP6F/PBnfLIVjv qPi2IIG7CY+W8gPvy+CHIQUIS+1ImEbwYZmbQ61fT8QT6kTSn4zS2MpwbGsx+/3FWipL4LdKT+iY+4L06BT+ [file] AKMDAwMDAwMDQwOSAwMDAwMCBuIAowMDAwMDAwNTIz IJUaVSFkIU6tKfLmYBTjEKI8OXPcSBUyQFLruzKHIRPeTXNhWAq1QLYcWVKvDGUmUAusGQVdSCWcXGQ0 ZINqWYSbLK4qNqFkQVHnWMH7FgPeFNRjUKLcwwUJSUQoKBJfMKT1VmRhAZAgKMJcQRsdXLRuTIAxIFtr EKMyUJGyMA3pYeZxTCXxICPcPCynAWPoPQNlkhVXKJ UgCDYrPOFiDfCzMYUmKLBmNJllWKQkAYk5ZSK2GKUiYMMoCT3pQsGkCKDtYQM8PBbeWSUgZLMqwcLYVR KnXZEpQSzoNRLbUUSlBWDtZRsdEEOvHIBcKGQ9YHTwFNEnEH0pYjKfUARjIXQuBIJbLqI0RpVyXqLQiG HdwHejthv5MBrjB9j7KWTqWOggMI9zitVjBLRrUkdf Tb0itLG9GJHyDjsPDt9Pa4XqzaG2gnJbRpz7XyHcVvKuDU1F ID Date Data Source [id number] 02/15/2021 07:56:23 AM EDT [facility] Name Value Range Interpretation Code Description Data Angie rce(s) Supporting Document(s) EKG [facility] [place] DOKMXw5rMtPXZhOae3RlYfKuTPNzHE0patv2U5T9sJYrJ1JjbLXyd7wvN1XnY5YpGQAbYHKPFR2ZcLBt jb2 [file] NHwlMMopBf3ZtfRxDzvhU2ZsUxaBP+jrr/5pKr8vmmQ+ywL8qEn2qtnZIastEBA4o2HqzH1xMDb8/[place] [file] 97/+13/+2W9Z1P/21P/833/+x/9p//Of//y/f/73f/614+s3Y6i639/2E5cd/q9/4Ljvi0F/AT8B8i+8 43/k083hz6Xe/9xYX58RtIk4/iyhPJ8XHah//uI/m6VIGKx1A1Kezz+/+DTtezEbeCA3D5dk/UI5q+L7 9yEsN2/f/R0Z/kHLHJDS23G+fLcNfSB+Rj8ZCvzkGz BeEa+od/w7uUfP2OL/+uezfmg5kNl7UG/Hh/hW6Ucr+lly1Usm78X4szS74P1Np3z9IMl4QYnsQJLSOk PYBxx60R+rtU9uE5+Kn+ojhAFZooyrfn07v2N7mk2Nc04p+CvjonO1HSCsiSvFpuj7zpDZT7/w83Skx/ ydq+aRfEVn+SPONGE HOOKER+SuYv4L+CsZXRrVHwM+P9GWPjgBd VUZ7BW99vWnskNIjWu8uhCNCDK5jwq19FbNhkCP5BoXq0J+ivzqqfEV/dSI9+pmW4NICO1D45g3aV4sG ig6K/fs6w1gjdIJ7Xw986MLXx18DerdxvBhIx1UT5/1U72uLu8ethr9NMJYvbWjT11PhdXMUi2epdfyy Uv5l5Ye+NuxH/lW8Yz/hKmQ9hFqS6czwga1ik8H6Dv jca8ot3QgS/SLJitdxun15cmcJT7m/yGY9ghjM0q/C/U9YkcblaaB+C+N0LF9U0rq7u43pb3/0g5zyt7 4is/msDh345Cqk+5v/1f36K/klz6+/0vKvHsTv/olive knocker+TPNVmeuWv9+KVBjxu7/nc5Zf+SEG/eSwrGs/E9 lGjV/411+JE/9COFyaqln059ofY9JhhO+L7Tkzp2WH kHxx7jIJDn7nb5d5mIEV2jcnoifL3XvqP71m+koydmqziF66LegH8eUkBt9w1gRx2i9fHUrSDk9AV0eM nKZ78e53n/0pi4baR+Kq6fmvk4qZte2Er3LkSZOeid/Yxestiw254TejnFXcCF/+Ll1uM3134mNROfX/ 6+84V+7QB8LusMnVOhtrxLzSjYVpUr3zinO+IX5Ve7 S8VCDbWFa4L7JpdhwHX6b5aHIf3RO54LBVh/yH8j4p8lPjAF/9Vb9Zani5Yt3TivkASL1cetJ5q7o+mZ YCEM32DCXGiqTFcIjkV1/ql0NY2W18y5vm69pu4MFKx/F/u88O/vBcsedRS39xpicg/ph7xAqk/uJ95t 1Rm6xTT12hunZsbu2I1/GPO261SVV//wloCZp7U4NE 9euvtQz/ugz7txApLGjNm68AY38cG6zCS7z+wmj3GA2Hietg5c/EU39MjKb8CO+LtUTiV36dum+Qr4Ju GS3dJpvaY65ibw6B0gMJ+MgxKkrQO0z8ZsyQr8y2RyUK1Wn1Q/tty8wXmSB/t3x10q/i/1FrPv4NspZD lq+S/xCcf4S0eKUhVdRcOf+7yQWQLI53Ksu8C/ob8l ZQ4A0XgGhBG3TtbEqbN7O7aplQw8dbbvJV5i3oFhwmt3F/7qcZp+6pF4G5t8eYdW3fYjNm2X+V/NxDvj ikz109o/DsB1aU7gi9cU/8bZr9UmzqFW/7vC9dnGt17S3BXc6gZB/2UjkM0hLSzTE86QxfO+XEftQiLH oiGwwkgIoyFzgu0lkMy8D8dv/9uZmzn0vGJ2G60DG+ ojw17BtVx1M9cN/Am6PRQx5N+bbfGhXWgFH6gllq8cbl+0XNOVGkNimzDzmiFaiMi49K92s9r8qsP+4H Fjd9v+Id3uJ6jr75+3HFDVd/74DZJbjYN8yw8CaGSRg5v0inmar1Bm1ip8O/qci1Yj+puOGF+Ahd5lbC county records management officer+Dq8Iqk3bilT7VZvL+dkv7rRCh3xlydjxCxdz0p 0RWaGMK7GciiVlQ8F/24H8TnkMyOZk6zSioC9c9XS2HSE/taTq9DdWPR7pzi9Bh9U1le0npy0Me5v3rL Vuf2Y4zXvdx5GsIZ+hnDr/afMcxGMRq9FDeqEb1dQn5OLMmC/ANNIE+H/cyy982VExxxNxsE9JkZe/V5jD r/fbZbA67Hn7dQp/l4OS5JseEdgM8s0fE/YJuoG1sa v1YI9D4J7R0C6Ioenq77uJFJvQf5X4b+0s2wCt2W2JKTi3BSl2S59Qp0fnWFCsk22WW3YjN+UuvzEPRX 0F/IV0PQX+erzpQnqv8AF/SXdpRG8Lu5Mjl9DYg5V2kvxV+oF/yspW8f+iG+6KwQW83OgS+GYv4q+qvo L/RXQ+t9WIFZR6wG+isrcxbcG4NxSDFG/jsU/VWMr5 Y+ObkNE8L4DrYn9Z+Cut3eXLFbc81P+LwCdsoRnla967GnFh1c7X7F2B+GGdrjiC/2jryLu9ptTilh18 Ffx/wN+SrDWK+85OfhA/KOm6twbgA3IV5IC5576PgqzJ9f+63wG1VyL188mKZ/nzjj14S/tcuB/mpAfz WgvxoL/FfaBi4n16I2etq2s08oNJv9ZcWb/q467+8H Buey8txY0Jmti6bq/k8jQmdT+Sd3axytp/Dh2x1sMv69BCiN/EQ5JW/kBzi7RaTvJx8Mcgx0q+rv/Gr/ mj6JiH7RUme9c2Ue1uc1klz3lxE/z4b+rxW4zfCpzQczt4wpLXAKP/q1N4fOmspuRjX11yOIx/5CvprQ X79OZrBm6dbY3GtF35j/ziU2Q6d5XLoBfPZaVK/+dv S3l/z6h4Xgo/EK/VWmL/7Z2KShlo2MEr/maIiv+ZzImm5kwB7B/Q2D04DqJOL/63gS5tJOWCr6Rx2PMm oqjHhHvCN+xPsE84K/E8K3rq1idbeeaUr9Tgtj68diWfUd7LJ0+YabplA2IId/McM+jP8BZ0G+mhP8PD G+aaP0lvkqRlnINwE/C/hZSh+5Age0xlmqFo86FLbI RDz6K+ivoL+Wv9ttz1DxM+obKRG4lgA0Zr+13wicNof+autpZ+jqJq47F7KqXMcmP1o0aP/3V3SrpvH4 tAFaOwiq7ilHDq9+3vLVaQ/4WcHPWvrn/SKgwpXevg/ePh2Ggk6mg2X/0O0F3Ma9N1LsLusNqq+G8d3y JchJ9oxTm4a9J6c2QVBfdlmLK1tofA4jV9i5/08aBz 87+uvor6O/sr86nxzhc4stie+QQbaoE7M0vyBTOgIyxRHIa6R0f0q4gy67xY8mdkcpU3dXq8S8X+O7wM 8L/A0Cc6ykzDE0GQ+F9WqV/UrVyrdoQjr9No37P31kEq0B+txZlCH5v4iprmqY8Tbs7ItztZ5XNe+1y5 MPC62hxPY+lnyJKLZLVvQ4O2jc8/dWOslpzfDft1o1 nwtgb1lssQgm0X9rkuc+ylf3c+Sr+rqL9xDXV00n63dOE2J7hB07v8QNcC7XoJWgvCXqbsR6PCDp/pW0 0m9IK/1MbIYJOynshjN770nj/JgbdMJK8nLw+ELJkIYxDm1Nsc/EFz/vu/copH5gaItHmL3IioRmiW1g r1AP8u1+ihB3Dy8Dmbn6oL6j1kJi0P4RNZ/+jgxLhR 3xu7/b8gBmE73ydA/98M0CVMOu8EKlVptrtIsDF7C4hv36CvgMQ6HI7bJvbT5k8hS7oU1pj9JU2z0q0Q cr4n/6JMuddq85qxX38gEe/tRMDrxHDae1OAhCAS/cvtz78adHZC4k+5KWvWH4QRjYkUteDfx1a56p2m uvC92xyt7AbE85uKKQB/vbd+/Lapun3z2xmfZb8fcM DpBwNM4N+7KVeST1Ljo5NWbKur1OaIOpvwd+TVskIuN6j9KwvDN8d7Gj4+desy/sd8KL5u6Xwx9YgZ+i zQJ+GoZnqC0Y/Cy1/0rIVzPDiN/3eQIZt5X5cqfBo5QNu2rwRr+PgE5naFxa2uF1VrUclT9uC7K5Pq5n 8lXSJOSrDNf+uy/EQroyKx0eqgH1JqUtBsPQO6Sp0B vxJU+YzmstvL2g5QcFGMKy/xXD+Js6ORn0+CNXnBflvJvYEbKh8pOlE5Q39jEEz9+G/kK+Ei/7r0C+Ei /2KMEkIxBwcf4ThXY8ykHWv7reZ3BRMOp66U/gpE4LHjRffufeq07ufSaaaxz4K3Dt6txlG0qP+7I60p y0JRKgTIO7TQz4VwNW4Prtj4it2AQHG4M/JcsQj/Fd 7A0fjUwIC/kWmAFGjeTmrzb9l4qzmZ/9V79ar/Yl+GyDfjV/9SoCE6WIorEUUzgr1l6pKgbwBRu0rWGm zPiF+QLMEf005M6HKkuZZg20MWDz3zeT/d4FSgrMlNst7Drexly2KhjM+RPlC+UY3SNctVuYEy+hfEP5 xtuWUoC2zbmX5sS13JcvikQliFRDF/FLjse9voxQ+E K+5tGgCw4svzAfgrqPpUbyYp9rE1NELH4i5xMrLn5T+zImv8L9VFy02txauyA+Fc2fAA6d31MxZb7f12 AxET+RXhAvaA/6C/2Vjpq/Hq9UEcz7Sc0kFHh3Y54C35a3f3t+KugT+quM7x/RrHt4kj8l5jiv+2Ya+q kvZ2VGIB7geuO3O8fPzk/+lktk1Z9K26O/FfGhvzrh or/U/vrAyC51nQU7WDc4pJEmYoqTbmHczL7QpFPPwv8GborL4VyZss4PluC4pVX2P02ifIk4A1SoDK3F vspwR/rR7fm0T6ffE1rEokIcSE7a+ngbQcJH69Td/eldJlbm0Gbhq7Fgf0O/EtA6zGhdxt8o6KqK27e0 Bn4O+ZenuZXeGM1HV5i9cWqS5Pk2rQbtUibgg7N35b fi6/tsXebsvyPW4X/H+Hp17d7iY+Umlf2rxy0Zmd0K0X/Ozs6f6fC9izacguZbccsW5s86Q1hwmFk6Ox Kds2SxdN5Eserhs6Y5UwueiuUgVZ3Rmk9KjanMoumId/TfHg9lzlUglubIVhn4AUA/7av5a1/NX/uqv/ bVecG+3h6V3tUhlQZqbBYfbmxOe5tIKaBZurp78HNL f0beKk5gcfzr16L4ku/Wip+tob+dTu9hqhdFLrGhtAmphpO+0fqkxSEjImadtoO6pueEN0Ya9hz9lA3N I8v0Wid6cAV7S/or67X/PnmwQoz8gh60lO+i/am/tbJRp6sorg4SZo5O4Kh/6nThasFreK3Qk/XKuiO9 w77Qx8nE6nsP3sMGdALa2S3wZW/T0Ymt0nmAbaqnzy y/1iuDfGVDEP//nBp6lNghsDlaMjVjmVDqLda5kXM/7kwYG4j0/5ZnAdg5yXTdmkSbNgLkLTMf1iw38a +jxB965e/rmFgpNT5iYYrShrR3DUN/rAuxRqy5scCs7Sz66pkD90T7dMNswB9neLbscC6m7LrdR+1utI hzUKUss0R/iejd7sp/X3f7w1GC7i/C+3T4SZjiDvp9 2C8G9KC42By902vNSdg9/v/rUayHnH1v7Ev0WMvM6vuDF8GehdvhkYjR/nRMeOCkmaerCgsGu2o7u8xV JGqk70cp/cK+so33u/F+R07prxqzkqlA/JB3Y/0wtVeAnoonW1qUKwH/3lpo5jNoAV5LT5pC32N+p32l 25V3oF8NYlrWO6T3Ncxzm+SHvBZI1/w96V7/j8wxfx 1sy8Wcg1wy0pX37a8ii/1VkbHF3yJ+wXB+3Ht9a2tXyTv6H069Ywh8o8z43xm/w6qxbkhmqINwBsC/yv R8/Ft0PzyDa7GllR3qkMe/VeYZSD/j7rb135uY+KDl/zL4A50plJbFdiMkT0pux3YpPWbzb02fC6ceMi C7fzz4P/tF/vj8is4ZfpE/av+ld4SsfY+K7/tX31/H /ivH/ivH/nbH/iv/bq4bm33//wgWage37Og/1xsmlyFhy9R/r8efztxtL9fNpqCy/u758Dae1K/fZV8N clzj6EHWaqmcWXgJrTn4Zl1lInuqp2p1/vH6mAilul+/8MMe4HDk0ATW4HHxcr1ZY10dVnKk6yGtnl50 laJycpaqmkt35UhIk2dbd9v/9qu49l+deJAf+0rxJj /2lS/VcL1bHl7En494mmH6k8/C8oFCg4hB/eyrv++l8vg7f+fHvopM/8ffS623ja3k2/pHJxwU83p+Mu zk4Fv6C+fHvsp+Hvtqa/fFrtnLu6W7pSvII1w+7pvtIk39ogi3dt10rqYZwOz89E0W/7W/Gxgvcymj8j +P2g/so/YDO/Zf+op9ge9n/4bPOl/ms76/Dvwi3Cg6 hs/r8cirQ6h+Q79R0Ox2G3Tin+Dup9W87H/5hMr9hYpJj//s8F85/Fe+ZfPYexCjEwh9Hz64lzpE/vLH +qr/gw7/la+Daosmbvya3K3n7u909ZmF+8oRH/SF9Qr+H9k9PsE06sC+8l3/w86AwREk/6v73Hjp2J8d 2FcO+6mFH2IBQg26yzZ+ebITJzpsFBLT62B/znfFU3 xX/Zwx0bpkEB4x8E3n1GwbfEwglt4xs4fR2GpJ9jxmIw0DsjEb6aZ5wsn0wma2R9zKAkt/oqZ2jcbW/V eO+KBj/8ZpGmnplD009q3wu7iMn+03c+fkd8d0SX6W+kY/InPRAgabd2Zy/WJ/s1aRUk0gF+ZFot2SXw A3IC/igx4V//XPcX0XQ3V/fz3q/4LDf+WB8Qz/lcN/ 9dZhhvpGwnqsS7vLam2qh5cb1SkG/4cq11zpreAWjji/QQrNBwp8o9ckO4QcDS2Of+V/LfWD9fSwW2j8 1ONID+Sv//vR6v9+jK0X5X4Vv/il3Z2Fz/8C0EfMJ/LX+402kX+h/jD5S5AyciAxqkWp/8H2V6pS+gP5 pvnDU1044Z/vVtdkthaha1dWaYrL5+uM4MnjW931y4 BU8fgdK7I7nUk6DNV2L4UDZ/vmXIb3H+QHXOStvRnf3tiBiMNYV/6O/Josr+k5bvdrg7Be43HYlO+x0 f4PfctGBhsmhDybRxY//0YZW8E/RvuEH8tJ6exrqE+iln+2JiQF/VYiT4L2E+FOso8GyedV42Bh/c7MZ 1o3V45t0REy0d19T1V+HQW3bHK3O+T7UFk5hu2s8Pu [file] sx30dS5p12I05ehouj07he4Q/JJ2l76D2Ck6ygutuv bsi7Ie+VdGQ2DrJp+/CM/Hi/GjgP9nnki3R9UvwvyPqftj3aug9Ls9M9mWxK0qXqOK0HfL39QfOU3H6p 7jgbxsufzMygo3Nqx6tMqQ9cOf8tO63F+4OD43GABc0UNln9YmIwcRpVmOTAVvlS5vdbyCU5yWif6e+8 U+lH3nzG+42N/EfeZXr+tA4rImx8LE9unqHVD/LuY+ d930s/K7Hl87Y78hIkq9IkyC5SW96FcpNm1/nIe5+CtiR0pX2xhwGBzHfI6WyvVgJh4x5AS18E6DeslS N9CiDR7Zf49Ax/sq/Bnymo3FZ5pyeGofE+gK9rhl7exmgxbt6vGq/5SRRz1v3wQK117OdCp1vmjyl29Y e9BdJr/yIb58eJvsn7iqjvsD+R3pE+bX2zk0w73OIc 7Y2fc49C7l+kb/LFrU53Poz40zbRhKX54+7+QHpU+rGvpudOz7/03wf/9/eP32xOpOiInt91sy//8/zs ne65sh34/9Etiz4TE8h44E0k/+2rlK3JE/ROf/jBX3a84+m303jTaB0/0mfm/4osrPtunn3Tnfm50Wf/ 8vn8S++58+Fryj3mcgRPPbRix817/t6gnn/ttozc/6 V/X+49+OtnfBmQ/+unfxnZ/wgsSI75fr8wQa26sfnAi2bk/+TdWQ/mr+wrzRfZVxr/w5rbIwbjm73Vh+ xwvJEXUju5OkaM/Vp2yWt6FzIB/7ArjCIJcolI1/2G8v/encGt5AhvGq+mfeeXV8blp1bztPejr1RsEG fskm0Pp1j63Uuxr5u+es+r6sYcfcub8RlZC5z1n5Z9 1Hmn9sL/sSw5kjO/0Pgw07b+et1adXxm611lfjNEQj5S3oNiU+12Auvf0zObCY7XVbjGW6y+il8H2LRS +lhf3yfty5Wey1pSgmqXcQkuzYO/DfIe++o+G/Lj/TqbB30bah0noqi2k38T/P5V/jAu7QhE+fF+j311 nwfSB+rB+/SFhoXma0lQt55ZhkoTmfie77o9AN/u6A /cefdgC15v3MKw/SbY26GnkvZN/k49qnO5jxxE9eI4Dwsia9Mc79/04GYYW1eeoFrXq1p99e21PCzo5P KnhQ1Iq7s6zcbYqm1z7Jf1aDnsL/Vvj887TrIh5Deop8sPZT+8+TyRPpG+gN7GjrD+pS9JK5ZipvCLhr RA/qh+HvvqPf/Vm5ddcPsbH9DO6aWl1mit6BgWGfG0 P+fsJkcU38VRwj2baDvyAOW8jpZDgVmqQeX92v9OQVoFYWLwlsp+7dap3z4Myw+ULvvqPj/7Z8C+GrCv RqowFxvsmX6kzr652tZ3iS+s2Wp3XpdlJGW/i6TLokr6ruiH9NQsaF9THxZq66w16X+6z88OH/JfnW/9 eU9d20Hb03FOAF8C+a/HuyjP49c9Kt/HnOO06NB/Kt k4iOgLu+HHvUFjdFyw2Yp36n4Zx/JfZTrklf/bOeJ5LU/dp5eyiNu/VeZf1X/ZV/m6Oa7DBoNH+0p14v 1OR/03o0Yo4Gvg/+BYeL+r/g+DKHpej6LhZ/IYz1Q9BDOI/6OxIK/8V1n/Pxjo2mA6np+F1XL0R9jx+a +ybKCeqPQNeeW/Uln5r+5ztbshr/hERqH9KJ7axdrt DXk33u+NmTildou2n61u99M/O3dbI9McpO6/xpD/auZzySv/HlA4xNZg+a/dtaR8Elfcj7ebJ+Uz5q9h /ud0xwq7I6TxWwu7/x1W/xeG/ObRV5cb/FfKL//GmvuHx3G+Ot6vY/461ivH/JCar7654kObXfQrR5h/ UQ/WZ/lj9lXsW73FfF16GfCh/3u1KS090U1X1njsc/ xXmQfvN/B+A+9X/toAO7lpq4e7qQz+qxGGfkJe+a/kx28IJV/GiPJvzK/8G/T6nW7lBYG+s6EVTk3Jov f8nV/N3/nV/W4eSR8K/Wa3y62Z1Y1mu+V57RLy1/ca1j1iiIVopXs/1cznql/+K+WX/pmPQ8A07g2N6v vgB4JN6zutj0N/NeW/yjwb/TRUT6rV8xP/NeG/mvBf tA7shtU+hr2yeaod6U462l/dxvo5rsB+do5xbfsleuvkm77yYiC4X1diXmQ2bS4IhQo1k+og4OuCvr7M 6bY1kg4qqnPn34gFNhvHX/gWLUS5mxE1x1N0XV7Y/P3S52wX9rL+h6M/kAs91Nn1Ws3T47U2Cj/E+514 v7KvMn+yN0O5wdf5RB2b0e+cyL+QvlA/5J2Qd+L9Ij 444b+a01F/oJ6yJ+iFxWifj4E8CYdmuA25T9huteheUZ8P0Fe7AseFn9z+L8y1UT/kXXi/rT1x6Qo1BP Lh/E8J6543jhO+Ij44N+Fm5O0kV+2A3xHlpX7m53OygKfZcMQfbI/KF7zaC6f00W59I+Yv7KsJ+2puyG tYr+xDen1/p+I7PVoUPpidW56EY8Wzg6Mre3x0uWvC V0cw8Ty9kHMGFN4HFcH9XuwD+1fRiveK9lxY1uVeUzu5mfOCdIeRmzxugrpvh+jFp89yihV8Ru3eK/4i Vqwb6eTas+rUa4KdLrQ+FwyYtNiPsH5S2fV+wnWqYXH7Ugcl/dpvzS5Ghiw1oGfPiQ/+X9iMPatNaobg zccAlvS0Mlyh++o+v/wL8cGF+SU6VnVphW3vK37Z+o rwjWcD5szhhzj0e+cjb+Ld2yetc1JbTF8ply/y2ZF+5A09B/kXoI8pi+zX0jHS5rWnicbszn33g0U+kK 014QdB1nZ9dMCYtcv/27OH4rv/8Af3r4Y0Dc4Jr3k9Theknp6gjW4J9PhMi00epN1V/LklT6d22kPmW/ xXC/KAdv5CI/EStrux2wpzD+xz3HflrgGLxsR/R96m 50jJpv3gywKmluXSVik0C51Dd3bpK/JD3lH+fGByIjVBT7Rm82164miQcWYikq874Aj4Ka910/kX19M4 NwNOrxAV7eDR1sV0/production team member/qi31VWhQfZBRdQXQud+3QX39AhRrrGWypdvRwUq+GCm/+T6vxQYN2bNg6lb Unzw+HFF8gNUC6rFJcyCn30+8mh8l5JaWH+txv+s+P 7ojaOaD12J8530m9+mgP4khSi2e3O7M5ih/GIX6cXPdu27k7eD5VpYIqUX1M3tO3L01H9MYvl1MflfBx ZjdP06t56d49307G/88r7zTMaW7vtPy9+I0xn28P5synOrdI/Q0h995QM9XT2V+GIUY1Uvt813EfsPmp OppCc13wM7S/KaExo9N+tFjMe6aSrNb1FOJGIXjPPB 4oOqX/HB+8n9RZdL5ou7m7NKXibnmRuEHcSjcE7QU2RTIjG6yH1khRwec7Mz+KDye+1nWBkfXHpG/o78 NX9rej9a+ec9AA1aje/m86r+O+G9cKn93oMOK/KfUNJ09HFS18r/UfHuFXi/znJU4jUVs8wvrycaygtB IW/g/So+mPkxnmOhfsir+VGD2zjozsLfngrb7FFeND bUcl5LdWHzz9KVR+KDG/HBjfjgVnzwPiP/kfc+I30i/0Q9C/hE2bs7lSM+oCVm1JuX9WuXvoZGI+KDW/ FBPSs+eJ/Fk5IijFCZ5Y/LN0lCU7R+gB7Eqokk668e/W7FB8+1854U24L72JJ8hT0305ABd3HT/tbhLf gm90JfW1ovt206Istu168sI311zns5Lcg+qw3/1e7l [file] Cgo+JwjwgWUcxOapIRQADXfjHEhVTSSFQ1R= ID Date Data Source [id number] 02/15/2021 11:10:42 AM EDT [facility] Name Value Range Interpretation Code Description Data Angie rce(s) Supporting Document(s) CK 1570 U/L (39-308) [facility] [place] ALERTED CRITICAL RESULT TOAMANDA(3185) [place] [id number] ON [id number] AT 0946 [place] [id number] ID Date Data Source [id number] 02/15/2021 09:48:54 AM EDT [facility] Name Value Range Interpretation Code Description Data Angie rce(s) Supporting Document(s) TROPONIN I 55.50 ng/mL (<0.05) [facility] [place] Less than 0.05: Myocardial injury unlike lyGreater than or equal to 0.05: Highly suggestive of myocardial injuryCorrelation with rise and/or fall ofserial troponins, clinical symptomsand ECG changes is necessary.ALERTED CRITICAL RESULT TOAMANDA(3185)[place] [id number] ON [id number] AT 0946 [place] [id number] ID Date Data Source [id number] 02/15/2021 09:48:54 AM EDT [facility] [place] Name Value Range Interpretation Code Description Data Angie rce(s) Supporting Document(s) CKMB 199.2 ng/mL (0.0-5.0) [facility] [place] ALERTED CRITICAL RESULT TOJEWEL(3185)[place] [id number] ON [id number] AT 0946 [place] [id number] CKMB RELATIVE INDEX 12.7 {index_val} (0.0-4.0) [facility] [place] ID Date Data Source [id number] 02/15/2021 09:31:41 AM EDT [facility] Name Value Range Interpretation Code Description Data Angie rce(s) Supporting Document(s) DIRECT LDL @ 114 mg/dL (<130) [facility] [place] [facility] PER NCEP ATP III GUIDELINES: OPTIMAL < 100 NEAR OPTIMAL 100 - 129BORDERLINE HIGH 130 - 159 HIGH 160 - 189 VERY HIGH > 189 ID Date Data Source [id number] 02/15/2021 09:19:15 AM EDT [facility] [place] Name Value Range Interpretation Code Description Data Angie rce(s) Supporting Document(s) CHOLESTEROL @ 203 mg/dL (0-200) [facility] [place] TRIGLYCERIDE @ 337 mg/dL (30-200) [facility] [place] HDL CHOLESTEROL @ 32 mg/dL (>40) L [facility] PER NCEP ATP III GUIDELINES:RESULTS LOWE R THAN 40 MG/DL ARE SUGGESTIVEOF INCREASED RISK FOR CORONARY ARTERYDISEASE. RESULTS > OR = TO 60 MG/DL ARECONSIDERED A NEGATIVE RISK FACTOR. CHOL/HDL RATIO 6.3 RATIO [facility] INTERPRETATION OF CHOL-HDL RATIO CHD RISK FEMALE MALEVERY HIGH >8.3 >14.3HIGH 5.6- 8.3 6.7- 14.3AVERAGE 3.7- 5.6 4.0- 6.7BELOW AVERAGE 2.5- 3.7 2.7- 4.0PROTECTED <2.5 <2.7 LDL CHOL (CALC) (<130) [facility] INTERFERENCE FROM ELEVATED TRIGLYCERIDES (GREATER THAN 300 MG/DL). SEE RESULTFOR DIRECT LDL. ID Date Data Source [id number] 02/15/2021 08:19:10 AM EDT [facility] Name Value Range Interpretation Code Description Data Angie rce(s) Supporting Document(s) SODIUM 142 mmol/L (136-145) [facility] POTASSIUM 4.4 mmol/L (3.6-5.2) [facility] CHLORIDE 112 mmol/L (100-108) [facility] CO2 22 mmol/L (22-31) [facility] ANION GAP 8 mmol/L (7-16) [facility] UREA NITROGEN 19 mg/dL (7-24) [facility] CREATININE 1.04 mg/dL (0.80-1.30) [facility] BUN/CREAT RATIO 18.3 RATIO (10.0-20.0) [facility] GLUCOSE 120 mg/dL (70-99) [facility] CALCIUM 8.4 mg/dL (8.4-10.2) [facility] GFR >60 ml/min/1.73m2 (>59) [facility] GFR ( AMER) >60 ml/min/1.73m2 (>59) [facility] GFR INTERPRETATION [facility] --NORMAL KIDNEY FUNCTION OR MILD DISEASE - GFR >OR= 60CHRONIC KIDNEY DISEASE - GFR 15 - 59RENAL FAILURE - GFR <15 Est. GFR calculation based on the MDRDstudy equation, which assumes a steadystate for creatinine. Est. GFR should notbe used for medication dosing. ID Date Data Source [id number] 02/15/2021 06:18:08 AM EDT [facility] Name Value Range Interpretation Code Description Data Angie rce(s) Supporting Document(s) WBC 11.6 10*3/uL (4.1-11.0) H [facility] RBC 4.82 10*6/uL (4.60-6.10) [facility] HGB 14.3 g/dL (13.5-18.0) [facility] HCT 43.1 % (41.0-53.0) [facility] MCV 89.5 fL (80.0-95.0) [facility] MCH 29.7 pg (27.0-32.0) [facility] MCHC 33.3 g/dL (32.0-36.0) [facility] RDW 14.7 % (10.5-14.5) H [facility] PLT 186 10*3/uL (150-450) [facility] MPV 9.0 fL (7.1-10.7) [facility] NEUT % 69.4 % (35.0-75.0) [facility] LYMPH % 20.3 % (16.0-52.0) [facility] MONO % 7.8 % (0.0-8.0) [facility] EOS % 2.1 % (0.0-5.0) [facility] BASO % 0.4 % (0.0-4.0) [facility] NEUT # 8.0 10*3/uL (1.8-7.7) H [facility] LYMPH # 2.3 10*3/uL (1.2-4.8) [facility] MONO # 0.9 10*3/uL (0.0-0.8) H [facility] Eosinophils [#/volume] in Blood by Automated count 0.2 10*3/uL (0.0-0 .5) [facility] BASO # 0.0 10*3/uL (0.0-0.2) [facility] ID Date Data Source [id number] 02/15/2021 03:47:02 AM EDT [facility] Name Value Range Interpretation Code Description Data Angie rce(s) Supporting Document(s) CKMB 272.6 ng/mL (0.0-5.0) H [facility] ALERTED CRITICAL RESULT TOLINDSEY (01055 30) [place] [address] ON 02/15/21 AT [address]342 [place] [address] CKMB RELATIVE INDEX 13.7 {index_val} (0.0-4.0) H [facility] ID Date Data Source [id number] 02/15/2021 02:27:13 AM EDT [facility] Name Value Range Interpretation Code Description Data Angie rce(s) Supporting Document(s) CK 1985 U/L (39-308) H [facility] ALERTED CRITICAL RESULT TOEMMA (25648) [place] 02.15.[place] [address] AT [place]225 [place] [address] ID Date Data Source [id number] 02/15/2021 02:27:13 AM EDT [facility] Name Value Range Interpretation Code Description Data Angie rce(s) Supporting Document(s) TROPONIN I 84.90 ng/mL (<0.05) H [facility] [place] Less than 0.05: Myocardial injury unlike lyGreater than or equal to 0.05: Highly suggestive of myocardial injuryCorrelation with rise and/or fall ofserial troponins, clinical symptomsand ECG changes is necessary.ALERTED CRITICAL RESULT TOEMMA (02364) [place] 02.15.[place] [address] AT 0225 [place] [address] ID Date Data Source [id number] 02/14/2021 10:17:17 PM EDT [facility] Name Value Range Interpretation Code Description Data Angie rce(s) Supporting Document(s) MAGNESIUM 2.0 mg/dL (1.7-2.4) [facility] ID Date Data Source [id number] 02/14/2021 10:14:51 PM EDT [facility] Name Value Range Interpretation Code Description Data Angie rce(s) Supporting Document(s) POTASSIUM 3.8 mmol/L (3.6-5.2) [facility] ID Date Data Source [id number] 02/14/2021 09:15:09 PM EDT [facility] Name Value Range Interpretation Code Description Data Angie rce(s) Supporting Document(s) &PDF [facility] [id number] vci [file] [id number]= ID Date Data Source [id number] 02/14/2021 09:20:05 PM EDT [facility] Name Value Range Interpretation Code Description Data Angie rce(s) Supporting Document(s) TROPONIN I 95.00 ng/mL (<0.05) H [facility] [place] Less than 0.05: Myocardial injury unlike lyGreater than or equal to 0.05: Highly suggestive of myocardial injuryCorrelation with rise and/or fall ofserial troponins, clinical symptomsand ECG changes is necessary.ALERTED CRITICAL RESULT TOLINDSEY ([id number]) [place] [address] ON 284522 AT 2116 87123 ID Date Data Source [id number] 02/14/2021 09:20:05 PM EDT [facility] Name Value Range Interpretation Code Description Data Angie rce(s) Supporting Document(s) CK 2551 U/L (39-308) H [facility] ALERTED CRITICAL RESULT TOLINDSEY (02378 30) [place] [address] ON 201572 AT 2116 36820 ID Date Data Source [id number] 02/14/2021 09:20:05 PM EDT [facility] Name Value Range Interpretation Code Description Data Angie rce(s) Supporting Document(s) CKMB 383.1 ng/mL (0.0-5.0) H [facility] ALERTED CRITICAL RESULT TOLINDSEY (24408 30) [place] [address] ON 351704 AT 2116 55118 CKMB RELATIVE INDEX 15.0 {index_val} (0.0-4.0) H [facility] ID Date Data Source [id number] 02/14/2021 05:56:18 PM EDT [facility] Name Value Range Interpretation Code Description Data Angie rce(s) Supporting Document(s) HEMOGLOBIN A1C @ 5.4 % (4.0-6.0) [facility] Performed using Siemens Dane immunoassa y.Care must be taken when interpreting [id number] in patients with a hemoglobin variantor decreased erythrocyte lifespan. Values 5.7 - 6.4% suggest prediabetes.Values >=6.5% are diagnostic for diabetes.REFERENCE: DIABETES CARE 2018: 41(S13-S27).PERFORMED AT [address] [place] [address] [place] [address] EST AVERAGE GLUCOSE 108 mg/dL [facility] ID Date Data Source [id number] 02/14/2021 04:23:51 PM EDT [facility] Name Value Range Interpretation Code Description Data Angie rce(s) Supporting Document(s) TSH,ULTRASENSITIVE @ 1.157 mIU/L (0.360-4.170) [facility] PERFORMED AT [address] [place] [address] N Y [address] ID Date Data Source [id number] 02/14/2021 04:22:25 PM EDT [facility] Name Value Range Interpretation Code Description Data Angie rce(s) Supporting Document(s) TROPONIN I 15.40 ng/mL (<0.05) H [facility] [place] Less than 0.05: Myocardial injury unlike lyGreater than or equal to 0.05: Highly suggestive of myocardial injuryCorrelation with rise and/or fall ofserial troponins, clinical symptomsand ECG changes is necessary.ALERTED CRITICAL RESULT TOAMANDA 43301 D5 96613 ON 02/14/21 AT 1620 [place] [address] ID Date Data Source [id number] 02/14/2021 04:22:25 PM EDT [facility] Name Value Range Interpretation Code Description Data Angie rce(s) Supporting Document(s) CK 1072 U/L (39-308) H [facility] ALERTED CRITICAL RESULT TOAMANDA 91381 D 5 28364 ON 02/14/21 [place]20 [place] [address] ID Date Data Source [id number] 02/14/2021 04:22:25 PM EDT [facility] Name Value Range Interpretation Code Description Data Angie rce(s) Supporting Document(s) CKMB 107.1 ng/mL (0.0-5.0) H [facility] ALERTED CRITICAL RESULT TOAMANDA 10645 D 5 97535 ON 02/14/21 [place] 1620 [place] [address] CKMB RELATIVE INDEX 10.0 {index_val} (0.0-4.0) H [facility] ID Date Data Source [id number] 02/14/2021 04:22:25 PM EDT [facility] Name Value Range Interpretation Code Description Data Angie rce(s) Supporting Document(s) SODIUM 139 mmol/L (136-145) [facility] POTASSIUM 4.2 mmol/L (3.6-5.2) [facility] CHLORIDE 113 mmol/L (100-108) H [facility] CO2 22 mmol/L (22-31) [facility] ANION GAP 4 mmol/L (7-16) L [facility] UREA NITROGEN 14 mg/dL (7-24) [facility] CREATININE 0.94 mg/dL (0.80-1.30) [facility] BUN/CREAT RATIO 14.9 RATIO (10.0-20.0) [facility] GLUCOSE 103 mg/dL (70-99) H [facility] CALCIUM 7.8 mg/dL (8.4-10.2) L [facility] TOTAL PROTEIN 6.4 g/dL (6.4-8.2) [facility] ALBUMIN 3.3 g/dL (3.5-4.6) L [facility] GLOBULIN 3.1 g/dL (2.7-4.3) [facility] ALB/GLOB RATIO 1.1 RATIO [facility] ALKALINE PHOSPHATASE 95 U/L (45-117) [facility] BILIRUBIN,TOTAL 0.4 mg/dL (0.0-1.0) [facility] PLEASE NOTE:Total bilirubin results may be falselyelevated in patients taking Eltrombopag. AST (SGOT) 95 U/L (11-39) H [facility] ALT (SGPT) 35 U/L (12-78) [facility] GFR >60 ml/min/1.73m2 (>59) [facility] GFR ( AMER) >60 ml/min/1.73m2 (>59) [facility] GFR INTERPRETATION [facility] --NORMAL KIDNEY FUNCTION OR MILD DISEASE - GFR >OR= 60CHRONIC KIDNEY DISEASE - GFR 15 - 59RENAL FAILURE - GFR <15 Est. GFR calculation based on the MDRDstudy equation, which assumes a steadystate for creatinine. Est. GFR should notbe used for medication dosing. ID Date Data Source [id number] 02/14/2021 03:15:40 PM EDT [facility] Name Value Range Interpretation Code Description Data Angie rce(s) Supporting Document(s) WBC 13.4 10*3/uL (4.1-11.0) H [facility] RBC 4.97 10*6/uL (4.60-6.10) [facility] HGB 14.8 g/dL (13.5-18.0) [facility] HCT 44.5 % (41.0-53.0) [facility] MCV 89.6 fL (80.0-95.0) [facility] MCH 29.7 pg (27.0-32.0) [facility] MCHC 33.2 g/dL (32.0-36.0) [facility] RDW 14.6 % (10.5-14.5) H [facility] PLT 196 10*3/uL (150-450) [facility] MPV 8.8 fL (7.1-10.7) [facility] ID Date Data Source [id number] 02/14/2021 02:09:35 PM EDT [facility] NT INFORMATIONPatient MRN Name Date of Age Gend*PT [id number] Subhash Roque I 1965 55 years M EDPT Location Admission Date/Time Visit ID [facility] 1319 --- Bridgette Samuels MD([id number]) EPI ID CSN Admitting Provider [id number] ---Catheterization Laboratory History and physicalPatient Name: Subhash Roque of : 1965 Age 55 yearsPrimary Physician: No primary care provider on file. PCP Phone: NoneDate of Surgery: 02/14/2021 Insurance Claims Processor: Bridgette Samuels MD Ball Maker(s): NoneReason for admission: Acute inferior myocardial infarctionPre-procedure [...] normal.Lab resultsCreatinine not availableCBC not availableAssessment and [id number] man with history of smoking and COPD [...] parts of this document, were dictated using [employer] software. A reasonable attempt at proofreading has been made tominimize errors. Please call with any questions or corrections. Name Value Range Interpretation Code Description Data Angie rce(s) Supporting Document(s) ID Date Data Source [id number] 02/14/2021 03:59:46 PM EDT [facility] Name Value Range Interpretation Code Description Data Angie rce(s) Supporting Document(s) CKMB 19.2 ng/mL (0.0-5.0) H [facility] D 5 59982 ON 02/14/21 [place] [address] CKMB RELATIVE INDEX 6.1 {index_val} (0.0-4.0) H [facility] ID Date Data Source [id number] 02/14/2021 03:42:24 PM EDT [facility] Name Value Range Interpretation Code Description Data Angie rce(s) Supporting Document(s) TROPONIN I 1.37 ng/mL (<0.05) H [facility] Less than 0.05: Myocardial injury unlike lyGreater than or equal to 0.05: Highly suggestive of myocardial injuryCorrelation with rise and/or fall ofserial troponins, clinical symptomsand ECG changes is necessary.ALERTED CRITICAL RESULT [facility] [id number] D5 27731 ON 02/14/21 [place] 1541 [place] [address] ID Date Data Source [id number] 02/14/2021 03:42:24 PM EDT [facility] Name Value Range Interpretation Code Description Data Angie rce(s) Supporting Document(s) SODIUM 140 mmol/L (136-145) [facility] POTASSIUM 4.2 mmol/L (3.6-5.2) [facility] CHLORIDE 112 mmol/L (100-108) H [facility] CO2 22 mmol/L (22-31) [facility] ANION GAP 6 mmol/L (7-16) L [facility] UREA NITROGEN 15 mg/dL (7-24) [facility] CREATININE 0.91 mg/dL (0.80-1.30) [facility] BUN/CREAT RATIO 16.5 RATIO (10.0-20.0) [facility] GLUCOSE 105 mg/dL (70-99) H [facility] CALCIUM 7.6 mg/dL (8.4-10.2) L [facility] TOTAL PROTEIN 5.9 g/dL (6.4-8.2) [facility] ALBUMIN 3.1 g/dL (3.5-4.6) [facility] GLOBULIN 2.8 g/dL (2.7-4.3) [facility] ALB/GLOB RATIO 1.1 RATIO [facility] ALKALINE PHOSPHATASE 91 U/L (45-117) [facility] BILIRUBIN,TOTAL 0.2 mg/dL (0.0-1.0) [facility] PLEASE NOTE:Total bilirubin results may be falselyelevated in patients taking Eltrombopag. AST (SGOT) 26 U/L (11-39) [facility] ALT (SGPT) 25 U/L (12-78) [facility] GFR >60 ml/min/1.73m2 (>59) [facility] GFR ( AMER) >60 ml/min/1.73m2 (>59) [facility] GFR INTERPRETATION [facility] --NORMAL KIDNEY FUNCTION OR MILD DISEASE - GFR >OR= 60CHRONIC KIDNEY DISEASE - GFR 15 - 59RENAL FAILURE - GFR <15 Est. GFR calculation based on the MDRDstudy equation, which assumes a steadystate for creatinine. Est. GFR should notbe used for medication dosing. ID Date Data Source [id number] 02/14/2021 03:42:24 PM EDT [facility] Name Value Range Interpretation Code Description Data Angie rce(s) Supporting Document(s) CK 315 U/L (39-308) [facility] ID Date Data Source [id number] 02/14/2021 03:06:50 PM EDT [facility] Name Value Range Interpretation Code Description Data Angie rce(s) Supporting Document(s) WBC 12.0 10*3/uL (4.1-11.0) [facility] RBC 4.66 10*6/uL (4.60-6.10) [facility] HGB 13.8 g/dL (13.5-18.0) [facility] HCT 41.8 % (41.0-53.0) [facility] MCV 89.9 fL (80.0-95.0) [facility] MCH 29.6 pg (27.0-32.0) [facility] MCHC 32.9 g/dL (32.0-36.0) [facility] RDW 14.4 % (10.5-14.5) [facility] PLT 188 10*3/uL (150-450) [facility] MPV 9.2 fL (7.1-10.7) [facility] ID Date Data Source [id number] 02/14/2021 01:28:00 PM EDT [facility] Name Value Range Interpretation Code Description Data Angie rce(s) Supporting Document(s) SARS coronavirus 2 RNA [Presence] in Res piratory specimen by KAREN with probe detection NOT DETECTED [facility] This lab was reported by [facility]. ID Date Data Source [id number] 02/14/2021 03:33:12 PM EDT [facility] Name Value Range Interpretation Code Description Data Angie rce(s) Supporting Document(s) SPECIMEN DESCRIPTION [facility] INFLUENZA A (NEG) [facility] INFLUENZA B (NEG) [facility] RSV (NEG) [facility] COMMENT [facility] UNDER AN EMERGENCY USE AUTHORIZATION(EUA ) FOR THE DETECTION AND/OR DIAGNOSISOF THE VIRUS THAT CAUSES COVID-19.PERFORMED AT [address] [place] [id number] COVID19 RESULT (NDET) [facility] THIS ASSAY AMPLIFIES AND DETECTSTHE TARG ET RNA USING REAL-TIME PCR.TESTING PERFORMED ON Nano ePrint GENEXPERTNEGATIVE 2019_NCOV RT-PCR RESULTS DONOT PRECLUDE 2019_NCOV INFECTION ANDSHOULD NOT BE USED THE SOLE BASISFOR PATIENT MANAGEMENT DECISIONS. FIRST TEST [facility] EMPLOYED IN HLTHCARE [facility] [place] SYMPTOMATIC [facility] DATE OF SYMPT ONSET [facility] HOSPITALIZED [facility] ICU [facility] CONGREGATE CARE SET [facility] ID Date Data Source [id number] 03/06/2020 07:32:00 AM EST [facility] ([facility] Name Value Range [...] Little GFR Left</content>
<content>ESRD GFR <15 on LONG TERM CARE PHARMACIST</content>
<content></content> Sodium Level 140 meq/L 136-145 Normal (applies to non-numeric res ults) [facility] ([facility] Potassium Serum 4.5 meq/L 3.5-5.1 Normal (applies to non-numeric results) [facility] ([facility] Carbon Dioxide Level 23 meq/L 21-32 Normal (applies to non-num geronimo results) [facility] ([facility] Chloride Level 109 meq/L 98-107 Above high normal [facility] ([facility] Anion Gap 8 meq/L 8-16 Normal (applies to non-numeric resul ts) [facility] ([facility] Calcium Level 9.0 mg/dL 8.5-10.1 Normal (applies to non-numeric re sults) [facility] ([facility] ID Date Data Source [id number] 03/06/2020 07:32:00 AM EST [facility] Name Value Range Interpretation Code Description Data Angie rce(s) Supporting Document(s) Red Blood Count 5.77 10 4.30-6.10 Normal (applies to non-numeric results) [facility] ([facility] White Blood Count 9.4 10 4.0-10.0 Normal (applies to non-numeri c results) [facility] ([facility] Hemoglobin 16.6 g/dL 13.5-17.5 Normal (applies to non-numeric resul ts) [facility] ([facility] Hematocrit 50.3 % 42.0-52.0 Normal (applies to non-numeric resul ts) [facility] ([facility] Mean Corpuscular Volume 87.2 fl 80.0-96.0 Normal ( applies to non-numeric results) [facility] ([facility] ) Mean Corpuscular Hemoglobin 28.8 pg 27.0-33.0 Norm al (applies to non-numeric results) [facility] ([facility] ) Red Cell Distribution Width 13.8 % 11.5-14.5 Norm al (applies to non-numeric results) [facility] ([facility] ) Mean Corpuscular HGB Conc 33.0 g/dL 32.0-36.5 Normal (applies to non-numeric results) [facility] ([facility] ) Platelet Count, Automated 240 10 150-450 Normal (applies to non-numeric results) [facility] ([facility] ) Neutrophils % 58.6 % 36.0-66.0 Normal (applies to non-numeric re sults) [facility] ([facility] Lymph % 26.8 % 24.0-44.0 Normal (applies to non-numeric resul ts) [facility] ([facility] Eos % 2.5 % 0.0-3.0 Normal (applies to non-numeric resul ts) [facility] ([facility] Towner % 10.8 % 0.0-5.0 Above high normal [...] Normal (applies to non-numeric re sults) [facility] ([facility] Towner # 1.0 10 0.0-0.8 Above high normal [facility] ([facility] Baso # 0.1 10 0.0-0.2 Normal (applies to non-numeric resul ts) [facility] ([facility] Eos # 0.2 10 0.0-0.5 Normal (applies to non-numeric resul ts) [facility] ([facility] Procedure Social History No Information Vital Signs ID Date Data Source UNK Name Value Range Interpretation Code Description Data Source(s) Heart rate 63 /min 63 /min [facility] Body temperature 37 Jyoti 37 Jyoti [facility] Respiratory rate 18 /min 18 /min [facility] Oxygen saturation in Arterial blood by Pulse oximetry 98 % 98 % [facility] Systolic blood pressure 99 mm[Hg] 99 mm[Hg] [facility] Diastolic blood pressure 60 mm[Hg] 60 mm[Hg] [facility] Systolic blood pressure 116 mm[Hg] 116 mm[Hg] M [facility] ([facility] Diastolic blood pressure 80 mm[Hg] 80 mm[Hg] [facility] ([facility] Body temperature 98.9 [degF] 98.9 [degF] [facility] ([facility] Heart rate 74 /min 74 /min [facility] ([facility] Respiratory rate 16 /min 16 /min [facility] ( [facility] Body height 65 [in_i] 65 [in_i] [facility] ([facility] 5'5" Body weight 163.00 [lb_av] 163.00 [lb_av] [facility] ([facility] [place] body weight 136 [lb_av] 136 [lb_av] [facility] ([facility] Body mass index (BMI) [Ratio] 27.1 kg/m2 27.1 k g/m2 [facility] ([facility] Oxygen saturation in Arterial blood by Pulse oximetry 96 % 96 % [facility] ([facility] ID Date Data Source [id number] 02/23/2021 12:53:06 PM EDT [facility] Name Value Range Interpretation Code Description Data Source(s) WEIGHT RECORDED 0.37 pounds 000.37 pounds [facility] Height 65 Inches 065 Inches [facility] Patient Treatment Plan of Care Planned Activity Planned Date Details Description Data Source (s) 24 HR metoprolol succinate 25 MG Extended Release Oral Tablet 02/17/2021 12:00:[address] [facility] Aspirin 81 MG Chewable Tablet 02/17/2021 12:00:00 AM EDT [facility] clopidogrel 75 MG Oral Tablet 02/17/2021 12:00:00 AM EDT [facility] Nitroglycerin 0.4 MG Sublingual Tablet 02/16/2021 12:00:00 AM EDT [facility] atorvastatin 40 MG Oral Tablet 02/16/2021 12:00:00 AM EDT [facility] Albuterol 0.83 MG/ML Inhalant Solution 02/15/2021 08:39:53 AM EDT [facility] Nitroglycerin 0.4 MG Sublingual Tablet 02/14/2021 02:31:02 PM EDT [facility] Acetaminophen 325 MG Oral Tablet 02/14/2021 02:31:02 PM EDT [facility]
--- NOTE | 2021-03-01 16:51 | REP ---
INDICATION: CHEST PAIN. COMPARISON: 08/07/2019. TECHNIQUE: Single portable AP view of the chest was performed. FINDINGS: There is infiltrate/atelectasis in the left lung base. The right lung is clear. Heart is not significantly enlarged. The mediastinal silhouette is unchanged. IMPRESSION: Left lower lobe atelectasis/infiltrate. <Electronically signed by Bro Cervantes > 03/01/21 [id number]
[2021-03-01 16:53] LABS: BASO # 0.1 10^3/uL (0.0-0.2); BASO % 0.7 % (0.0-1.0); EOS # 0.3 10^3/uL (0.0-0.5); EOS % 2.1 % (0.0-3.0); HEMATOCRIT 44.3 % (42.0-52.0); LYMPH # 3.4 10^3/uL (1.5-5.0); LYMPH % 27.9 % (24.0-44.0); MEAN CORPUSCULAR HEMOGLOBIN 29.6 pg (27.0-33.0); MEAN CORPUSCULAR HGB CONC 33.9 g/dl (32.0-36.5); MEAN CORPUSCULAR VOLUME 87.4 fl (80.0-96.0); MONO # 1.1 10^3/uL (0.0-0.8); MONO % 8.9 % (2.0-8.0); NEUTROPHILS # 7.3 10^3/uL (1.5-8.5); NEUTROPHILS % 59.6 % (36.0-66.0); PLATELET COUNT, AUTOMATED 254 10^3/uL (150-450); RED BLOOD COUNT 5.07 10^6/uL (4.30-6.10); WHITE BLOOD COUNT 12.3 10^3/uL (4.0-10.0)
[2021-03-01 17:03] LABS: INR 1.04
[2021-03-01 17:17] LABS: ALBUMIN 4.2 GM/DL (3.2-5.2); ALT/SGPT 32 U/L (12-78); BILIRUBIN,DIRECT 0.1 MG/DL (0.0-0.2); BILIRUBIN,TOTAL 0.5 MG/DL (0.2-1.0); BLOOD UREA NITROGEN 16 MG/DL (7-18); CALCIUM LEVEL 9.6 MG/DL (8.5-10.1); CARBON DIOXIDE LEVEL 25 MEQ/L (21-32); CHLORIDE LEVEL 109 MEQ/L (98-107); CK-MB VALUE MASS 4.9 NG/ML (<3.6); CPK CREATINE PHOSPHOKINASE 246 U/L (39-308); CREATININE FOR GFR 1.14 MG/DL (0.70-1.30); GLOMERULAR FILTRATION RATE > 60.0 (>56); GLUCOSE, FASTING 85 MG/DL (70-100); LIPASE 267 U/L (73-393); MB/CK RELATIVE INDEX 1.99 (< OR =4); SODIUM LEVEL 140 MEQ/L (136-145); TOTAL PROTEIN 7.2 GM/DL (6.4-8.2); TROPONIN I 0.04 NG/ML (< 0.10)
[2021-03-01 17:18] LABS: PARTIAL THROMBOPLASTIN TIME 44.4 SECONDS (25.9-37.0)
[2021-03-01 17:50] VITALS: BP 141/83
[2021-03-01 18:26] LABS: RSV AMPLIFICATION NEGATIVE (NEGATIVE)
--- NOTE | 2021-03-02 08:06 | ECGEPIP ---
[facility] - ED Test Date: 2021-03-01 Pat Name: SUBHASH PARRY Department: Room: - Gender: Male Director Foundation: sharona : 1965 Requested By: Mateo Romano Order Number: [id number] Reading MD: Mateo Anthony Measurements Intervals Montara Rate: 66 P: 39 VT: 130 QRS: -12 QRSD: 88 T: -60 QT: 402 QTc: 421 Interpretive Statements Normal sinus rhythm Inferior infarct , age undetermined Electronically Signed on 03-02-2021 8:06:06 EDT by Mateo Anthony
--- NOTE | 2021-03-02 17:14 | ED PDOC ---
Post-Departure Follow-Up radiology repor tfaxed to Janine Collier MD Mar 02, 2021 17:14
== END 2021-03-01 18:01 | disposition home or self-care (01) ==
LOC: M ED 15:17
DX: R07.89 Other chest pain (principal); J98.11 Atelectasis; I25.2 Old myocardial infarction; Z95.5 Presence of coronary angioplasty implant and graft; I71.3 Abdominal aortic aneurysm, ruptured; I25.10 Atherosclerotic heart disease of native coronary artery without angina pectoris; K21.9 Gastro-esophageal reflux disease without esophagitis; J44.9 Chronic obstructive pulmonary disease, unspecified; Z87.01 Personal history of pneumonia (recurrent); F17.200 Nicotine dependence, unspecified, uncomplicated; Z79.82 Long term (current) use of aspirin; Z79.899 Other long term (current) drug therapy

== ENCOUNTER → 2021-03-30 | Outpatient (REF) | payer OTHER ==
[~2021-03-30] MED LIST changes: +PLAV1TAB2 PO; +TOPR25TA PO
== END ==
LOC: M LAB REF 12:30
PROVIDERS: ATTEND Otolaryngology
DX: D37.030 Neoplasm of uncertain behavior of the parotid salivary glands (principal); H60.01 Abscess of right external ear

== ENCOUNTER → 2023-11-24 | Outpatient (CLI) | payer MEDICARE, OTHER ==
[~2023-11-24] MED LIST changes: +ALBU2.5V10 INH; -ALBU83IN INH; -AMIT25TA17; -AMIT25TA17 PO; +AMIT25TA19; +AMIT25TA19 PO; -CEFD1CAP8 PO; +CEFD1CAP9 PO; +CLOP75TA99 PO; -DOXY150C PO; +DOXY150C5 PO; -HYDR-3911 PO; +HYDR50TA46 PO; +LEVO1TAB40; +LEVO1TAB40 PO; -LEVO750T13; -LEVO750T13 PO; -MONT10TA10 PO; +MONT10TA97 PO; -PLAV1TAB2 PO
== END ==
LOC: M RAD 13:32
PROVIDERS: ATTEND Internal Medicine
DX: Z12.2 Encounter for screening for malignant neoplasm of respiratory organs (principal); F17.210 Nicotine dependence, cigarettes, uncomplicated; I70.0 Atherosclerosis of aorta; I25.10 Atherosclerotic heart disease of native coronary artery without angina pectoris; J98.4 Other disorders of lung